=== PATIENT | female | born 1945 | race Caucasian/White ===

== ENCOUNTER 2016-10-31 05:43 | Outpatient (CLI) | payer MEDICARE ==
[~2016-10-31] VITALS: Ht 155.6 cm; Wt 54.9 kg
[2016-11-03] MEDS ORDERED: PANT40TA3 PO ×2 (08:50)
[2016-11-03] MEDS ORDERED: LEVO50TA6 PO ×2 (08:50)
[2016-11-03] MEDS ORDERED: AMLO5TAB2 PO ×2 (08:51)
[2016-11-03] MEDS ORDERED: VALS160T28 PO ×2 (08:51)
[2016-11-03] MEDS ORDERED: LORA-714 PO ×2 (09:02)
[2016-11-03] MEDS ORDERED: CLOR7.5T3 PO ×2 (09:02)
[2016-11-03] MEDS ORDERED: CA C1TAB79 PO ×2 (09:02)
[2016-11-03] MEDS ORDERED: ATEN50TA PO ×2 (09:02)
[2016-11-03] MEDS ORDERED: MULT1CAP27 PO ×2 (09:02)
[2016-11-03] MEDS ORDERED: ATOR20TA66 PO ×2 (09:02)
[2016-11-03] MEDS ORDERED: FISH1CAP15 PO ×2 (09:02)
[2016-11-03] MEDS ORDERED: GLUC-116 PO ×2 (09:02)
[2016-11-03] MEDS ORDERED: ASPI-586 PO ×2 (09:02)
[2016-11-03] MEDS ORDERED: ONDA4TAB11 PO ×2 (09:02)
[2016-11-03] MEDS ORDERED: CHOL10003 PO ×2 (09:02)
[2016-11-03] MEDS ORDERED: CLOP75TA28 PO ×2 (09:02)
== END 2016-11-01 10:32 ==
LOC: PREOP 05:43
PROVIDERS: ATTEND Surgery
DX: R19.5 Other fecal abnormalities; K21.9 Gastro-esophageal reflux disease without esophagitis; Z01.818 Encounter for other preprocedural examination

== ENCOUNTER 2016-11-03 08:08 | Day surgery (SDC) | payer MEDICARE, BC ==
[~2016-11-03] VITALS: Ht 155.6 cm; Wt 54.9 kg
--- OUTSIDE RECORDS SUMMARY | 2016-11-03 08:15 | XMS REPORT ---
Author Author Precious Carmona Organization [facility] Address [address] [place], [place] [id number] Care Team Providers Care Dock Hand Name Role Phone Precious Carmona PCP Allergies and Adverse Reactions Name Reaction Notes NO KNOWN DRUG ALLERGIES Plan of Treatment Planned Activity Comments Planned Date Planned Time Plan/Goal COMPLETE CBC W/AUTO DIFF WBC 10/21/2015 12:00 AM COMPREHEN METABOLIC PANEL 10/21/2015 12:00 AM VITAMIN D 25 HYDROXY 10/21/2015 12:00 AM COMPLETE CBC W/AUTO DIFF WBC 02/04/2016 12:00 AM COMPREHEN METABOLIC PANEL 02/04/2016 12:00 AM ASSAY THYROID STIM HORMONE 02/04/2016 12:00 AM LIPID PANEL 02/04/2016 12:00 AM LIPID PANEL 12/07/2011 12:00 AM COMPREHEN METABOLIC PANEL 10/01/2012 12:00 AM LIPID PANEL 10/01/2012 12:00 AM ASSAY THYROID STIM HORMONE 10/01/2012 12:00 AM COMPLETE CBC W/AUTO DIFF WBC 10/01/2012 12:00 AM COMPREHEN METABOLIC PANEL 04/17/2012 12:00 AM LIPID PANEL 04/17/2012 12:00 AM ASSAY THYROID STIM HORMONE 04/17/2012 12:00 AM COMPLETE CBC W/AUTO DIFF WBC 04/17/2012 12:00 AM MAMMOGRAM SCREENING 10/15/2014 12:00 AM Medications Active Name Start Date Estimated Completion Date SIG Comments aspirin 81 mg oral tablet,delayed release (DR/EC) take 1 tablet (81 mg) by oral route once daily Vitamin D3 1,000 unit oral capsule take 1 capsule by oral route daily famotidine 20 mg oral tablet 12/18/2014 TAKE ONE TABLET BY MOUTH TWICE DAILY valsartan 160 mg oral tablet 06/04/2015 TAKE ONE TABLET BY MOUTH ONCE DAILY amlodipine 5 mg oral tablet 06/04/2015 TAKE ONE TABLET BY MOUTH ONCE DAILY Allergy Relief (loratadine) 10 mg oral tablet 06/18/2015 TAKE ONE TABLET BY MOUTH ONCE DAILY triamcinolone acetonide 0.1 % topical cream 07/06/2015 APPLY A THIN LAYER OF CREAM EXTERNALLY TO AFFECTED AREA TWICE DAILY FOR 14 DAYS amlodipine 5 mg oral tablet 09/04/2015 TAKE ONE TABLET BY MOUTH ONCE DAILY Allergy Relief (loratadine) 10 mg oral tablet 09/04/2015 TAKE ONE TABLET BY MOUTH ONCE DAILY valsartan 160 mg oral tablet 09/04/2015 TAKE ONE TABLET BY MOUTH ONCE DAILY pantoprazole 40 mg oral tablet,delayed release (DR/EC) 02/04/2016 01/29/2017 take 1 tablet (40 mg) by oral route once daily for 90 days amlodipine 5 mg oral tablet 02/04/2016 01/29/2017 TAKE ONE TABLET BY MOUTH ONCE DAILY for 90 days atenolol 50 mg oral tablet 02/04/2016 01/29/2017 take 1 tablet (50 mg) by oral route once daily clorazepate dipotassium 7.5 mg oral tablet 02/04/2016 04/04/2016 take 1/2 to1 tablet PO up to three times per day for situational anxiety levothyroxine 50 mcg oral tablet 02/04/2016 01/29/2017 TAKE ONE TABLET BY MOUTH ONCE DAILY for 90 days Lipitor 20 mg oral tablet 02/04/2016 07/28/2017 take 1 tablet (20 mg) by oral route once daily loratadine 10 mg oral tablet 02/04/2016 01/29/2017 TAKE 1 TABLET BY MOUTH EVERY DAY IN THE EVENING Plavix 75 mg oral tablet 02/04/2016 07/28/2017 take 1 tablet (75 mg) by oral route once daily valsartan 160 mg oral tablet 02/04/2016 01/29/2017 TAKE ONE TABLET BY MOUTH ONCE DAILY for 90 days Zofran (as hydrochloride) 4 mg oral tablet 02/04/2016 02/18/2016 take 1 tablet by oral route daily as needed for 14 days Name Start Date Expiration Date SIG Comments prednisone 20 mg oral tablet 07/29/2010 08/03/2010 take 2 tablets by oral route daily for 5 days calcium carbonate-vitamin D2 600-125 mg-unit oral tablet 12/07/2011 01/06/2012 take 2 tablets by oral route daily Byron 3 Fish Oil 900-1,400 mg oral capsule,delayed release(DR/EC) 12/07/2011 take 1 capsule by oral route daily multivitamin Oral tablet 12/07/2011 01/06/2012 take 1 tablet by oral route daily triamcinolone acetonide 0.1 % topical cream 01/18/2013 01/28/2013 APPLY A THIN LAYER TO THE AFFECTED AREA(S) BY TOPICAL ROUTE TWICE A DAY famotidine 20 mg oral tablet 05/20/2013 11/16/2013 take 1 tablet (20 mg) by oral route 2 times per day amoxicillin 500 mg oral capsule 10/04/2013 10/14/2013 take 1 capsule (500 mg) by oral route 3 times per day for 10 days Zithromax Z-Robert 250 mg oral tablet 01/23/2014 01/28/2014 take 2 tablets (500 mg) by oral route once daily for 1 day then 1 tablet (250 mg) by oral route once daily for 4 days acyclovir 800 mg oral tablet 01/26/2014 02/02/2014 take 1 tablet (800 mg) by oral route 5 times per day for 7 days gabapentin 300 mg oral capsule 01/30/2014 02/27/2014 take 1 capsule (300 mg) by oral route 3 times per day for 14 days Carafate 100 mg/mL oral suspension 04/12/2014 05/10/2014 take 10 milliliters (1 gram) by oral route 4 times per day on an empty stomach 1 hour before meals and at bedtime for 4 weeks amlodipine 5 mg oral tablet 04/30/2014 04/25/2015 TAKE ONE TABLET BY MOUTH EVERY DAY levothyroxine 50 mcg oral tablet 04/30/2014 04/25/2015 TAKE ONE TABLET BY MOUTH EVERY DAY Diovan 160 mg oral tablet 06/13/2014 06/08/2015 TAKE ONE TABLET BY MOUTH EVERY DAY for 90 days triamcinolone acetonide 0.1 % topical cream 10/15/2014 10/29/2014 apply a thin layer to the affected area(s) by topical route 2 times per day for 14 days fluconazole 150 mg oral tablet 10/15/2014 10/16/2014 take 1 tablet (150 mg) by oral route once for 1 day Discontinued Name Start Date Discontinued Date SIG Comments Lipitor 40 mg oral tablet 04/06/2009 1/2 TAB DAILY ramipril 5 mg oral capsule 04/06/2009 take 1 capsule (5 mg) by oral route once daily lovastatin 20 mg oral tablet 04/06/2009 04/05/2011 take 1 tablet (20 mg) by oral route once daily with evening meal propranolol 20 mg oral tablet 08/26/2009 08/17/2010 take 1 tablet by oral route 2 times a day Fosamax 70 mg oral tablet 09/17/2009 09/06/2010 take 1 tablet (70 mg) by oral route once weekly in the morning, at least 30 minutes before the first food, beverage, or medication of the day lisinopril 40 mg oral tablet 03/15/2010 08/01/2010 take 2 tablets by oral route daily Zoloft 50 mg oral tablet 08/09/2010 09/06/2010 take 1 tablet (50 mg) by oral route once daily promethazine 25 mg oral tablet 08/17/2010 09/06/2010 take 1 tablet by oral route every 6 hours as needed Diovan HCT 160-12.5 mg oral tablet 09/06/2010 09/29/2010 take 1 tablet by oral route once daily for 30 days Diflucan 150 mg oral tablet 10/03/2011 take 1 tablet (150 mg) by oral route once for 1 day Diflucan 150 mg oral tablet 11/18/2011 12/07/2011 take 1 tablet (150 mg) by oral route once Vitamin B-12 1,000 mcg oral tablet 12/07/2011 04/12/2014 take 1 tablet by oral route daily Premarin 0.625 mg/gram vaginal cream 02/20/2012 10/01/2012 use 1 gram daily for a week then 1 gram twice a week Medrol (Robert) 4 mg oral tablets,dose pack 06/12/2012 10/01/2012 take as directed aspirin 325 mg oral tablet 05/20/2013 04/12/2014 take 1 tablet (325 mg) by oral route once daily Medrol (Robert) 4 mg oral tablets,dose pack 10/04/2013 01/23/2014 take as directed Tetracaine Lollipops Lollipop 04/27/2014 10/15/2014 Use as directed Zoloft 50 mg oral tablet 10/28/2015 10/30/2015 take 1 tablet (50 mg) by oral route once daily for 90 days Zoloft 50 mg oral tablet 10/28/2015 10/30/2015 take 1 tablet (50 mg) by oral route once daily for 90 days Pt refuses to take... Problem List Description Status Onset Hyperlipidemia Active acid reflux Active Hypertension Active hypothyroid Active Vital Signs Date Time BP-Sys(mm[Hg] BP-Rhianna(mm[Hg]) HR(bpm) RR(rpm) Temp WT HT HC BMI BSA BMI Percentile O2 Sat(%) 02/04/2016 2:26:00 PM 128 mmHg 78 mmHg 77 bpm 16 rpm 98.4 F 139.25 lbs 61 in 26.31 kg/m2 1.65 m2 100 % 10/21/2015 8:29:00 AM 122 mmHg 70 mmHg 72 bpm 16 rpm 97.8 F 137.125 lbs 61 in 25.9093 kg/m 1.6361 m 100 % 10/15/2014 9:33:00 AM 120 mmHg 68 mmHg 73 bpm 98.7 F 144.375 lbs 61 in 27.28 kg/m2 1.68 m2 99 % 04/30/2014 9:05:00 AM 110 mmHg 75 mmHg 85 bpm 16 rpm 96.7 F 144.375 lbs 61 in 27.2791 kg/m 1.6788 m 99 % 04/27/2014 1:05:00 PM 108 mmHg 62 mmHg 78 bpm 18 rpm 96.9 F 142.375 lbs 61 in 26.90 kg/m2 1.67 m2 100 % 04/12/2014 9:31:00 AM 126 mmHg 66 mmHg 79 bpm 18 rpm 98.7 F 149 lbs 61 in 28.153 kg/m 1.7055 m 98 % 01/27/2014 9:02:00 AM 110 mmHg 74 mmHg 94 bpm 18 rpm 98.1 F 145.4 lbs 61 in 27.47 kg/m2 1.68 m2 97 % 01/23/2014 9:14:00 AM 124 mmHg 74 mmHg 79 bpm 18 rpm 98 F 147.25 lbs 61 in 27.8224 kg/m 1.6955 m 98 % 10/04/2013 9:22:00 AM 124 mmHg 76 mmHg 89 bpm 18 rpm 98.1 F 148 lbs 61 in 27.96 kg/m2 1.70 m2 100 % 09/30/2013 8:27:00 AM 118 mmHg 65 mmHg 74 bpm 16 rpm 97.7 F 148 lbs 61 in 27.9641 kg/m 1.6998 m 99 % 05/20/2013 9:48:00 AM 125 mmHg 70 mmHg 93 bpm 18 rpm 96.7 F 156 lbs 61 in 29.48 kg/m2 1.75 m2 100 % 04/01/2013 8:35:00 AM 122 mmHg 74 mmHg 84 bpm 16 rpm 97.9 F 155.375 lbs 99 % 10/01/2012 8:30:00 AM 130 mmHg 82 mmHg 79 bpm 16 rpm 97.9 F 161 lbs 98 % 06/12/2012 8:50:00 AM 124 mmHg 68 mmHg 66 bpm 18 rpm 97.6 F 157.5 lbs 61 in 29.7591 kg/m 1.7535 m 04/12/2012 1:46:00 PM 120 mmHg 72 mmHg 75 bpm 16 rpm 97.6 F 156.125 lbs 98 % 04/02/2012 8:32:00 AM 122 mmHg 82 mmHg 70 bpm 16 rpm 97.3 F 157 lbs 99 % 12/07/2011 9:00:00 AM 130 mmHg 76 mmHg 86 bpm 16 rpm 97.4 F 159 lbs 100 % 11/18/2011 11:02:00 AM 128 mmHg 64 mmHg 66 bpm 18 rpm 97.4 F 162.125 lbs 61 in 30.6329 kg/m 1.7791 m 10/03/2011 8:45:00 AM 130 mmHg 70 mmHg 82 bpm 16 rpm 98.2 F 160.125 lbs 100 % 06/08/2011 9:29:00 AM 122 mmHg 80 mmHg 86 bpm 16 rpm 97.4 F 159.375 lbs 61 in 30.1133 kg/m 1.7639 m 99 % 05/16/2011 9:41:00 AM 132 mmHg 74 mmHg 66 bpm 18 rpm 98.4 F 160.375 lbs 61 in 30.30 kg/m2 1.77 m2 04/05/2011 10:08:00 AM 134 mmHg 82 mmHg 80 bpm 16 rpm 98 F 160 lbs 61 in 30.2314 kg/m 1.7674 m 99 % 01/20/2011 3:56:00 PM 130 mmHg 80 mmHg 01/03/2011 8:55:00 AM 130 mmHg 74 mmHg 88 bpm 16 rpm 98.2 F 158.25 lbs 98 % 09/27/2010 8:54:00 AM 136 mmHg 82 mmHg 102 bpm 16 rpm 98.1 F 153.5 lbs 99 % 09/06/2010 8:49:00 AM 122 mmHg 88 mmHg 88 bpm 16 rpm 98.6 F 152.25 lbs 99 % 08/17/2010 10:02:00 AM 140 mmHg 82 mmHg 96 bpm 20 rpm 98.8 F 100 % 08/12/2010 9:14:00 AM 156 mmHg 98 mmHg 110 bpm 24 rpm 98.5 F 153 lbs 100 % 08/09/2010 8:50:00 AM 160 mmHg 84 mmHg 100 bpm 16 rpm 98.7 F 155 lbs 100 % 07/29/2010 1:25:00 PM 152 mmHg 100 mmHg 82 bpm 16 rpm 97.2 F 156.375 lbs 100 % 07/29/2010 9:55:00 AM 144 mmHg 90 mmHg 03/17/2010 9:24:00 AM 138 mmHg 84 mmHg 03/15/2010 8:58:00 AM 160 mmHg 94 mmHg 03/15/2010 8:33:00 AM 142 mmHg 90 mmHg 100 bpm 16 rpm 98.1 F 158.375 lbs 08/26/2009 9:24:00 AM 160 mmHg 102 mmHg 88 bpm 18 rpm 99 F 157.125 lbs 62 in 28.74 kg/m2 1.7657 m 07/10/2009 11:01:00 AM 140 mmHg 90 mmHg 04/06/2009 10:08:00 AM 142 mmHg 86 mmHg 72 bpm 16 rpm 98.1 F 154.125 lbs 61 in 29.12 kg/m2 1.73 m2 Social History Name Description Comments Children lives alone [employer] Tobacco Never smoker History of Procedures Date Ordered Description Order Status 12/20/2010 12:00 AM COMPREHEN METABOLIC PANEL Reviewed 12/20/2010 12:00 AM ASSAY THYROID STIM HORMONE Reviewed 01/03/2011 12:00 AM COMPREHEN METABOLIC PANEL Reviewed 01/03/2011 12:00 AM LIPID PANEL Reviewed 01/03/2011 12:00 AM ASSAY THYROID STIM HORMONE Reviewed 01/03/2011 12:00 AM COMPLETE CBC W/AUTO DIFF WBC Reviewed 03/05/2015 12:00 AM COMPLETE CBC W/AUTO DIFF WBC Returned 03/05/2015 12:00 AM COMPREHEN METABOLIC PANEL Returned 03/05/2015 12:00 AM LIPID PANEL Returned 03/05/2015 12:00 AM ASSAY THYROID STIM HORMONE Returned 01/20/2011 12:00 AM COMPREHEN METABOLIC PANEL Reviewed 03/31/2011 12:00 AM COMPREHEN METABOLIC PANEL Reviewed 03/31/2011 12:00 AM LIPID PANEL Reviewed 03/31/2011 12:00 AM ASSAY THYROID STIM HORMONE Reviewed 02/18/2011 12:00 AM Immunization administration, Medicare flu Reviewed 02/18/2011 12:00 AM Fluzone MEDICARE Only Reviewed 06/11/2009 11:24 AM NO CHARGE OV Reviewed 06/11/2009 11:26 AM NO CHARGE OV Reviewed 04/05/2011 12:00 AM COMPREHEN METABOLIC PANEL Reviewed 04/05/2011 12:00 AM LIPID PANEL Reviewed 04/05/2011 12:00 AM ASSAY THYROID STIM HORMONE Reviewed 04/05/2011 12:00 AM COMPLETE CBC W/AUTO DIFF WBC Reviewed 04/05/2011 12:00 AM Wrist Support Reviewed 10/21/2015 12:00 AM Screening mammography, bilateral Returned 10/21/2015 12:00 AM DXA BONE DENSITY AXIAL Returned 10/21/2015 12:00 AM TETANUS VACCINE IM Reviewed 10/21/2015 12:00 AM HEP B VACC ADULT 3 DOSE IM Reviewed 05/16/2011 12:00 AM TISSUE EXAM FOR FUNGI Returned 05/16/2011 12:00 AM SMEAR WET [place]OUNT SALINE/INK Returned 11/20/2015 12:00 AM TETANUS VACCINE IM Reviewed 11/20/2015 12:00 AM HEP B VACC ADULT 3 DOSE IM Reviewed 06/08/2011 12:00 AM THER/PROPH/DIAG INJ SC/IM Reviewed 06/08/2011 12:00 AM Bicillin CR [facility]#[id number][facility] [facility] Reviewed 06/08/2011 12:00 AM Depo-Medrol 40 mg [facility]#[id number] Reviewed 12/07/2011 12:00 AM COMPREHEN METABOLIC PANEL Reviewed 12/07/2011 12:00 AM ASSAY THYROID STIM HORMONE Reviewed 12/07/2011 12:00 AM COMPLETE CBC W/AUTO DIFF WBC Returned 12/07/2011 12:00 AM Wrist Support Reviewed 02/20/2012 12:00 AM Flu Injection 3 Years And Above [facility]# [address]-86 [facility] Reviewed 04/02/2012 12:00 AM IMMUNIZATION ADMIN Reviewed 04/02/2012 12:00 AM Pneumovax Injection - [facility] Reviewed 04/12/2012 12:00 AM TRICHOMONAS ASSAY W/OPTIC Returned 06/12/2012 12:00 AM THER/PROPH/DIAG INJ SC/IM Reviewed 06/12/2012 12:00 AM Bicillin CR, 1.2 million units [facility]# 09684-239-53 Reviewed 09/27/2012 12:00 AM COMPREHEN METABOLIC PANEL Returned 09/27/2012 12:00 AM LIPID PANEL Returned 09/27/2012 12:00 AM COMPLETE CBC W/AUTO DIFF WBC Returned 09/27/2012 12:00 AM ASSAY THYROID STIM HORMONE Returned 10/01/2012 12:00 AM MAMMOGRAM SCREENING Returned 10/01/2012 12:00 AM CYTOPATH C/V MANUAL Returned 04/02/2013 12:00 AM LIPID PANEL Returned 04/02/2013 12:00 AM ASSAY THYROID STIM HORMONE Returned 04/02/2013 12:00 AM COMPLETE CBC W/AUTO DIFF WBC Returned 04/02/2013 12:00 AM COMPREHEN METABOLIC PANEL Returned 08/26/2009 12:00 AM CYTOPATH C/V MANUAL Reviewed 08/26/2009 12:00 AM SMEAR WET MOUNT SALINE/INK Reviewed 08/26/2009 12:00 AM LIPID PANEL Reviewed 08/26/2009 12:00 AM ASSAY THYROID STIM HORMONE Reviewed 08/26/2009 12:00 AM COMPLETE CBC W/AUTO DIFF WBC Reviewed 08/26/2009 12:00 AM COMPREHEN METABOLIC PANEL Reviewed 02/18/2013 12:00 AM Flu Injection 3 Years And Above [facility]# [address]-47 [facility] Reviewed 09/09/2009 8:48 AM Blood Pressure Check-no charge Reviewed 09/15/2009 12:00 AM Blood Pressure Check-no charge Reviewed 05/20/2013 12:00 AM METABOLIC PANEL TOTAL CA Reviewed 05/20/2013 12:00 AM ASSAY THYROID STIM HORMONE Reviewed 05/20/2013 12:00 AM ASSAY OF FREE THYROXINE Reviewed 09/30/2013 12:00 AM MAMMOGRAM SCREENING Returned 09/30/2013 12:[address] BONE DENSITY AXIAL Returned 09/30/2013 12:00 AM COMPLETE CBC W/AUTO DIFF WBC Returned 09/30/2013 12:00 AM COMPREHEN METABOLIC PANEL Returned 09/30/2013 12:00 AM LIPID PANEL Returned 09/30/2013 12:00 AM ASSAY THYROID STIM HORMONE Returned 02/10/2010 12:00 AM IMMUNIZATION ADMIN Reviewed 02/10/2010 12:00 AM FLU VACCINE 3 YRS & > IM Reviewed 03/15/2010 12:00 AM COMPREHEN METABOLIC PANEL Reviewed 03/15/2010 12:00 AM LIPID PANEL Reviewed 03/15/2010 12:00 AM ASSAY THYROID STIM HORMONE Reviewed 03/15/2010 12:00 AM COMPLETE CBC W/AUTO DIFF WBC Reviewed 03/17/2010 12:00 AM Blood Pressure Check-no charge Reviewed 01/23/2014 12:00 AM THER/PROPH/DIAG INJ SC/IM Reviewed 01/23/2014 12:00 AM Kenalog, Per 10 Mg [facility]#[id number] Reviewed 03/19/2014 12:00 AM COMPLETE CBC W/AUTO DIFF WBC Returned 03/19/2014 12:00 AM COMPREHEN METABOLIC PANEL Returned 03/19/2014 12:00 AM LIPID PANEL Returned 03/19/2014 12:00 AM ASSAY THYROID STIM HORMONE Returned 04/27/2014 12:00 AM Rocephin 1 gram [facility]#[id number] Reviewed 04/27/2014 12:00 AM THER/PROPH/DIAG INJ SC/IM Reviewed 07/29/2010 12:00 AM COMPREHEN METABOLIC PANEL Reviewed 07/29/2010 12:00 AM LIPID PANEL Reviewed 07/29/2010 12:00 AM ASSAY THYROID STIM HORMONE Reviewed 07/29/2010 12:00 AM COMPLETE CBC W/AUTO DIFF WBC Reviewed 08/09/2010 12:00 AM METABOLIC PANEL TOTAL CA Reviewed 08/12/2010 12:00 AM COMPREHEN METABOLIC PANEL Reviewed 08/12/2010 12:00 AM ASSAY THYROID STIM HORMONE Reviewed 08/12/2010 12:00 AM COMPLETE CBC W/AUTO DIFF WBC Reviewed 08/12/2010 12:00 AM ASSAY OF LIPASE Reviewed 08/12/2010 12:00 AM THER/PROPH/DIAG INJ SC/IM Reviewed 08/12/2010 12:00 AM Phenergan 50 Mg Im [place] Reviewed 08/13/2010 12:00 AM METABOLIC PANEL TOTAL CA Reviewed 08/12/2010 12:00 AM THER/PROPH/DIAG INJ SC/IM Reviewed 08/12/2010 12:00 AM Phenergan 25 Mg Im [place] Reviewed 08/13/2010 12:00 AM METABOLIC PANEL TOTAL CA Reviewed 08/13/2010 12:00 AM ASSAY THYROID STIM HORMONE Reviewed 08/17/2010 12:00 AM THER/PROPH/DIAG INJ SC/IM Reviewed 08/17/2010 12:00 AM Phenergan 50 Mg Im [place] Reviewed 08/27/2010 12:00 AM ASSAY OF SERUM SODIUM Reviewed 09/06/2010 12:00 AM ASSAY OF SERUM SODIUM Reviewed 09/27/2010 12:00 AM CYTOPATH C/V MANUAL Reviewed 09/27/2010 12:00 AM ASSAY THYROID STIM HORMONE Reviewed 09/25/2014 12:00 AM COMPLETE CBC W/AUTO DIFF WBC Returned 09/25/2014 12:00 AM COMPREHEN METABOLIC PANEL Returned 09/25/2014 12:00 AM LIPID PANEL Returned 09/25/2014 12:00 AM ASSAY THYROID STIM HORMONE Returned 10/17/2014 12:00 AM MAMMOGRAM SCREENING Returned 10/15/2014 12:00 AM CYTOPATH TBS C/V MANUAL Returned Results Summary Data and Description Results 08/26/2009 9:25 AM Colonoscopy-Women and Men over 50 Abnormal Mammogram -Women over 40 Declined Pap Smear Declined 08/26/2009 10:41 AM WET PREP NO TRICHOMONADS SEEN 08/27/2009 8:15 AM TRIGLYCERIDES 174.0 mg/dLCHOLESTEROL 175.0 mg/dLHDL 58.0 mg/ dLLDL (CALC) 82.0 mg/dLTSH 0.790 uIU/mLGLUCOSE 95.0 mg/dLSODIUM 136.0 mmol/ LPOTASSIUM 4.50 mmol/LCHLORIDE 99.0 mmol/LCO2 26.0 mmol/LBUN 12.0 mg/ dLCREATININE 0.80 mg/dLSGOT/AST 32.0 IU/LSGPT/ALT 33.0 IU/LALK PHOS 103.0 IU/ LTOTAL PROTEIN 7.60 g/dLALBUMIN 4.60 g/dLTOTAL BILI 0.60 mg/dLCALCIUM 9.80 mg/ dLeGFR >60 mL/min/1.73 m2WBC 5.3 RBC 4.13 HGB 13.10 g/dLHCT 39.20 %MCV 95.0 fLMCH 31.70 pgMCHC 33.40 g/dLRDW CV 12.70 %MPV 9.80 fLPLT 257 %NEUT 57.90 %% LYMP 26.50 %%MONO 11.60 %%EOS 3.20 %%BASO 0.80 %#NEUT 3.04 #LYMP 1.39 #MONO 0.61 #EOS 0.17 #BASO 0.04 04/07/2010 8:30 AM TRIGLYCERIDES 157.0 mg/dLCHOLESTEROL 163.0 mg/dLHDL 56.0 mg /dLLDL (CALC) 76.0 mg/dLTSH 0.650 uIU/mLWBC 6.5 RBC 4.25 HGB 13.60 g/dLHCT 40.70 %MCV 96.0 fLMCH 32.0 pgMCHC 33.40 g/dLRDW CV 12.60 %MPV 9.90 fLPLT 313 % NEUT 61.80 %%LYMP 26.20 %%MONO 8.30 %%EOS 3.10 %%BASO 0.60 %#NEUT 4.00 #LYMP 1.70 #MONO 0.54 #EOS 0.20 #BASO 0.04 GLUCOSE 97.0 mg/dLSODIUM 136.0 mmol/ LPOTASSIUM 4.40 mmol/LCHLORIDE 101.0 mmol/LCO2 26.0 mmol/LBUN 10.0 mg/ dLCREATININE 0.80 mg/dLSGOT/AST 31.0 IU/LSGPT/ALT 34.0 IU/LALK PHOS 92.0 IU/ LTOTAL PROTEIN 8.10 g/dLALBUMIN 4.60 g/dLTOTAL BILI 0.40 mg/dLCALCIUM 10.0 mg/ dLeGFR >60 mL/min/1.73 m2 08/09/2010 9:45 AM GLUCOSE 91.0 mg/dLSODIUM 133.0 mmol/LPOTASSIUM 4.40 mmol/ LCHLORIDE 97.0 mmol/LCO2 24.0 mmol/LBUN 9.0 mg/dLCREATININE 0.70 mg/dLCALCIUM 10.0 mg/dLeGFR >60 mL/min/1.73 m2 08/12/2010 10:25 AM LIPASE 29.0 U/LTSH 0.10 uIU/mLGLUCOSE 115.0 mg/dLSODIUM 127.0 mmol/LPOTASSIUM 5.30 mmol/LCHLORIDE 93.0 mmol/LCO2 18.0 mmol/LBUN 9.0 mg/ dLCREATININE 0.70 mg/dLSGOT/AST 62.0 IU/LSGPT/ALT 46.0 IU/LALK PHOS 100.0 IU/ LTOTAL PROTEIN 8.60 g/dLALBUMIN 4.90 g/dLTOTAL BILI 0.60 mg/dLCALCIUM 9.90 mg/ dLeGFR >60 mL/min/1.73 m2WBC 6.9 RBC 4.48 HGB 14.40 g/dLHCT 40.90 %MCV 91.0 fLMCH 32.10 pgMCHC 35.20 g/dLRDW CV 12.50 %MPV 9.30 fLPLT 260 %NEUT 74.90 %% LYMP 15.10 %%MONO 9.40 %%EOS 0.30 %%BASO 0.30 %#NEUT 5.15 #LYMP 1.04 #MONO 0.65 #EOS 0.02 #BASO 0.02 08/13/2010 9:07 AM GLUCOSE 92.0 mg/dLSODIUM 131.0 mmol/LPOTASSIUM 4.20 mmol/ LCHLORIDE 99.0 mmol/LCO2 22.0 mmol/LBUN 9.0 mg/dLCREATININE 0.70 mg/dLCALCIUM 9.20 mg/dLeGFR >60 mL/min/1.73 m2 08/17/2010 11:06 AM TSH 0.510 uIU/mLGLUCOSE 99.0 mg/dLSODIUM 132.0 mmol/ LPOTASSIUM 3.50 mmol/LCHLORIDE 95.0 mmol/LCO2 23.0 mmol/LBUN 9.0 mg/ dLCREATININE 0.80 mg/dLCALCIUM 10.40 mg/dLeGFR >60 mL/min/1.73 m2 09/02/2010 9:45 AM SODIUM 132.0 mmol/L 09/06/2010 9:27 AM SODIUM 137.0 mmol/L 09/23/2010 8:35 AM TRIGLYCERIDES 114.0 mg/dLCHOLESTEROL 145.0 mg/dLHDL 56.0 mg/ dLLDL (CALC) 66.0 mg/dLGLUCOSE 105.0 mg/dLSODIUM 138.0 mmol/LPOTASSIUM 4.40 mmol /LCHLORIDE 103.0 mmol/LCO2 25.0 mmol/LBUN 8.0 mg/dLCREATININE 0.70 mg/dLSGOT/ AST 36.0 IU/LSGPT/ALT 38.0 IU/LALK PHOS 103.0 IU/LTOTAL PROTEIN 7.40 g/ dLALBUMIN 4.30 g/dLTOTAL BILI 0.30 mg/dLCALCIUM 9.20 mg/dLeGFR >60 mL/min/1.73 m2WBC 5.1 RBC 3.76 HGB 12.0 g/dLHCT 36.10 %MCV 96.0 fLMCH 31.90 pgMCHC 33.20 g/ dLRDW CV 13.10 %MPV 9.40 fLPLT 249 %NEUT 60.40 %%LYMP 25.90 %%MONO 8.90 %%EOS 4.0 %%BASO 0.80 %#NEUT 3.06 #LYMP 1.31 #MONO 0.45 #EOS 0.20 #BASO 0.04 09/27/2010 9:55 AM TSH 1.070 uIU/mL 12/30/2010 8:55 AM GLUCOSE 102.0 mg/dLSODIUM 135.0 mmol/LPOTASSIUM 4.20 mmol/ LCHLORIDE 102.0 mmol/LCO2 24.0 mmol/LBUN 15.0 mg/dLCREATININE 0.80 mg/dLSGOT/ AST 30.0 IU/LSGPT/ALT 35.0 IU/LALK PHOS 119.0 IU/LTOTAL PROTEIN 7.50 g/ dLALBUMIN 4.30 g/dLTOTAL BILI 0.30 mg/dLCALCIUM 9.20 mg/dLeGFR >60 mL/min/1.73 m2TSH 1.130 uIU/mL 01/20/2011 9:50 AM GLUCOSE 85.0 mg/dLSODIUM 133.0 mmol/LPOTASSIUM 4.20 mmol/ LCHLORIDE 101.0 mmol/LCO2 21.0 mmol/LBUN 13.0 mg/dLCREATININE 0.80 mg/dLSGOT/ AST 36.0 IU/LSGPT/ALT 36.0 IU/LALK PHOS 109.0 IU/LTOTAL PROTEIN 7.40 g/ dLALBUMIN 4.20 g/dLTOTAL BILI 0.50 mg/dLCALCIUM 9.40 mg/dLeGFR >60 mL/min/1.73 m2 03/31/2011 8:55 AM GLUCOSE 98.0 mg/dLSODIUM 137.0 mmol/LPOTASSIUM 3.90 mmol/ LCHLORIDE 103.0 mmol/LCO2 25.0 mmol/LBUN 14.0 mg/dLCREATININE 0.70 mg/dLSGOT/ AST 33.0 IU/LSGPT/ALT 36.0 IU/LALK PHOS 111.0 IU/LTOTAL PROTEIN 8.30 g/ dLALBUMIN 4.40 g/dLTOTAL BILI 0.50 mg/dLCALCIUM 9.40 mg/dLeGFR >60 mL/min/1.73 [id number] 109.0 mg/dLCHOLESTEROL 153.0 mg/dLHDL 54.0 mg/dLLDL (CALC) 77.0 mg/dLTSH 1.330 uIU/mL 04/05/2011 10:17 AM Colonoscopy-Women and Men over 50 Declined Mammogram - Women over 40 Normal Pap Smear Negative 05/16/2011 10:33 AM WET PREP NO TRICH SEEN CLUE CELLS NONE SEEN 09/26/2011 8:45 AM WBC 5.2 RBC 3.96 HGB 12.70 g/dLHCT 37.80 %MCV 96.0 fLMCH 32.10 pgMCHC 33.60 g/dLRDW CV 13.30 %MPV 9.70 fLPLT 297 %NEUT 57.70 %%LYMP 28.50 %%MONO 10.30 %%EOS 2.50 %%BASO 1.0 %#NEUT 3.02 #LYMP 1.49 #MONO 0.54 #EOS 0.13 #BASO 0.05 GLUCOSE 97.0 mg/dLSODIUM 137.0 mmol/LPOTASSIUM 4.40 mmol/ LCHLORIDE 101.0 mmol/LCO2 23.0 mmol/LBUN 17.0 mg/dLCREATININE 0.80 mg/dLSGOT/ AST 30.0 IU/LSGPT/ALT 33.0 IU/LALK PHOS 95.0 IU/LTOTAL PROTEIN 7.40 g/dLALBUMIN 4.40 g/dLTOTAL BILI 0.60 mg/dLCALCIUM 9.70 mg/dLeGFR 60 TRIGLYCERIDES 130.0 mg/ dLCHOLESTEROL 157.0 mg/dLHDL 56.0 mg/dLLDL (CALC) 75.0 mg/dLTSH 0.940 uIU/mL 12/07/2011 4:02 PM WET PREP NO TRICH SEEN CLUE CELLS NONE SEEN 03/29/2012 8:45 AM WBC 5.1 RBC 3.91 HGB 12.50 g/dLHCT 36.30 %MCV 93.0 fLMCH 32.0 pgMCHC 34.40 g/dLRDW CV 12.60 %MPV 9.30 fLPLT 244 %NEUT 57.60 %%LYMP 27.50 %%MONO 9.10 %%EOS 5.0 %%BASO 0.80 %#NEUT 2.91 #LYMP 1.39 #MONO 0.46 #EOS 0.25 # BASO 0.04 TSH 1.390 uIU/mLTRIGLYCERIDES 154.0 mg/dLCHOLESTEROL 147.0 mg/dLHDL 45.0 mg/dLLDL (CALC) 71.0 mg/dLGLUCOSE 101.0 mg/dLSODIUM 134.0 mmol/LPOTASSIUM 4.30 mmol/LCHLORIDE 102.0 mmol/LCO2 23.0 mmol/LBUN 11.0 mg/dLCREATININE 0.80 mg/ dLSGOT/AST 34.0 IU/LSGPT/ALT 38.0 IU/LALK PHOS 104.0 IU/LTOTAL PROTEIN 7.60 g/ dLALBUMIN 4.40 g/dLTOTAL BILI 0.50 mg/dLCALCIUM 9.40 mg/dLeGFR 60 04/02/2012 8:34 AM Colonoscopy-Women and Men over 50 Declined Mammogram - Women over 40 Declined Pap Smear Declined 04/12/2012 5:02 PM WET PREP NO TRICH SEEN CLUE CELLS NONE SEEN 09/27/2012 8:25 AM WBC 4.2 RBC 3.96 HGB 12.90 g/dLHCT 37.0 %MCV 93.0 fLMCH 32.60 pgMCHC 34.90 g/dLRDW CV 12.60 %MPV 9.70 fLPLT 254 %NEUT 54.40 %%LYMP 30.40 %%MONO 10.80 %%EOS 3.40 %%BASO 1.0 %#NEUT 2.26 #LYMP 1.26 #MONO 0.45 #EOS 0.14 #BASO 0.04 TSH 1.230 uIU/mLGLUCOSE 94.0 mg/dLSODIUM 136.0 mmol/LPOTASSIUM 4.30 mmol/LCHLORIDE 99.0 mmol/LCO2 25.0 mmol/LBUN 10.0 mg/dLCREATININE 0.80 mg/ dLSGOT/AST 36.0 IU/LSGPT/ALT 36.0 IU/LALK PHOS 84.0 IU/LTOTAL PROTEIN 7.90 g/ dLALBUMIN 4.40 g/dLTOTAL BILI 0.70 mg/dLCALCIUM 9.80 mg/dLeGFR 60 TRIGLYCERIDES 122.0 mg/dLCHOLESTEROL 141.0 mg/dLHDL 47.0 mg/dLLDL (CALC) 70.0 mg/dL 10/01/2012 3:52 PM WET PREP NO TRICH SEEN CLUE CELLS NONE SEEN 03/28/2013 8:45 AM WBC 5.3 RBC 4.01 HGB 13.0 g/dLHCT 37.60 %MCV 94.0 fLMCH 32.40 pgMCHC 34.60 g/dLRDW CV 12.50 %MPV 9.40 fLPLT 248 %NEUT 58.70 %%LYMP 27.80 %%MONO 9.80 %%EOS 2.80 %%BASO 0.90 %#NEUT 3.12 #LYMP 1.48 #MONO 0.52 #EOS 0.15 #BASO 0.05 TSH 1.570 uIU/mLGLUCOSE 94.0 mg/dLSODIUM 134.0 mmol/LPOTASSIUM 4.10 mmol/LCHLORIDE 101.0 mmol/LCO2 23.0 mmol/LBUN 11.0 mg/dLCREATININE 0.80 mg/ dLSGOT/AST 41.0 IU/LSGPT/ALT 44.0 IU/LALK PHOS 109.0 IU/LTOTAL PROTEIN 7.90 g/ dLALBUMIN 4.70 g/dLTOTAL BILI 0.80 mg/dLCALCIUM 10.40 mg/dLeGFR >60 mL/min/1.73 [id number] 163.0 mg/dLCHOLESTEROL 138.0 mg/dLHDL 49.0 mg/dLLDL (CALC) 56.0 mg/dL 06/21/2013 8:58 AM GLUCOSE 86.0 mg/dLSODIUM 134.0 mmol/LPOTASSIUM 4.20 mmol/ LCHLORIDE 99.0 mmol/LCO2 25.0 mmol/LBUN 14.0 mg/dLCREATININE 0.80 mg/dLCALCIUM 10.10 mg/dLeGFR >60 mL/min/1.73 m2TSH 1.20 uIU/mL 09/30/2013 9:50 AM WBC 5.7 RBC 4.03 HGB 12.90 g/dLHCT 37.90 %MCV 94.0 fLMCH 32.0 pgMCHC 34.0 g/dLRDW CV 12.70 %MPV 9.70 fLPLT 292 %NEUT 62.70 %%LYMP 21.80 % %MONO 11.0 %%EOS 3.40 %%BASO 1.10 %#NEUT 3.55 #LYMP 1.23 #MONO 0.62 #EOS 0.19 # BASO 0.06 GLUCOSE 98.0 mg/dLSODIUM 135.0 mmol/LPOTASSIUM 4.30 mmol/LCHLORIDE 102.0 mmol/LCO2 22.0 mmol/LBUN 10.0 mg/dLCREATININE 0.80 mg/dLSGOT/AST 34.0 IU/ LSGPT/ALT 32.0 IU/LALK PHOS 95.0 IU/LTOTAL PROTEIN 7.70 g/dLALBUMIN 4.30 g/ dLTOTAL BILI 0.80 mg/dLCALCIUM 9.10 mg/dLeGFR 60 TRIGLYCERIDES 108.0 mg/ dLCHOLESTEROL 146.0 mg/dLHDL 56.0 mg/dLLDL (CALC) 68.0 mg/dLTSH 0.90 uIU/mL 03/19/2014 8:40 AM WBC 4.4 RBC 4.13 HGB 13.20 g/dLHCT 38.90 %MCV 94.0 fLMCH 32.0 pgMCHC 33.90 g/dLRDW CV 13.50 %MPV 9.80 fLPLT 279 %NEUT 63.80 %%LYMP 24.60 %%MONO 9.30 %%EOS 1.60 %%BASO 0.70 %#NEUT 2.80 #LYMP 1.08 #MONO 0.41 #EOS 0.07 # BASO 0.03 GLUCOSE 96.0 mg/dLSODIUM 136.0 mmol/LPOTASSIUM 4.10 mmol/LCHLORIDE 99.0 mmol/LCO2 23.0 mmol/LBUN 8.0 mg/dLCREATININE 0.80 mg/dLSGOT/AST 31.0 IU/ LSGPT/ALT 27.0 IU/LALK PHOS 85.0 IU/LTOTAL PROTEIN 7.60 g/dLALBUMIN 4.40 g/ dLTOTAL BILI 0.80 mg/dLCALCIUM 10.20 mg/dLeGFR 60 TRIGLYCERIDES 61.0 mg/ dLCHOLESTEROL 148.0 mg/dLHDL 71.0 mg/dLLDL (CALC) 65.0 mg/dLTSH 0.990 uIU/mL 09/25/2014 8:32 AM WBC 4.8 RBC 3.98 HGB 12.70 g/dLHCT 37.30 %MCV 94.0 fLMCH 31.90 pgMCHC 34.0 g/dLRDW CV 12.70 %MPV 9.50 fLPLT 270 %NEUT 57.30 %%LYMP 25.0 % %MONO 13.0 %%EOS 3.60 %%BASO 1.10 %#NEUT 2.73 #LYMP 1.19 #MONO 0.62 #EOS 0.17 # BASO 0.05 TSH 0.640 uIU/mLGLUCOSE 90.0 mg/dLSODIUM 136.0 mmol/LPOTASSIUM 4.0 mmol/LCHLORIDE 101.0 mmol/LCO2 24.0 mmol/LBUN 10.0 mg/dLCREATININE 0.80 mg/ dLSGOT/AST 34.0 IU/LSGPT/ALT 32.0 IU/LALK PHOS 92.0 IU/LTOTAL PROTEIN 7.50 g/ dLALBUMIN 4.40 g/dLTOTAL BILI 0.70 mg/dLCALCIUM 9.50 mg/dLeGFR >60 mL/min/1.73 [id number] 107.0 mg/dLCHOLESTEROL 138.0 mg/dLHDL 58.0 mg/dLLDL (CALC) 59.0 mg/dL 03/12/2015 8:31 AM WBC 4.6 RBC 3.97 HGB 12.90 g/dLHCT 38.0 %MCV 96.0 fLMCH 32.50 pgMCHC 33.90 g/dLRDW CV 12.60 %MPV 9.0 fLPLT 248 %NEUT 61.0 %%LYMP 24.70 % %MONO 10.20 %%EOS 3.0 %%BASO 1.10 %#NEUT 2.82 #LYMP 1.14 #MONO 0.47 #EOS 0.14 # BASO 0.05 TRIGLYCERIDES 105.0 mg/dLCHOLESTEROL 141.0 mg/dLHDL 58.0 mg/dLLDL ( CALC) 62.0 mg/dLGLUCOSE 93.0 mg/dLSODIUM 136.0 mmol/LPOTASSIUM 4.10 mmol/ LCHLORIDE 101.0 mmol/LCO2 25.0 mmol/LBUN 9.0 mg/dLCREATININE 0.80 mg/dLSGOT/AST 32.0 IU/LSGPT/ALT 28.0 IU/LALK PHOS 95.0 IU/LTOTAL PROTEIN 7.30 g/dLALBUMIN 4.50 g/dLTOTAL BILI 0.80 mg/dLCALCIUM 9.70 mg/dLeGFR >60 mL/min/1.73mTSH 1.10 uIU/mL History Of Immunizations Name Date Admin Mfg Name Mfg Code Trade Name Lot# Route Inj Vis Given Vis Pub CVX Influenza 02/10/2010 sanofi pasteur PMC Fluzone [id number] Intramuscular Left Arm 02/10/2010 11/29/2009 999 Influenza 02/18/2011 sanofi pasteur PMC Fluzone [id number] Intramuscular Left Arm 02/18/2011 11/17/2010 141 Influenza 02/20/2012 sanofi pasteur PMC Fluzone [id number] Intramuscular Left Deltoid 02/20/2012 10/24/2011 141 X 04/02/2012 [employer] MSD Pneumovax 23 [id number] Intramuscular Left Gluteous Medius 04/02/2012 08/07/2009 33 Influenza 02/18/2013 sanofi pasteur PMC Fluzone > 3 Years [id number] Intramuscular Right Deltoid 02/18/2013 11/16/2012 141 X 12/24/2014 Not Entered NE Prevnar 13 Not Entered Not Entered 201404/24/2017 109 Influenza 12/24/2014 Not Entered NE Not Entered Not Entered Not Entered 12/24/2014 04/24/2017 141 HepB Adult 10/21/2015 [employer] MSD Recombivax Adult [id number] Not Entered Left Deltoid 10/21/2015 11/11/2015 43 HepB Adult 11/20/2015 [employer] MSD Recombivax Adult [id number] Intramuscular Right Deltoid 11/20/2015 11/11/2015 43 Zostavax 04/06/2012 Not Entered NE Not Entered Not Entered Not Entered 04/24/2017 04/24/2017 121 Tdap 04/06/2012 Not Entered NE Not Entered Not Entered Not Entered 04/24/201704/24/2017 115 History of Past Illness Name Date of Onset Comments Benign Essential Hypertension Apr 06 2009 10:10AM Hyperlipidemia Apr 06 2009 10:10AM Hypothyroidism, Acquired Apr 06 2009 10:10AM hypothyroid Hypertension Hyperlipidemia acid reflux Hypertension, Benign Essential May 11 2009 9:41AM Hypertension, Benign Essential May 15 2009 12:53PM Routine gynecological examination Aug 26 2009 9:28AM Hypertension Aug 26 2009 9:28AM Hyperlipidemia, unspecified Aug 26 2009 9:28AM Hypothyroidism, Acquired Aug 26 2009 9:28AM Vulvovaginitis Aug 26 2009 9:28AM Rhinitis, Allergic Aug 26 2009 9:28AM Hypertension, Benign Essential Sep 09 2009 8:48AM Hypertension, Benign Essential Sep 15 2009 9:39AM Flu Feb 10 2010 12:01PM Essential Hypertension Mar 15 2010 8:34AM Hyperlipidemia Mar 15 2010 8:34AM Gastroesophageal Reflux Mar 15 2010 8:34AM Hypothyroidism, Acquired Mar 15 2010 8:34AM Hypertension, Benign Essential Mar 17 2010 9:22AM Hypertension, Benign Essential Apr 07 2010 9:07AM Essential Hypertension Jul 29 2010 1:31PM Hyperlipidemia Jul 29 2010 1:31PM Gastroesophageal Reflux Jul 29 2010 1:31PM Hypothyroidism, Acquired Jul 29 2010 1:31PM Essential Hypertension Aug 09 2010 8:51AM Hyperlipidemia Aug 09 2010 8:51AM Gastroesophageal Reflux Aug 09 2010 8:51AM Hypothyroidism, Acquired Aug 09 2010 8:51AM Essential Hypertension Aug 12 2010 9:13AM Hyperlipidemia Aug 12 2010 9:13AM Gastroesophageal Reflux Aug 12 2010 9:13AM Hypothyroidism, Acquired Aug 12 2010 9:13AM Nausea With Vomiting Aug 12 2010 1:18PM Hyponatremia Aug 13 2010 8:46AM Nausea Aug 12 2010 9:13AM Hypothyroidism Aug 13 2010 11:10AM Hyponatremia Aug 13 2010 11:10AM Essential Hypertension Aug 17 2010 10:05AM Hyperlipidemia Aug 17 2010 10:05AM Gastroesophageal Reflux Aug 17 2010 10:05AM Nausea Aug 17 2010 10:05AM Hypothyroidism, Acquired Aug 17 2010 10:05AM Hyponatremia Aug 27 2010 11:34AM Essential Hypertension Sep 06 2010 8:50AM Hyperlipidemia Sep 06 2010 8:50AM Gastroesophageal Reflux Sep 06 2010 8:50AM Nausea Sep 06 2010 8:50AM Hypothyroidism, Acquired Sep 06 2010 8:50AM Hyponatremia Sep 06 2010 8:50AM Routine gynecological examination Sep 27 2010 8:54AM Hypertension Sep 27 2010 8:54AM Hyperlipidemia, unspecified Sep 27 2010 8:54AM Hypothyroidism, Acquired Sep 27 2010 8:54AM Rhinitis, Allergic Sep 27 2010 8:54AM Hypothyroidism Dec 20 2010 12:37PM Hyponatremia Dec 20 2010 12:37PM Essential Hypertension Jan 03 2011 8:53AM Hyperlipidemia Jan 03 2011 8:53AM Gastroesophageal Reflux Jan 03 2011 8:53AM Hypothyroidism, Acquired Jan 03 2011 8:53AM Hyponatremia Jan 03 2011 8:53AM Hypertension Jan 20 2011 9:41AM Hyperlipidemia Mar 31 2011 8:31AM Hypothyroidism Mar 31 2011 8:31AM Hypertension Mar 31 2011 8:31AM Flu Apr 01 2011 10:02AM Essential Hypertension Apr 05 2011 10:13AM Hyperlipidemia Apr 05 2011 10:13AM Gastroesophageal Reflux Apr 05 2011 10:13AM Hypothyroidism, Acquired Apr 05 2011 10:13AM Hyponatremia Apr 05 2011 10:13AM Vaginal Discharge May 16 2011 9:43AM Rhinitis, Allergic Jun 08 2011 9:31AM Eustachian Tube Dysfunction Jun 08 2011 9:31AM Pharyngitis, Acute Jun 08 2011 9:31AM Routine gynecological examination Oct 03 2011 8:48AM Hypertension Oct 03 2011 8:48AM Hyperlipidemia, unspecified Oct 03 2011 8:48AM Hypothyroidism, Acquired Oct 03 2011 8:48AM Rhinitis, Allergic Oct 03 2011 8:48AM Candidiasis, Vulvovaginal Nov 18 2011 11:04AM Essential Hypertension Dec 07 2011 9:02AM Hyperlipidemia Dec 07 2011 9:02AM Gastroesophageal Reflux Dec 07 2011 9:02AM Hypothyroidism, Acquired Dec 07 2011 9:02AM Hyponatremia Dec 07 2011 9:02AM Atrophic Vaginitis, Postmenopausal Dec 07 2011 9:02AM Flu Feb 20 2012 9:24AM Essential Hypertension Apr 02 2012 8:35AM Hyperlipidemia Apr 02 2012 8:35AM Gastroesophageal Reflux Apr 02 2012 8:35AM Hypothyroidism, Acquired Apr 02 2012 8:35AM Hyponatremia Apr 02 2012 8:35AM Atrophic Vaginitis, Postmenopausal Apr 02 2012 8:35AM Pneumococcus Apr 02 2012 2:07PM Vaginal Discharge Apr 12 2012 1:50PM Essential Hypertension Apr 12 2012 1:50PM Hyperlipidemia Apr 12 2012 1:50PM Gastroesophageal Reflux Apr 12 2012 1:50PM Hypothyroidism, Acquired Apr 12 2012 1:50PM Atrophic Vaginitis, Postmenopausal Apr 12 2012 1:50PM Upper Respiratory Infections Jun 12 2012 8:52AM Hyperlipidemia Sep 27 2012 8:21AM Hypertension Sep 27 2012 8:21AM Hypothyroidism Sep 27 2012 8:21AM Screening Mammogram Oct 01 2012 8:45AM Routine gynecological examination Oct 01 2012 8:34AM Hypertension Oct 01 2012 8:34AM Hyperlipidemia, unspecified Oct 01 2012 8:34AM Hypothyroidism, Acquired Oct 01 2012 8:34AM Rhinitis, Allergic Oct 01 2012 8:34AM Flu Feb 18 2013 8:52AM Essential Hypertension Apr 01 2013 8:37AM Hyperlipidemia Apr 01 2013 8:37AM Gastroesophageal Reflux Apr 01 2013 8:37AM Hypothyroidism, Acquired Apr 01 2013 8:37AM Atrophic Vaginitis, Postmenopausal Apr 01 2013 8:37AM Hypertension May 20 2013 9:56AM Hyperlipidemia May 20 2013 9:56AM Hypothyroidism May 20 2013 9:56AM Screening Mammogram Sep 30 2013 8:32AM Osteopenia Sep 30 2013 8:32AM Hypertension Sep 30 2013 8:35AM Hypothyroidism, Acquired Sep 30 2013 8:35AM Hyperlipidemia Sep 30 2013 8:35AM Upper Respiratory Infections Oct 04 2013 9:28AM Sinusitis, Acute Jan 23 2014 9:17AM Herpes Zoster Jan 26 2014 1:44PM Vesicular Eruption Jan 26 2014 1:44PM Hypertension Mar 19 2014 8:18AM Hyperlipidemia Mar 19 2014 8:18AM hypothyroid Mar 19 2014 8:18AM Situational anxiety Apr 12 2014 9:33AM GERD (gastroesophageal reflux disease) Apr 12 2014 9:33AM Nausea Apr 12 2014 9:33AM Abdominal Pain, Epigastric Apr 12 2014 9:33AM Hyperlipidemia Jan 27 2014 9:03AM acid reflux Jan 27 2014 9:03AM hypothyroid Jan 27 2014 9:03AM Shingles Jan 27 2014 9:03AM Pharyngitis Apr 27 2014 1:09PM Bronchitis Apr 30 2014 9:10AM Hyperlipidemia Apr 30 2014 9:10AM acid reflux Apr 30 2014 9:10AM hypothyroid Apr 30 2014 9:10AM Hyperlipidemia Sep 25 2014 8:18AM Hypertension Sep 25 2014 8:18AM hypothyroid Sep 25 2014 8:18AM Screening Mammogram Oct 17 2014 11:43AM Medicare Annual Pap Q 2 years Oct 15 2014 9:36AM Screening Mammogram Oct 15 2014 9:36AM Candidiasis of female genitalia Oct 15 2014 9:36AM Hypertension Mar 05 2015 11:34AM Hyperlipidemia, unspecified Mar 05 2015 11:34AM Hypothyroidism, Acquired Mar 05 2015 11:34AM Osteopenia Oct 21 2015 8:41AM Encounter for screening mammogram for breast cancer Oct 21 2015 8:41AM Hypertension Oct 21 2015 8:34AM Lymphedema Oct 21 2015 8:34AM Hyperlipidemia Oct 21 2015 8:34AM hypothyroid Oct 21 2015 8:34AM HEP B Oct 21 2015 9:13AM HEP B Nov 20 2015 8:52AM Acid Reflux Oct 21 2015 8:34AM History of acute gastritis Feb 04 2016 2:30PM Anxiety as acute reaction to exceptional stress Feb 04 2016 2:30PM Payers Insurance Name Company Name Plan Name Plan Number Policy Number Policy Group Number Start Date Medicare Part A Medicare RHC [id number] N/A BCBS [facility] [id number] Tuesday, 2009 Medicare Part B Medicare Of [place] [id number] N/A Medicare Part A Medicare Part A [id number] N/A Medicare Part A [id number] P A - Preventive [id number] N/A Medicare Part A Medicare - Lab/Xray [id number] N/A History of Encounters Visit Date Visit Type Provider 02/04/2016 Office visit Precious Carmona MD 11/20/2015 Nurse visit Precious Carmona MD 10/21/2015 Office visit Precious Carmona MD 10/15/2014 Office visit Precious Carmona MD 04/30/2014 Office visit Precious Carmona MD 04/27/2014 Office visit Pj Guajardo FINANCIAL REPORTING ANALYST 04/12/2014 Office visit Gaby Randolph FINANCIAL REPORTING ANALYST 02/17/2014 Voided Precious Carmona MD 01/27/2014 Office visit Precious Carmona MD 01/26/2014 Office visit Gaby Randolph FINANCIAL REPORTING ANALYST 01/23/2014 Office visit 01/23/2014 Office visit Abbie Pedraza FINANCIAL REPORTING ANALYST 10/04/2013 Office visit Coco Sofia FINANCIAL REPORTING ANALYST 09/30/2013 Office visit Precious Carmona MD 05/20/2013 Office visit Precious Carmona MD 04/01/2013 Office visit Natty Webber MD 02/18/2013 Nurse visit Natty Webber MD 10/01/2012 Office visit Natty Webber MD 06/12/2012 Office visit Abbie Pedraza FINANCIAL REPORTING ANALYST 04/12/2012 Office visit Natty Webber MD 04/02/2012 Office visit Natty Webber MD 02/20/2012 Nurse visit Natty Webber MD 12/07/2011 Office visit Natty Webber MD 11/18/2011 Office visit Abbie Pedraza FINANCIAL REPORTING ANALYST 10/03/2011 Office visit Natty Webber MD 06/08/2011 Office visit Natty Webber MD 05/16/2011 Office visit Abbie Pedraza FINANCIAL REPORTING ANALYST 04/05/2011 Office visit Ntaty Webber MD 02/18/2011 Nurse visit Tyrell Nettles MD 01/03/2011 Office visit Natty Webber MD 09/27/2010 Office visit Natty Webber MD 09/06/2010 Office visit Natty Webber MD 08/17/2010 Office visit Natty Webber MD 08/12/2010 Office visit Natty Webber MD 08/09/2010 Office visit Natty Webber MD 08/01/2010 [facility] JORGE Zhang MD 08/01/2010 [facility] Christine Inman MD 07/31/2010 Office visit Christine Inman MD 07/31/2010 [facility] Jaye Polanco MD 07/31/2010 Voided Jaye Polanco MD 07/29/2010 Office visit Natty Webber MD 04/07/2010 Nurse visit Natty Webber MD 03/15/2010 Office visit Natty Webber MD 02/10/2010 Nurse visit Clarita STOUT 09/15/2009 Nurse visit Natty Webber MD 09/09/2009 Nurse visit Natty Webber MD 08/26/2009 Office visit Natty Webber MD 07/10/2009 Voided Clarita Cummings PA 06/11/2009 Nurse visit Clarita STOUT 05/15/2009 Nurse visit Clarita STOUT 05/11/2009 Nurse visit Clarita STOUT 04/06/2009 Office visit Clarita STOUT 02/10/2009 Nurse visit Clarita Cummings PA
--- OUTSIDE RECORDS SUMMARY | 2016-11-03 08:17 | XMS REPORT ---
Author Author Precious Carmona Organization [facility] Address [address] [place], [place] [id number] Care Team Providers Care Manager Building Name Role Phone Precious Carmona PCP Precious Carmona PreferredProvider Allergies and Adverse Reactions Name Reaction Notes NO KNOWN DRUG ALLERGIES Plan of Treatment Planned Activity Comments Planned Date Planned Time Plan/Goal Complete blood count (CBC) with differential count 10/21/2015 12:00 AM Comprehensive metabolic panel 10/21/2015 12:00 AM VITAMIN D (25 HYDROXY) 10/21/2015 12:00 AM Lipid panel (total cholesterol, lipoproteins, HDL, triglycerides) 2011 12:00 AM Comprehensive Metabolic Panel 10/01/2012 12:00 AM Lipid panel (total cholesterol, lipoproteins, HDL, triglycerides) 2012 12:00 AM Thyroid stimulating hormone (TSH) 10/01/2012 12:00 AM CBC (automated H&H, platelets, WBC and automated differential) 10/01/2012 12:00 AM Comprehensive Metabolic Panel 04/17/2012 12:00 AM Lipid panel (total cholesterol, lipoproteins, HDL, triglycerides) 2011 12:00 AM Thyroid stimulating hormone (TSH) 04/17/2012 12:00 AM CBC (automated H&H, platelets, WBC and automated differential) 04/17/2012 12:00 AM Screening mammography, bilateral 10/15/2014 12:00 AM Medications Active Name Start [...] ONCE DAILY amlodipine 5 mg oral tablet 09/04/2015 TAKE [...] (50 mg) by oral route once daily levothyroxine 50 mcg oral tablet 02/04/2016 01/29/2017 TAKE ONE TABLET BY MOUTH ONCE DAILY for 90 days Lipitor 20 mg oral tablet 02/04/2016 07/28/2017 take 1 tablet (20 mg) by oral route once daily Plavix 75 mg oral tablet 02/04/2016 07/28/2017 take 1 tablet (75 mg) by oral route once daily valsartan 160 mg oral tablet 02/04/2016 01/29/2017 TAKE ONE TABLET BY MOUTH ONCE DAILY for 90 days Zofran (as hydrochloride) 4 mg oral tablet 03/24/2016 take 1 tablet by oral route daily as needed for 14 days Zofran (as hydrochloride) 4 mg oral tablet 05/02/2016 take 1 tablet by oral route daily as needed for 14 days Zofran (as hydrochloride) 4 mg oral tablet 05/26/2016 take 1 tablet by oral route daily as needed for 14 days Zofran (as hydrochloride) 4 mg oral tablet 06/13/2016 take 1 tablet by oral route daily as needed for 14 days Zofran (as hydrochloride) 4 mg oral tablet 08/10/2016 take 1 tablet by oral route daily as needed for 14 days Lexapro 10 mg oral tablet 09/07/2016 09/02/2017 take 1 tablet (10 mg) by oral route once daily for 90 days triamcinolone acetonide 0.1 % topical cream 09/21/2016 APPLY A THIN LAYER OF CREAM EXTERNALLY TO AFFECTED AREA TWICE DAILY FOR 14 DAYS ondansetron 4 mg oral tablet,disintegrating 09/21/2016 dissolve 1 tablet by oral route every 8 hours as needed loratadine 10 mg oral tablet 09/22/2016 09/17/2017 TAKE 1 TABLET BY MOUTH EVERY DAY IN THE EVENING triamcinolone acetonide 0.1 % topical cream 09/22/2016 APPLY CREAM EXTERNALLY TO AFFECTED AREA TWICE DAILY FOR 14 DAYS EQ LORATADINE 10MG TABS 09/22/2016 TAKE ONE TABLET BY MOUTH ONCE DAILY clorazepate dipotassium 7.5 mg oral tablet 10/06/2016 11/05/2016 take 1/2 to1 tablet PO up to three times per day for situational anxiety Name Start Date Expiration Date SIG Comments prednisone 20 mg oral tablet 07/29/2010 08/03/2010 take 2 tablets by oral route daily for 5 days calcium carbonate-vitamin D2 600-125 mg-unit oral tablet 12/07/2011 01/06/2012 take 2 tablets by oral route daily [place] 3 Fish Oil 900-1,400 mg oral capsule,delayed [...] by oral route once for 1 day Zofran (as hydrochloride) 4 mg oral tablet 02/04/2016 02/18/2016 take 1 tablet by oral route daily as needed for 14 days Zofran (as hydrochloride) 4 mg oral tablet 09/07/2016 take 1 tablet by oral route daily as needed for 14 days Discontinued Name Start Date Discontinued Date SIG Comments Lipitor 40 mg oral tablet 04/06/200904/25 TAB DAILY ramipril 5 mg oral capsule [...] HC BMI BSA BMI Percentile O2 Sat(%) 09/30/2016 11:30:00 AM 128 mmHg 78 mmHg 69 bpm 16 rpm 98.8 F 129.375 lbs 61 in 24.44 kg/m2 1.59 m2 98 % 09/16/2016 8:22:00 AM 118 mmHg 78 mmHg 62 bpm 18 rpm 97.5 F 129.125 lbs 61 in 24.3977 kg/m 1.5877 m 100 % 02/04/2016 2:26:00 PM 128 mmHg 78 mmHg [...] rpm 97.6 F 157.5 lbs 61 in 29.76 kg/m2 1.7535 m 04/12/2012 1:46:00 PM 120 mmHg [...] rpm 97.4 F 162.125 lbs 61 in 30.63 kg/m2 1.7791 m 10/03/2011 8:45:00 AM 130 mmHg 70 mmHg 82 bpm 16 rpm 98.2 F 160.125 lbs 100 % 06/08/2011 9:29:00 AM 122 mmHg 80 mmHg 86 bpm 16 rpm 97.4 F 159.375 lbs 61 in 30.11 kg/m2 1.7639 m 99 % 05/16/2011 9:41:00 AM 132 mmHg 74 mmHg 66 bpm 18 rpm 98.4 F 160.375 lbs 61 in 30.3023 kg/m 1.77 m2 04/05/2011 10:08:00 AM 134 mmHg 82 mmHg 80 bpm 16 rpm 98 F 160 lbs 61 in 30.23 kg/m2 1.7674 m 99 % 01/20/2011 3:56:00 PM [...] rpm 99 F 157.125 lbs 62 in 28.7382 kg/m 1.7657 m 07/10/2009 11:01:00 AM 140 mmHg 90 mmHg 04/06/2009 10:08:00 AM 142 mmHg 86 mmHg 72 bpm 16 rpm 98.1 F 154.125 lbs 61 in 29.1214 kg/m 1.73 m2 Social History Name Description Comments Children 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 Tobacco Never smoker History of Procedures Date [...] W/AUTO DIFF WBC Reviewed 03/05/2015 12:00 AM COMPREHEN METABOLIC PANEL Reviewed 03/05/2015 12:00 AM LIPID PANEL Reviewed 03/05/2015 12:00 AM ASSAY THYROID STIM HORMONE Reviewed 01/20/2011 12:00 AM COMPREHEN METABOLIC PANEL Reviewed [...] Reviewed 10/21/2015 12:00 AM Screening mammography, bilateral Reviewed 10/21/2015 12:00 AM DXA BONE DENSITY AXIAL Returned 10/21/2015 12:00 AM TETANUS VACCINE IM Reviewed 10/21/2015 12:00 AM HEP B VACC ADULT 3 DOSE IM Reviewed 05/16/2011 12:00 AM TISSUE EXAM FOR FUNGI Reviewed 05/16/2011 12:00 AM SMEAR WET [place]OUNT SALINE/INK Reviewed 11/20/2015 12:00 AM TETANUS VACCINE IM Reviewed 11/20/2015 12:00 AM HEP B VACC ADULT 3 DOSE IM Reviewed 06/08/2011 12:00 AM THER/PROPH/DIAG INJ SC/IM Reviewed 06/08/2011 12:00 AM Bicillin CR [facility]#[id number] Reviewed 06/08/2011 12:00 AM Depo-Medrol 40 mg [facility]#[id number] Reviewed 02/04/2016 12:00 AM COMPLETE CBC W/AUTO DIFF WBC Returned 02/04/2016 12:00 AM COMPREHEN METABOLIC PANEL Returned 02/04/2016 12:00 AM ASSAY THYROID STIM HORMONE Returned 02/04/2016 12:00 AM LIPID PANEL Returned 04/21/2016 12:00 AM TETANUS VACCINE IM Reviewed 04/21/2016 12:00 AM HEP B VACC ADULT 3 DOSE IM Reviewed 09/26/2016 12:00 AM ASSAY OF IRON Returned 09/26/2016 12:00 AM IRON BINDING TEST Returned 09/26/2016 12:00 AM ASSAY OF TRANSFERRIN Returned 09/26/2016 12:00 AM OCCULT BLD FECES 1-3 TESTS Returned 09/26/2016 12:00 AM COMPLETE CBC AUTOMATED Returned 12/07/2011 12:00 AM COMPREHEN METABOLIC PANEL Reviewed 12/07/2011 12:00 AM ASSAY THYROID STIM HORMONE Reviewed 12/07/2011 12:00 AM COMPLETE CBC W/AUTO DIFF WBC Reviewed 12/07/2011 12:00 AM Wrist Support Reviewed 02/20/2012 12:00 AM Flu Injection 3 Years And Above [facility]# [address]-37 [facility] Reviewed 04/02/2012 12:00 AM IMMUNIZATION ADMIN Reviewed 04/02/2012 12:00 AM Pneumovax Injection - R[facility] Reviewed 04/12/2012 12:00 AM TRICHOMONAS ASSAY W/OPTIC Reviewed 06/12/2012 12:00 AM THER/PROPH/DIAG INJ SC/IM Reviewed 06/12/2012 12:00 AM Bicillin CR, 1.2 million units [facility]# 32599-132-25 Reviewed 09/27/2012 12:00 AM COMPREHEN METABOLIC PANEL Reviewed 09/27/2012 12:00 AM LIPID PANEL Reviewed 09/27/2012 12:00 AM COMPLETE CBC W/AUTO DIFF WBC Reviewed 09/27/2012 12:00 AM ASSAY THYROID STIM HORMONE Reviewed 10/01/2012 12:00 AM MAMMOGRAM SCREENING Reviewed 10/01/2012 12:00 AM CYTOPATH C/V MANUAL Reviewed 04/02/2013 12:00 AM LIPID PANEL Reviewed 04/02/2013 12:00 AM ASSAY THYROID STIM HORMONE Reviewed 04/02/2013 12:00 AM COMPLETE CBC W/AUTO DIFF WBC Reviewed 04/02/2013 12:00 AM COMPREHEN METABOLIC PANEL Reviewed 08/26/2009 12:00 AM CYTOPATH C/V MANUAL Reviewed 08/26/2009 12:00 AM SMEAR WET MOUNT SALINE/INK Reviewed 08/26/2009 12:00 AM LIPID PANEL Reviewed 08/26/2009 12:00 AM ASSAY THYROID STIM HORMONE Reviewed 08/26/2009 12:00 AM COMPLETE CBC W/AUTO DIFF WBC Reviewed 08/26/2009 12:00 AM COMPREHEN METABOLIC PANEL Reviewed 02/18/2013 12:00 AM Flu Injection 3 Years And Above [facility]# [id number] [facility] Reviewed 09/09/2009 8:48 AM Blood Pressure Check-no charge Reviewed 09/15/2009 12:00 AM Blood Pressure Check-no charge Reviewed 05/20/2013 12:00 AM METABOLIC PANEL TOTAL CA Reviewed 05/20/2013 12:00 AM ASSAY THYROID STIM HORMONE Reviewed 05/20/2013 12:00 AM ASSAY OF FREE THYROXINE Reviewed 09/30/2013 12:00 AM MAMMOGRAM SCREENING Reviewed 09/30/2013 12:[address] BONE DENSITY AXIAL Reviewed 09/30/2013 12:00 AM COMPLETE CBC W/AUTO DIFF WBC Reviewed 09/30/2013 12:00 AM COMPREHEN METABOLIC PANEL Reviewed 09/30/2013 12:00 AM LIPID PANEL Reviewed 09/30/2013 12:00 AM ASSAY THYROID STIM HORMONE Reviewed 02/10/2010 12:00 AM IMMUNIZATION ADMIN Reviewed 02/10/2010 [...] 01/23/2014 12:00 AM Kenalog, Per 10 Mg [facility]#1677-3474-82 Reviewed 03/19/2014 12:00 AM COMPLETE CBC W/AUTO DIFF WBC Reviewed 03/19/2014 12:00 AM COMPREHEN METABOLIC PANEL Reviewed 03/19/2014 12:00 AM LIPID PANEL Reviewed 03/19/2014 12:00 AM ASSAY THYROID STIM HORMONE Reviewed 04/27/2014 12:00 AM Rocephin 1 gram [facility]#8981-3882-00 Reviewed 04/27/2014 12:00 AM THER/PROPH/DIAG INJ SC/IM [...] AM COMPLETE CBC W/AUTO DIFF WBC Reviewed 09/25/2014 12:00 AM COMPREHEN METABOLIC PANEL Reviewed 09/25/2014 12:00 AM LIPID PANEL Reviewed 09/25/2014 12:00 AM ASSAY THYROID STIM HORMONE Reviewed 10/17/2014 12:00 AM MAMMOGRAM SCREENING Reviewed 10/15/2014 12:00 AM CYTOPATH TBS C/V MANUAL Reviewed Results Summary Date and Description Results 08/26/2009 9:25 AM Colonoscopy-Women and Men over 50 Abnormal Mammogram -Women over 40 Declined Pap Smear Declined 08/26/2009 10:41 AM WET PREP NO TRICHOMONADS SEEN No Few 08/27/2009 8:15 AM TRIGLYCERIDES 174.0 mg/dLCHOLESTEROL 175.0 mg/dLHDL 58.0 mg/ dLTOT CHOL/HDL 3.0 LDL (CALC) 82.0 mg/dLTSH 0.790 uIU/mLGLUCOSE 95.0 mg/ dLSODIUM 136.0 mmol/LPOTASSIUM 4.50 mmol/LCHLORIDE 99.0 mmol/LCO2 26.0 mmol/ LBUN 12.0 mg/dLCREATININE 0.80 mg/dLSGOT/AST 32.0 IU/LSGPT/ALT 33.0 IU/LALK PHOS 103.0 IU/LTOTAL PROTEIN 7.60 g/dLALBUMIN 4.60 g/dLTOTAL BILI 0.60 mg/ dLCALCIUM 9.80 mg/dLAGE 64 GFR NonAA 72 GFR AA 87 eGFR >60 mL/min/1.73 m2eGFR AA * >60 WBC 5.3 RBC 4.13 HGB 13.10 g/dLHCT 39.20 %MCV 95.0 fLMCH 31.70 pgMCHC 33.40 g/dLRDW SD 44 RDW CV 12.70 %MPV 9.80 fLPLT 257 NRBC# 0.00 NRBC% 0.0 %NEUT 57.90 %%LYMP 26.50 %%MONO 11.60 %%EOS 3.20 %%BASO 0.80 %#NEUT 3.04 #LYMP 1.39 # MONO 0.61 #EOS 0.17 #BASO 0.04 MANUAL DIFF NOT IND 04/07/2010 8:30 AM TRIGLYCERIDES 157.0 mg/dLCHOLESTEROL 163.0 mg/dLHDL 56.0 mg /dLTOT CHOL/HDL 2.9 LDL (CALC) 76.0 mg/dLTSH 0.650 uIU/mLWBC 6.5 RBC 4.25 HGB 13.60 g/dLHCT 40.70 %MCV 96.0 fLMCH 32.0 pgMCHC 33.40 g/dLRDW SD 44 RDW CV 12.60 %MPV 9.90 fLPLT 313 NRBC# 0.00 NRBC% 0.0 %NEUT 61.80 %%LYMP 26.20 %%MONO 8.30 %%EOS 3.10 %%BASO 0.60 %#NEUT 4.00 #LYMP 1.70 #MONO 0.54 #EOS 0.20 #BASO 0.04 MANUAL DIFF NOT IND GLUCOSE 97.0 mg/dLSODIUM 136.0 mmol/LPOTASSIUM 4.40 mmol/LCHLORIDE 101.0 mmol/LCO2 26.0 mmol/LBUN 10.0 mg/dLCREATININE 0.80 mg/ dLSGOT/AST 31.0 IU/LSGPT/ALT 34.0 IU/LALK PHOS 92.0 IU/LTOTAL PROTEIN 8.10 g/ dLALBUMIN 4.60 g/dLTOTAL BILI 0.40 mg/dLCALCIUM 10.0 mg/dLAGE 65 GFR NonAA 72 GFR AA 87 eGFR >60 mL/min/1.73 m2eGFR AA* >60 08/09/2010 9:45 AM GLUCOSE 91.0 mg/dLSODIUM 133.0 mmol/LPOTASSIUM 4.40 mmol/ LCHLORIDE 97.0 mmol/LCO2 24.0 mmol/LBUN 9.0 mg/dLCREATININE 0.70 mg/dLCALCIUM 10.0 mg/dLAGE 65 GFR NonAA 84 GFR AA 102 eGFR >60 mL/min/1.73 m2eGFR AA* >60 08/12/2010 10:25 AM LIPASE 29.0 U/LTSH 0.10 uIU/mLGLUCOSE 115.0 mg/dLSODIUM 127.0 mmol/LPOTASSIUM 5.30 mmol/LCHLORIDE 93.0 mmol/LCO2 18.0 mmol/LBUN 9.0 mg/ dLCREATININE 0.70 mg/dLSGOT/AST 62.0 IU/LSGPT/ALT 46.0 IU/LALK PHOS 100.0 IU/ LTOTAL PROTEIN 8.60 g/dLALBUMIN 4.90 g/dLTOTAL BILI 0.60 mg/dLCALCIUM 9.90 mg/ dLAGE 65 GFR NonAA 84 GFR AA 102 eGFR >60 mL/min/1.73 m2eGFR AA* >60 WBC 6.9 RBC 4.48 HGB 14.40 g/dLHCT 40.90 %MCV 91.0 fLMCH 32.10 pgMCHC 35.20 g/dLRDW SD 41 RDW CV 12.50 %MPV 9.30 fLPLT 260 NRBC# 0.00 NRBC% 0.0 %NEUT 74.90 %%LYMP 15.10 %%MONO 9.40 %%EOS 0.30 %%BASO 0.30 %#NEUT 5.15 #LYMP 1.04 #MONO 0.65 #EOS 0.02 #BASO 0.02 MANUAL DIFF NOT IND 08/13/2010 9:07 AM GLUCOSE 92.0 mg/dLSODIUM 131.0 mmol/LPOTASSIUM 4.20 mmol/ LCHLORIDE 99.0 mmol/LCO2 22.0 mmol/LBUN 9.0 mg/dLCREATININE 0.70 mg/dLCALCIUM 9.20 mg/dLAGE 65 GFR NonAA 84 GFR AA 102 eGFR >60 mL/min/1.73 m2eGFR AA* >60 08/17/2010 11:06 AM TSH 0.510 uIU/mLGLUCOSE 99.0 mg/dLSODIUM 132.0 mmol/ LPOTASSIUM 3.50 mmol/LCHLORIDE 95.0 mmol/LCO2 23.0 mmol/LBUN 9.0 mg/ dLCREATININE 0.80 mg/dLCALCIUM 10.40 mg/dLAGE 65 GFR NonAA 72 GFR AA 87 eGFR > 60 mL/min/1.73 m2eGFR AA* >60 09/02/2010 9:45 AM SODIUM 132.0 mmol/L 09/06/2010 9:27 AM SODIUM 137.0 mmol/L 09/23/2010 8:35 AM TRIGLYCERIDES 114.0 mg/dLCHOLESTEROL 145.0 mg/dLHDL 56.0 mg/ dLTOT CHOL/HDL 2.6 LDL (CALC) 66.0 mg/dLGLUCOSE 105.0 mg/dLSODIUM 138.0 mmol/ LPOTASSIUM 4.40 mmol/LCHLORIDE 103.0 mmol/LCO2 25.0 mmol/LBUN 8.0 mg/ dLCREATININE 0.70 mg/dLSGOT/AST 36.0 IU/LSGPT/ALT 38.0 IU/LALK PHOS 103.0 IU/ LTOTAL PROTEIN 7.40 g/dLALBUMIN 4.30 g/dLTOTAL BILI 0.30 mg/dLCALCIUM 9.20 mg/ dLAGE 65 GFR NonAA 84 GFR AA 102 eGFR >60 mL/min/1.73 m2eGFR AA* >60 WBC 5.1 RBC 3.76 HGB 12.0 g/dLHCT 36.10 %MCV 96.0 fLMCH 31.90 pgMCHC 33.20 g/dLRDW SD 46 RDW CV 13.10 %MPV 9.40 fLPLT 249 NRBC# 0.00 NRBC% 0.0 %NEUT 60.40 %%LYMP 25.90 %%MONO 8.90 %%EOS 4.0 %%BASO 0.80 %#NEUT 3.06 #LYMP 1.31 #MONO 0.45 #EOS 0.20 #BASO 0.04 MANUAL DIFF NOT IND 09/27/2010 9:55 AM TSH 1.070 uIU/mL 12/30/2010 8:55 AM GLUCOSE 102.0 mg/dLSODIUM 135.0 mmol/LPOTASSIUM 4.20 mmol/ LCHLORIDE 102.0 mmol/LCO2 24.0 mmol/LBUN 15.0 mg/dLCREATININE 0.80 mg/dLSGOT/ AST 30.0 IU/LSGPT/ALT 35.0 IU/LALK PHOS 119.0 IU/LTOTAL PROTEIN 7.50 g/ dLALBUMIN 4.30 g/dLTOTAL BILI 0.30 mg/dLCALCIUM 9.20 mg/dLAGE 65 GFR NonAA 72 GFR AA 87 eGFR >60 mL/min/1.73 m2eGFR AA* >60 TSH 1.130 uIU/mL 01/20/2011 9:50 AM GLUCOSE 85.0 mg/dLSODIUM 133.0 mmol/LPOTASSIUM 4.20 mmol/ LCHLORIDE 101.0 mmol/LCO2 21.0 mmol/LBUN 13.0 mg/dLCREATININE 0.80 mg/dLSGOT/ AST 36.0 IU/LSGPT/ALT 36.0 IU/LALK PHOS 109.0 IU/LTOTAL PROTEIN 7.40 g/ dLALBUMIN 4.20 g/dLTOTAL BILI 0.50 mg/dLCALCIUM 9.40 mg/dLAGE 65 GFR NonAA 72 GFR AA 87 eGFR >60 mL/min/1.73 m2eGFR AA* >60 03/31/2011 8:55 AM GLUCOSE 98.0 mg/dLSODIUM 137.0 mmol/LPOTASSIUM 3.90 mmol/ LCHLORIDE 103.0 mmol/LCO2 25.0 mmol/LBUN 14.0 mg/dLCREATININE 0.70 mg/dLSGOT/ AST 33.0 IU/LSGPT/ALT 36.0 IU/LALK PHOS 111.0 IU/LTOTAL PROTEIN 8.30 g/ dLALBUMIN 4.40 g/dLTOTAL BILI 0.50 mg/dLCALCIUM 9.40 mg/dLAGE 66 GFR NonAA 84 GFR AA 102 eGFR >60 mL/min/1.73 m2eGFR AA* >60 TRIGLYCERIDES 109.0 mg/ dLCHOLESTEROL 153.0 mg/dLHDL 54.0 mg/dLTOT CHOL/HDL 2.8 LDL (CALC) 77.0 mg/ dLTSH 1.330 uIU/mL 04/05/2011 10:17 AM Colonoscopy-Women and Men over 50 Declined Mammogram - Women over 40 Normal Pap Smear Negative 05/16/2011 10:33 AM WET PREP NO TRICH SEEN CLUE CELLS NONE SEEN 09/26/2011 8:45 AM WBC 5.2 RBC 3.96 HGB 12.70 g/dLHCT 37.80 %MCV 96.0 fLMCH 32.10 pgMCHC 33.60 g/dLRDW SD 46 RDW CV 13.30 %MPV 9.70 fLPLT 297 NRBC# 0.00 NRBC% 0.0 %NEUT 57.70 %%LYMP 28.50 %%MONO 10.30 %%EOS 2.50 %%BASO 1.0 %#NEUT 3.02 #LYMP 1.49 #MONO 0.54 #EOS 0.13 #BASO 0.05 MANUAL DIFF NOT IND GLUCOSE 97.0 mg/dLSODIUM 137.0 mmol/LPOTASSIUM 4.40 mmol/LCHLORIDE 101.0 mmol/LCO2 23.0 mmol/LBUN 17.0 mg/dLCREATININE 0.80 mg/dLSGOT/AST 30.0 IU/LSGPT/ALT 33.0 IU/ LALK PHOS 95.0 IU/LTOTAL PROTEIN 7.40 g/dLALBUMIN 4.40 g/dLTOTAL BILI 0.60 mg/ dLCALCIUM 9.70 mg/dLAGE 66 GFR NonAA 72 GFR AA 87 eGFR 60 eGFR AA* 60 TRIGLYCERIDES 130.0 mg/dLCHOLESTEROL 157.0 mg/dLHDL 56.0 mg/dLTOT CHOL/HDL 2.8 LDL (CALC) 75.0 mg/dLTSH 0.940 uIU/mL 12/07/2011 4:02 PM WET PREP NO TRICH SEEN CLUE CELLS NONE SEEN 03/29/2012 8:45 AM WBC 5.1 RBC 3.91 HGB 12.50 g/dLHCT 36.30 %MCV 93.0 fLMCH 32.0 pgMCHC 34.40 g/dLRDW SD 43 RDW CV 12.60 %MPV 9.30 fLPLT 244 NRBC# 0.00 NRBC % 0.0 %NEUT 57.60 %%LYMP 27.50 %%MONO 9.10 %%EOS 5.0 %%BASO 0.80 %#NEUT 2.91 # LYMP 1.39 #MONO 0.46 #EOS 0.25 #BASO 0.04 MANUAL DIFF NOT IND TSH 1.390 uIU/ mLTRIGLYCERIDES 154.0 mg/dLCHOLESTEROL 147.0 mg/dLHDL 45.0 mg/dLTOT CHOL/HDL 3.3 LDL (CALC) 71.0 mg/dLGLUCOSE 101.0 mg/dLSODIUM 134.0 mmol/LPOTASSIUM 4.30 mmol/LCHLORIDE 102.0 mmol/LCO2 23.0 mmol/LBUN 11.0 mg/dLCREATININE 0.80 mg/ dLSGOT/AST 34.0 IU/LSGPT/ALT 38.0 IU/LALK PHOS 104.0 IU/LTOTAL PROTEIN 7.60 g/ dLALBUMIN 4.40 g/dLTOTAL BILI 0.50 mg/dLCALCIUM 9.40 mg/dLAGE 67 GFR NonAA 72 GFR AA 87 eGFR 60 eGFR AA* 60 04/02/2012 8:34 AM Colonoscopy-Women and Men over 50 Declined Mammogram - Women over 40 Declined Pap Smear Declined 04/12/2012 5:02 PM WET PREP NO TRICH SEEN CLUE CELLS NONE SEEN 09/27/2012 8:25 AM WBC 4.2 RBC 3.96 HGB 12.90 g/dLHCT 37.0 %MCV 93.0 fLMCH 32.60 pgMCHC 34.90 g/dLRDW SD 43 RDW CV 12.60 %MPV 9.70 fLPLT 254 NRBC# 0.00 NRBC% 0.0 %NEUT 54.40 %%LYMP 30.40 %%MONO 10.80 %%EOS 3.40 %%BASO 1.0 %#NEUT 2.26 #LYMP 1.26 #MONO 0.45 #EOS 0.14 #BASO 0.04 MANUAL DIFF NOT IND TSH 1.230 uIU/mLGLUCOSE 94.0 mg/dLSODIUM 136.0 mmol/LPOTASSIUM 4.30 mmol/LCHLORIDE 99.0 mmol/LCO2 25.0 mmol/LBUN 10.0 mg/dLCREATININE 0.80 mg/dLSGOT/AST 36.0 IU/LSGPT/ ALT 36.0 IU/LALK PHOS 84.0 IU/LTOTAL PROTEIN 7.90 g/dLALBUMIN 4.40 g/dLTOTAL BILI 0.70 mg/dLCALCIUM 9.80 mg/dLAGE 67 GFR NonAA 72 GFR AA 87 eGFR 60 eGFR AA* 60 TRIGLYCERIDES 122.0 mg/dLCHOLESTEROL 141.0 mg/dLHDL 47.0 mg/dLTOT CHOL/HDL 3.0 LDL (CALC) 70.0 mg/dL 10/01/2012 3:52 PM WET PREP NO TRICH SEEN CLUE CELLS NONE SEEN 03/28/2013 8:45 AM WBC 5.3 RBC 4.01 HGB 13.0 g/dLHCT 37.60 %MCV 94.0 fLMCH 32.40 pgMCHC 34.60 g/dLRDW SD 43 RDW CV 12.50 %MPV 9.40 fLPLT 248 NRBC# 0.00 NRBC% 0.0 %NEUT 58.70 %%LYMP 27.80 %%MONO 9.80 %%EOS 2.80 %%BASO 0.90 %#NEUT 3.12 #LYMP 1.48 #MONO 0.52 #EOS 0.15 #BASO 0.05 MANUAL DIFF NOT IND TSH 1.570 uIU/mLGLUCOSE 94.0 mg/dLSODIUM 134.0 mmol/LPOTASSIUM 4.10 mmol/LCHLORIDE 101.0 mmol/LCO2 23.0 mmol/LBUN 11.0 mg/dLCREATININE 0.80 mg/dLSGOT/AST 41.0 IU/LSGPT/ ALT 44.0 IU/LALK PHOS 109.0 IU/LTOTAL PROTEIN 7.90 g/dLALBUMIN 4.70 g/dLTOTAL BILI 0.80 mg/dLCALCIUM 10.40 mg/dLAGE 68 GFR NonAA 72 GFR AA 87 eGFR >60 mL/min/ 1.73 m2eGFR AA* >60 TRIGLYCERIDES 163.0 mg/dLCHOLESTEROL 138.0 mg/dLHDL 49.0 mg/ dLTOT CHOL/HDL 2.8 LDL (CALC) 56.0 mg/dL 06/21/2013 8:58 AM GLUCOSE 86.0 mg/dLSODIUM 134.0 mmol/LPOTASSIUM 4.20 mmol/ LCHLORIDE 99.0 mmol/LCO2 25.0 mmol/LBUN 14.0 mg/dLCREATININE 0.80 mg/dLCALCIUM 10.10 mg/dLAGE 68 GFR NonAA 72 GFR AA 87 eGFR >60 mL/min/1.73 m2eGFR AA* >60 FREE T4 1.18 TSH 1.20 uIU/mL 09/30/2013 9:50 AM WBC 5.7 RBC 4.03 HGB 12.90 g/dLHCT 37.90 %MCV 94.0 fLMCH 32.0 pgMCHC 34.0 g/dLRDW SD 44 RDW CV 12.70 %MPV 9.70 fLPLT 292 NRBC# 0.00 NRBC % 0.0 %NEUT 62.70 %%LYMP 21.80 %%MONO 11.0 %%EOS 3.40 %%BASO 1.10 %#NEUT 3.55 # LYMP 1.23 #MONO 0.62 #EOS 0.19 #BASO 0.06 MANUAL DIFF NOT IND GLUCOSE 98.0 mg/ dLSODIUM 135.0 mmol/LPOTASSIUM 4.30 mmol/LCHLORIDE 102.0 mmol/LCO2 22.0 mmol/ LBUN 10.0 mg/dLCREATININE 0.80 mg/dLSGOT/AST 34.0 IU/LSGPT/ALT 32.0 IU/LALK PHOS 95.0 IU/LTOTAL PROTEIN 7.70 g/dLALBUMIN 4.30 g/dLTOTAL BILI 0.80 mg/ dLCALCIUM 9.10 mg/dLAGE 68 GFR NonAA 72 GFR AA 87 eGFR 60 eGFR AA* 60 TRIGLYCERIDES 108.0 mg/dLCHOLESTEROL 146.0 mg/dLHDL 56.0 mg/dLTOT CHOL/HDL 2.6 LDL (CALC) 68.0 mg/dLTSH 0.90 uIU/mL 03/19/2014 8:40 AM WBC 4.4 RBC 4.13 HGB 13.20 g/dLHCT 38.90 %MCV 94.0 fLMCH 32.0 pgMCHC 33.90 g/dLRDW SD 47 RDW CV 13.50 %MPV 9.80 fLPLT 279 NRBC# 0.00 NRBC % 0.0 %NEUT 63.80 %%LYMP 24.60 %%MONO 9.30 %%EOS 1.60 %%BASO 0.70 %#NEUT 2.80 # LYMP 1.08 #MONO 0.41 #EOS 0.07 #BASO 0.03 MANUAL DIFF NOT IND GLUCOSE 96.0 mg/ dLSODIUM 136.0 mmol/LPOTASSIUM 4.10 mmol/LCHLORIDE 99.0 mmol/LCO2 23.0 mmol/ LBUN 8.0 mg/dLCREATININE 0.80 mg/dLSGOT/AST 31.0 IU/LSGPT/ALT 27.0 IU/LALK PHOS 85.0 IU/LTOTAL PROTEIN 7.60 g/dLALBUMIN 4.40 g/dLTOTAL BILI 0.80 mg/dLCALCIUM 10.20 mg/dLAGE 69 GFR NonAA 71 GFR AA 86 eGFR 60 eGFR AA* 60 TRIGLYCERIDES 61.0 mg/dLCHOLESTEROL 148.0 mg/dLHDL 71.0 mg/dLTOT CHOL/HDL 2.1 LDL (CALC) 65.0 mg/ dLTSH 0.990 uIU/mL 09/25/2014 8:32 AM WBC 4.8 RBC 3.98 HGB 12.70 g/dLHCT 37.30 %MCV 94.0 fLMCH 31.90 pgMCHC 34.0 g/dLRDW SD 43 RDW CV 12.70 %MPV 9.50 fLPLT 270 NRBC# 0.00 NRBC % 0.0 %NEUT 57.30 %%LYMP 25.0 %%MONO 13.0 %%EOS 3.60 %%BASO 1.10 %#NEUT 2.73 # LYMP 1.19 #MONO 0.62 #EOS 0.17 #BASO 0.05 MANUAL DIFF NOT IND TSH 0.640 uIU/ mLGLUCOSE 90.0 mg/dLSODIUM 136.0 mmol/LPOTASSIUM 4.0 mmol/LCHLORIDE 101.0 mmol/ LCO2 24.0 mmol/LBUN 10.0 mg/dLCREATININE 0.80 mg/dLSGOT/AST 34.0 IU/LSGPT/ALT 32.0 IU/LALK PHOS 92.0 IU/LTOTAL PROTEIN 7.50 g/dLALBUMIN 4.40 g/dLTOTAL BILI 0.70 mg/dLCALCIUM 9.50 mg/dLAGE 69 GFR NonAA 71 GFR AA 86 eGFR >60 mL/min/1.73 m2eGFR AA* >60 TRIGLYCERIDES 107.0 mg/dLCHOLESTEROL 138.0 mg/dLHDL 58.0 mg/ dLTOT CHOL/HDL 2.4 LDL (CALC) 59.0 mg/dL 03/12/2015 8:31 AM WBC 4.6 RBC 3.97 HGB 12.90 g/dLHCT 38.0 %MCV 96.0 fLMCH 32.50 pgMCHC 33.90 g/dLRDW SD 44 RDW CV 12.60 %MPV 9.0 fLPLT 248 NRBC# 0.00 NRBC % 0.0 %NEUT 61.0 %%LYMP 24.70 %%MONO 10.20 %%EOS 3.0 %%BASO 1.10 %#NEUT 2.82 # LYMP 1.14 #MONO 0.47 #EOS 0.14 #BASO 0.05 MANUAL DIFF NOT IND TRIGLYCERIDES 105.0 mg/dLCHOLESTEROL 141.0 mg/dLHDL 58.0 mg/dLTOT CHOL/HDL 2.4 LDL (CALC) 62.0 mg/dLGLUCOSE 93.0 mg/dLSODIUM 136.0 mmol/LPOTASSIUM 4.10 mmol/LCHLORIDE 101.0 mmol/LCO2 25.0 mmol/LBUN 9.0 mg/dLCREATININE 0.80 mg/dLSGOT/AST 32.0 IU/ LSGPT/ALT 28.0 IU/LALK PHOS 95.0 IU/LTOTAL PROTEIN 7.30 g/dLALBUMIN 4.50 g/ dLTOTAL BILI 0.80 mg/dLCALCIUM 9.70 mg/dLAGE 70 GFR NonAA 71 GFR AA 86 eGFR >60 mL/min/1.73meGFR AA* >60 TSH 1.10 uIU/mL 04/11/2016 8:25 AM TSH 0.70 uIU/mLTRIGLYCERIDES 85.0 mg/dLCHOLESTEROL 166.0 mg /dLHDL 74.0 mg/dLTOT CHOL/HDL 2.2 LDL (CALC) 75.0 mg/dLGLUCOSE 96.0 mg/dLSODIUM 136.0 mmol/LPOTASSIUM 4.0 mmol/LCHLORIDE 100.0 mmol/LCO2 24.0 mmol/LBUN 11.0 mg/ dLCREATININE 0.80 mg/dLSGOT/AST 34.0 IU/LSGPT/ALT 24.0 IU/LALK PHOS 98.0 IU/ LTOTAL PROTEIN 7.60 g/dLALBUMIN 4.40 g/dLTOTAL BILI 0.80 mg/dLCALCIUM 9.70 mg/ dLAGE 71 GFR NonAA 71 GFR AA 86 eGFR >60 mL/min/1.73meGFR AA* >60 WBC 5.9 RBC 4.00 HGB 12.80 g/dLHCT 38.0 %MCV 95.0 fLMCH 32.0 pgMCHC 33.70 g/dLRDW SD 43 RDW CV 12.20 %MPV 9.30 fLPLT 272 NRBC# 0.00 NRBC% 0.0 %NEUT 73.90 %%LYMP 15.60 %% MONO 7.80 %%EOS 1.70 %%BASO 0.70 %#NEUT 4.35 #LYMP 0.92 #MONO 0.46 #EOS 0.10 # BASO 0.04 MANUAL DIFF NOT IND 09/26/2016 4:05 PM IRON TOTAL 31.0 ug/dLTransferrin 256.0 mg/dLTIBC Calculation 320 %Saturation Calc 10 WBC 6.2 RBC 3.56 HGB 11.60 g/dLHCT 33.40 %MCV 94.0 fLMCH 32.60 pgMCHC 34.70 g/dLRDW SD 42 RDW CV 12.10 %MPV 9.50 fLPLT 260 NRBC# 0.00 NRBC% 0.0 09/30/2016 8:49 AM OCC BLD STOOL POSITIVE History Of Immunizations Name Date Admin Mfg Name Mf Code Trade Name Lot# Route Inj Vis Given Vis Pub CVX Influenza 02/10/2010 [employer] pasteur PMC Fluzone [id number] Intramuscular Left Arm 02/10/2010 11/29/2009 999 Influenza 02/18/2011 [employer] pasteur PMC Fluzone [id number] Intramuscular Left Arm 02/18/2011 11/17/2010 141 Influenza 02/20/2012 [employer] pasteur PMC Fluzone [id number] Intramuscular Left Deltoid 02/20/2012 10/24/2011 141 X 04/02/2012 [employer] MSD Pneumovax 23 [id number] Intramuscular Left Gluteous Medius 04/02/2012 08/07/2009 33 Influenza 02/18/2013 [employer] pasteur PMC Fluzone > 3 Years [id number] Intramuscular Right Deltoid 02/18/2013 11/16/2012 141 X 12/24/2014 Not Entered NE Prevnar 13 Not Entered Not Entered 201404/24/2017 109 Influenza 12/24/2014 Not Entered NE Not Entered Not Entered Not Entered 12/24/2014 04/24/2017 141 HepB Adult 10/21/2015 [employer] MSD Recombivax Adult [id number] Not Entered Left Deltoid 10/21/2015 11/11/2015 43 HepB Adult 11/20/2015 [employer] MSD Recombivax Adult [id number] Intramuscular Right Deltoid 11/20/2015 11/11/2015 43 Zostavax 04/06/2012 Not Entered NE Not Entered Not Entered Not Entered 04/24/2017 04/24/2017 121 Tdap 04/06/2012 Not Entered NE Not Entered Not Entered Not Entered 04/24/201704/24/2017 115 Influenza 02/04/2016 Not Entered NE Fluzone High-Dose Intramuscular Left Arm 04/24/2017 04/24/2017 141 HepB Adult 04/21/2016 [employer] MSD Recombivax Adult [id number] Intramuscular Right Deltoid 04/21/2016 11/11/2015 43 History of Past Illness Name Date of [...] to exceptional stress Feb 04 2016 2:30PM HEP B Apr 21 2016 8:42AM Caregiver stress syndrome Sep 16 2016 8:28AM Anxiety Sep 16 2016 8:28AM Blood in stool Sep 26 2016 2:54PM Upper GI bleed Sep 30 2016 11:34AM Payers Insurance Name Company Name Plan Name Plan Number Policy Number Policy Group Number Start Date Medicare [facility] Medicare [facility] [id number] N/[id number] Tuesday, 2009 Medicare Part B Medicare Of [place] [id number] N/A Medicare Part A Medicare Part A [id number] N/A Medicare Part A [id number] P A - Preventive [id number] N/A Medicare Part A Medicare - Lab/Xray [id number] N/A History of Encounters Visit Date Visit Type Provider 09/30/2016 Office visit Precoius Carmona MD 09/16/2016 Office visit Pj Guajardo APRN 04/21/2016 Nurse visit Precious Carmona MD 02/04/2016 Office visit Precious Carmona MD 11/20/2015 Nurse visit Precious Carmona MD 10/21/2015 Office visit Precious Carmona MD 10/15/2014 Office visit Precious Carmona MD 04/30/2014 Office visit Precious Carmona MD 04/27/2014 Office visit Pj Guajardo STILL OPERATOR WHISKEY 04/12/2014 Office visit Gaby Randolph STILL OPERATOR WHISKEY 02/17/2014 Voided Precious Carmona MD 01/27/2014 Office visit Precious Carmona MD 01/26/2014 Office visit Gaby Randolph STILL OPERATOR WHISKEY 01/23/2014 Office visit 01/23/2014 Office visit Abbie Pedraza STILL OPERATOR WHISKEY 10/04/2013 Office visit Coco Sofia STILL OPERATOR WHISKEY 09/30/2013 Office visit Precious Carmona MD 05/20/2013 Office visit Precious Carmona MD 04/01/2013 Office visit Natty Webber MD 02/18/2013 Nurse visit Natty Webber MD 10/01/2012 Office visit Natty Webber MD 06/12/2012 Office visit Abbie Pedraza STILL OPERATOR WHISKEY 04/12/2012 Office visit Natty Webber MD 04/02/2012 Office visit Natty Webber MD 02/20/2012 Nurse visit Natty Webber MD 12/07/2011 Office visit Natty Webber MD 11/18/2011 Office visit Abbie Pedraza STILL OPERATOR WHISKEY 10/03/2011 Office visit Natty Webber MD 06/08/2011 Office visit Natty Webber MD 05/16/2011 Office visit Abbie Pedraza STILL OPERATOR WHISKEY 04/05/2011 Office visit Natty Webber MD 02/18/2011 Nurse visit Tyrell Nettles MD 01/03/2011 Office visit Natty Webber MD 09/27/2010 Office visit Natty Webber MD 09/06/2010 Office visit Natty Webber MD 08/17/2010 Office visit Natty Webber MD 08/12/2010 Office visit Natty Webber MD 08/09/2010 Office visit Natty Webber MD 08/01/2010 Hospital JORGE Zhang MD 08/01/2010 Hospital Christine Inman MD 07/31/2010 Office visit Christine Inman MD 07/31/2010 [facility] Jaye Polanco MD 07/31/2010 Voided Jaye [...]
--- OUTSIDE RECORDS SUMMARY | 2016-11-03 08:19 | XMS REPORT ---
Author Author Precious Carmona Organization [facility] Address [address] [place], [place] [id number] Care Team Providers Care Hand Striper Name Role Phone Precious Carmona PCP Allergies and Adverse Reactions Name Reaction Notes NO KNOWN DRUG ALLERGIES Plan of Treatment Planned Activity Comments Planned Date Planned Time Plan/Goal LIPID PANEL 12/07/2011 12:00 AM COMPREHEN METABOLIC [...] Start Date Estimated Completion Date SIG Comments amlodipine oral tablet 5 mg 04/30/2014 04/25/2015 TAKE ONE TABLET BY MOUTH EVERY DAY atenolol oral tablet 50 mg 04/30/2014 04/25/2015 take 1 tablet (50 mg) by oral route once daily levothyroxine oral tablet 50 mcg 04/30/2014 04/25/2015 TAKE ONE TABLET BY MOUTH EVERY DAY Diovan Oral tablet 160 mg 06/13/2014 06/08/2015 TAKE ONE TABLET BY MOUTH EVERY DAY for 90 days loratadine oral tablet 10 mg 10/15/2014 04/07/2016 TAKE 1/2 TABLET BY MOUTH EVERY DAY IN THE EVENING aspirin oral tablet,delayed release (DR/EC) 81 mg take 1 tablet (81 mg) by oral route once daily Vitamin D3 oral capsule 1,000 unit take 1 capsule by oral route daily clorazepate dipotassium oral tablet 7.5 mg 10/15/2014 12/14/2014 take 1/2 to1 tablet PO up to three times per day for situational anxiety Name Start Date Expiration Date SIG Comments Prednisone Oral Tablet 20 mg 07/29/2010 08/03/2010 take 2 tablets by oral route daily for 5 days calcium carbonate-vitamin D2 Oral tablet 600-125 mg-unit 12/07/2011 01/06/2012 take 2 tablets by oral route daily Wickes 3 Fish Oil Oral capsule,delayed release(DR/EC) 900-1,400 mg 12/07/2011 take 1 capsule by oral route daily multivitamin Oral tablet 12/07/2011 01/06/2012 take 1 tablet by oral route daily triamcinolone acetonide topical cream 0.1 % 01/18/2013 01/28/2013 APPLY A THIN LAYER TO THE AFFECTED AREA(S) BY TOPICAL ROUTE TWICE A DAY famotidine Oral tablet 20 mg 05/20/2013 11/16/2013 take 1 tablet (20 mg) by oral route 2 times per day Plavix Oral tablet 75 mg 05/20/2013 11/16/2013 take 1 tablet (75 mg) by oral route once daily amoxicillin oral capsule 500 mg 10/04/2013 10/14/2013 take 1 capsule (500 mg) by oral route 3 times per day for 10 days Lipitor Oral Tablet 20 mg 11/22/2013 05/21/2014 take 1 tablet (20 mg) by oral route once daily Zithromax Z-Robert oral tablet 250 mg 01/23/2014 01/28/2014 take 2 tablets (500 mg) by oral route once daily for 1 day then 1 tablet (250 mg) by oral route once daily for 4 days acyclovir oral tablet 800 mg 01/26/2014 02/02/2014 take 1 tablet (800 mg) by oral route 5 times per day for 7 days gabapentin oral capsule 300 mg 01/30/2014 02/27/2014 take 1 capsule (300 mg) by oral route 3 times per day for 14 days Carafate oral suspension 100 mg/mL 04/12/2014 05/10/2014 take 10 milliliters (1 gram) by oral route 4 times per day on an empty stomach 1 hour before meals and at bedtime for 4 weeks triamcinolone acetonide topical cream 0.1 % 10/15/2014 10/29/2014 apply a thin layer to the affected area(s) by topical route 2 times per day for 14 days fluconazole oral tablet 150 mg 10/15/2014 10/16/2014 take 1 tablet (150 mg) by oral route once for 1 day Discontinued Name Start Date Discontinued Date SIG Comments Lipitor Oral Tablet 40 mg 04/06/2009 12 TAB DAILY Ramipril Oral Capsule 5 mg 04/06/2009 take 1 capsule (5 mg) by oral route once daily Lovastatin Oral Tablet 20 mg 04/06/2009 04/05/2011 take 1 tablet (20 mg) by oral route once daily with evening meal Propranolol Oral Tablet 20 mg 08/26/2009 08/17/2010 take 1 tablet by oral route 2 times a day Fosamax Oral Tablet 70 mg 09/17/2009 09/06/2010 take 1 tablet (70 mg) by oral route once weekly in the morning, at least 30 minutes before the first food, beverage, or medication of the day Lisinopril Oral Tablet 40 mg 03/15/2010 08/01/2010 take 2 tablets by oral route daily Zoloft Oral Tablet 50 mg 08/09/2010 09/06/2010 take 1 tablet (50 mg) by oral route once daily Promethazine Oral Tablet 25 mg 08/17/2010 09/06/2010 take 1 tablet by oral route every 6 hours as needed Diovan HCT Oral Tablet 160-12.5 mg 09/06/2010 09/29/2010 take 1 tablet by oral route once daily for 30 days Diflucan Oral Tablet 150 mg 10/03/2011 take 1 tablet (150 mg) by oral route once for 1 day Diflucan Oral Tablet 150 mg 11/18/2011 12/07/2011 take 1 tablet (150 mg) by oral route once Vitamin B-12 Oral tablet 1,000 mcg 12/07/2011 04/12/2014 take 1 tablet by oral route daily Premarin Vaginal Cream 0.625 mg/gram 02/20/2012 10/01/2012 use 1 gram daily for a week then 1 gram twice a week Medrol (Robert) Oral tablets,dose pack 4 mg 06/12/2012 10/01/2012 take as directed aspirin Oral tablet 325 mg 05/20/2013 04/12/2014 take 1 tablet (325 mg) by oral route once daily Medrol (Robert) oral tablets,dose pack 4 mg 10/04/2013 01/23/2014 take as directed Tetracaine Lollipops Lollipop 04/27/2014 10/15/2014 Use as directed Problem List Description Status Onset Hyperlipidemia Active acid reflux Active Hypertension Active hypothyroid Active Vital Signs Date Time BP-Sys(mm[Hg] BP-Rhianna(mm[Hg]) HR(bpm) RR(rpm) Temp WT HT HC BMI BSA BMI Percentile O2 Sat(%) 10/15/2014 9:33:00 AM 120 mmHg 68 mmHg [...] F 157.125 lbs 62 in 28.74 kg/m2 1.77 m2 07/10/2009 11:01:00 AM 140 mmHg 90 mmHg 04/06/2009 10:08:00 AM 142 mmHg 86 mmHg 72 bpm 16 rpm 98.1 F 154.125 lbs 61 in 29.12 kg/m2 1.73 m2 Social History Name Description Comments 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 History of Procedures Date Ordered Description Order Status 12/20/2010 12:00 AM COMPREHEN METABOLIC PANEL Reviewed 12/20/2010 12:00 AM ASSAY THYROID STIM HORMONE Reviewed 01/03/2011 12:00 AM COMPREHEN METABOLIC PANEL Reviewed 01/03/2011 12:00 AM LIPID PANEL Reviewed 01/03/2011 12:00 AM ASSAY THYROID STIM HORMONE Reviewed 01/03/2011 12:00 AM COMPLETE CBC W/AUTO DIFF WBC Reviewed 01/20/2011 12:00 AM COMPREHEN METABOLIC PANEL [...] Reviewed 04/05/2011 12:00 AM Wrist Support Reviewed 05/16/2011 12:00 AM TISSUE EXAM FOR FUNGI Returned 05/16/2011 12:00 AM SMEAR WET MOUNT SALINE/INK Returned 06/08/2011 12:00 AM THER/PROPH/DIAG INJ SC/IM Reviewed 06/08/2011 12:00 AM Bicillin CR [facility]#[id number] Reviewed 06/08/2011 12:00 AM Depo-Medrol 40 mg [facility]#[id number] Reviewed 12/07/2011 12:00 AM COMPREHEN METABOLIC PANEL Reviewed 12/07/2011 12:00 AM ASSAY THYROID STIM HORMONE Reviewed 12/07/2011 12:00 AM COMPLETE CBC W/AUTO DIFF WBC Returned 12/07/2011 12:00 AM Wrist Support Reviewed 02/20/2012 12:00 AM Flu Injection 3 Years And Above [facility]# [id number] [facility] Reviewed 10/01/2012 12:00 AM COMPREHEN METABOLIC PANEL Ordered 10/01/2012 12:00 AM LIPID PANEL Ordered 10/01/2012 12:00 AM ASSAY THYROID STIM HORMONE Ordered 10/01/2012 12:00 AM COMPLETE CBC W/AUTO DIFF WBC Ordered 04/02/2012 12:00 AM IMMUNIZATION ADMIN Reviewed 04/02/2012 12:00 AM Pneumovax Injection - [facility] Reviewed 04/12/2012 12:00 AM TRICHOMONAS ASSAY W/OPTIC Returned 04/17/2012 12:00 AM COMPREHEN METABOLIC PANEL Ordered 04/17/2012 12:00 AM LIPID PANEL Ordered 04/17/2012 12:00 AM ASSAY THYROID STIM HORMONE Ordered 04/17/2012 12:00 AM COMPLETE CBC W/AUTO DIFF WBC Ordered 06/12/2012 12:00 AM THER/PROPH/DIAG INJ SC/IM Reviewed 06/12/2012 12:00 AM Bicillin CR, 1.2 million units [facility]# [id number] Reviewed 09/27/2012 12:00 AM COMPREHEN METABOLIC PANEL [...] 04/02/2013 12:00 AM COMPREHEN METABOLIC PANEL Returned 10/01/2012 12:00 AM Cancer Screen/Pelvic & Breast Exam Ordered 10/01/2012 12:00 AM Pap Specimen Handling - Medicare Ordered 08/26/2009 12:00 AM CYTOPATH C/V MANUAL Reviewed 08/26/2009 12:00 AM SMEAR WET MOUNT SALINE/INK Reviewed 08/26/2009 12:00 AM LIPID PANEL Reviewed 08/26/2009 12:00 AM ASSAY THYROID STIM HORMONE Reviewed 08/26/2009 12:00 AM COMPLETE CBC W/AUTO DIFF WBC Reviewed 08/26/2009 12:00 AM COMPREHEN METABOLIC PANEL Reviewed 02/18/2013 12:00 AM Flu Injection 3 Years And Above [facility]# [id number] [facility] Reviewed 09/09/2009 8:48 AM Blood Pressure [...] 01/23/2014 12:00 AM Kenalog, Per 10 Mg [facility]#[id number] Reviewed 03/19/2014 12:00 AM COMPLETE CBC W/AUTO DIFF WBC Returned 03/19/2014 12:00 AM COMPREHEN METABOLIC PANEL Returned 03/19/2014 12:00 AM LIPID PANEL Returned 03/19/2014 12:00 AM ASSAY THYROID STIM HORMONE Returned 04/27/2014 12:00 AM Dyana larsen [facility]#[id number] Reviewed 04/27/2014 12:00 AM THER/PROPH/DIAG INJ SC/IM [...] AM MAMMOGRAM SCREENING Returned 10/15/2014 12:00 AM MAMMOGRAM SCREENING Ordered 10/15/2014 12:00 AM CYTOPATH TBS C/V MANUAL Returned 10/15/2014 12:00 AM Pap Specimen Handling - Medicare Ordered Results Summary Data and Description Results 08/26/2009 [...] BILI 0.50 mg/dLCALCIUM 9.40 mg/dLeGFR >60 mL/min/1.73 [id number] 109.0 mg/dLCHOLESTEROL 153.0 mg/dLHDL 54.0 mg/dLLDL (CALC) [...] BILI 0.80 mg/dLCALCIUM 10.40 mg/dLeGFR >60 mL/min/1.73 [id number] 163.0 mg/dLCHOLESTEROL 138.0 mg/dLHDL 49.0 mg/dLLDL (CALC) [...] BILI 0.70 mg/dLCALCIUM 9.50 mg/dLeGFR >60 mL/min/1.73 [id number] 107.0 mg/dLCHOLESTEROL 138.0 mg/dLHDL 58.0 mg/dLLDL (CALC) 59.0 mg/dL History Of Immunizations Name Date Admin Mfg Name Mfg Code Trade Name Lot# Route Inj Vis Given Vis Pub CVX Influenza 02/10/2010 sanofi pasteur PMC Fluzone [id number] Intramuscular Left Arm 02/10/2010 11/29/2009 999 Influenza 02/18/2011 sanofi pasteur PMC Fluzone [id number] Intramuscular Left Arm 02/18/2011 11/17/2010 141 Influenza 02/20/2012 sanofi pasteur PMC Fluzone [id number] Intramuscular Left Deltoid 02/20/2012 10/24/2011 141 Pneumococcal 04/02/2012 [employer] MSD Pneumovax 23 [id number] Intramuscular Left Gluteous Medius 04/02/2012 08/07/2009 33 Influenza 02/18/2013 sanofi pasteur PMC Fluzone > 3 Years [id number] Intramuscular Right Deltoid 02/18/2013 11/16/2012 141 History of Past Illness Name Date of [...] of female genitalia Oct 15 2014 9:36AM Payers Insurance Name Company Name Plan Name Plan Number Policy Number Policy Group Number Start Date Medicare Part A Medicare Part A [id number] N/A [facility] [id number] Tuesday, 2009 Medicare Part B Medicare Of [place] [id number] N/A Medicare Part A Medicare P A - Preventive [id number] N/A History of Encounters Visit Date Visit Type Provider 10/15/2014 Office visit Precious Carmona MD 04/30/2014 Office visit Precious Carmona MD 04/27/2014 Office visit Pj Guajardo ANTISQUEAK APPLIER 04/12/2014 Office visit Gaby Randolph ANTISQUEAK APPLIER 02/17/2014 Voided Precious Carmona MD 01/27/2014 Office visit Precious Carmona MD 01/26/2014 Office visit Gaby Randolph ANTISQUEAK APPLIER 01/23/2014 Office visit Abbie Pedraza ANTISQUEAK APPLIER 10/04/2013 Office visit Coco NMckayla Sofia ANTISQUEAK APPLIER 09/30/2013 Office visit Precious Carmona MD 05/20/2013 Office visit Precious Carmona MD 04/01/2013 Office visit Natty Webber MD 02/18/2013 Nurse visit Natty Webber MD 10/01/2012 Office visit Natty Webber MD 06/12/2012 Office visit Abbie Pedraza ANTISQUEAK APPLIER 04/12/2012 Office visit Natty Webber MD 04/02/2012 Office visit Natty Webber MD 02/20/2012 Nurse visit Natty Webber MD 12/07/2011 Office visit Natty Webber MD 11/18/2011 Office visit Abbie Pedraza ANTISQUEAK APPLIER 10/03/2011 Office visit Natty Webber MD 06/08/2011 Office visit Natty Webber MD 05/16/2011 Office visit Abbie Pedraza ANTISQUEAK APPLIER 04/05/2011 Office visit Natty Webber MD 02/18/2011 Nurse visit Tyrell Nettles MD 01/03/2011 Office visit Natty Webber MD 09/27/2010 Office visit Natty Webber MD 09/06/2010 Office visit Natty Webber MD 08/17/2010 Office visit Natty Webber MD 08/12/2010 Office visit Natty Webber MD 08/09/2010 Office visit Natty Webber MD 08/01/2010 Hospital Christine Inman MD 08/01/2010 [facility] JORGE Zhagn MD 07/31/2010 Office visit Christine Inman MD 07/31/2010 Voided Jaye Polanco MD 07/31/2010 Hospital Jaye Polanco MD 07/29/2010 Office visit Natty [...]
[2016-11-03] MEDS ORDERED: NS IV 500 ML 500 ML IV PRN (08:20)
--- OUTSIDE RECORDS SUMMARY | 2016-11-03 08:21 | XMS REPORT ---
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 Name Role Phone Precious Carmona PCP Allergies and Adverse Reactions Name Reaction Notes NO KNOWN DRUG ALLERGIES Plan of Treatment Planned Activity Comments Planned Date Planned Time Plan/Goal COMPLETE CBC W/AUTO DIFF WBC 10/21/2015 12:00 AM COMPREHEN METABOLIC PANEL 10/21/2015 12:00 AM VITAMIN D 25 HYDROXY 10/21/2015 12:00 AM LIPID PANEL 12/07/2011 12:00 AM [...] Start Date Estimated Completion Date SIG Comments loratadine 10 mg oral tablet 10/15/2014 04/07/2016 TAKE 1/2 TABLET BY MOUTH EVERY DAY IN THE EVENING aspirin 81 mg oral tablet,delayed release (DR/EC) [...] AFFECTED AREA TWICE DAILY FOR 14 DAYS atenolol 50 mg oral tablet 07/27/2015 07/21/2016 take 1 tablet (50 mg) by oral route once daily amlodipine 5 mg oral tablet 09/04/2015 TAKE ONE TABLET BY MOUTH ONCE DAILY Allergy Relief (loratadine) 10 mg oral tablet 09/04/2015 TAKE ONE TABLET BY MOUTH ONCE DAILY valsartan 160 mg oral tablet 09/04/2015 TAKE ONE TABLET BY MOUTH ONCE DAILY clorazepate dipotassium 7.5 mg oral tablet 10/30/2015 12/29/2015 take 1/2 to1 tablet PO up to three times per day for situational anxiety levothyroxine 50 mcg oral tablet 11/12/2015 TAKE ONE TABLET BY MOUTH ONCE DAILY Name Start Date Expiration Date SIG Comments prednisone 20 mg oral tablet 07/29/2010 08/03/2010 take 2 tablets by oral route daily for 5 days calcium carbonate-vitamin D2 600-125 mg-unit oral tablet 12/07/2011 01/06/2012 take 2 tablets by oral route daily [place] 3 Fish Oil 900-1,400 mg oral capsule,delayed [...] oral route 2 times per day Plavix 75 mg oral tablet 05/20/2013 11/16/2013 take 1 tablet (75 mg) by oral route once daily amoxicillin 500 mg oral capsule 10/04/2013 10/14/2013 take 1 capsule (500 mg) by oral route 3 times per day for 10 days Lipitor 20 mg oral tablet 11/22/2013 05/21/2014 take 1 tablet (20 mg) by oral route once daily Zithromax Z-Robert 250 mg oral tablet 01/23/2014 [...] Comments Lipitor 40 mg oral tablet 04/06/2009 1 TAB DAILY ramipril 5 mg oral capsule [...] HC BMI BSA BMI Percentile O2 Sat(%) 10/21/2015 8:29:00 AM 122 mmHg 70 mmHg 72 bpm 16 rpm 97.8 F 137.125 lbs 61 in 25.91 kg/m2 1.64 m2 100 % 10/15/2014 9:33:00 AM 120 mmHg 68 mmHg 73 bpm 98.7 F 144.375 lbs 61 in 27.2791 kg/m 1.6788 m 99 % 04/30/2014 9:05:00 AM 110 mmHg 75 mmHg 85 bpm 16 rpm 96.7 F 144.375 lbs 61 in 27.28 kg/m2 1.68 m2 99 % 04/27/2014 1:05:00 PM 108 mmHg 62 mmHg 78 bpm 18 rpm 96.9 F 142.375 lbs 61 in 26.9012 kg/m 1.6672 m 100 % 04/12/2014 9:31:00 AM 126 mmHg 66 mmHg 79 bpm 18 rpm 98.7 F 149 lbs 61 in 28.15 kg/m2 1.71 m2 98 % 01/27/2014 9:02:00 AM 110 mmHg 74 mmHg 94 bpm 18 rpm 98.1 F 145.4 lbs 61 in 27.4728 kg/m 1.6848 m 97 % 01/23/2014 9:14:00 AM 124 mmHg 74 mmHg 79 bpm 18 rpm 98 F 147.25 lbs 61 in 27.82 kg/m2 1.70 m2 98 % 10/04/2013 9:22:00 AM 124 mmHg 76 mmHg 89 bpm 18 rpm 98.1 F 148 lbs 61 in 27.9641 kg/m 1.6998 m 100 % 09/30/2013 8:27:00 AM 118 mmHg 65 mmHg 74 bpm 16 rpm 97.7 F 148 lbs 61 in 27.96 kg/m2 1.70 m2 99 % 05/20/2013 9:48:00 AM 125 mmHg 70 mmHg 93 bpm 18 rpm 96.7 F 156 lbs 61 in 29.4756 kg/m 1.7451 m 100 % 04/01/2013 8:35:00 AM 122 mmHg 74 mmHg 84 bpm 16 rpm 97.9 F 155.375 lbs 99 % 10/01/2012 8:30:00 AM 130 mmHg 82 mmHg 79 bpm 16 rpm 97.9 F 161 lbs 98 % 06/12/2012 8:50:00 AM 124 mmHg 68 mmHg 66 bpm 18 rpm 97.6 F 157.5 lbs 61 in 29.76 kg/m2 1.75 m2 04/12/2012 1:46:00 PM 120 mmHg 72 mmHg [...] F 162.125 lbs 61 in 30.63 kg/m2 1.78 m2 10/03/2011 8:45:00 AM 130 mmHg 70 mmHg 82 bpm 16 rpm 98.2 F 160.125 lbs 100 % 06/08/2011 9:29:00 AM 122 mmHg 80 mmHg 86 bpm 16 rpm 97.4 F 159.375 lbs 61 in 30.11 kg/m2 1.76 m2 99 % 05/16/2011 9:41:00 AM 132 mmHg 74 mmHg 66 bpm 18 rpm 98.4 F 160.375 lbs 61 in 30.3023 kg/m 1.7694 m 04/05/2011 10:08:00 AM 134 mmHg 82 mmHg 80 bpm 16 rpm 98 F 160 lbs 61 in 30.23 kg/m2 1.77 m2 99 % 01/20/2011 3:56:00 PM 130 mmHg [...] F 154.125 lbs 61 in 29.1214 kg/m 1.7346 m Social History Name Description Comments 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 History of Procedures [...] SC/IM Reviewed 06/08/2011 12:00 AM Bicillin CR [facility]#[id number] Clinic Reviewed 06/08/2011 12:00 AM Depo-Medrol 40 mg [facility]#[id number] Reviewed 12/07/2011 12:00 AM COMPREHEN METABOLIC PANEL Reviewed 12/07/2011 12:00 AM ASSAY THYROID STIM HORMONE Reviewed 12/07/2011 12:00 AM COMPLETE CBC W/AUTO DIFF WBC Returned 12/07/2011 12:00 AM Wrist Support Reviewed 02/20/2012 12:00 AM Flu Injection 3 Years And Above [facility]# [id number] RHC Reviewed 04/02/2012 12:00 AM IMMUNIZATION ADMIN Reviewed 04/02/2012 12:00 AM Pneumovax Injection - [facility] Reviewed 04/12/2012 12:00 AM TRICHOMONAS ASSAY W/OPTIC Returned 06/12/2012 12:00 AM THER/PROPH/DIAG INJ SC/IM Reviewed 06/12/2012 12:00 AM Bicillin CR, 1.2 million units [facility]# 77854-082-83 Reviewed 09/27/2012 12:00 AM COMPREHEN METABOLIC PANEL [...] AM Flu Injection 3 Years And Above [facility]# [id number] RHC Reviewed 09/09/2009 8:48 AM Blood Pressure [...] 01/23/2014 12:00 AM Kenalog, Per 10 Mg [facility]#[id number] Reviewed 03/19/2014 12:00 AM COMPLETE CBC W/AUTO DIFF WBC Returned 03/19/2014 12:00 AM COMPREHEN METABOLIC PANEL Returned 03/19/2014 12:00 AM LIPID PANEL Returned 03/19/2014 12:00 AM ASSAY THYROID STIM HORMONE Returned 04/27/2014 12:00 AM Rocephin 1 gram [facility]#[id number] Reviewed 04/27/2014 12:00 AM THER/PROPH/DIAG INJ SC/IM [...] BILI 0.50 mg/dLCALCIUM 9.40 mg/dLeGFR >60 mL/min/1.73 [id number] 109.0 mg/dLCHOLESTEROL 153.0 mg/dLHDL 54.0 mg/dLLDL (CALC) [...] BILI 0.80 mg/dLCALCIUM 10.40 mg/dLeGFR >60 mL/min/1.73 [id number] 163.0 mg/dLCHOLESTEROL 138.0 mg/dLHDL 49.0 mg/dLLDL (CALC) [...] BILI 0.70 mg/dLCALCIUM 9.50 mg/dLeGFR >60 mL/min/1.73 [id number] 107.0 mg/dLCHOLESTEROL 138.0 mg/dLHDL 58.0 mg/dLLDL (CALC) [...] CVX Influenza 02/10/2010 sanofi pasteur PMC Fluzone [id number] Intramuscular Left Arm 02/10/2010 11/29/2009 999 Influenza 02/18/2011 sanofi pasteur PMC Fluzone [id number] Intramuscular Left Arm 02/18/2011 11/17/2010 141 Influenza 02/20/2012 sanofi pasteur PMC Fluzone [id number] Intramuscular Left Deltoid 02/20/2012 10/24/2011 141 X 04/02/2012 [employer] MSD Pneumovax 23 [id number] Intramuscular Left Gluteous Medius 04/02/2012 08/07/2009 33 Influenza 02/18/2013 sanofi pasteur PMC Fluzone > 3 Years [id number] Intramuscular Right Deltoid 02/18/2013 11/16/2012 141 X 12/24/2014 Not Entered NE Prevnar 13 Not Entered Not Entered 201404/24/2016 109 Influenza 12/24/2014 Not Entered NE Not Entered Not Entered Not Entered 12/24/2014 04/24/2016 141 Zostavax 04/06/2012 Not Entered NE Not Entered Not Entered Not Entered 04/24/2016 04/24/2016 121 Tdap 04/06/2012 Not Entered NE Not Entered Not Entered Not Entered 04/24/201604/24/2016 115 HepB Adult 10/21/2015 [employer] MSD Recombivax Adult [id number] Intramuscular Left Deltoid 10/21/2015 05/26/2011 43 History of Past Illness Name Date [...] 9:13AM HEP B Nov 20 2015 8:52AM Payers Insurance Name Company Name Plan Name Plan Number Policy Number Policy Group Number Start Date Medicare Part A Medicare [facility] [id number] N/A [id number] Tuesday, 2009 Medicare Part B Medicare Of [place] [id number] N/A Medicare Part A Medicare Part A [id number] N/A Medicare Part A Medicare P A - Preventive [id number] N/A Medicare Part A Medicare - Lab/Xray [id number] N/A History of Encounters Visit Date Visit Type Provider 11/20/2015 Nurse visit Precious Carmona MD 10/21/2015 Office visit Precious Carmona MD 10/15/2014 Office visit Precious Carmona MD 04/30/2014 Office visit Precious Carmona MD 04/27/2014 Office visit Pj Guajardo STOREKEEPER ENGINEERING 04/12/2014 Office visit Gaby Randolph STOREKEEPER ENGINEERING 02/17/2014 Voided Precious Carmona MD 01/27/2014 Office visit Precious Carmona MD 01/26/2014 Office visit Gaby Randolph STOREKEEPER ENGINEERING 01/23/2014 Office visit 01/23/2014 Office visit Abbie Milo STOREKEEPER ENGINEERING 10/04/2013 Office visit Coco WhittMckayla Sofia STOREKEEPER ENGINEERING 09/30/2013 Office visit Precious Carmona MD 05/20/2013 Office visit Precious Carmona MD 04/01/2013 Office visit Ntaty Webber MD 02/18/2013 Nurse visit Natty Webber MD 10/01/2012 Office visit Natty Webber MD 06/12/2012 Office visit Abbie Pedraza STOREKEEPER ENGINEERING 04/12/2012 Office visit Natty Webber MD 04/02/2012 Office visit Natty Webber MD 02/20/2012 Nurse visit Natty Webber MD 12/07/2011 Office visit Natty Webber MD 11/18/2011 Office visit Abbie Pedraza STOREKEEPER ENGINEERING 10/03/2011 Office visit Natty Webber MD 06/08/2011 Office visit Natty Webber MD 05/16/2011 Office visit Abbie Pedraza STOREKEEPER ENGINEERING 04/05/2011 Office visit Natty Webber MD 02/18/2011 Nurse visit Tyrell Nettles MD 01/03/2011 Office visit Natty Webber MD 09/27/2010 Office visit Natty Webber MD 09/06/2010 Office visit Natty Webber MD 08/17/2010 Office visit Natty Webber MD 08/12/2010 Office visit Natty Webber MD 08/09/2010 Office visit Natty Webber MD 08/01/2010 [facility] JORGE Zhang MD 08/01/2010 [facility] Christine Inman MD 07/31/2010 Office visit Christine Inman MD 07/31/2010 [facility] Jaye Polanco MD 07/31/2010 Voided Jaye Polanco MD 07/29/2010 Office visit Natty Webber MD 04/07/2010 Nurse visit Natty Webber MD 03/15/2010 Office visit Natty Webber MD 02/10/2010 Nurse visit Clarita STOUT 09/15/2009 Nurse visit Natty Webber MD 09/09/2009 Nurse visit Natty Webber MD 08/26/2009 Office visit Natty Webber MD 07/10/2009 Voided Clarita STOUT 06/11/2009 Nurse visit Clarita STOUT 05/15/2009 Nurse visit Clarita STOUT 05/11/2009 Nurse visit Clarita STOUT 04/06/2009 Office visit Clarita STOUT 02/10/2009 Nurse visit Clarita STOUT
--- OUTSIDE RECORDS SUMMARY | 2016-11-03 08:23 | XMS REPORT ---
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 Name Role Phone Precious Carmona PCP Precious Cramona PreferredProvider Allergies and Adverse Reactions Name Reaction [...] route daily as needed for 14 days clorazepate dipotassium 7.5 mg oral tablet 07/11/2016 08/10/2016 take 1/2 to1 tablet PO up to three times per day for situational anxiety Name Start Date Expiration Date SIG Comments prednisone 20 mg oral tablet 07/29/2010 08/03/2010 take 2 tablets by oral route daily for 5 days calcium carbonate-vitamin D2 600-125 mg-unit oral tablet 12/07/2011 01/06/2012 take 2 tablets by oral route daily [place] 3 Fish Oil 900-1,400 mg oral capsule,delayed [...] Comments Lipitor 40 mg oral tablet 04/06/2009 12 TAB DAILY ramipril 5 mg oral capsule [...] History Name Description Comments 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#[id number] Clinic Reviewed 06/08/2011 12:00 AM Depo-Medrol [address] [facility]#[id number] Reviewed 02/04/2016 12:00 AM COMPLETE CBC W/AUTO DIFF WBC Returned 02/04/2016 12:00 AM COMPREHEN METABOLIC PANEL Returned 02/04/2016 12:00 AM ASSAY THYROID STIM HORMONE Returned 02/04/2016 12:00 AM LIPID PANEL Returned 04/21/2016 12:00 AM TETANUS VACCINE IM Reviewed 04/21/2016 12:00 AM HEP B VACC ADULT 3 DOSE IM Reviewed 12/07/2011 12:00 AM COMPREHEN METABOLIC PANEL Reviewed 12/07/2011 12:00 AM ASSAY THYROID STIM HORMONE Reviewed 12/07/2011 12:00 AM COMPLETE CBC W/AUTO DIFF WBC Reviewed 12/07/2011 12:00 AM Wrist Support Reviewed 02/20/2012 12:00 AM Flu Injection [address] [facility]# [id number] [facility] Reviewed 04/02/2012 12:00 AM IMMUNIZATION ADMIN Reviewed 04/02/2012 12:00 AM Pneumovax Injection - [facility] Reviewed 04/12/2012 12:00 AM TRICHOMONAS ASSAY W/OPTIC Reviewed 06/12/2012 12:00 AM THER/PROPH/DIAG INJ SC/IM Reviewed 06/12/2012 12:00 AM Bicillin CR, 1.[address] [facility]# 17432-626-73 Reviewed 09/27/2012 12:00 AM COMPREHEN METABOLIC PANEL [...] Flu Injection [address] Years [address] [facility]# [id number] [facility] Reviewed 09/09/2009 8:48 AM Blood Pressure Check-no [...] 12:00 AM Kenalog, Per [address] [facility]#9847-6445-81 Reviewed 03/19/2014 12:00 AM COMPLETE CBC W/AUTO DIFF WBC Reviewed 03/19/2014 12:00 AM COMPREHEN METABOLIC PANEL Reviewed 03/19/2014 12:00 AM LIPID PANEL Reviewed 03/19/2014 12:00 AM ASSAY THYROID STIM HORMONE Reviewed 04/27/2014 12:00 AM Rocephin [address] [facility]#[id number] Reviewed 04/27/2014 12:00 AM THER/PROPH/DIAG INJ SC/IM [...] CYTOPATH TBS C/V MANUAL Reviewed Results Summary Data and Description Results 08/26/2009 [...] # BASO 0.04 MANUAL DIFF NOT IND History Of Immunizations Name Date Admin Mfg Name Mfg Code Trade Name Lot# Route Inj Vis Given Vis Pub CVX Influenza 02/10/2010 sanofi pasteur PMC Fluzone [id number] Intramuscular Left Arm 02/10/2010 11/29/2009 999 Influenza 02/18/2011 sanofi pasteur PMC Fluzone [id number] Intramuscular Left Arm 02/18/2011 11/17/2010 141 Influenza 02/20/2012 sanofi pasteur PMC Fluzone [id number] Intramuscular Left Deltoid 02/20/2012 10/24/2011 141 X 04/02/2012 [employer] MSD Pneumovax 23 [id number] Intramuscular Left Gluteous Medius 04/02/2012 08/07/2009 33 Influenza 02/18/2013 sanofi pasteur PMC Fluzone > 3 Years [id number] Intramuscular Right Deltoid 02/18/2013 11/16/2012 141 X 12/24/2014 Not Entered NE Prevnar 13 Not Entered Not Entered 201404/24/2017 109 Influenza 12/24/2014 Not Entered NE Not Entered Not Entered Not Entered 12/24/2014 04/24/2017 141 HepB Adult 10/21/2015 [employer] MSD Recombivax Adult [id number] Not Entered Left Deltoid 10/21/2015 11/11/2015 43 HepB Adult 11/20/2015 [employer] MSD Recombivax Adult [id number] Intramuscular Right Deltoid 11/20/2015 11/11/2015 43 Zostavax 04/06/2012 Not Entered NE Not Entered Not Entered Not Entered 04/24/2017 04/24/2017 121 Tdap 04/06/2012 Not Entered NE Not Entered Not Entered Not Entered 04/24/201704/24/2017 115 Influenza 02/04/2016 Not Entered NE Fluzone High-Dose Intramuscular Left Arm 04/24/2017 04/24/2017 141 HepB Adult 04/21/2016 [employer] MSD Recombivax Adult [id number] Intramuscular Right Deltoid 04/21/2016 11/11/2015 43 History [...] 2:30PM HEP B Apr 21 2016 8:42AM Payers Insurance Name Company Name Plan Name Plan Number Policy Number Policy Group Number Start Date Medicare RHC Medicare RHC [id number] N/[id number] Tuesday, 2009 Medicare Part B Medicare Of [place] [id number] N/A Medicare Part A Medicare Part A [id number] N/A Medicare Part A ZZZMedicare P A - Preventive [id number] N/A Medicare Part A Medicare - Lab/Xray [id number] N/A History of Encounters Visit Date Visit Type Provider 04/21/2016 Nurse visit Precious Carmona MD 02/04/2016 Office visit Precious Carmona MD 11/20/2015 Nurse visit Precious Carmona MD 10/21/2015 Office visit Precious Carmona MD 10/15/2014 Office visit Precious Carmona MD 04/30/2014 Office visit Precious Carmona MD 04/27/2014 Office visit Pj Guajardo BIODIESEL PLANT SUPERINTENDENT 04/12/2014 Office visit Gaby Randolph BIODIESEL PLANT SUPERINTENDENT 02/17/2014 Voided Precious Carmona MD 01/27/2014 Office visit Precious Carmona MD 01/26/2014 Office visit Gaby Randolph BIODIESEL PLANT SUPERINTENDENT 01/23/2014 Office visit 01/23/2014 Office visit Abbie Pedraza BIODIESEL PLANT SUPERINTENDENT 10/04/2013 Office visit Coco Sofia BIODIESEL PLANT SUPERINTENDENT 09/30/2013 Office visit Precious Carmona MD 05/20/2013 Office visit Precious Carmona MD 04/01/2013 Office visit Natty Webber MD 02/18/2013 Nurse visit Natty Webber MD 10/01/2012 Office visit Natty Webber MD 06/12/2012 Office visit Abbie Pedraza BIODIESEL PLANT SUPERINTENDENT 04/12/2012 Office visit Natty Webber MD 04/02/2012 Office visit Natty Webber MD 02/20/2012 Nurse visit Natty Webber MD 12/07/2011 Office visit Natty Webber MD 11/18/2011 Office visit Abbie Pedraza BIODIESEL PLANT SUPERINTENDENT 10/03/2011 Office visit Natty Webber MD 06/08/2011 Office visit Natty Webber MD 05/16/2011 Office visit Abbie Pedraza BIODIESEL PLANT SUPERINTENDENT 04/05/2011 Office visit Natty Webber MD 02/18/2011 [...] 07/31/2010 Office visit Christine Inman MD 07/31/2010 [facility] Jaye Polanco MD 07/31/2010 Voided Jaye Polanco [...]
--- OUTSIDE RECORDS SUMMARY | 2016-11-03 08:25 | XMS REPORT ---
Author Pj Carroll [facility] Address [address] [place], [place] [address] Care Team Providers Care Lean Six Sigma Black Belt Name Role Phone Pj Guajardo PCP ValerianosylviePrecious PreferredProvider Allergies and Adverse Reactions Name Reaction [...] oral route once daily for 90 days clorazepate dipotassium 7.5 mg oral tablet 09/12/2016 10/12/2016 take 1/2 to1 tablet PO up to three times per day for situational anxiety triamcinolone acetonide 0.1 % topical cream 09/21/2016 [...] take 2 tablets by oral route daily [place] 3 Fish Oil 900-1,400 mg oral capsule,delayed [...] HC BMI BSA BMI Percentile O2 Sat(%) 09/16/2016 8:22:00 AM 118 mmHg 78 mmHg 62 bpm 18 rpm 97.5 F 129.125 lbs 61 in 24.40 kg/m2 1.59 m2 100 % 02/04/2016 2:26:00 PM 128 mmHg 78 mmHg 77 bpm 16 rpm 98.4 F 139.25 lbs 61 in 26.3108 kg/m 1.6488 m 100 % 10/21/2015 8:29:00 AM 122 mmHg [...] History Name Description Comments 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 History of Procedures Date [...] SC/IM Reviewed 06/08/2011 12:00 AM Bicillin CR [facility]#[id number] Clinic Reviewed 06/08/2011 12:00 AM Depo-Medrol 40 mg [facility]#[id number] Reviewed 02/04/2016 12:00 AM COMPLETE CBC W/AUTO [...] AM Flu Injection 3 Years And Above [facility]# [id number] RHC Reviewed 04/02/2012 12:00 AM IMMUNIZATION ADMIN Reviewed 04/02/2012 12:00 AM Pneumovax Injection - [facility] Reviewed 04/12/2012 12:00 AM TRICHOMONAS ASSAY W/OPTIC Reviewed 06/12/2012 12:00 AM THER/PROPH/DIAG INJ SC/IM Reviewed 06/12/2012 12:00 AM Bicillin CR, 1.2 million units [facility]# 21197-936-24 Reviewed 09/27/2012 12:00 AM COMPREHEN METABOLIC PANEL [...] AM Flu Injection 3 Years And Above [facility]# [address]-93 RHC Reviewed 09/09/2009 8:48 AM Blood Pressure [...] 01/23/2014 12:00 AM Kenalog, Per 10 Mg [facility]#[id number] Reviewed 03/19/2014 12:00 AM COMPLETE CBC W/AUTO DIFF WBC Reviewed 03/19/2014 12:00 AM COMPREHEN METABOLIC PANEL Reviewed 03/19/2014 12:00 AM LIPID PANEL Reviewed 03/19/2014 12:00 AM ASSAY THYROID STIM HORMONE Reviewed 04/27/2014 12:00 AM Dyana larsen [facility]#[id number] Reviewed 04/27/2014 12:00 AM THER/PROPH/DIAG INJ SC/IM [...] 3.97 HGB 12.90 g/dLHCT 38.0 %MCV 96.0 [facility] 32.50 pgHC 33.90 g/dLRDW SD 44 RDW CV 12.60 [...] CVX Influenza 02/10/2010 sanofi pasteur PMC Fluzone [id number] Intramuscular Left Arm 02/10/2010 11/29/2009 999 Influenza 02/18/2011 sanofi pasteur PMC Fluzone [id number] Intramuscular Left Arm 02/18/2011 11/17/2010 141 Influenza 02/20/2012 sanofi pasteur PMC Fluzone [id number] Intramuscular Left Deltoid 02/20/2012 10/24/2011 141 X 04/02/2012 [employer] MSD Pneumovax 23 [id number] Intramuscular Left Gluteous Medius 04/02/2012 08/07/2009 33 Influenza 02/18/2013 sanofi pasteur PMC Fluzone > 3 Years [id number] Intramuscular Right Deltoid 02/18/2013 11/16/2012 141 X 12/24/2014 Not Entered NE Prevnar 13 Not Entered Not Entered 201404/24/2017 109 Influenza 12/24/2014 Not Entered NE Not Entered Not Entered Not Entered 12/24/2014 04/24/2017 141 HepB Adult 10/21/2015 [employer] MSD Recombivax Adult [id number] Not Entered Left Deltoid 10/21/2015 11/11/2015 43 HepB Adult 11/20/2015 [employer] MSD Recombivax Adult [id number] Intramuscular Right Deltoid 11/20/2015 11/11/2015 43 Zostavax 04/06/2012 Not Entered NE Not Entered Not Entered Not Entered 04/24/2017 04/24/2017 121 Tdap 04/06/2012 Not Entered NE Not Entered Not Entered Not Entered 04/24/201704/24/2017 115 Influenza 02/04/2016 Not Entered NE Fluzone High-Dose Intramuscular Left Arm 04/24/2017 04/24/2017 141 HepB Adult 04/21/2016 [employer] MSD Recombivax Adult [id number] Intramuscular Right Deltoid 04/21/2016 11/11/2015 43 History [...] 2016 8:28AM Anxiety Sep 16 2016 8:28AM Payers Insurance Name Company Name Plan Name Plan Number Policy Number Policy Group Number Start Date Medicare RHC Medicare RHC [id number] N/A BCBS [facility] [id number] Tuesday, 2009 Medicare Part B Medicare Of [place] [id number] N/A Medicare Part A Medicare Part A [id number] N/A Medicare Part A ZZZMedicare P A - Preventive [id number] N/A Medicare Part A Medicare - Lab/Xray [id number] N/A History of Encounters Visit Date Visit Type Provider 09/16/2016 Office visit Pj Guajardo RIP/MOULD OPERATOR 04/21/2016 Nurse visit Precious Carmona MD 02/04/2016 Office visit Precious Carmona MD 11/20/2015 Nurse visit Precious Carmona MD 10/21/2015 Office visit Precious Carmona MD 10/15/2014 Office visit Precious Carmona MD 04/30/2014 Office visit Precious Carmona MD 04/27/2014 Office visit Pj Guajardo RIP/MOULD OPERATOR 04/12/2014 Office visit Gaby Randolph RIP/MOULD OPERATOR 02/17/2014 Voided Precious Carmona MD 01/27/2014 Office visit Precious Carmona MD 01/26/2014 Office visit Gaby Randolph RIP/MOULD OPERATOR 01/23/2014 Office visit 01/23/2014 Office visit Abbie Pedraza RIP/MOULD OPERATOR 10/04/2013 Office visit Coco Sofia RIP/MOULD OPERATOR 09/30/2013 Office visit Precious Carmona MD 05/20/2013 Office visit Precious Carmona MD 04/01/2013 Office visit Natty Webber MD 02/18/2013 Nurse visit Natty Webber MD 10/01/2012 Office visit Natty Webber MD 06/12/2012 Office visit Abbie Pedraza RIP/MOULD OPERATOR 04/12/2012 Office visit Natty Webber MD 04/02/2012 Office visit Natty Webber MD 02/20/2012 Nurse visit Natty Webber MD 12/07/2011 Office visit Natty Webber MD 11/18/2011 Office visit Abbie Pedraza RIP/MOULD OPERATOR 10/03/2011 Office visit Natty Webber MD 06/08/2011 Office visit Natty Webber MD 05/16/2011 Office visit Abbie Pedraza RIP/MOULD OPERATOR 04/05/2011 Office visit Natty Webber MD 02/18/2011 Nurse visit Tyrell Nettles MD 01/03/2011 Office visit Natty Webber MD 09/27/2010 Office visit Natty Webber MD 09/06/2010 Office visit Natty Webber MD 08/17/2010 Office visit Natty Webber MD 08/12/2010 Office visit Natty Webber MD 08/09/2010 Office visit Natty Webber MD 08/01/2010 [facility] JORGE Zhang MD 08/01/2010 [facility] Christine Inman MD 07/31/2010 Office visit Christine Inman MD 07/31/2010 [facility] Jaye Polanco MD 07/31/2010 Voided Jaye Polanco [...]
--- OUTSIDE RECORDS SUMMARY | 2016-11-03 08:26 | XMS REPORT ---
Author Author Precious Carmona Organization [facility] Address [address] [place], [place] [id number] Care Team Providers Care Rn Endocrinology Name Role Phone Precious Carmona PCP Allergies [...] CBC W/AUTO DIFF WBC 04/17/2012 12:00 AM CYTOPATH TBS C/V MANUAL 10/15/2014 12:00 AM MAMMOGRAM SCREENING 10/17/2014 12:00 AM Medications Active Name Start Date [...] take 1 capsule by oral route daily triamcinolone acetonide topical cream 0.1 % 10/15/2014 10/29/2014 apply a thin layer to the affected area(s) by topical route 2 times per day for 14 days clorazepate dipotassium oral tablet 7.5 mg 10/15/2014 12/14/2014 take 1/2 to1 tablet PO up to three times per day for situational anxiety Name Start Date Expiration Date SIG Comments Prednisone Oral Tablet 20 mg 07/29/2010 08/03/2010 take 2 tablets by oral route daily for 5 days calcium carbonate-vitamin D2 Oral tablet 600-125 mg-unit 12/07/2011 01/06/2012 take 2 tablets by oral route daily [place] 3 Fish Oil Oral capsule,delayed release(DR/EC) 900-1,400 [...] meals and at bedtime for 4 weeks fluconazole oral tablet 150 mg 10/15/2014 10/16/2014 take 1 tablet (150 mg) by oral route once for 1 day Discontinued Name Start Date Discontinued Date SIG Comments Lipitor Oral Tablet 40 mg 04/06/2009 1/2 TAB DAILY Ramipril Oral Capsule 5 mg [...] History Name Description Comments 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 History of Procedures Date [...] 12:00 AM ASSAY THYROID STIM HORMONE Reviewed 06/11/2009 11:24 AM NO CHARGE OV Reviewed 06/11/2009 11:26 AM NO CHARGE OV Reviewed 04/05/2011 12:00 AM COMPREHEN METABOLIC PANEL Reviewed 04/05/2011 12:00 AM LIPID PANEL Reviewed 04/05/2011 12:00 AM ASSAY THYROID STIM HORMONE Reviewed 04/05/2011 12:00 AM COMPLETE CBC W/AUTO DIFF WBC Reviewed 05/16/2011 12:00 AM TISSUE EXAM FOR FUNGI Returned 05/16/2011 12:00 AM SMEAR WET MOUNT SALINE/INK Returned 06/08/2011 12:00 AM THER/PROPH/DIAG INJ SC/IM Reviewed 12/07/2011 12:00 AM COMPREHEN METABOLIC PANEL Reviewed 12/07/2011 12:00 AM ASSAY THYROID STIM HORMONE Reviewed 12/07/2011 12:00 AM COMPLETE CBC W/AUTO DIFF WBC Returned 04/02/2012 12:00 AM IMMUNIZATION ADMIN Reviewed 04/12/2012 12:00 AM TRICHOMONAS ASSAY W/OPTIC Returned 06/12/2012 12:00 AM THER/PROPH/DIAG INJ SC/IM Reviewed 09/27/2012 12:00 AM COMPREHEN METABOLIC PANEL [...] 08/26/2009 12:00 AM COMPREHEN METABOLIC PANEL Reviewed 09/09/2009 8:48 AM Blood Pressure Check-no [...] 01/23/2014 12:00 AM THER/PROPH/DIAG INJ SC/IM Reviewed 03/19/2014 12:00 AM COMPLETE CBC W/AUTO DIFF WBC Returned 03/19/2014 12:00 AM COMPREHEN METABOLIC PANEL Returned 03/19/2014 12:00 AM LIPID PANEL Returned 03/19/2014 12:00 AM ASSAY THYROID STIM HORMONE Returned 04/27/2014 12:00 AM THER/PROPH/DIAG INJ SC/IM Reviewed [...] 08/12/2010 12:00 AM THER/PROPH/DIAG INJ SC/IM Reviewed 08/13/2010 12:00 AM METABOLIC PANEL TOTAL CA Reviewed 08/12/2010 12:00 AM THER/PROPH/DIAG INJ SC/IM Reviewed 08/13/2010 12:00 AM METABOLIC PANEL TOTAL CA Reviewed 08/13/2010 12:00 AM ASSAY THYROID STIM HORMONE Reviewed 08/17/2010 12:00 AM THER/PROPH/DIAG INJ SC/IM Reviewed 08/27/2010 12:00 AM ASSAY OF SERUM SODIUM Reviewed 09/06/2010 12:00 AM ASSAY OF SERUM SODIUM Reviewed 09/27/2010 12:00 AM CYTOPATH C/V MANUAL Reviewed 09/27/2010 12:00 AM ASSAY THYROID STIM HORMONE Reviewed 09/25/2014 12:00 AM COMPLETE CBC W/AUTO DIFF WBC Returned 09/25/2014 12:00 AM COMPREHEN METABOLIC PANEL Returned 09/25/2014 12:00 AM LIPID PANEL Returned 09/25/2014 12:00 AM ASSAY THYROID STIM HORMONE Returned Results Summary Data and Description Results [...] BILI 0.50 mg/dLCALCIUM 9.40 mg/dLeGFR >60 mL/min/1.73 [id number] 109.0 mg/dLCHOLESTEROL 153.0 mg/dLHDL 54.0 mg/dLLDL (CALC) [...] BILI 0.80 mg/dLCALCIUM 10.40 mg/dLeGFR >60 mL/min/1.73 [id number] 163.0 mg/dLCHOLESTEROL 138.0 mg/dLHDL 49.0 mg/dLLDL (CALC) [...] BILI 0.70 mg/dLCALCIUM 9.50 mg/dLeGFR >60 mL/min/1.73 [id number] 107.0 mg/dLCHOLESTEROL 138.0 mg/dLHDL 58.0 mg/dLLDL (CALC) 59.0 mg/dL History Of Immunizations Name Date Admin Mfg Name Mfg Code Trade Name Lot# Route Inj Vis Given Vis Pub CVX Influenza 02/10/2010 sanofi pasteur PMC Fluzone [id number] Intramuscular Left Arm 02/10/2010 11/29/2009 999 Influenza 02/18/2011 sanofi pasteur PMC Fluzone [id number] Intramuscular Left Arm 02/18/2011 11/17/2010 141 Influenza 02/20/2012 sanofi pasteur PMC Fluzone [id number] Intramuscular Left Deltoid 02/20/2012 10/24/2011 141 Pneumococcal 04/02/2012 [employer]ck [employer]. MSD Pneumovax 23 [id number] Intramuscular Left Gluteous Medius 04/02/2012 08/07/2009 33 Influenza 02/18/2013 sanofi pasteur PMC Fluzone > 3 Years [id number] Intramuscular Right Deltoid 02/18/2013 11/16/2012 141 History [...] 8:18AM Screening Mammogram Oct 17 2014 11:43AM Payers Insurance Name Company Name Plan Name Plan Number Policy Number Policy Group Number Start Date Medicare Part A Medicare Part A [id number] N/A [facility] [id number] Tuesday, 2009 Medicare Part B Medicare Of [place] [id number] N/A History of Encounters Visit Date Visit Type Provider 10/15/2014 Office visit Precious Carmona MD 04/30/2014 Office visit Precious Carmona MD 04/27/2014 Office visit Pj Guajardo AUTO INSPECTION SPECIALIST 04/12/2014 Office visit Gaby Randolph AUTO INSPECTION SPECIALIST 02/17/2014 Voided Precious Carmona MD 01/27/2014 Office visit Precious Carmona MD 01/26/2014 Office visit Gaby Randolph AUTO INSPECTION SPECIALIST 01/23/2014 Office visit Abbie Pedraza AUTO INSPECTION SPECIALIST 10/04/2013 Office visit Coco Sofia AUTO INSPECTION SPECIALIST 09/30/2013 Office visit Precious Carmona MD 05/20/2013 Office visit Precious Carmona MD 04/01/2013 Office visit Natty Webber MD 02/18/2013 Nurse visit Natty Webber MD 10/01/2012 Office visit Natty Webber MD 06/12/2012 Office visit Abbie Pedraza AUTO INSPECTION SPECIALIST 04/12/2012 Office visit Natty Webber MD 04/02/2012 Office visit Natty Webber MD 02/20/2012 Nurse visit Natty Webber MD 12/07/2011 Office visit Natty Webber MD 11/18/2011 Office visit Abbie Pedraza AUTO INSPECTION SPECIALIST 10/03/2011 Office visit Natty Webber MD 06/08/2011 Office visit Natty Webber MD 05/16/2011 Office visit Abbie Pedraza AUTO INSPECTION SPECIALIST 04/05/2011 Office visit Natty Webber MD 02/18/2011 Nurse visit Tyrell Nettles MD 01/03/2011 Office visit Natty Webber MD 09/27/2010 Office visit Natty Webber MD 09/06/2010 Office visit Natty Webber MD 08/17/2010 Office visit Natty Webber MD 08/12/2010 Office visit Natty Webber MD 08/09/2010 Office visit Natty Webber MD 08/01/2010 [facility] Christine Inman MD 08/01/2010 [facility] JORGE Zhang MD 07/31/2010 Office visit Christine Inman MD 07/31/2010 Voided Jaye Polanco MD 07/31/2010 [facility] Jaye Polanco MD 07/29/2010 Office visit [...] visit Clarita STOUT 05/11/2009 Nurse visit Clarita STUOT 04/06/2009 Office visit Clarita STOUT 02/10/2009 Nurse visit Clarita Cummings PA
--- OUTSIDE RECORDS SUMMARY | 2016-11-03 08:28 | XMS REPORT ---
Author Author Precious Carmona Organization [facility] Address [address] [place], [place] [phone] Care Team Providers Care Fire Controlman Name Role Phone Precious Carmona PCP Allergies and Adverse Reactions Name Reaction Notes NO KNOWN DRUG ALLERGIES Plan of Treatment Planned Activity Comments Planned Date Planned Time Plan/Goal DXA BONE DENSITY AXIAL 10/21/2015 12:00 AM COMPLETE CBC W/AUTO DIFF WBC 10/21/2015 12:00 [...] once daily levothyroxine 50 mcg oral tablet 08/14/2015 TAKE ONE TABLET BY MOUTH ONCE DAILY [...] take 2 tablets by oral route daily [place] 3 Fish Oil 900-1,400 mg oral capsule,delayed [...] by oral route once for 1 day clorazepate dipotassium 7.5 mg oral tablet 07/06/2015 09/04/2015 take 1/2 to1 tablet PO up to three times per day for situational anxiety Discontinued Name Start Date Discontinued Date SIG [...] History Name Description Comments Children 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 alone 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 Never 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 History of Procedures Date [...] AM Wrist Support Reviewed 10/21/2015 12:00 AM TETANUS VACCINE IM Reviewed 10/21/2015 12:00 AM IM ADMIN 1ST/ONLY COMPONENT Reviewed 10/21/2015 12:00 AM HEPB VACC ILL PAT 3 DOSE IM Reviewed 10/21/2015 12:00 AM HEPB VACC ILL PAT 4 DOSE IM Reviewed 10/21/2015 12:00 AM HEPB VACC PED/ADOL 3 DOSE IM Reviewed 05/16/2011 12:00 AM TISSUE EXAM FOR FUNGI Returned 05/16/2011 12:00 AM SMEAR WET [place]OUNT SALINE/INK Returned 06/08/2011 12:00 AM THER/PROPH/DIAG INJ SC/IM Reviewed 06/08/2011 12:00 AM Bicillin CR [facility]#[id number] Clinic Reviewed 06/08/2011 12:00 AM Depo-Medrol 40 mg [facility]#[id number] Reviewed 12/07/2011 12:00 AM COMPREHEN METABOLIC PANEL Reviewed 12/07/2011 12:00 AM ASSAY THYROID STIM HORMONE Reviewed 12/07/2011 12:00 AM COMPLETE CBC W/AUTO DIFF WBC Returned 12/07/2011 12:00 AM Wrist Support Reviewed 02/20/2012 12:00 AM Flu Injection 3 Years And Above [facility]# [address]-30 [facility] Reviewed 04/02/2012 12:00 AM IMMUNIZATION ADMIN Reviewed 04/02/2012 12:00 AM Pneumovax Injection - [facility] Reviewed 04/12/2012 12:00 AM TRICHOMONAS ASSAY W/OPTIC Returned 06/12/2012 12:00 AM THER/PROPH/DIAG INJ SC/IM Reviewed 06/12/2012 12:00 AM Bicillin CR, 1.2 million units [facility]# 98430-053-29 Reviewed 09/27/2012 12:00 AM COMPREHEN METABOLIC PANEL [...] AM Flu Injection 3 Years And Above [facility]# [address]-59 [facility] Reviewed 09/09/2009 8:48 AM Blood Pressure Check-no [...] 01/23/2014 12:00 AM Kenalog, Per 10 Mg [facility]#3675-7051-54 Reviewed 03/19/2014 12:00 AM COMPLETE CBC W/AUTO DIFF WBC Returned 03/19/2014 12:00 AM COMPREHEN METABOLIC PANEL Returned 03/19/2014 12:00 AM LIPID PANEL Returned 03/19/2014 12:00 AM ASSAY THYROID STIM HORMONE Returned 04/27/2014 12:00 AM Rocephin 1 gram [facility]#5111-9799-98 Reviewed 04/27/2014 12:00 AM THER/PROPH/DIAG INJ SC/IM [...] BILI 0.50 mg/dLCALCIUM 9.40 mg/dLeGFR >60 mL/min/1.73 [id number] 109.0 mg/dLCHOLESTEROL 153.0 mg/dLHDL 54.0 mg/dLLDL (CALC) [...] BILI 0.80 mg/dLCALCIUM 10.40 mg/dLeGFR >60 mL/min/1.73 [id number] 163.0 mg/dLCHOLESTEROL 138.0 mg/dLHDL 49.0 mg/dLLDL (CALC) [...] 3.98 HGB 12.70 g/dLHCT 37.30 %MCV 94.0 [facility] 31.90 pgHC 34.0 g/dLRDW CV 12.70 %MPV 9.50 fLPLT [...] BILI 0.70 mg/dLCALCIUM 9.50 mg/dLeGFR >60 mL/min/1.73 [id number] 107.0 mg/dLCHOLESTEROL 138.0 mg/dLHDL 58.0 mg/dLLDL (CALC) [...] CVX Influenza 02/10/2010 sanofi pasteur PMC Fluzone [id number] Intramuscular Left Arm 02/10/2010 11/29/2009 999 Influenza 02/18/2011 sanofi pasteur PMC Fluzone [id number] Intramuscular Left Arm 02/18/2011 11/17/2010 141 Influenza 02/20/2012 sanofi pasteur PMC Fluzone [id number] Intramuscular Left Deltoid 02/20/2012 10/24/2011 141 X 04/02/2012 [employer]ck [employer]. MSD Pneumovax 23 [id number] Intramuscular Left Gluteous Medius 04/02/2012 08/07/2009 33 Influenza 02/18/2013 [facility] PMC Fluzone > 3 Years [id number] Intramuscular Right Deltoid 02/18/2013 11/16/2012 141 X 12/24/2014 Not Entered NE Prevnar 13 Not Entered Not Entered 201404/24/2016 109 Influenza 12/24/2014 Not Entered NE Not Entered Not Entered Not Entered 12/24/2014 04/24/2016 141 History of Past Illness Name Date [...] 8:34AM HEP B Oct 21 2015 9:13AM Payers Insurance Name Company Name Plan Name Plan Number Policy Number Policy Group Number Start Date Medicare Part A Medicare RHC [id number] N/A BCBS [facility] [id number] Tuesday, 2009 Medicare Part B Medicare Of [place] [id number] N/A Medicare Part A Medicare Part A [id number] N/A Medicare Part A Medicare P A - Preventive [id number] N/A Medicare Part A Medicare - Lab/Xray [id number] N/A History of Encounters Visit Date Visit Type Provider 10/21/2015 Office visit 10/21/2015 Office visit 10/21/2015 Office visit 10/21/2015 Office visit Precious Carmona MD 10/15/2014 Office visit Precious Carmona MD 04/30/2014 Office visit Precious Carmona MD 04/27/2014 Office visit Pj Guajardo CIVIL CAD DESIGNER 04/12/2014 Office visit Gaby Randolph CIVIL CAD DESIGNER 02/17/2014 Voided Precious Carmona MD 01/27/2014 Office visit Precious Carmona MD 01/26/2014 Office visit Gaby Randolph CIVIL CAD DESIGNER 01/23/2014 Office visit 01/23/2014 Office visit Abbie Pedraza CIVIL CAD DESIGNER 10/04/2013 Office visit Coco Sofia CIVIL CAD DESIGNER 09/30/2013 Office visit Precious Carmona MD 05/20/2013 Office visit Precious Carmona MD 04/01/2013 Office visit Natty Webber MD 02/18/2013 Nurse visit Natty Webber MD 10/01/2012 Office visit Natty Webber MD 06/12/2012 Office visit Abbie Pedraza CIVIL CAD DESIGNER 04/12/2012 Office visit Natty Webber MD 04/02/2012 Office visit Natty Webber MD 02/20/2012 Nurse visit Natty Webber MD 12/07/2011 Office visit Natty Webber MD 11/18/2011 Office visit Abbie Pedraza CIVIL CAD DESIGNER 10/03/2011 Office visit Natty Webber MD 06/08/2011 Office visit Natty Webber MD 05/16/2011 Office visit Abbie Pedraza CIVIL CAD DESIGNER 04/05/2011 Office visit Natty Webber MD 02/18/2011 Nurse visit Tyrell Nettles MD 01/03/2011 Office visit Natty Webber MD 09/27/2010 Office visit Natty Webber MD 09/06/2010 Office visit Natty Webber MD 08/17/2010 Office visit Natty Webber MD 08/12/2010 Office visit Natty Webber MD 08/09/2010 Office visit Natty Webber MD 08/01/2010 [facility] JORGE Zhang MD 08/01/2010 [facility] Christine Inman MD 07/31/2010 Office visit Christine Inman MD 07/31/2010 [facility] Jaye Polanco MD 07/31/2010 Voided Jaye Polanco [...] Nurse visit Clarita STOUT 04/06/2009 Office visit [place] STOUT 02/10/2009 Nurse visit Clarita Cummings PA
[2016-11-03] MEDS ORDERED: HURRICAINE EXT TUBE (BENZOCAINE) XX PRN (08:30)
--- OUTSIDE RECORDS SUMMARY | 2016-11-03 08:31 | XMS REPORT ---
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 History of Procedures Date [...] SC/IM Reviewed 06/08/2011 12:00 AM Bicillin CR [facility]#[id number] Clinic Reviewed 06/08/2011 12:00 AM Depo-Medrol 40 mg [facility]#[id number] Reviewed 12/07/2011 12:00 AM COMPREHEN METABOLIC PANEL Reviewed 12/07/2011 12:00 AM ASSAY THYROID STIM HORMONE Reviewed 12/07/2011 12:00 AM COMPLETE CBC W/AUTO DIFF WBC Returned 12/07/2011 12:00 AM Wrist Support Reviewed 02/20/2012 12:00 AM Flu Injection 3 Years And Above [facility]# [address]-01 [facility] Reviewed 04/02/2012 12:00 AM IMMUNIZATION ADMIN Reviewed 04/02/2012 12:00 AM Pneumovax Injection - [facility] Reviewed 04/12/2012 12:00 AM TRICHOMONAS ASSAY W/OPTIC Returned 06/12/2012 12:00 AM THER/PROPH/DIAG INJ SC/IM Reviewed 06/12/2012 12:00 AM Bicillin CR, 1.2 million units [facility]# 83882-109-42 Reviewed 09/27/2012 12:00 AM COMPREHEN METABOLIC PANEL [...] AM Flu Injection 3 Years And Above [facility]# [address]-65 [facility] Reviewed 09/09/2009 8:48 AM Blood Pressure [...] 01/23/2014 12:00 AM Kenalog, Per 10 Mg [facility]#8579-3121-07 Reviewed 03/19/2014 12:00 AM COMPLETE CBC W/AUTO DIFF WBC Returned 03/19/2014 12:00 AM COMPREHEN METABOLIC PANEL Returned 03/19/2014 12:00 AM LIPID PANEL Returned 03/19/2014 12:00 AM ASSAY THYROID STIM HORMONE Returned 04/27/2014 12:00 AM Rocephin 1 gram [facility]#1272-4743-58 Reviewed 04/27/2014 12:00 AM THER/PROPH/DIAG INJ SC/IM [...] BILI 0.50 mg/dLCALCIUM 9.40 mg/dLeGFR >60 mL/min/1.73 [id number] 109.0 mg/dLCHOLESTEROL 153.0 mg/dLHDL 54.0 mg/dLLDL (CALC) [...] BILI 0.80 mg/dLCALCIUM 10.40 mg/dLeGFR >60 mL/min/1.73 [id number] 163.0 mg/dLCHOLESTEROL 138.0 mg/dLHDL 49.0 mg/dLLDL (CALC) [...] BILI 0.70 mg/dLCALCIUM 9.50 mg/dLeGFR >60 mL/min/1.73 [id number] 107.0 mg/dLCHOLESTEROL 138.0 mg/dLHDL 58.0 mg/dLLDL (CALC) [...] CVX Influenza 02/10/2010 sanofi pasteur PMC Fluzone [id number] Intramuscular Left Arm 02/10/2010 11/29/2009 999 Influenza 02/18/2011 sanofi pasteur PMC Fluzone [id number] Intramuscular Left Arm 02/18/2011 11/17/2010 141 Influenza 02/20/2012 sanofi pasteur PMC Fluzone [id number] Intramuscular Left Deltoid 02/20/2012 10/24/2011 141 X 04/02/2012 [employer] MSD Pneumovax 23 [id number] Intramuscular Left Gluteous Medius 04/02/2012 08/07/2009 33 Influenza 02/18/2013 sanofi pasteur PMC Fluzone > 3 Years [id number] Intramuscular Right Deltoid 02/18/2013 11/16/2012 141 X [...] [employer]ck [employer] MSD Recombivax Adult [id number] Intramuscular Left Deltoid 10/21/2015 05/26/2011 43 History [...] 8:52AM Acid Reflux Oct 21 2015 8:34AM Payers Insurance Name Company Name Plan Name Plan Number Policy Number Policy Group Number Start Date Medicare Part A Medicare [facility] [id number] N/A [facility] [id number] Tuesday, 2009 Medicare Part B Medicare Of [place] [id number] N/A Medicare Part A Medicare Part A [id number] N/A Medicare Part A Medicare P A - Preventive [id number] N/A Medicare Part A Medicare - Lab/Xray [id number] N/A History of Encounters Visit Date Visit Type Provider 11/20/2015 Nurse visit Precious Carmona MD 10/21/2015 Office visit Precious Carmona MD 10/15/2014 Office visit Precious Carmona MD 04/30/2014 Office visit Precious Carmona MD 04/27/2014 Office visit Pj Guajardo SHOTBLASTER 04/12/2014 Office visit Gaby Randolph SHOTBLASTER 02/17/2014 Voided Precious Carmona MD 01/27/2014 Office visit Precious Carmona MD 01/26/2014 Office visit Gaby Randolph SHOTBLASTER 01/23/2014 Office visit 01/23/2014 Office visit Abbie Pedraza SHOTBLASTER 10/04/2013 Office visit Coco Sofia SHOTBLASTER 09/30/2013 Office visit Precious Carmona MD 05/20/2013 Office visit Precious Carmona MD 04/01/2013 Office visit Natty Webber MD 02/18/2013 Nurse visit Natty Webber MD 10/01/2012 Office visit Natty Webber MD 06/12/2012 Office visit Abbie Pedraza SHOTBLASTER 04/12/2012 Office visit Natty Webber MD 04/02/2012 Office visit Natty Webber MD 02/20/2012 Nurse visit Natty Webber MD 12/07/2011 Office visit Natty Webber MD 11/18/2011 Office visit Abbie Pedraza SHOTBLASTER 10/03/2011 Office visit Natty Webber MD 06/08/2011 Office visit Natty Webber MD 05/16/2011 Office visit Abbie Pedraza SHOTBLASTER 04/05/2011 Office visit Natty Webber MD 02/18/2011 Nurse visit Tyrell Nettles MD 01/03/2011 Office visit Natty Webber MD 09/27/2010 Office visit Natty Webber MD 09/06/2010 Office visit Natty Webber MD 08/17/2010 Office visit Natty Webber MD 08/12/2010 Office visit Natty Webber MD 08/09/2010 Office visit Natty Webber MD 08/01/2010 [facility] JORGE Zhang MD 08/01/2010 [facility] Christine Inman MD 07/31/2010 Office visit Christine Inman MD 07/31/2010 Hospital Jaye Polanco MD 07/31/2010 Voided Jaye [...]
--- OUTSIDE RECORDS SUMMARY | 2016-11-03 08:33 | XMS REPORT ---
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 History of Procedures Date [...] Reviewed 06/08/2011 12:00 AM Bicillin CR [facility]#[id number] Clinic Reviewed 06/08/2011 12:00 AM Depo-Medrol 40 mg [facility]#[id number] Reviewed 12/07/2011 12:00 AM COMPREHEN METABOLIC PANEL Reviewed 12/07/2011 12:00 AM ASSAY THYROID STIM HORMONE Reviewed 12/07/2011 12:00 AM COMPLETE CBC W/AUTO DIFF WBC Returned 12/07/2011 12:00 AM Wrist Support Reviewed 02/20/2012 12:00 AM Flu Injection 3 Years And Above [facility]# [address]-78 [facility] Reviewed 04/02/2012 12:00 AM IMMUNIZATION ADMIN Reviewed 04/02/2012 12:00 AM Pneumovax Injection - [facility] Reviewed 04/12/2012 12:00 AM TRICHOMONAS ASSAY W/OPTIC Returned 06/12/2012 12:00 AM THER/PROPH/DIAG INJ SC/IM Reviewed 06/12/2012 12:00 AM Bicillin CR, 1.2 million units [facility]# 08970-610-53 Reviewed 09/27/2012 12:00 AM COMPREHEN METABOLIC PANEL [...] Flu Injection 3 Years And Above [facility]# [address]-51 [facility] Reviewed 09/09/2009 8:48 AM Blood Pressure [...] 12:00 AM Kenalog, Per 10 Mg [facility]#3810-1804-03 Reviewed 03/19/2014 12:00 AM COMPLETE CBC W/AUTO DIFF WBC Returned 03/19/2014 12:00 AM COMPREHEN METABOLIC PANEL Returned 03/19/2014 12:00 AM LIPID PANEL Returned 03/19/2014 12:00 AM ASSAY THYROID STIM HORMONE Returned 04/27/2014 12:00 AM Rocephin 1 gram [facility]#4925-0975-37 Reviewed 04/27/2014 12:00 AM THER/PROPH/DIAG INJ SC/IM [...] BILI 0.50 mg/dLCALCIUM 9.40 mg/dLeGFR >60 mL/min/1.73 [id number] 109.0 mg/dLCHOLESTEROL 153.0 mg/dLHDL 54.0 mg/dLLDL (CALC) [...] BILI 0.80 mg/dLCALCIUM 10.40 mg/dLeGFR >60 mL/min/1.73 [id number] 163.0 mg/dLCHOLESTEROL 138.0 mg/dLHDL 49.0 mg/dLLDL (CALC) [...] BILI 0.70 mg/dLCALCIUM 9.50 mg/dLeGFR >60 mL/min/1.73 [id number] 107.0 mg/dLCHOLESTEROL 138.0 mg/dLHDL 58.0 mg/dLLDL (CALC) [...] CVX Influenza 02/10/2010 sanofi pasteur PMC Fluzone [id number] Intramuscular Left Arm 02/10/2010 11/29/2009 999 Influenza 02/18/2011 sanofi pasteur PMC Fluzone [id number] Intramuscular Left Arm 02/18/2011 11/17/2010 141 Influenza 02/20/2012 sanofi pasteur PMC Fluzone [id number] Intramuscular Left Deltoid 02/20/2012 10/24/2011 141 X 04/02/2012 [employer] MSD Pneumovax 23 [id number] Intramuscular Left Gluteous Medius 04/02/2012 08/07/2009 33 Influenza 02/18/2013 sanofi pasteur PMC Fluzone > 3 Years [id number] Intramuscular Right Deltoid 02/18/2013 11/16/2012 141 X 12/24/2014 Not Entered NE Prevnar 13 Not Entered Not Entered 201404/24/2016 109 Influenza 12/24/2014 Not Entered NE Not Entered Not Entered Not Entered 12/24/2014 04/24/2016 141 Zostavax 04/06/2012 Not Entered NE Not Entered Not Entered Not Entered 04/24/2016 04/24/2016 121 Tdap 04/06/2012 Not Entered NE Not Entered Not Entered Not Entered 04/24/201604/24/2016 115 History of Past Illness Name Date [...] Start Date Medicare Part A Medicare RHC [id number] N/A BCBS Bcbs [facility] [id number] Tuesday, 2009 Medicare Part B Medicare Of [place] [id number] N/A Medicare Part A Medicare Part A [id number] N/A Medicare Part A Medicare P A - Preventive [id number] N/A Medicare Part A Medicare - Lab/Xray [id number] N/A History of Encounters Visit Date Visit Type Provider 10/21/2015 Office visit Precious Carmona MD 10/15/2014 Office visit Precious Carmona MD 04/30/2014 Office visit Precious Carmona MD 04/27/2014 Office visit Pj Guajardo TILE GRINDER 04/12/2014 Office visit Gaby Randolph TILE GRINDER 02/17/2014 Voided Precious Carmona MD 01/27/2014 Office visit Precious Carmona MD 01/26/2014 Office visit Gaby Randolph TILE GRINDER 01/23/2014 Office visit 01/23/2014 Office visit Abbie Pedraza TILE GRINDER 10/04/2013 Office visit Coco Sofia TILE GRINDER 09/30/2013 Office visit Precious Carmona MD 05/20/2013 Office visit Precious Carmona MD 04/01/2013 Office visit Natty Webber MD 02/18/2013 Nurse visit Natty Webber MD 10/01/2012 Office visit Natty Webber MD 06/12/2012 Office visit Abbie Pedraza TILE GRINDER 04/12/2012 Office visit Natty Webber MD 04/02/2012 Office visit Natty Webber MD 02/20/2012 Nurse visit Natty Webber MD 12/07/2011 Office visit Natty Webber MD 11/18/2011 Office visit Abbie Pedraza TILE GRINDER 10/03/2011 Office visit Natty Webber MD 06/08/2011 Office visit Natty Webber MD 05/16/2011 Office visit Abbie Pedraza TILE GRINDER 04/05/2011 Office visit Natty Webber MD 02/18/2011 Nurse visit Tyrell Nettles MD 01/03/2011 Office visit Natty eWbber MD 09/27/2010 Office visit Natty Webber MD 09/06/2010 Office visit Natty Webber MD 08/17/2010 Office visit Natty Webber MD 08/12/2010 Office visit Natty Webber MD 08/09/2010 Office visit Natty Webber MD 08/01/2010 [facility] JORGE Zhang MD 08/01/2010 [facility] Christine Inman MD 07/31/2010 Office visit Christine Inman MD 07/31/2010 [facility] Jaye Polanco MD 07/31/2010 Voided [...]
--- OUTSIDE RECORDS SUMMARY | 2016-11-03 08:36 | XMS REPORT ---
Author Pj Carroll [facility] Address [address] [place], [place] [address] Care Team Providers Care Gas Line Installer Supervisor Name Role Phone Pj Guajardo PCP Precious Carmona PreferredProvider Allergies and Adverse Reactions Name Reaction Notes NO KNOWN DRUG ALLERGIES Plan of Treatment Planned Activity Comments Planned Date Planned Time Plan/Goal Complete blood count (CBC) with differential count 10/21/2015 12:00 AM Comprehensive metabolic panel 10/21/2015 12:00 AM VITAMIN D (25 HYDROXY) 10/21/2015 12:00 AM IRON PANEL 09/26/2016 12:00 AM IRON PANEL 09/26/2016 12:00 AM IRON PANEL 09/26/2016 12:00 AM Fecal occult blood test 09/26/2016 12:00 AM HEMOGRAM . 09/26/2016 12:00 AM Lipid panel (total cholesterol, lipoproteins, [...] take 2 tablets by oral route daily [place] 3 Fish Oil 900-1,400 mg oral capsule,delayed [...] History Name Description Comments Children lives alone Skein Winder Tobacco Never smoker History of Procedures Date [...] SC/IM Reviewed 06/08/2011 12:00 AM Bicillin CR [facility]#[id number] Clinic Reviewed 06/08/2011 12:00 AM Depo-Medrol 40 mg [facility]#[id number] Reviewed 02/04/2016 12:00 AM COMPLETE CBC W/AUTO [...] AM Flu Injection 3 Years And Above [facility]# [address]-92 [facility] Reviewed 04/02/2012 12:00 AM IMMUNIZATION ADMIN Reviewed 04/02/2012 12:00 AM Pneumovax Injection - [facility] Reviewed 04/12/2012 12:00 AM TRICHOMONAS ASSAY W/OPTIC Reviewed 06/12/2012 12:00 AM THER/PROPH/DIAG INJ SC/IM Reviewed 06/12/2012 12:00 AM Bicillin CR, 1.2 million units [facility]# 49451-733-98 Reviewed 09/27/2012 12:00 AM COMPREHEN METABOLIC PANEL [...] AM Flu Injection 3 Years And Above [facility]# [address]-51 C Reviewed 09/09/2009 8:48 AM Blood Pressure Check-no [...] 01/23/2014 12:00 AM Kenalog, Per 10 Mg [facility]#6627-9652-87 Reviewed 03/19/2014 12:00 AM COMPLETE CBC W/AUTO DIFF WBC Reviewed 03/19/2014 12:00 AM COMPREHEN METABOLIC PANEL Reviewed 03/19/2014 12:00 AM LIPID PANEL Reviewed 03/19/2014 12:00 AM ASSAY THYROID STIM HORMONE Reviewed 04/27/2014 12:00 AM Rocephin 1 gram [facility]#2761-8032-90 Reviewed 04/27/2014 12:00 AM THER/PROPH/DIAG INJ SC/IM [...] CVX Influenza 02/10/2010 sanofi pasteur PMC Fluzone [id number] Intramuscular Left Arm 02/10/2010 11/29/2009 999 Influenza 02/18/2011 sanofi pasteur PMC Fluzone [id number] Intramuscular Left Arm 02/18/2011 11/17/2010 141 Influenza 02/20/2012 sanofi pasteur PMC Fluzone [id number] Intramuscular Left Deltoid 02/20/2012 10/24/2011 141 X 04/02/2012 [employer]ck [employer] MSD Pneumovax 23 [id number] Intramuscular Left Gluteous Medius 04/02/2012 08/07/2009 33 Influenza 02/18/2013 sanofi pasteur PMC Fluzone > 3 Years [id number] Intramuscular Right Deltoid 02/18/2013 11/16/2012 141 X 12/24/2014 Not Entered NE Prevnar 13 Not Entered Not Entered 201404/24/2017 109 Influenza 12/24/2014 Not Entered NE Not Entered Not Entered Not Entered 12/24/2014 04/24/2017 141 HepB Adult 10/21/2015 [employer] MSD Recombivax Adult [id number] Not Entered Left Deltoid 10/21/2015 11/11/2015 43 HepB Adult 11/20/2015 [employer] MSD Recombivax Adult [id number] Intramuscular Right Deltoid 11/20/2015 11/11/2015 43 Zostavax 04/06/2012 Not Entered NE Not Entered Not Entered Not Entered 04/24/2017 04/24/2017 121 Tdap 04/06/2012 Not Entered NE Not Entered Not Entered Not Entered 04/24/201704/24/2017 115 Influenza 02/04/2016 Not Entered NE Fluzone High-Dose Intramuscular Left Arm 04/24/2017 04/24/2017 141 HepB Adult 04/21/2016 [employer] MSD Recombivax Adult [id number] Intramuscular Right Deltoid 04/21/2016 11/11/2015 43 History [...] Blood in stool Sep 26 2016 2:54PM Payers Insurance Name Company Name Plan Name Plan Number Policy Number Policy Group Number Start Date Medicare RHC Medicare RHC [id number] N/A BCBS Bcbs [facility] [id number] Tuesday, 2009 Medicare Part B Medicare Of [place] [id number] N/A Medicare Part A Medicare Part A [id number] N/A Medicare Part A ZZZMedicare P A - Preventive [id number] N/A Medicare Part A Medicare - Lab/Xray [id number] N/A History of Encounters Visit Date Visit Type Provider 09/16/2016 Office visit Pj Guajardo CARE PARTNER 04/21/2016 Nurse visit Precious Carmona MD 02/04/2016 Office visit Precious Carmona MD 11/20/2015 Nurse visit Precious Carmona MD 10/21/2015 Office visit Precious Carmona MD 10/15/2014 Office visit Precious Carmona MD 04/30/2014 Office visit Precious Carmona MD 04/27/2014 Office visit Pj Guajarod CARE PARTNER 04/12/2014 Office visit Gaby Randolph CARE PARTNER 02/17/2014 Voided Precious Carmona MD 01/27/2014 Office visit Precious Carmona MD 01/26/2014 Office visit Gaby Randolph CARE PARTNER 01/23/2014 Office visit 01/23/2014 Office visit Abbie Pedraza CARE PARTNER 10/04/2013 Office visit Coco Sofia CARE PARTNER 09/30/2013 Office visit Precious Carmona MD 05/20/2013 Office visit Precious Carmona MD 04/01/2013 Office visit Natty Webber MD 02/18/2013 Nurse visit Natty Webber MD 10/01/2012 Office visit Natty Webber MD 06/12/2012 Office visit Abbie Pedraza CARE PARTNER 04/12/2012 Office visit Natty Webber MD 04/02/2012 Office visit Natty Webber MD 02/20/2012 Nurse visit Natty Webber MD 12/07/2011 Office visit Natty Webber MD 11/18/2011 Office visit Abbie Pedraza CARE PARTNER 10/03/2011 Office visit Natty Webber MD 06/08/2011 Office visit Natty Webber MD 05/16/2011 Office visit Abbie Pedraza CARE PARTNER 04/05/2011 Office visit Natty Webber MD 02/18/2011 Nurse visit Tyrell Nettles MD 01/03/2011 Office visit Natty Webber MD 09/27/2010 Office visit Natty Webber MD 09/06/2010 Office visit Natty Webber MD 08/17/2010 Office visit Natty Webber MD 08/12/2010 Office visit Natty Webber MD 08/09/2010 Office visit Natty Webber MD 08/01/2010 [facility] JORGE Zhang MD 08/01/2010 [facility] Christine Inman MD 07/31/2010 Office visit Christine Inman MD 07/31/2010 [facility] Jaye Polanco MD 07/31/2010 Voided Jaye [...]
--- OUTSIDE RECORDS SUMMARY | 2016-11-03 08:38 | XMS REPORT ---
Author Author Precious Carmona Organization [facility] Address [address] [place], [place] [address] Care Team Providers Care Back Order Clerk Name Role Phone Precious Carmona PCP Allergies [...] CBC W/AUTO DIFF WBC 04/17/2012 12:00 AM COMPLETE CBC W/AUTO DIFF WBC 09/25/2014 12:00 AM COMPREHEN METABOLIC PANEL 09/25/2014 12:00 AM LIPID PANEL 09/25/2014 12:00 AM ASSAY THYROID STIM HORMONE 09/25/2014 12:00 AM Medications Active Name Start Date Estimated Completion Date SIG Comments Tetracaine Lollipops Lollipop 04/27/2014 Use as directed amlodipine oral tablet 5 mg 04/30/2014 04/25/2015 TAKE ONE TABLET BY MOUTH EVERY DAY atenolol oral tablet 50 mg 04/30/2014 04/25/2015 take 1 tablet (50 mg) by oral route once daily levothyroxine oral tablet 50 mcg 04/30/2014 04/25/2015 TAKE ONE TABLET BY MOUTH EVERY DAY loratadine oral tablet 10 mg 04/30/2014 10/22/2015 TAKE ONE TABLET BY MOUTH EVERY DAY Diovan Oral tablet 160 mg 06/13/2014 06/08/2015 TAKE ONE TABLET BY MOUTH EVERY DAY for 90 days clorazepate dipotassium oral tablet 7.5 mg 08/26/2014 10/25/2014 take 1/2 to1 tablet PO up to three times per day for situational anxiety Name Start Date Expiration Date SIG Comments Prednisone Oral Tablet 20 mg 07/29/2010 08/03/2010 take 2 tablets by oral route daily for 5 days calcium carbonate-vitamin D2 Oral tablet 600-125 mg-unit 12/07/2011 01/06/2012 take 2 tablets by oral route daily [place] 3 Fish Oil Oral capsule,delayed release(DR/EC) 900-1,400 [...] meals and at bedtime for 4 weeks Discontinued Name Start Date Discontinued Date SIG Comments Lipitor Oral Tablet 40 mg 04/06/200904/25 TAB DAILY Ramipril Oral Capsule 5 mg [...] 4 mg 10/04/2013 01/23/2014 take as directed Problem List Description Status Onset Hyperlipidemia Active acid reflux Active Hypertension Active hypothyroid Active Vital Signs Date Time BP-Sys(mm[Hg] BP-Rhianna(mm[Hg]) HR(bpm) RR(rpm) Temp WT HT HC BMI BSA BMI Percentile O2 Sat(%) 04/30/2014 9:05:00 AM 110 mmHg 75 mmHg [...] History Name Description Comments 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 History of Procedures Date [...] 12:00 AM ASSAY THYROID STIM HORMONE Reviewed Results Summary Data and Description Results [...] BILI 0.50 mg/dLCALCIUM 9.40 mg/dLeGFR >60 mL/min/1.73 [id number] 109.0 mg/dLCHOLESTEROL 153.0 mg/dLHDL 54.0 mg/dLLDL (CALC) [...] BILI 0.80 mg/dLCALCIUM 10.40 mg/dLeGFR >60 mL/min/1.73 [id number] 163.0 mg/dLCHOLESTEROL 138.0 mg/dLHDL 49.0 mg/dLLDL (CALC) [...] 71.0 mg/dLLDL (CALC) 65.0 mg/dLTSH 0.990 uIU/mL History Of Immunizations Name Date Admin Mfg Name Mfg Code Trade Name Lot# Route Inj Vis Given Vis Pub CVX Influenza 02/10/2010 sanofi pasteur PMC Fluzone [id number] Intramuscular Left Arm 02/10/2010 11/29/2009 999 Influenza 02/18/2011 sanofi pasteur PMC Fluzone [id number] Intramuscular Left Arm 02/18/2011 11/17/2010 141 Influenza 02/20/2012 sanofi pasteur PMC Fluzone [id number] Intramuscular Left Deltoid 02/20/2012 10/24/2011 141 Pneumococcal 04/02/2012 [employer] MSD Pneumovax 23 [id number] Intramuscular Left Gluteous Medius 04/02/2012 08/07/2009 33 Influenza 02/18/2013 sanofi pasteur PMC Fluzone > 3 Years [id number] Intramuscular Right Deltoid 02/18/2013 11/16/2012 141 History [...] 2014 8:18AM hypothyroid Sep 25 2014 8:18AM Payers Insurance Name Company Name Plan Name Plan Number Policy Number Policy Group Number Start Date Medicare Part B Medicare Of [place] [id number] N/A [facility] [id number] Tuesday, 2009 Medicare Part A Medicare Part A [id number] N/A History of Encounters Visit Date Visit Type Provider 04/30/2014 Office visit Precious Carmona MD 04/27/2014 Office visit Pj Guajardo PICKER TENDER HELPER 04/12/2014 Office visit Gaby Randolph PICKER TENDER HELPER 02/17/2014 Voided Precious Carmona MD 01/27/2014 Office visit Precious Carmona MD 01/26/2014 Office visit Gaby Randolph PICKER TENDER HELPER 01/23/2014 Office visit Abbie Pedraza PICKER TENDER HELPER 10/04/2013 Office visit Coco [place] PICKER TENDER HELPER 09/30/2013 Office visit Precious Carmona MD 05/20/2013 Office visit Precious Carmona MD 04/01/2013 Office visit Natty Webber MD 02/18/2013 Nurse visit Natty Webber MD 10/01/2012 Office visit Natty Webber MD 06/12/2012 Office visit Abbie Pedraza PICKER TENDER HELPER 04/12/2012 Office visit Natty Webber MD 04/02/2012 Office visit Natty Webber MD 02/20/2012 Nurse visit Natty Webber MD 12/07/2011 Office visit Natty Webber MD 11/18/2011 Office visit Abbie Pedraza PICKER TENDER HELPER 10/03/2011 Office visit Natty Webber MD 06/08/2011 Office visit Natty Webber MD 05/16/2011 Office visit Abbie Pedraza PICKER TENDER HELPER 04/05/2011 Office visit Natty Webber MD 02/18/2011 Nurse visit Tyrell Nettles MD 01/03/2011 Office visit Natty Webber MD 09/27/2010 Office visit Natty Webber MD 09/06/2010 Office visit Natty Webber MD 08/17/2010 Office visit Natty Webber MD 08/12/2010 Office visit Natyt Webber MD 08/09/2010 Office visit Natty Webber MD 08/01/2010 [facility] Christine Inman MD 08/01/2010 [facility] JORGE Zhang MD 07/31/2010 Office visit Christine Inman MD 07/31/2010 Voided Jaye Polanco MD 07/31/2010 [facility] Jaye Polanco MD 07/29/2010 Office visit Natty [...]
[2016-11-03 08:39] VITALS: BP 121/68
--- OUTSIDE RECORDS SUMMARY | 2016-11-03 08:40 | XMS REPORT ---
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 History of Procedures Date [...] BILI 0.50 mg/dLCALCIUM 9.40 mg/dLeGFR >60 mL/min/1.73 [id number] 109.0 mg/dLCHOLESTEROL 153.0 mg/dLHDL 54.0 mg/dLLDL (CALC) [...] BILI 0.80 mg/dLCALCIUM 10.40 mg/dLeGFR >60 mL/min/1.73 [id number] 163.0 mg/dLCHOLESTEROL 138.0 mg/dLHDL 49.0 mg/dLLDL (CALC) [...] BILI 0.70 mg/dLCALCIUM 9.50 mg/dLeGFR >60 mL/min/1.73 [id number] 107.0 mg/dLCHOLESTEROL 138.0 mg/dLHDL 58.0 mg/dLLDL (CALC) 59.0 mg/dL History Of Immunizations Name Date Admin Mfg Name Mfg Code Trade Name Lot# Route Inj Vis Given Vis Pub CVX Influenza 02/10/2010 sanofi pasteur PMC Fluzone [id number] Intramuscular Left Arm 02/10/2010 11/29/2009 999 Influenza 02/18/2011 sanofi pasteur PMC Fluzone [id number] Intramuscular Left Arm 02/18/2011 11/17/2010 141 Influenza 02/20/2012 sanofi pasteur PMC Fluzone [id number] Intramuscular Left Deltoid 02/20/2012 10/24/2011 141 Pneumococcal 04/02/2012 [employer] MSD Pneumovax 23 [id number] Intramuscular Left Gluteous Medius 04/02/2012 08/07/2009 33 Influenza 02/18/2013 sanofi pasteur PMC Fluzone > 3 Years [id number] Intramuscular Right Deltoid 02/18/2013 11/16/2012 141 History [...] Date Medicare Part A Medicare Part A [id number] N/A [facility] [id number] Tuesday, 2009 Medicare Part B Medicare Of [place] [id number] N/A History of Encounters Visit Date Visit Type Provider 10/15/2014 Office visit Precious Carmona MD 04/30/2014 Office visit Precious Carmona MD 04/27/2014 Office visit Pj Guajardo INTERLOCKING PAVEMENT INSTALLER 04/12/2014 Office visit Gaby Randolph INTERLOCKING PAVEMENT INSTALLER 02/17/2014 Voided Precious Carmona MD 01/27/2014 Office visit Precious Carmona MD 01/26/2014 Office visit Gaby Randolph INTERLOCKING PAVEMENT INSTALLER 01/23/2014 Office visit Abbie Pedraza INTERLOCKING PAVEMENT INSTALLER 10/04/2013 Office visit Coco Sofia INTERLOCKING PAVEMENT INSTALLER 09/30/2013 Office visit Precious Carmona MD 05/20/2013 Office visit Precious Carmona MD 04/01/2013 Office visit Natty Webber MD 02/18/2013 Nurse visit Natty Webber MD 10/01/2012 Office visit Natty Webber MD 06/12/2012 Office visit Abbie Pedraza INTERLOCKING PAVEMENT INSTALLER 04/12/2012 Office visit Natty Webber MD 04/02/2012 Office visit Natty Webber MD 02/20/2012 Nurse visit Natty Webber MD 12/07/2011 Office visit Natty Webber MD 11/18/2011 Office visit Abbie Pedraza INTERLOCKING PAVEMENT INSTALLER 10/03/2011 Office visit Natty Webber MD 06/08/2011 Office visit Natty Webber MD 05/16/2011 Office visit Abbie Pedraza INTERLOCKING PAVEMENT INSTALLER 04/05/2011 Office visit Natty Webber MD 02/18/2011 Nurse visit Tyrell Nettles MD 01/03/2011 Office visit Natty Webber MD 09/27/2010 Office visit Natty Webber MD 09/06/2010 Office visit Natty Webber MD 08/17/2010 Office visit Natty Webber MD 08/12/2010 Office visit Natty Webber MD 08/09/2010 Office visit Natty Webber MD 08/01/2010 [facility] Christine Inman MD 08/01/2010 [facility] JORGE Zhang MD 07/31/2010 Office visit Christine Inman MD 07/31/2010 Voided Jaye Polanco MD 07/31/2010 [facility] Jaye Polanco MD 07/29/2010 Office visit Natty [...]
--- OUTSIDE RECORDS SUMMARY | 2016-11-03 08:43 | XMS REPORT ---
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 History of Procedures Date [...] Reviewed 06/08/2011 12:00 AM Bicillin CR [facility]#[id number] Clinic Reviewed 06/08/2011 12:00 AM Depo-Medrol 40 mg [facility]#[id number] Reviewed 02/04/2016 12:00 AM COMPLETE CBC W/AUTO [...] Flu Injection 3 Years And Above [facility]# [address]-19 [facility] Reviewed 04/02/2012 12:00 AM IMMUNIZATION ADMIN Reviewed 04/02/2012 12:00 AM Pneumovax Injection - [facility] Reviewed 04/12/2012 12:00 AM TRICHOMONAS ASSAY W/OPTIC Reviewed 06/12/2012 12:00 AM THER/PROPH/DIAG INJ SC/IM Reviewed 06/12/2012 12:00 AM Bicillin CR, 1.2 million units [facility]# 01723-851-38 Reviewed 09/27/2012 12:00 AM COMPREHEN METABOLIC PANEL [...] Flu Injection 3 Years And Above [facility]# [address]-08 [facility] Reviewed 09/09/2009 8:48 AM Blood Pressure [...] 12:00 AM Kenalog, Per 10 Mg [facility]#4788-4301-42 Reviewed 03/19/2014 12:00 AM COMPLETE CBC W/AUTO DIFF WBC Reviewed 03/19/2014 12:00 AM COMPREHEN METABOLIC PANEL Reviewed 03/19/2014 12:00 AM LIPID PANEL Reviewed 03/19/2014 12:00 AM ASSAY THYROID STIM HORMONE Reviewed 04/27/2014 12:00 AM Rocephin 1 gram [facility]#5735-0761-29 Reviewed 04/27/2014 12:00 AM THER/PROPH/DIAG INJ SC/IM [...] CVX Influenza 02/10/2010 sanofi pasteur PMC Fluzone [id number] Intramuscular Left Arm 02/10/2010 11/29/2009 999 Influenza 02/18/2011 sanofi pasteur PMC Fluzone [id number] Intramuscular Left Arm 02/18/2011 11/17/2010 141 Influenza 02/20/2012 sanofi pasteur PMC Fluzone [id number] Intramuscular Left Deltoid 02/20/2012 10/24/2011 141 X 04/02/2012 [employer] MSD Pneumovax 23 [id number] Intramuscular Left Gluteous Medius 04/02/2012 08/07/2009 33 Influenza 02/18/2013 sanofi pasteur PMC Fluzone > 3 Years [id number] Intramuscular Right Deltoid 02/18/2013 11/16/2012 141 X 12/24/2014 Not Entered NE Prevnar 13 Not Entered Not Entered 201404/24/2017 109 Influenza 12/24/2014 Not Entered NE Not Entered Not Entered Not Entered 12/24/2014 04/24/2017 141 HepB Adult 10/21/2015 [employer] MSD Recombivax Adult [id number] Not Entered Left Deltoid 10/21/2015 11/11/2015 43 HepB Adult 11/20/2015 [employer] MSD Recombivax Adult [id number] Intramuscular Right Deltoid 11/20/2015 11/11/2015 43 Zostavax 04/06/2012 Not Entered NE Not Entered Not Entered Not Entered 04/24/2017 04/24/2017 121 Tdap 04/06/2012 Not Entered NE Not Entered Not Entered Not Entered 04/24/201704/24/2017 115 Influenza 02/04/2016 Not Entered NE Fluzone High-Dose Intramuscular Left Arm 04/24/2017 04/24/2017 141 HepB Adult 04/21/2016 [employer] MSD Recombivax Adult [id number] Intramuscular Right Deltoid 04/21/2016 11/11/2015 43 History [...] Start Date Medicare Part A Medicare RHC [id number] N/A [id number] Tuesday, 2009 Medicare Part B Medicare Of [place] [id number] N/A Medicare Part A Medicare Part A [id number] N/A Medicare Part A ZZZMedicare P A - Preventive [id number] N/A Medicare Part A Medicare - Lab/Xray [id number] N/A History of Encounters Visit Date Visit Type Provider 04/21/2016 Nurse visit Precious Carmona MD 02/04/2016 Office visit Precious Carmona MD 11/20/2015 Nurse visit Precious Carmona MD 10/21/2015 Office visit Precious Carmona MD 10/15/2014 Office visit Precious Carmona MD 04/30/2014 Office visit Precious Carmona MD 04/27/2014 Office visit Pj Guajardo FUEL STORAGE TECHNICIAN 04/12/2014 Office visit Gaby Randolph FUEL STORAGE TECHNICIAN 02/17/2014 Voided Precious Carmona MD 01/27/2014 Office visit Precious Carmona MD 01/26/2014 Office visit Gaby Randolph FUEL STORAGE TECHNICIAN 01/23/2014 Office visit 01/23/2014 Office visit Abbie Pedraza FUEL STORAGE TECHNICIAN 10/04/2013 Office visit Coco Sofia FUEL STORAGE TECHNICIAN 09/30/2013 Office visit Precious Carmona MD 05/20/2013 Office visit Precious Carmona MD 04/01/2013 Office visit Natty Webber MD 02/18/2013 Nurse visit Natty Webber MD 10/01/2012 Office visit Natty Webber MD 06/12/2012 Office visit Abbie Pedraza FUEL STORAGE TECHNICIAN 04/12/2012 Office visit Natty Webber MD 04/02/2012 Office visit Natty Webber MD 02/20/2012 Nurse visit Natty Webber MD 12/07/2011 Office visit Natty Webber MD 11/18/2011 Office visit Abbie Pedraza FUEL STORAGE TECHNICIAN 10/03/2011 Office visit Natty Webber MD 06/08/2011 Office visit Natty Webber MD 05/16/2011 Office visit Abbie Pedraza FUEL STORAGE TECHNICIAN 04/05/2011 Office visit Natty Webber MD 02/18/2011 Nurse visit Tyrell Nettles MD 01/03/2011 Office visit Natty Webber MD 09/27/2010 Office visit Natty Webber MD 09/06/2010 Office visit Natty Webber MD 08/17/2010 Office visit Natty Webber MD 08/12/2010 Office visit Natty Webber MD 08/09/2010 Office visit Natty Webber MD 08/01/2010 [facility] JORGE Zhang MD 08/01/2010 [facility] Christine Inman MD 07/31/2010 Office visit Christine Inman MD 07/31/2010 [facility] Jaye Polanco MD 07/31/2010 Voided [...]
--- OUTSIDE RECORDS SUMMARY | 2016-11-03 08:45 | XMS REPORT ---
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 History of Procedures Date [...] SC/IM Reviewed 06/08/2011 12:00 AM Bicillin CR [facility]#[id number] Clinic Reviewed 06/08/2011 12:00 AM Depo-Medrol 40 mg [facility]#[id number] Reviewed 02/04/2016 12:00 AM COMPLETE CBC W/AUTO [...] AM Flu Injection 3 Years And Above [facility]# [address]-96 [facility] Reviewed 04/02/2012 12:00 AM IMMUNIZATION ADMIN Reviewed 04/02/2012 12:00 AM Pneumovax Injection - [facility] Reviewed 04/12/2012 12:00 AM TRICHOMONAS ASSAY W/OPTIC Reviewed 06/12/2012 12:00 AM THER/PROPH/DIAG INJ SC/IM Reviewed 06/12/2012 12:00 AM Bicillin CR, 1.2 million units [facility]# 74883-772-70 Reviewed 09/27/2012 12:00 AM COMPREHEN METABOLIC PANEL [...] AM Flu Injection 3 Years And Above [facility]# [address]-83 [facility] Reviewed 09/09/2009 8:48 AM Blood Pressure [...] 01/23/2014 12:00 AM Kenalog, Per 10 Mg [facility]#4584-5717-25 Reviewed 03/19/2014 12:00 AM COMPLETE CBC W/AUTO DIFF WBC Reviewed 03/19/2014 12:00 AM COMPREHEN METABOLIC PANEL Reviewed 03/19/2014 12:00 AM LIPID PANEL Reviewed 03/19/2014 12:00 AM ASSAY THYROID STIM HORMONE Reviewed 04/27/2014 12:00 AM Rocephin 1 gram [facility]#9141-3073-99 Reviewed 04/27/2014 12:00 AM THER/PROPH/DIAG INJ SC/IM [...] CVX Influenza 02/10/2010 sanofi pasteur PMC Fluzone [id number] Intramuscular Left Arm 02/10/2010 11/29/2009 999 Influenza 02/18/2011 sanofi pasteur PMC Fluzone [id number] Intramuscular Left Arm 02/18/2011 11/17/2010 141 Influenza 02/20/2012 sanofi pasteur PMC Fluzone [id number] Intramuscular Left Deltoid 02/20/2012 10/24/2011 141 X 04/02/2012 [employer] MSD Pneumovax 23 [id number] Intramuscular Left Gluteous Medius 04/02/2012 08/07/2009 33 Influenza 02/18/2013 sanofi [facility] PMC Fluzone > 3 Years [id number] Intramuscular Right Deltoid 02/18/2013 11/16/2012 141 X 12/24/2014 Not Entered NE Prevnar 13 Not Entered Not Entered 201404/24/2017 109 Influenza 12/24/2014 Not Entered NE Not Entered Not Entered Not Entered 12/24/2014 04/24/2017 141 HepB Adult 10/21/2015 [employer] MSD Recombivax Adult [id number] Not Entered Left Deltoid 10/21/2015 11/11/2015 43 HepB Adult 11/20/2015 [employer] MSD Recombivax Adult [id number] Intramuscular Right Deltoid 11/20/2015 11/11/2015 43 Zostavax 04/06/2012 Not Entered NE Not Entered Not Entered Not Entered 04/24/2017 04/24/2017 121 Tdap 04/06/2012 Not Entered NE Not Entered Not Entered Not Entered 04/24/201704/24/2017 115 Influenza 02/04/2016 Not Entered NE Fluzone High-Dose Intramuscular Left Arm 04/24/2017 04/24/2017 141 HepB Adult 04/21/2016 [employer] MSD Recombivax Adult [id number] Intramuscular Right Deltoid 04/21/2016 11/11/2015 43 History [...] Number Start Date Medicare RHC Medicare RHC [id number] N/A [facility] [id number] Tuesday, 2009 Medicare Part B Medicare Of [place] [id number] N/A Medicare Part A Medicare Part A [id number] N/A Medicare Part A ZZZMedicare P A - Preventive [id number] N/A Medicare Part A Medicare - Lab/Xray [id number] N/A History of Encounters Visit Date Visit Type Provider 09/16/2016 Office visit Pj Guajardo ARCHIVAL RECORDS CLERK 04/21/2016 Nurse visit Precious Carmona MD 02/04/2016 Office visit Precious Carmona MD 11/20/2015 Nurse visit Precious Carmona MD 10/21/2015 Office visit Precious Carmona MD 10/15/2014 Office visit Precious Carmona MD 04/30/2014 Office visit Precious Carmona MD 04/27/2014 Office visit Pj Guajardo ARCHIVAL RECORDS CLERK 04/12/2014 Office visit Gaby Randolph ARCHIVAL RECORDS CLERK 02/17/2014 Voided Precious Carmona MD 01/27/2014 Office visit Precious Carmona MD 01/26/2014 Office visit Gaby Randolph ARCHIVAL RECORDS CLERK 01/23/2014 Office visit 01/23/2014 Office visit Abbie Pedraza ARCHIVAL RECORDS CLERK 10/04/2013 Office visit Coco Sofia ARCHIVAL RECORDS CLERK 09/30/2013 Office visit Precious Carmona MD 05/20/2013 Office visit Precious Carmona MD 04/01/2013 Office visit Natty Webber MD 02/18/2013 Nurse visit Natty Webber MD 10/01/2012 Office visit Natty Webber MD 06/12/2012 Office visit Abbie Pedraza ARCHIVAL RECORDS CLERK 04/12/2012 Office visit Natty Webber MD 04/02/2012 Office visit Natty Webber MD 02/20/2012 Nurse visit Natty Webber MD 12/07/2011 Office visit Natty Webber MD 11/18/2011 Office visit Abbie Pedraza ARCHIVAL RECORDS CLERK 10/03/2011 Office visit Natty Webber MD 06/08/2011 Office visit Natty Webber MD 05/16/2011 Office visit Abbie Pedraza ARCHIVAL RECORDS CLERK 04/05/2011 Office visit Natty Webber MD 02/18/2011 Nurse visit Tyrell Nettles MD 01/03/2011 Office visit Natty Webber MD 09/27/2010 Office visit Natty Webber MD 09/06/2010 Office visit Natty Webber MD 08/17/2010 Office visit Natty Webber MD 08/12/2010 Office visit Natty Webber MD 08/09/2010 Office visit Natty Webber MD 08/01/2010 [facility] JORGE Zhang MD 08/01/2010 [facility] Christine Inman MD 07/31/2010 Office visit Christine Inman MD 07/31/2010 [facility] Jaye Polanco MD 07/31/2010 Voided [...]
--- OUTSIDE RECORDS SUMMARY | 2016-11-03 08:47 | XMS REPORT ---
Author Author Precious Carmona Organization [facility] Address [address] [place], [place] [address] Care Team Providers Care Prehemmer Name Role Phone Precious Carmona PCP Allergies and Adverse Reactions Name Reaction Notes NO KNOWN DRUG ALLERGIES Plan of Treatment Planned Activity Comments Planned Date Planned Time Plan/Goal COMPLETE CBC W/AUTO DIFF WBC 03/05/2015 12:00 AM COMPREHEN METABOLIC PANEL 03/05/2015 12:00 AM LIPID PANEL 03/05/2015 12:00 AM ASSAY THYROID STIM HORMONE 03/05/2015 12:00 AM LIPID PANEL 12/07/2011 12:00 AM [...] Date Estimated Completion Date SIG Comments amlodipine 5 mg oral tablet 04/30/2014 04/25/2015 TAKE ONE TABLET BY MOUTH EVERY DAY atenolol 50 mg oral tablet 04/30/2014 04/25/2015 take 1 tablet (50 mg) by oral route once daily levothyroxine 50 mcg oral tablet 04/30/2014 04/25/2015 TAKE ONE TABLET BY MOUTH EVERY DAY Diovan 160 mg oral tablet 06/13/2014 06/08/2015 TAKE ONE TABLET BY MOUTH EVERY DAY for 90 days loratadine 10 mg oral tablet 10/15/2014 04/07/2016 TAKE 1/2 TABLET BY MOUTH EVERY DAY IN THE EVENING aspirin 81 mg oral tablet,delayed release (DR/EC) take 1 tablet (81 mg) by oral route once daily Vitamin D3 1,000 unit oral capsule take 1 capsule by oral route daily famotidine 20 mg oral tablet 12/18/2014 TAKE ONE TABLET BY MOUTH TWICE DAILY Name Start Date Expiration Date SIG Comments prednisone 20 mg oral tablet 07/29/2010 08/03/2010 take 2 tablets by oral route daily for 5 days calcium carbonate-vitamin D2 600-125 mg-unit oral tablet 12/07/2011 01/06/2012 take 2 tablets by oral route daily [place] 3 Fish Oil 900-1,400 mg oral capsule,delayed [...] at bedtime for 4 weeks triamcinolone acetonide 0.1 % topical cream 10/15/2014 10/29/2014 apply a thin layer to the affected area(s) by topical route 2 times per day for 14 days clorazepate dipotassium 7.5 mg oral tablet 10/15/2014 12/14/2014 take 1/2 to1 tablet PO up to three times per day for situational anxiety fluconazole 150 mg oral tablet 10/15/2014 10/16/2014 [...] History Name Description Comments 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 History of Procedures Date [...] SC/IM Reviewed 06/08/2011 12:00 AM Bicillin CR [facility]#[id number] Clinic Reviewed 06/08/2011 12:00 AM Depo-Medrol 40 mg [facility]#[id number] Reviewed 12/07/2011 12:00 AM COMPREHEN METABOLIC PANEL Reviewed 12/07/2011 12:00 AM ASSAY THYROID STIM HORMONE Reviewed 12/07/2011 12:00 AM COMPLETE CBC W/AUTO DIFF WBC Returned 12/07/2011 12:00 AM Wrist Support Reviewed 02/20/2012 12:00 AM Flu Injection 3 Years And Above [facility]# [address]-23 [facility] Reviewed 04/02/2012 12:00 AM IMMUNIZATION ADMIN Reviewed 04/02/2012 12:00 AM Pneumovax Injection - [facility] Reviewed 04/12/2012 12:00 AM TRICHOMONAS ASSAY W/OPTIC Returned 06/12/2012 12:00 AM THER/PROPH/DIAG INJ SC/IM Reviewed 06/12/2012 12:00 AM Bicillin CR, 1.2 million units [facility]# 30088-237-22 Reviewed 09/27/2012 12:00 AM COMPREHEN METABOLIC PANEL [...] AM Flu Injection 3 Years And Above [facility]# [address]-33 [facility] Reviewed 09/09/2009 8:48 AM Blood Pressure [...] 01/23/2014 12:00 AM Kenalog, Per 10 Mg [facility]#9509-3567-94 Reviewed 03/19/2014 12:00 AM COMPLETE CBC W/AUTO DIFF WBC Returned 03/19/2014 12:00 AM COMPREHEN METABOLIC PANEL Returned 03/19/2014 12:00 AM LIPID PANEL Returned 03/19/2014 12:00 AM ASSAY THYROID STIM HORMONE Returned 04/27/2014 12:00 AM Rocephin 1 gram [facility]#3752-4885-96 Reviewed 04/27/2014 12:00 AM THER/PROPH/DIAG INJ SC/IM [...] BILI 0.50 mg/dLCALCIUM 9.40 mg/dLeGFR >60 mL/min/1.73 [id number] 109.0 mg/dLCHOLESTEROL 153.0 mg/dLHDL 54.0 mg/dLLDL (CALC) [...] BILI 0.80 mg/dLCALCIUM 10.40 mg/dLeGFR >60 mL/min/1.73 [id number] 163.0 mg/dLCHOLESTEROL 138.0 mg/dLHDL 49.0 mg/dLLDL (CALC) [...] BILI 0.70 mg/dLCALCIUM 9.50 mg/dLeGFR >60 mL/min/1.73 [id number] 107.0 mg/dLCHOLESTEROL 138.0 mg/dLHDL 58.0 mg/dLLDL (CALC) 59.0 mg/dL History Of Immunizations Name Date Admin Mfg Name Mfg Code Trade Name Lot# Route Inj Vis Given Vis Pub CVX Influenza 02/10/2010 sanofi pasteur PMC Fluzone [id number] Intramuscular Left Arm 02/10/2010 11/29/2009 999 Influenza 02/18/2011 sanofi pasteur PMC Fluzone [id number] Intramuscular Left Arm 02/18/2011 11/17/2010 141 Influenza 02/20/2012 sanofi pasteur PMC Fluzone [id number] Intramuscular Left Deltoid 02/20/2012 10/24/2011 141 Pneumococcal 04/02/2012 [employer] MSD Pneumovax 23 [id number] Intramuscular Left Gluteous Medius 04/02/2012 08/07/2009 33 Influenza 02/18/2013 sanofi pasteur PMC Fluzone > 3 Years [id number] Intramuscular Right Deltoid 02/18/2013 11/16/2012 141 Pneumococcal 12/24/2014 Not Entered NE Not Entered Not Entered Not Entered 12/24/2014 04/24/2015 999 Influenza 12/24/2014 Not Entered NE Not Entered Not Entered Not Entered 12/24/2014 04/24/2015 141 History of Past Illness Name Date [...] 11:34AM Hypothyroidism, Acquired Mar 05 2015 11:34AM Payers Insurance Name Company Name Plan Name Plan Number Policy Number Policy Group Number Start Date Medicare Part A Medicare Part A [id number] N/A [facility] [id number] Tuesday, 2009 Medicare Part B Medicare Of [place] [id number] N/A Medicare Part A Medicare P A - Preventive [id number] N/A History of Encounters Visit Date Visit Type Provider 10/15/2014 Office visit Precious Carmona MD 04/30/2014 Office visit Precious Carmona MD 04/27/2014 Office visit Pj Guajardo COVER MAT MACHINE OPERATOR 04/12/2014 Office visit Gaby Randolph COVER MAT MACHINE OPERATOR 02/17/2014 Voided Precious Carmona MD 01/27/2014 Office visit Precious Carmona MD 01/26/2014 Office visit Gaby Randolph COVER MAT MACHINE OPERATOR 01/23/2014 Office visit Abbie Pedraza COVER MAT MACHINE OPERATOR 10/04/2013 Office visit Coco Sofia COVER MAT MACHINE OPERATOR 09/30/2013 Office visit Precious Carmona MD 05/20/2013 Office visit Precious Carmona MD 04/01/2013 Office visit Natty Webber MD 02/18/2013 Nurse visit Natty Webber MD 10/01/2012 Office visit Natty Webber MD 06/12/2012 Office visit Abbie Pedraza COVER MAT MACHINE OPERATOR 04/12/2012 Office visit Natty Webber MD 04/02/2012 Office visit Natty Webber MD 02/20/2012 Nurse visit Natty Webber MD 12/07/2011 Office visit Natty Webber MD 11/18/2011 Office visit Abbie Pedraza COVER MAT MACHINE OPERATOR 10/03/2011 Office visit Natty Webber MD 06/08/2011 Office visit Natty Webber MD 05/16/2011 Office visit Abbie Pedraza COVER MAT MACHINE OPERATOR 04/05/2011 Office visit Natty Webber MD [...] 07/31/2010 Office visit Christine Inman MD 07/31/2010 [facility] Jaye Polanco MD 07/31/2010 Voided Jaye Polanco [...]
[2016-11-03] MEDS ORDERED: LEVO50TA6 PO (08:50)
[2016-11-03] MEDS ORDERED: PANT40TA3 PO (08:50)
--- OUTSIDE RECORDS SUMMARY | 2016-11-03 08:50 | XMS REPORT | Continuity of Care Document ---
Author Author [facility] Organization [facility] Address Unknown Phone Unavailable Allergies Medications Problems Procedures Results Encounters ACCT No. Visit Date/Time Discharge Status Pt. Type Provider Facility Loc./Unit Complaint [id number] 12/01/2014 22:02:21 12/01/2014 23: 59:59 CLS Outpatient Precious Carmona [id number] 04/30/2014 10:01:13 04/30/2014 23: 59:59 CLS Outpatient Precious Carmona [id number] 04/27/2014 14:03:46 04/27/2014 23: 59:59 CLS Outpatient Pj Guajardo [id number] 04/12/2014 10:21:34 04/12/2014 23: 59:59 CLS Outpatient Gaby Randolph [id number] 02/17/2014 09:56:02 02/17/2014 23: 59:59 CLS Outpatient Precious Carmona [id number] 01/27/2014 09:50:16 01/27/2014 23: 59:59 CLS Outpatient Precious Carmona [id number] 01/26/2014 14:39:50 01/26/2014 23: 59:59 CLS Outpatient Gaby Randolph [id number] 01/23/2014 10:07:18 01/23/2014 23: 59:59 CLS Outpatient Abbie Pedraza [id number] 10/04/2013 10:13:17 10/04/2013 23: 59:59 CLS Outpatient Coco Sofia [id number] 09/30/2013 09:15:33 09/30/2013 23: 59:59 CLS Outpatient Precious Carmona [id number] 05/20/2013 10:42:42 05/20/2013 23: 59:59 CLS Outpatient Precious Carmona [id number] 09/30/2016 12:09:45 ACT Outpatient Precious Carmona [id number] 09/16/2016 09:14:55 ACT Outpatient Pj Guajardo [id number] 04/21/2016 09:25:05 ACT Outpatient Precious Cramona [id number] 02/04/2016 15:12:59 ACT Outpatient Precious Carmona [id number] 11/20/2015 09:14:04 ACT Outpatient Precious Carmona [id number] 10/21/2015 09:30:33 ACT Outpatient Precious Carmona
--- OUTSIDE RECORDS SUMMARY | 2016-11-03 08:50 | XMS REPORT ---
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 History of Procedures Date [...] SC/IM Reviewed 06/08/2011 12:00 AM Bicillin CR [facility]#[id number] Reviewed 06/08/2011 12:00 AM Depo-Medrol 40 mg ND#[id number] Reviewed 12/07/2011 12:00 AM COMPREHEN METABOLIC PANEL Reviewed 12/07/2011 12:00 AM ASSAY THYROID STIM HORMONE Reviewed 12/07/2011 12:00 AM COMPLETE CBC W/AUTO DIFF WBC Returned 12/07/2011 12:00 AM Wrist Support Reviewed 02/20/2012 12:00 AM Flu Injection 3 Years And Above [facility]# [address]-74 [facility] Reviewed 04/02/2012 12:00 AM IMMUNIZATION ADMIN Reviewed 04/02/2012 12:00 AM Pneumovax Injection - [facility] Reviewed 04/12/2012 12:00 AM TRICHOMONAS ASSAY W/OPTIC Returned 06/12/2012 12:00 AM THER/PROPH/DIAG INJ SC/IM Reviewed 06/12/2012 12:00 AM Bicillin CR, 1.2 million units [facility]# 59341-512-45 Reviewed 09/27/2012 12:00 AM COMPREHEN METABOLIC PANEL [...] AM Flu Injection 3 Years And Above [facility]# [id number] [facility] Reviewed 09/09/2009 8:48 AM Blood Pressure [...] 01/23/2014 12:00 AM Kenalog, Per 10 Mg [facility]#[id number] Reviewed 03/19/2014 12:00 AM COMPLETE CBC W/AUTO DIFF WBC Returned 03/19/2014 12:00 AM COMPREHEN METABOLIC PANEL Returned 03/19/2014 12:00 AM LIPID PANEL Returned 03/19/2014 12:00 AM ASSAY THYROID STIM HORMONE Returned 04/27/2014 12:00 AM Rocephin 1 gram [facility]#[id number] Reviewed 04/27/2014 12:00 AM THER/PROPH/DIAG INJ SC/IM [...] BILI 0.50 mg/dLCALCIUM 9.40 mg/dLeGFR >60 mL/min/1.73 [id number] 109.0 mg/dLCHOLESTEROL 153.0 mg/dLHDL 54.0 mg/dLLDL (CALC) [...] BILI 0.80 mg/dLCALCIUM 10.40 mg/dLeGFR >60 mL/min/1.73 [id number] 163.0 mg/dLCHOLESTEROL 138.0 mg/dLHDL 49.0 mg/dLLDL (CALC) [...] BILI 0.70 mg/dLCALCIUM 9.50 mg/dLeGFR >60 mL/min/1.73 [id number] 107.0 mg/dLCHOLESTEROL 138.0 mg/dLHDL 58.0 mg/dLLDL (CALC) [...] CVX Influenza 02/10/2010 sanofi pasteur PMC Fluzone [id number] Intramuscular Left Arm 02/10/2010 11/29/2009 999 Influenza 02/18/2011 sanofi pasteur PMC Fluzone [id number] Intramuscular Left Arm 02/18/2011 11/17/2010 141 Influenza 02/20/2012 sanofi pasteur PMC Fluzone [id number] Intramuscular Left Deltoid 02/20/2012 10/24/2011 141 X 04/02/2012 [employer] MSD Pneumovax 23 [id number] Intramuscular Left Gluteous Medius 04/02/2012 08/07/2009 33 Influenza 02/18/2013 sanofi pasteur PMC Fluzone > 3 Years [id number] Intramuscular Right Deltoid 02/18/2013 11/16/2012 141 X [...] for breast cancer Oct 21 2015 8:41AM Payers Insurance Name Company Name Plan Name Plan Number Policy Number Policy Group Number Start Date Medicare Part A Medicare RHC [id number] N/A BCBS [facility] [id number] Tuesday, 2009 Medicare Part B Medicare Of [place] [id number] N/A Medicare Part A Medicare Part A [id number] N/A Medicare Part A Medicare P A - Preventive [id number] N/A Medicare Part A Medicare - Lab/Xray [id number] N/A History of Encounters Visit Date Visit Type Provider 10/21/2015 Office visit Precious Carmona MD 10/15/2014 Office visit Precious Carmona MD 04/30/2014 Office visit Precious Carmona MD 04/27/2014 Office visit Pj Guajardo DJ INSTRUCTOR 04/12/2014 Office visit Gaby Randolph DJ INSTRUCTOR 02/17/2014 Voided Precious Carmona MD 01/27/2014 Office visit Precious Carmona MD 01/26/2014 Office visit Gaby Randolph DJ INSTRUCTOR 01/23/2014 Office visit 01/23/2014 Office visit Abbie Pedraza DJ INSTRUCTOR 10/04/2013 Office visit Coco Sofia DJ INSTRUCTOR 09/30/2013 Office visit Precious Carmona MD 05/20/2013 Office visit Precious Carmona MD 04/01/2013 Office visit Natty Webber MD 02/18/2013 Nurse visit Natty Webber MD 10/01/2012 Office visit Natty Webber MD 06/12/2012 Office visit Abbie Pedraza DJ INSTRUCTOR 04/12/2012 Office visit Natty Webber MD 04/02/2012 Office visit Natty Webber MD 02/20/2012 Nurse visit Natty Webber MD 12/07/2011 Office visit Natty Webber MD 11/18/2011 Office visit Abbie Pedraza DJ INSTRUCTOR 10/03/2011 Office visit Natty Webber MD 06/08/2011 Office visit Natty Webber MD 05/16/2011 Office visit Abbie Pedraza DJ INSTRUCTOR 04/05/2011 Office visit Natty Webber MD 02/18/2011 [...]
[2016-11-03] MEDS ORDERED: VALS160T28 PO (08:51)
[2016-11-03] MEDS ORDERED: AMLO5TAB2 PO (08:51)
--- NOTE | 2016-11-03 08:54 | Conscious Sedation/ASA ---
Conscious Sedation Pre-Proced Time Reviewed: 08:54 ASA Class: 2 Airway Mallampati Classification: ([place] appropriate class) I. II. III, IV Lungs Heart ASA score ASA 1: a normal healthy patient ASA 2: a patient with a mild systemic disease (mid diabetes, controlled hypertension, obesity ASA 3: a patient with a severe systemic disease that limits activity (angina , COPD, prior Myocardial infarction) ASA 4: a patient with an incapacitating disease that is a constant threat to life (CHF, renal failure) ASA 5: a moribund patient not expected to survive 24 hrs. (ruptured aneurysm) ASA 6: a declared brain patient whose organs are being harvested. For emergent operations, add the letter E after the classification Grade 1 Sedation Plan: Discussed options with patient/fam Note The patient is an appropriate candidate to undergo the planned procedure, sedation, and anesthesia. The patient immediately re-assessed prior to indication. JUSTA YOUSSEF MD Nov 03, 2016 8:54 am
--- NOTE | 2016-11-03 08:54 | History & Physicial ---
History of Present Illness History of Present Illness Reason for visit/HPI for upper endoscopy to evaluate symptoms of reflux and colonoscopy to investigate heme-positive stools. Family history of colon cancer. Date of Admission Date Seen by Provider: Nov 03, 2016 Time Seen by Provider: 08:52 I consulted on this patient on 11/03/16 08:52 Attending Physician Justa Youssef MD Admitting Physician Precious Carmona MD Consult Allergies and Home Medications Allergies Coded Allergies: No Known Drug Allergies (Unverified , 11/01/16) Home Medications Amlodipine Besylate 5 Mg Tablet, 5 MG PO DAILY, (Reported) Levothyroxine Sodium 50 Mcg Tablet, 50 MCG PO DAILY, (Reported) Pantoprazole Sodium 40 Mg Tablet.dr, 40 MG PO DAILY, (Reported) Valsartan 160 Mg Tablet, 160 MG PO DAILY, (Reported) Past Pazsysw-Zbiwgh-Sjqwle Hx Patient Social History Alcohol Use: Denies Use Recreational Drug Use: No Smoking Status: Never a Smoker Recent Foreign Travel: No Contact w/other who traveled: No Recent Hopitalizations: No Recent Infectious Disease Expo: No Immunizations Up To Date Tetanus Booster (TDap): Unknown Date of Pneumonia Vaccine: Feb 01, 2016 Date of Influenza Vaccine: Feb 01, 2016 Seasonal Allergies Seasonal Allergies: No Surgeries HX Surgeries: Yes Surgeries: Transurethral Resection, Tubal Ligation Respiratory Hx Respiratory Disorders: No Cardiovascular Hx Cardiovascular Disorders: Yes (STENT) Cardiac Disorders: High Cholesterol, Hypertension Neurological Hx Neurological Disorders: No Reproductive System Hx Reproductive Disorders: No Sexually Transmitted Disease: No HIV/AIDS: No Genitourinary Hx Genitourinary Disorders: No Gastrointestinal Hx Gastrointestinal Disorders: Yes (BLOOD IN STOOLS) Gastrointestinal Disorders: Gastroesophageal Reflux, Chronic Constipation Musculoskeletal Hx Musculoskeletal Disorders: Yes Musculoskeletal Disorders: Arthritis Endocrine Hx Endocrine Disorders: Yes HEENT HX ENT Disorders: Yes (GLASSES) Loss of Vision: Bilateral Hearing Impairment: Denies Cancer Hx Cancer: No Psychosocial Hx Psychiatric Problems: Yes Behavioral Health Disorders: Anxiety Integumentary HX Skin/Integumentary Disorder: No Blood Transfusions Hx Blood Disorders: No Adverse Reaction to a Blood Tr: No Constitutional: no symptoms reported EENTM: no symptoms reported Respiratory: no symptoms reported Cardiovascular: no symptoms reported Gastrointestinal: diarrhea, heartburn Genitourinary: no symptoms reported Musculoskeletal: no symptoms reported Skin: no symptoms reported Psychiatric/Neurological: Anxiety Physical Exam Vital Signs Vital Sign - Last 12Hours 7/13/17 08:39 Temp 98.4 Pulse 80 Resp 18 B/P (MAP) 121/68 Pulse Ox 98 O2 Delivery Room Air Capillary Refill : General Appearance: No Apparent Distress HEENT: Normal ENT Inspection Neck: Normal Inspection Respiratory: Lungs Clear Cardiovascular: Regular Rate, Rhythm Gastrointestinal: Non Tender, Soft Rectal: Deferred Neurologic/Psychiatric: Alert, Oriented x3 Skin: Warm/Dry Lymphatic: No Adenopathy Assessment/Plan Assessment and Plan lady with symptoms of gastroesophageal reflux requiring upper endoscopy. Heme- positive stools with a family history of colon cancer for colonoscopy. Details of the procedure including the differential diagnosis of polyps and diverticulosis and iatrogenic complications of post polypectomy bleeding, perforation etc. discussed in detail. Seems to understand and is willing to proceed with the scheduled procedures. Problems: JUSTA YOUSSEF MD Nov 03, 2016 8:54 am
[2016-11-03] MEDS ORDERED: ATEN50TA PO (09:02)
[2016-11-03] MEDS ORDERED: CHOL10003 PO (09:02)
[2016-11-03] MEDS ORDERED: GLUC-116 PO (09:02)
[2016-11-03] MEDS ORDERED: FISH1CAP15 PO (09:02)
[2016-11-03] MEDS ORDERED: CLOP75TA28 PO (09:02)
[2016-11-03] MEDS ORDERED: CA C1TAB79 PO (09:02)
[2016-11-03] MEDS ORDERED: LORA-714 PO (09:02)
[2016-11-03] MEDS ORDERED: MULT1CAP27 PO (09:02)
[2016-11-03] MEDS ORDERED: CLOR7.5T3 PO (09:02)
[2016-11-03] MEDS ORDERED: ASPI-586 PO (09:02)
[2016-11-03] MEDS ORDERED: ATOR20TA66 PO (09:02)
[2016-11-03] MEDS ORDERED: ONDA4TAB11 PO (09:02)
[2016-11-03] MEDS ORDERED: HURRICAINE EXT TUBE (BENZOCAINE) ONE (09:55)
[2016-11-03] MEDS ORDERED: fentaNYL INJECTION 100 MCG/2 ML AMP ONE ×2 (09:55)
[2016-11-03] MEDS ORDERED: MIDAZOLAM 2 MG/2 ML (VERSED) VIAL ONE ×5 (09:55)
[2016-11-03] MEDS: MIDAZOLAM 2 MG/2 ML (VERSED) VIAL IVP PRN ×5 (10:10→10:23)
[2016-11-03] MEDS: fentaNYL INJECTION 100 MCG/2 ML AMP IVP PRN ×4 (10:11→10:25)
--- NOTE | 2016-11-03 10:45 | Endo Procedure Record ---
Endo Procedure Report Date of Procedure Nov 03, 2016 Surgeon (s) JUSTA YOUSSEF MD Post Procedure/Op Diagnosis EGD: Grade 1 esophagitis with a short hiatal hernia. Petechia along the proximal stomach Colonoscopy: Internal hemorrhoids. Sigmoid diverticulae Procedure Performed EGD colonoscopy to cecum Description of Procedure Anesthesia Type: Conscious Sedation Specimen(s) collected/removed none Description of the Procedure Indication for the procedures: this lady came in for an upper endoscopy to evaluate symptoms of gastroesophageal reflux and colonoscopy on the basis of heme positive stools. No addition, she reported a family history of colon cancer and polyps Informed consent was obtained after reviewing the procedures in detail Description of procedures: EGD: She was placed in left lateral decubitus position and her vital signs were monitored. Conscious sedation was achieved using Versed and fentanyl. The flexible gastroscope was introduced down the esophagus, past the stomach, into the proximal duodenum Findings Esophagus; short hiatal hernia with grade 1 esophagitis. Stomach; petechia along the proximal stomach without any ulceration. There was no active bleeding or oozing. Duodenum; normal. She tolerated the procedure well and was turned around in preparation for colonoscopy Impression; symptoms of reflux disease. Grade 1 esophagitis. We'll continue proton pump inhibitor therapy. Colonoscopy; examination of the perianal area revealed external hemorrhoids. In addition, there was perianal excoriation of unknown etiology. There is no concern about any squamous cell carcinoma. Digital examination was otherwise unremarkable. The colonoscope was then introduced into the rectum and advanced all the way up to the cecum. It was then withdrawn slowly and the mucosa examined in a systematic fashion. Findings; 1. Internal Hemorrhoids 2. Sigmoid diverticulosis She tolerated the procedure well and was taken to the nursing area in a stable condition Impression; heme positive stools. Positive family history. No polyps. Recommend screening colonoscopy in 5 years. Copies To: Barbara Venegas XAVIER M MD Nov 03, 2016 10:45 am
--- NOTE | 2016-11-03 10:47 | Discharge Inst-Simple/Standard ---
Discharge Inst-Standard Discharge Medications New, Converted or Re-Newed RX: Other Patient Instructions/Follow Up Plan of Care/Instructions/FU: please schedule a gallbladder ultrasound as an outpatient Activity as Tolerated: Yes Discharge Diet: No Restrictions JUSTA YOUSSEF MD Nov 03, 2016 10:47 am
[2016-11-03 11:00] VITALS: BP 118/67
[2016-11-03 11:30] VITALS: BP 119/86
[2016-11-03 11:35] VITALS: BP 119/86
== END 2016-11-03 11:35 | disposition home or self-care (01) ==
LOC: ENDO 08:08
PROVIDERS: ATTEND Surgery
DX: R19.5 Other fecal abnormalities (principal); K57.30 Diverticulosis of large intestine without perforation or abscess without bleeding; K64.8 Other hemorrhoids; K21.9 Gastro-esophageal reflux disease without esophagitis; K20.9 Esophagitis, unspecified; K44.9 Diaphragmatic hernia without obstruction or gangrene; Z80.0 Family history of malignant neoplasm of digestive organs; I10 Essential (primary) hypertension; E78.00 Pure hypercholesterolemia, unspecified

== ENCOUNTER → 2016-11-08 | Outpatient (CLI) | payer MEDICARE, BC ==
[~2016-11-08] MED LIST: AMLO5TAB2 PO; ASPI-586 PO; ATEN50TA PO; ATOR20TA66 PO; CA C1TAB79 PO; CHOL10003 PO; CLOP75TA28 PO; CLOR7.5T3 PO; FISH1CAP15 PO; GLUC-116 PO; LEVO50TA6 PO; LORA-714 PO; MULT1CAP27 PO; ONDA4TAB11 PO; PANT40TA3 PO; VALS160T28 PO
--- NOTE | 2016-11-08 13:13 | Diagnostic Imaging Report ---
PROCEDURE: US Gallbladder. TECHNIQUE: Multiple real-time grayscale images were obtained over the right upper quadrant in various projections. INDICATION: Right upper quadrant pain. FINDINGS: The pancreas is obscured by bowel gas. The liver has slightly coarse echotexture with no focal lesion. Hepatopetal flow in the portal vein is seen. The CBD is not seen probably obscured by bowel gas. There is no fluid collection in the upper right abdomen. The right kidney is 9.6 cm in length with no hydronephrosis or focal lesion. The gallbladder demonstrates no stones or wall thickening. No pericholecystic fluid. Sonographic Napoles sign is negative. IMPRESSION: Coarse echotexture to the liver with no focal mass. Correlate for possibility of hepatitis. No gallstones. Dictated by: Dictated on workstation # [id number]
== END ==
LOC: RAD 09:12
PROVIDERS: ATTEND Surgery
DX: R93.2 Abnormal findings on diagnostic imaging of liver and biliary tract (principal); R10.11 Right upper quadrant pain
CPT/HCPCS: 76705

== ENCOUNTER 2018-02-08 13:31 | Outpatient (CLI) | payer MEDICARE, BC ==
[~2018-02-08] VITALS: Ht 155.6 cm; Wt 63.0 kg
[~2018-02-08 13:31] MED LIST changes: -AMLO5TAB2 PO; +AMLO5TAB7 PO; +DICY20TA10 PO; +ESCI10TA55 PO; +LOSA100T8 PO; +MIRT15TA6 PO; +PROC10TA10 PO; -VALS160T28 PO; +VALS160T29 PO
== END 2018-02-08 13:45 | disposition home or self-care (01) ==
LOC: PREOP 13:31
PROVIDERS: ATTEND Surgery
DX: Z01.818 Encounter for other preprocedural examination (principal)

== ENCOUNTER → 2018-02-12 | Day surgery (SDC) | payer MEDICARE, BC ==
[~2018-02-12] VITALS: Ht 155.6 cm; Wt 63.0 kg
[~2018-02-12] MED LIST changes: +HURRICAINE EXT TUBE (BENZOCAINE) ONE; +HURRICAINE EXT TUBE (BENZOCAINE) XX PRN; +MIDAZOLAM 2 MG/2 ML (VERSED) VIAL IVP ONE; +MIDAZOLAM 2 MG/2 ML (VERSED) VIAL ONE; +NS IV 500 ML 500 ML IV PRN; +NS IV 500 ML 500 ML ONE; +fentaNYL INJECTION 100 MCG/2 ML AMP IVP ONE; +fentaNYL INJECTION 100 MCG/2 ML AMP ONE
--- OUTSIDE RECORDS SUMMARY | 2018-02-12 08:21 | XMS REPORT ---
Author Author Bruno Carreon [facility] Address [address] [place], [place] [id number] Care Team Providers Care Creative Resource Manager Name Role Phone Bruno Carreon PCP Bruno Carreon PreferredProvider Allergies and Adverse Reactions Name Reaction Notes NO KNOWN DRUG ALLERGIES Plan of Treatment Planned Activity Comments Planned Date Planned Time Plan/Goal Complete blood count (CBC) with differential count 10/21/2015 12:00 AM Comprehensive metabolic panel 10/21/2015 12:00 AM VITAMIN D (25 HYDROXY) 10/21/2015 12:00 AM Lipid panel (total cholesterol, lipoproteins, HDL, triglycerides) 2011 12:00 AM Pap smear 11/11/2016 12:00 AM Comprehensive Metabolic Panel 10/01/2012 12:00 [...] take 1 capsule by oral route daily valsartan 160 mg oral tablet 06/04/2015 TAKE ONE TABLET BY MOUTH ONCE DAILY amlodipine 5 mg oral tablet 06/04/2015 TAKE ONE TABLET BY MOUTH ONCE DAILY amlodipine 5 mg oral tablet 09/04/2015 TAKE ONE TABLET BY MOUTH ONCE DAILY valsartan 160 mg oral tablet 09/04/2015 TAKE ONE TABLET BY MOUTH ONCE DAILY Zofran (as hydrochloride) 4 mg oral tablet [...] route daily as needed for 14 days EQ LORATADINE 10MG TABS 09/22/2016 TAKE ONE TABLET BY MOUTH ONCE DAILY amlodipine 5 mg oral tablet 09/12/2017 TAKE ONE TABLET BY MOUTH ONCE DAILY atenolol 50 mg oral tablet 09/12/2017 TAKE ONE TABLET BY MOUTH ONCE DAILY losartan 100 mg oral tablet 11/24/2017 05/23/2018 take 1 tablet (100 mg) by oral route once daily for 90 days Plavix 75 mg Oral tablet 12/18/2017 06/11/2019 take 1 tablet (75 mg) by oral route once daily Lexapro 10 mg oral tablet 01/08/2018 01/03/2019 take 1 tablet (10 mg) by oral route once daily for 90 days levothyroxine 50 mcg oral tablet 01/19/2018 TAKE ONE TABLET BY MOUTH ONCE DAILY Vitamins B Complex oral tablet take 1 tablet by oral route daily pantoprazole 40 mg oral tablet,delayed release (DR/EC) 01/24/2018 01/19/2019 take 1 tablet (40 mg) by oral route 2 times per day for 90 days dicyclomine 20 mg oral tablet 01/22/2018 03/23/2018 take 1 tablet (20 mg) by oral route 3 times per day for 30 days prochlorperazine maleate 10 mg oral tablet 01/25/2018 take 1 tablet by oral route every 8 hours as needed mirtazapine 15 mg oral tablet 01/29/2018 take 1 tablet by oral route once a day (at bedtime) Name Start Date Expiration Date SIG Comments prednisone 20 mg oral tablet 07/29/2010 08/03/2010 take 2 tablets by oral route daily for 5 days calcium carbonate-vitamin D2 600-125 mg-unit oral tablet 12/07/2011 01/06/2012 take 2 tablets by oral route daily [place] 3 Fish Oil 900-1,400 mg oral capsule,delayed [...] by oral route once for 1 day famotidine 20 mg oral tablet 12/18/2014 TAKE ONE TABLET BY MOUTH TWICE DAILY Lipitor 20 mg oral tablet 02/04/2016 07/28/2017 take 1 tablet (20 mg) by oral route once daily Zofran (as hydrochloride) 4 mg oral tablet 02/04/2016 02/18/2016 take 1 tablet by oral route daily as needed for 14 days Zofran (as hydrochloride) 4 mg oral tablet 09/07/2016 take 1 tablet by oral route daily as needed for 14 days ondansetron 4 mg oral tablet,disintegrating 01/31/2017 03/02/2017 dissolve 1 tablet by oral route every 8 hours as needed for 30 days EQ LORATADINE 10MG TABS 06/01/2017 06/01/2017 TAKE ONE TABLET BY MOUTH ONCE DAILY IN THE EVENING mirtazapine 15 mg oral tablet 06/01/2017 06/01/2017 TAKE ONE-HALF TABLET BY MOUTH ONCE DAILY AT BEDTIME Discontinued Name Start Date Discontinued Date SIG [...] Lollipops Lollipop 04/27/2014 10/15/2014 Use as directed Allergy Relief (loratadine) 10 mg oral tablet 06/18/2015 TAKE ONE TABLET BY MOUTH ONCE DAILY Allergy Relief (loratadine) 10 mg oral tablet 09/04/2015 04/11/2017 TAKE ONE TABLET BY MOUTH ONCE DAILY Zoloft 50 mg oral tablet 10/28/2015 10/30/2015 take 1 tablet (50 mg) by oral route once daily for 90 days Pt refuses to take... triamcinolone acetonide 0.1 % topical cream 09/21/2016 APPLY A THIN LAYER OF CREAM EXTERNALLY TO AFFECTED AREA TWICE DAILY FOR 14 DAYS loratadine 10 mg oral tablet 09/22/2016 04/11/2017 TAKE 1 TABLET BY MOUTH EVERY DAY IN THE EVENING triamcinolone acetonide 0.1 % topical cream 09/22/2016 04/11/2017 APPLY CREAM EXTERNALLY TO AFFECTED AREA TWICE DAILY FOR 14 DAYS Lexapro 10 mg oral tablet 01/02/2017 09/19/2017 take 1 tablet (10 mg) by oral route once daily for 90 days valsartan 160 mg oral tablet 03/01/2017 11/24/2017 TAKE ONE TABLET BY MOUTH ONCE DAILY Tip Stitcher recall Augmentin 875-125 mg oral tablet 05/05/2017 06/27/2017 take 1 tablet by oral route every 12 hours for 7 days benzonatate 100 mg oral capsule 05/05/2017 06/27/2017 take 1 capsule (100 mg) by oral route 3 times per day as needed for cough ondansetron 4 mg oral tablet,disintegrating 10/24/2017 01/25/2018 dissolve 1 tablet by oral route every 8 hours as needed clorazepate dipotassium 7.5 mg oral tablet 12/11/2017 01/08/2018 take 1 tablet PO three times per day for situational anxiety No longer taking metoclopramide HCl 10 mg oral tablet 12/22/2017 01/22/2018 take 1 tablet (10 mg) by oral route once daily with supper Problem List Description Status Onset Hyperlipidemia Active acid reflux Active Hypertension Active hypothyroid Active Vital Signs Date Time BP-Sys(mm[Hg] BP-Rhianna(mm[Hg]) HR(bpm) RR(rpm) Temp WT HT HC BMI BSA BMI Percentile O2 Sat(%) 01/22/2018 9:02:00 AM 132 mmHg 62 mmHg 66 bpm 20 rpm 98.6 F 139 lbs 61 in 26.2636 kg/m 1.6473 m 98 % 12/22/2017 8:49:00 AM 134 mmHg 70 mmHg 64 bpm 16 rpm 98.6 F 146 lbs 61 in 27.59 kg/m2 1.69 m2 98 % 10/20/2017 9:04:00 AM 138 mmHg 80 mmHg 64 bpm 18 rpm 96 F 140.125 lbs 61 in 26.4761 kg/m 1.654 m 99 % 09/19/2017 8:24:00 AM 142 mmHg 70 mmHg 69 bpm 18 rpm 98.2 F 139 lbs 61 in 26.26 kg/m2 1.65 m2 98 % 09/12/2017 8:39:00 AM 116 mmHg 68 mmHg 68 bpm 18 rpm 97.9 F 142 lbs 61 in 26.8304 kg/m 1.665 m 06/27/2017 8:26:00 AM 126 mmHg 76 mmHg 63 bpm 16 rpm 98 F 134.125 lbs 61 in 25.34 kg/m2 1.62 m2 100 % 05/05/2017 11:55:00 AM 126 mmHg 80 mmHg 80 bpm 18 rpm 98 F 132 lbs 61 in 24.9409 kg/m 1.6053 m 100 % 04/11/2017 8:26:00 AM 122 mmHg 76 mmHg 63 bpm 16 rpm 98.4 F 129.25 lbs 61 in 24.42 kg/m2 1.59 m2 99 % 02/08/2017 9:01:00 AM 126 mmHg 80 mmHg 73 bpm 16 rpm 97.9 F 122.375 lbs 61 in 23.12 kg/m2 1.55 m2 100 % 01/31/2017 1:52:00 PM 118 mmHg 72 mmHg 74 bpm 16 rpm 98.1 F 121 lbs 61 in 22.8625 kg/m 1.5369 m 99 % 11/11/2016 8:40:00 AM 118 mmHg 68 mmHg 63 bpm 16 rpm 98.1 F 123.125 lbs 61 in 23.26 kg/m2 1.55 m2 100 % 11/01/2016 8:57:00 AM 116 mmHg 62 mmHg 71 bpm 16 rpm 99.8 F 121.5 lbs 61 in 22.957 kg/m 1.5401 m 98 % 09/30/2016 11:30:00 AM 128 mmHg 78 mmHg [...] History Name Description Comments Children lives alone [place] Tobacco Never smoker History of Procedures Date [...] Reviewed 06/08/2011 12:00 AM Bicillin CR [facility]#[id number] Clinic Reviewed 06/08/2011 12:00 AM Depo-Medrol 40 mg [facility]#[id number] Reviewed 02/04/2016 12:00 AM COMPLETE CBC W/AUTO [...] Reviewed 12/07/2011 12:00 AM Wrist Support Reviewed 11/07/2016 12:00 AM METABOLIC PANEL TOTAL CA Returned 11/11/2016 12:00 AM METABOLIC PANEL TOTAL CA Returned 11/14/2016 12:00 AM Screening mammography, bilateral Returned 02/20/2012 12:00 AM Flu Injection 3 Years And Above [facility]# [address]-17 RHC Reviewed 04/02/2012 12:00 AM IMMUNIZATION ADMIN Reviewed 04/02/2012 12:00 AM Pneumovax Injection - RHC Reviewed 05/05/2017 12:00 AM THER/PROPH/DIAG INJ SC/IM Reviewed 05/05/2017 12:00 AM Decadron 4mg Injection Reviewed 05/05/2017 12:00 AM Depo-Medrol 40mg Injection Reviewed 04/12/2012 12:00 AM TRICHOMONAS ASSAY W/OPTIC Reviewed 06/20/2017 12:00 AM COMPLETE CBC W/AUTO DIFF WBC Returned 06/20/2017 12:00 AM COMPREHEN METABOLIC PANEL Returned 06/20/2017 12:00 AM LIPID PANEL Returned 06/20/2017 12:00 AM ASSAY THYROID STIM HORMONE Returned 06/12/2012 12:00 AM THER/PROPH/DIAG INJ SC/IM Reviewed 06/12/2012 12:00 AM Bicillin CR, 1.2 million units [place]# 45928-860-96 Reviewed 11/02/2017 12:00 AM Mammogram, screening, bilateral Reviewed 11/02/2017 12:00 AM DXA BONE DENSITY AXIAL Reviewed 12/11/2017 12:00 AM COMPLETE CBC W/AUTO DIFF WBC Reviewed 12/11/2017 12:00 AM COMPREHEN METABOLIC PANEL Reviewed 12/11/2017 12:00 AM LIPID PANEL Reviewed 12/11/2017 12:00 AM ASSAY THYROID STIM HORMONE Reviewed 09/27/2012 12:00 AM COMPREHEN METABOLIC PANEL [...] Flu Injection 3 Years And Above [facility]# [address]-34 C Reviewed 09/09/2009 8:48 AM Blood Pressure [...] 12:00 AM Kenalog, Per 10 Mg [facility]#7713-7958-46 Reviewed 03/19/2014 12:00 AM COMPLETE CBC W/AUTO DIFF WBC Reviewed 03/19/2014 12:00 AM COMPREHEN METABOLIC PANEL Reviewed 03/19/2014 12:00 AM LIPID PANEL Reviewed 03/19/2014 12:00 AM ASSAY THYROID STIM HORMONE Reviewed 04/27/2014 12:00 AM Rocephin 1 gram [facility]#2373-6948-99 Reviewed 04/27/2014 12:00 AM THER/PROPH/DIAG INJ SC/IM [...] 0.17 #BASO 0.04 MANUAL DIFF NOT IND 08/09/2010 9:45 AM GLUCOSE 91.0 mg/dLSODIUM 133.0 [...] mmol/L 09/06/2010 9:27 AM SODIUM 137.0 mmol/L 09/27/2010 9:55 AM TSH 1.070 uIU/mL 12/30/2010 8:55 AM GLUCOSE 102.0 mg/dLSODIUM 135.0 mmol/LPOTASSIUM 4.20 mmol/ LCHLORIDE 102.0 mmol/LCO2 24.0 mmol/LBUN 15.0 mg/dLCREATININE 0.80 mg/dLSGOT/ AST 30.0 IU/LSGPT/ALT 35.0 IU/LALK PHOS 119.0 IU/LTOTAL PROTEIN 7.50 g/ dLALBUMIN 4.30 g/dLTOTAL BILI 0.30 mg/dLCALCIUM 9.20 mg/dLAGE 65 GFR NonAA 72 GFR AA 87 eGFR >60 mL/min/1.73 m2eGFR AA* >60 TSH 1.130 uIU/mL 03/31/2011 8:55 AM GLUCOSE 98.0 mg/dLSODIUM 137.0 [...] 2.8 LDL (CALC) 75.0 mg/dLTSH 0.940 uIU/mL 03/29/2012 8:45 AM WBC 5.1 RBC 3.91 HGB 12.50 g/dLHCT 36.30 %MCV 93.0 fLMCH 32.0 pgMCHC 34.40 g/dLRDW SD 43 RDW CV 12.60 %MPV 9.30 fLPLT 244 NRBC# 0.00 NRBC % 0.0 %NEUT 57.60 %%LYMP 27.50 %%MONO 9.10 %%EOS 5.0 %%BASO 0.80 %#NEUT 2.91 # LYMP 1.39 #MONO 0.46 #EOS 0.25 #BASO 0.04 MANUAL DIFF NOT IND 04/02/2012 8:34 AM Colonoscopy-Women and Men over [...] mg/dLTOT CHOL/HDL 3.0 LDL (CALC) 70.0 mg/dL 03/28/2013 8:45 AM WBC 5.3 RBC 4.01 [...] >60 mL/min/1.73meGFR AA* >60 TSH 1.10 uIU/mL 12/11/2017 8:15 AM TSH 1.03 TRIGLYCERIDES 73 CHOLESTEROL 198 HDL 84 TOT CHOL/ HDL 2.4 LDL (CALC) 99 WBC 4.6 RBC 4.03 HGB 13.1 HCT 38.9 MCV 97 MCH 32.5 MCHC 33.7 RDW SD 45 RDW CV 12.5 MPV 9.8 PLT 230 NRBC# 0.00 NRBC% 0.0 %NEUT 60.3 % LYMP 25.5 %MONO 9.6 %EOS 3.1 %BASO 1.3 #NEUT 2.77 #LYMP 1.17 #MONO 0.44 #EOS 0.14 #BASO 0.06 MANUAL DIFF NOT IND GLUCOSE 108 SODIUM 136 POTASSIUM 3.8 CHLORIDE 100 CO2 28 BUN 19 CREATININE 0.8 SGOT/AST 32 SGPT/ALT 25 ALK PHOS 107 TOTAL PROTEIN 8.0 ALBUMIN 4.7 TOTAL BILI 0.4 CALCIUM 9.9 AGE 72 GFR NonAA 71 GFR AA 86 eGFR 71 eGFR AA* >60 History Of Immunizations Name Date Admin Mfg Name Mfg Code Trade Name Lot# Route Inj Vis Given Vis Pub CVX Influenza 02/10/2010 sanofi pasteur PMC FLUZONE [id number] Intramuscular Left Arm 02/10/2010 11/29/2009 999 Influenza 02/18/2011 sanofi pasteur PMC FLUZONE [id number] Intramuscular Left Arm 02/18/2011 11/17/2010 141 Influenza 02/20/2012 sanofi pasteur PMC FLUZONE [id number] Intramuscular Left Deltoid 02/20/2012 10/24/2011 141 X 04/02/2012 [employer] MSD PNEUMOVAX 23 [id number] Intramuscular Left Gluteous Medius 04/02/2012 08/07/2009 33 Influenza 02/18/2013 sanofi pasteur PMC Fluzone > 3 Years [id number] Intramuscular Right Deltoid 02/18/2013 11/16/2012 141 X 12/24/2014 Not Entered NE PREVNAR 13 Not Entered Not Entered 201404/24/2019 109 Influenza 12/24/2014 Not Entered NE Not Entered Not Entered Not Entered 12/24/2014 04/24/2019 141 HepB Adult 10/21/2015 [employer] MSD RECOMBIVAX-ADULT [id number] Not Entered Left Deltoid 10/21/2015 11/11/2015 43 HepB Adult 11/20/2015 [employer] MSD RECOMBIVAX-ADULT [id number] Intramuscular Right Deltoid 11/20/2015 11/11/2015 43 ZVL 04/06/2012 Not Entered NE Not Entered Not Entered Not Entered 04/2404/24/2019 121 Tdap 04/06/2012 Not Entered NE Not Entered Not Entered Not Entered 04/24/201904/24/2019 115 Influenza 02/04/2016 Not Entered NE FLUZONE-HIGH DOSE Intramuscular Left Arm 04/24/2019 04/24/2019 141 HepB Adult 04/21/2016 [employer] MSD RECOMBIVAX-ADULT [id number] Intramuscular Right Deltoid 04/21/2016 11/11/2015 43 Influenza 02/20/2017 Not Entered NE Fluarix, quadrivalent, preservative free Intramuscular Left Arm 02/22/2017 04/24/2019 150 RZV 12/19/2017 [place] SHINGRIX Intramuscular Left Arm 04/24/2019 187 History of Past Illness Name Date of [...] Upper GI bleed Sep 30 2016 11:34AM Hyponatremia Nov 01 2016 9:03AM Hyponatremia Nov 11 2016 8:43AM Medicare Annual Pap Q 2 years Nov 01 2016 9:03AM Nausea Nov 01 2016 9:03AM Uterine enlargement Nov 01 2016 9:03AM Encounter for screening mammogram for breast cancer Nov 14 2016 4:56PM Panic disorder [episodic paroxysmal anxiety] Jan 31 2017 2:02PM Acute stress reaction Jan 31 2017 2:02PM Caregiver stress syndrome Jan 31 2017 2:02PM Stress reaction causing mixed disturbance of emotion and conduct Feb 08 2017 9:05AM Ankle strain, left, initial encounter Apr 11 2017 8:29AM Excoriation of ear canal, left, initial encounter Apr 11 2017 8:29AM Generalized anxiety disorder Apr 11 2017 8:29AM Grief reaction Apr 11 2017 8:29AM Acute non-recurrent frontal sinusitis May 05 2017 11:58AM Cough May 05 2017 11:58AM Hypertension Jun 20 2017 8:10AM Hyperlipidemia, unspecified Jun 20 2017 8:10AM Hypothyroidism, Acquired Jun 20 2017 8:10AM Situational anxiety Jun 27 2017 8:30AM Nausea Jun 27 2017 8:30AM LINK (generalized anxiety disorder) Sep 12 2017 8:47AM Caregiver stress syndrome Sep 12 2017 8:47AM Situational anxiety Sep 19 2017 8:26AM Osteopenia Sep 19 2017 8:26AM Visit for screening mammogram Sep 19 2017 8:26AM Anxiety Disorder Oct 20 2017 9:09AM Hypertension Dec 11 2017 8:05AM Hyperlipidemia, unspecified Dec 11 2017 8:05AM Hypothyroidism, Acquired Dec 11 2017 8:05AM Irritable Bowel Syndrome Dec 22 2017 8:50AM Anxiety Disorder Dec 22 2017 8:50AM acid reflux Dec 22 2017 8:50AM Hypertension Dec 22 2017 8:50AM Nausea Jan 22 2018 9:04AM Hiatal hernia Jan 22 2018 9:04AM Payers Insurance Name Company Name Plan Name Plan Number Policy Number Policy Group Number Start Date Medicare RHC Medicare RHC [id number] N/A BCBS Bcbs [facility] [id number] Tuesday, 2009 Medicare Part B Medicare Of [place] [id number] N/A Medicare Part A Medicare Part A [id number] N/A Medicare Part A ZZZMedicare P A - Preventive [id number] N/A Medicare Part A Medicare - Lab/Xray [id number] N/A Medicare RHC Medicare RHC [id number] N/A History of Encounters Visit Date Visit Type Provider 01/22/2018 Office visit Bruno Carreon DO 12/22/2017 Office visit Bruno Carreon DO 10/20/2017 Office visit Bruno Carreon DO 09/19/2017 Office visit Bruno Carreon DO 09/12/2017 Office visit Precious Carmona MD 06/27/2017 Office visit Precious Carmona MD 05/05/2017 Office visit Yarelis Meza COAT OPERATOR 04/11/2017 Office visit Precious Carmona MD 02/08/2017 Office visit Precious Carmona MD 01/31/2017 Office visit Precious Carmona MD 11/11/2016 Office visit Precious Carmona MD 11/01/2016 Office visit Precious Carmona MD 09/30/2016 Office visit Precious Carmona MD 09/16/2016 Office visit Pj Guajardo COAT OPERATOR 04/21/2016 Nurse visit Precious Carmona MD 02/04/2016 Office visit Precious Carmona MD 11/20/2015 Nurse visit Precious Carmona MD 10/21/2015 Office visit Precious Carmona MD 10/15/2014 Office visit Precious Carmona MD 04/30/2014 Office visit Precious Carmona MD 04/27/2014 Office visit Pj Guajardo COAT OPERATOR 04/12/2014 Office visit Gaby Randolph COAT OPERATOR 02/17/2014 Voided Precious Carmona MD 01/27/2014 Office visit Precious Carmona MD 01/26/2014 Office visit Gaby Randolph COAT OPERATOR 01/23/2014 Office visit 01/23/2014 Office visit Abbie Pedraza COAT OPERATOR 10/04/2013 Office visit Coco Sofia COAT OPERATOR 09/30/2013 Office visit Precious Carmona MD 05/20/2013 Office visit Precious Carmona MD 04/01/2013 Office visit Natty Webber MD 02/18/2013 Nurse visit Natty Webber MD 10/01/2012 Office visit Natty Webber MD 06/12/2012 Office visit Abbie Pedraza COAT OPERATOR 04/12/2012 Office visit Natty Webber MD 04/02/2012 Office visit Natty Webber MD 02/20/2012 Nurse visit Natty Webber MD 12/07/2011 Office visit Natty Webber MD 11/18/2011 Office visit Abbie Pedraza COAT OPERATOR 10/03/2011 Office visit Natty Webber MD 06/08/2011 Office visit Natty Webber MD 05/16/2011 Office visit Abbie Pedraza COAT OPERATOR 04/05/2011 Office visit Natty Webber MD 02/18/2011 Nurse visit Tyrell Nettles MD 01/03/2011 Office visit Natty Webber MD 09/27/2010 Office visit Natty Webber MD 09/06/2010 Office visit Natty Webber MD 08/17/2010 Office visit Natty Webber MD 08/12/2010 Office visit Natty Webber MD 08/09/2010 Office visit Natty Webber MD 08/01/2010 [facility] JORGE Green MD 08/01/2010 [facility] Christine Inman MD 07/31/2010 Office visit Christine Inman MD 07/31/2010 [facility] Jaye Polanco MD 07/31/2010 [...] visit Clarita STOUT 05/11/2009 Nurse visit Clarita Cummings PA 04/06/2009 Office visit Clarita STOUT 02/10/2009 Nurse visit Clarita Cummings PA
--- OUTSIDE RECORDS SUMMARY | 2018-02-12 08:23 | XMS REPORT ---
Author Author Bruno Carreon [facility] Address [address] [place], [place] [id number] Care Team Providers Care Physics And Astronomy Professor Name Role Phone Bruno Carreon PCP Bruno [...] TAKE ONE TABLET BY MOUTH ONCE DAILY mirtazapine 15 mg oral tablet 10/10/2017 TAKE ONE-HALF TABLET BY MOUTH ONCE DAILY AT BEDTIME losartan 100 mg oral tablet 11/24/2017 05/23/2018 [...] oral route every 8 hours as needed Name Start Date Expiration Date SIG Comments prednisone 20 mg oral tablet 07/29/2010 08/03/2010 take 2 tablets by oral route daily for 5 days calcium carbonate-vitamin D2 600-125 mg-unit oral tablet 12/07/2011 01/06/2012 take 2 tablets by oral route daily [place] 3 Fish Oil 900-1,400 mg oral capsule,delayed [...] TAKE ONE TABLET BY MOUTH ONCE DAILY 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 Augmentin 875-125 mg oral tablet 05/05/2017 [...] History Name Description Comments 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 History of Procedures Date [...] INJ SC/IM Reviewed 06/08/2011 12:00 AM Bicillin VÍCTOR [facility]#[id number] Clinic Reviewed 06/08/2011 12:00 AM Depo-Medrol 40 mg [facility]#[id number] Reviewed 02/04/2016 12:00 AM COMPLETE CBC W/AUTO [...] AM Flu Injection 3 Years And Above [facility]# [address]-54 RHC Reviewed 04/02/2012 12:00 AM IMMUNIZATION ADMIN [...] 12:00 AM Bicillin CR, 1.2 million units [facility]# 25839-078-73 Reviewed 11/02/2017 12:00 AM Mammogram, screening, bilateral [...] AM Flu Injection 3 Years And Above [facility]# [address]-23 C Reviewed 09/09/2009 8:48 AM Blood Pressure [...] 01/23/2014 12:00 AM Kenalog, Per 10 Mg [facility]#3481-7110-04 Reviewed 03/19/2014 12:00 AM COMPLETE CBC W/AUTO DIFF WBC Reviewed 03/19/2014 12:00 AM COMPREHEN METABOLIC PANEL Reviewed 03/19/2014 12:00 AM LIPID PANEL Reviewed 03/19/2014 12:00 AM ASSAY THYROID STIM HORMONE Reviewed 04/27/2014 12:00 AM Rocephin 1 gram [facility]#6647-0682-05 Reviewed 04/27/2014 12:00 AM THER/PROPH/DIAG INJ SC/IM [...] CVX Influenza 02/10/2010 sanofi pasteur PMC FLUZONE [id number] Intramuscular Left Arm 02/10/2010 11/29/2009 999 Influenza 02/18/2011 sanofi pasteur PMC FLUZONE [id number] Intramuscular Left Arm 02/18/2011 11/17/2010 141 Influenza 02/20/2012 sanofi pasteur PMC FLUZONE [id number] Intramuscular Left Deltoid 02/20/2012 10/24/2011 141 X 04/02/2012 [employer] MSD PNEUMOVAX 23 [id number] Intramuscular Left Gluteous Medius 04/02/2012 08/07/2009 33 Influenza 02/18/2013 sanofi pasteur PMC Fluzone > 3 Years [id number] Intramuscular Right Deltoid 02/18/2013 11/16/2012 141 X 12/24/2014 Not Entered NE PREVNAR 13 Not Entered Not Entered 201404/24/2019 109 Influenza 12/24/2014 Not Entered NE Not Entered Not Entered Not Entered 12/24/2014 04/24/2019 141 HepB Adult 10/21/2015 [employer] MSD RECOMBIVAX-ADULT [id number] Not Entered Left Deltoid 10/21/2015 11/11/2015 43 HepB Adult 11/20/2015 [employer] MSD RECOMBIVAX-ADULT [id number] Intramuscular Right Deltoid 11/20/2015 11/11/2015 43 ZVL 04/06/2012 Not Entered NE Not Entered Not Entered Not Entered 04/2404/24/2019 121 Tdap 04/06/2012 Not Entered NE Not Entered Not Entered Not Entered 04/24/201904/24/2019 115 Influenza 02/04/2016 Not Entered NE FLUZONE-HIGH DOSE Intramuscular Left Arm 04/24/2019 04/24/2019 141 HepB Adult 04/21/2016 [employer] MSD RECOMBIVAX-ADULT [id number] Intramuscular Right Deltoid 04/21/2016 11/11/2015 43 Influenza 02/20/2017 Not Entered NE Fluarix, quadrivalent, preservative free Intramuscular Left Arm 02/22/2017 04/24/2019 150 RZV 12/19/2017 [employer] SKB SHINGRIX Intramuscular Left Arm 04/24/2019 187 [...] Number Start Date Medicare RHC Medicare RHC [id number] N/A BCBS Bcbs [facility] [id number] Tuesday, 2009 Medicare Part B Medicare Of [place] [id number] N/A Medicare Part A Medicare Part A [id number] N/A Medicare Part A ZZZMedicare P A - Preventive [id number] N/A Medicare Part A Medicare - Lab/Xray [id number] N/A Medicare RHC Medicare RHC [id number] N/A History of Encounters Visit Date Visit Type Provider 01/22/2018 Office visit Bruno Carreon DO 12/22/2017 Office visit Bruno Carreon DO 10/20/2017 Office visit Bruno Carreon DO 09/19/2017 Office visit Bruno Carreon DO 09/12/2017 Office visit Precious Carmona MD 06/27/2017 Office visit Precious Carmona MD 05/05/2017 Office visit Yarelis Meza TAILINGS WORKER 04/11/2017 Office visit Precious Carmona MD 02/08/2017 Office visit Precious Carmona MD 01/31/2017 Office visit Precious Carmona MD 11/11/2016 Office visit Precious Carmona MD 11/01/2016 Office visit Precious Carmona MD 09/30/2016 Office visit Precious Carmona MD 09/16/2016 Office visit Pj Guajardo TAILINGS WORKER 04/21/2016 Nurse visit Precious Carmona MD 02/04/2016 Office visit Precious Carmona MD 11/20/2015 Nurse visit Precious Carmona MD 10/21/2015 Office visit Precious Carmona MD 10/15/2014 Office visit Precious Carmona MD 04/30/2014 Office visit Precious Carmona MD 04/27/2014 Office visit Pj Guajardo TAILINGS WORKER 04/12/2014 Office visit Gaby Randolph TAILINGS WORKER 02/17/2014 Voided Precious Carmona MD 01/27/2014 Office visit Precious Carmona MD 01/26/2014 Office visit Gaby Randolph TAILINGS WORKER 01/23/2014 Office visit 01/23/2014 Office visit Abbie Pedraza TAILINGS WORKER 10/04/2013 Office visit Coco Sofia TAILINGS WORKER 09/30/2013 Office visit Precious Carmona MD 05/20/2013 Office visit Precious Carmona MD 04/01/2013 Office visit Natty Webber MD 02/18/2013 Nurse visit Natty Webber MD 10/01/2012 Office visit Natty Webber MD 06/12/2012 Office visit Abbie Pedraza TAILINGS WORKER 04/12/2012 Office visit Natty Webber MD 04/02/2012 Office visit Natty Webber MD 02/20/2012 Nurse visit Natty Webber MD 12/07/2011 Office visit Natty Webber MD 11/18/2011 Office visit Abbie Pedraza TAILINGS WORKER 10/03/2011 Office visit Natty Webber MD 06/08/2011 Office visit Natty Webber MD 05/16/2011 Office visit Abbie Pedraza TAILINGS WORKER 04/05/2011 Office visit Natty Webber MD 02/18/2011 Nurse visit Tyrell Nettles MD 01/03/2011 Office visit Natty Webber MD 09/27/2010 Office visit Natty Webber MD 09/06/2010 Office visit Natty Webber MD 08/17/2010 Office visit Natty Webber MD 08/12/2010 Office visit Natty Webber MD 08/09/2010 Office visit Natty Webber MD 08/01/2010 [facility] JORGE Green MD 08/01/2010 [facility] Christine Inman MD 07/31/2010 Office visit Christine Inman MD 07/31/2010 [facility] Jaye Polanco MD 07/31/2010 Voided Jaye [...]
[2018-02-12 08:25] VITALS: BP 143/90
--- OUTSIDE RECORDS SUMMARY | 2018-02-12 08:25 | XMS REPORT ---
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 History of Procedures [...] SC/IM Reviewed 06/08/2011 12:00 AM Bicillin [facility]#[id number] Clinic Reviewed 06/08/2011 12:00 AM Depo-Medrol 40 mg [facility]#[id number] Reviewed 02/04/2016 12:00 AM COMPLETE CBC W/AUTO [...] 3 Years And Above [facility]# [id number] RHC Reviewed 04/02/2012 12:00 AM IMMUNIZATION ADMIN [...] CR, 1.2 million units [facility]# 14334-472-49 Reviewed 11/02/2017 12:00 AM Mammogram, screening, bilateral [...] 3 Years And Above [facility]# [address]-59 C Reviewed 09/09/2009 8:48 AM Blood Pressure [...] AM Kenalog, Per 10 Mg [facility]#[id number] Reviewed 03/19/2014 12:00 AM COMPLETE CBC W/AUTO DIFF WBC Reviewed 03/19/2014 12:00 AM COMPREHEN METABOLIC PANEL Reviewed 03/19/2014 12:00 AM LIPID PANEL Reviewed 03/19/2014 12:00 AM ASSAY THYROID STIM HORMONE Reviewed 04/27/2014 12:00 AM Rocephin 1 gram [facility]#[id number] Reviewed 04/27/2014 12:00 AM THER/PROPH/DIAG INJ SC/IM [...] CVX Influenza 02/10/2010 sanofi pasteur PMC FLUZONE [id number] Intramuscular Left Arm 02/10/2010 11/29/2009 999 Influenza 02/18/2011 sanofi pasteur PMC FLUZONE [id number] Intramuscular Left Arm 02/18/2011 11/17/2010 141 Influenza 02/20/2012 sanofi pasteur PMC FLUZONE [id number] Intramuscular Left Deltoid 02/20/2012 10/24/2011 141 X 04/02/2012 [employer] MSD PNEUMOVAX 23 [id number] Intramuscular Left Gluteous Medius 04/02/2012 08/07/2009 33 Influenza 02/18/2013 sanofi pasteur PMC Fluzone > 3 Years [id number] Intramuscular Right Deltoid 02/18/2013 11/16/2012 141 X 12/24/2014 Not Entered NE PREVNAR 13 Not Entered Not Entered 201404/24/2019 109 Influenza 12/24/2014 Not Entered NE Not Entered Not Entered Not Entered 12/24/2014 04/24/2019 141 HepB Adult 10/21/2015 [employer] MSD RECOMBIVAX-ADULT [id number] Not Entered Left Deltoid 10/21/2015 11/11/2015 43 HepB Adult 11/20/2015 [employer] MSD RECOMBIVAX-ADULT [id number] Intramuscular Right Deltoid 11/20/2015 11/11/2015 43 ZVL 04/06/2012 Not Entered NE Not Entered Not Entered Not Entered 04/2404/24/2019 121 Tdap 04/06/2012 Not Entered NE Not Entered Not Entered Not Entered 04/24/201904/24/2019 115 Influenza 02/04/2016 Not Entered NE FLUZONE-HIGH DOSE Intramuscular Left Arm 04/24/2019 04/24/2019 141 HepB Adult 04/21/2016 [employer] MSD RECOMBIVAX-ADULT [id number] Intramuscular Right Deltoid 04/21/2016 11/11/2015 43 Influenza 02/20/2017 Not Entered NE Fluarix, quadrivalent, preservative free Intramuscular Left Arm 02/22/2017 04/24/2019 150 RZV 12/19/2017 RMI SKB SHINGRIX Intramuscular Left Arm 04/24/2019 187 [...] 2017 8:50AM Hypertension Dec 22 2017 8:50AM Payers Insurance Name Company Name Plan Name Plan Number Policy Number Policy Group Number Start Date Medicare RHC Medicare RHC [id number] N/A BCBS [facility] [id number] Tuesday, 2009 Medicare Part B Medicare Of [place] [id number] N/A Medicare Part A Medicare Part A [id number] N/A Medicare Part A ZZZMedicare P A - Preventive [id number] N/A Medicare Part A Medicare - Lab/Xray [id number] N/A Medicare RHC Medicare RHC [id number] N/A History of Encounters Visit Date Visit Type Provider 01/22/2018 Office visit Bruno Carreon DO 12/22/2017 Office visit Bruno Carreon DO 10/20/2017 Office visit Bruno Carreon DO 09/19/2017 Office visit Bruno Carreon DO 09/12/2017 Office visit Precious Carmona MD 06/27/2017 Office visit Precious Carmona MD 05/05/2017 Office visit Yarelis Meza REAL ESTATE SUBAGENT 04/11/2017 Office visit Precious Carmona MD 02/08/2017 Office visit Precious Carmona MD 01/31/2017 Office visit Precious Carmona MD 11/11/2016 Office visit Precious Carmona MD 11/01/2016 Office visit Precious Carmona MD 09/30/2016 Office visit Precious Carmona MD 09/16/2016 Office visit Pj Guajardo REAL ESTATE SUBAGENT 04/21/2016 Nurse visit Precious Carmona MD 02/04/2016 Office visit Precious Carmona MD 11/20/2015 Nurse visit Precious Carmona MD 10/21/2015 Office visit Precious Carmona MD 10/15/2014 Office visit Precious Carmona MD 04/30/2014 Office visit Precious Carmona MD 04/27/2014 Office visit Pj Guajardo REAL ESTATE SUBAGENT 04/12/2014 Office visit Gaby Randolph REAL ESTATE SUBAGENT 02/17/2014 Voided Precious Carmona MD 01/27/2014 Office visit Precious Carmona MD 01/26/2014 Office visit Gaby Randolph REAL ESTATE SUBAGENT 01/23/2014 Office visit 01/23/2014 Office visit Abbie Pedraza REAL ESTATE SUBAGENT 10/04/2013 Office visit Coco Sofia REAL ESTATE SUBAGENT 09/30/2013 Office visit Precious Carmona MD 05/20/2013 Office visit Precious Carmona MD 04/01/2013 Office visit Natty Webber MD 02/18/2013 Nurse visit Natty Webber MD 10/01/2012 Office visit Natty Webber MD 06/12/2012 Office visit Abbie Pedraza REAL ESTATE SUBAGENT 04/12/2012 Office visit Natty Webber MD 04/02/2012 Office visit Natty Webber MD 02/20/2012 Nurse visit Natty Webber MD 12/07/2011 Office visit Natty Webber MD 11/18/2011 Office visit Abbie Pedraza REAL ESTATE SUBAGENT 10/03/2011 Office visit Natty Webber MD 06/08/2011 Office visit Natty Webber MD 05/16/2011 Office visit Abbie Pedraza REAL ESTATE SUBAGENT 04/05/2011 Office visit Natty Webber MD 02/18/2011 Nurse visit Tyrell Nettles MD 01/03/2011 Office visit Natty Webber MD 09/27/2010 Office visit Natty Webber MD 09/06/2010 Office visit Natty Webber MD 08/17/2010 Office visit Natty Webber MD 08/12/2010 Office visit Natty Webber MD 08/09/2010 Office visit Natty Webber MD 08/01/2010 [facility] 08/01[facility]2010 [facility] Christine Inman MD 07/31/2010 Office visit Christine Inman MD 07/31/2010 [facility] Jaye Polanco MD 07/31/2010 Voided Jaye Polanco MD 07/29/2010 Office visit Natty Webebr MD 04/07/2010 Nurse visit Natty Webber MD 03/15/2010 Office visit Natty Webber MD 02/10/2010 Nurse visit Clarita Cummings PA 09/15/2009 Nurse visit Natty Webber MD 09/09/2009 Nurse visit Natty Webber MD 08/26/2009 Office visit Natty Webber MD 07/10/2009 Voided Clarita Cummings PA 06/11/2009 Nurse visit Clarita Cummings PA 05/15/2009 Nurse visit Clarita Cummings PA 05/11/2009 Nurse visit Clarita Cummings PA 04/06/2009 Office visit Clarita STOUT 02/10/2009 Nurse visit Clarita STOUT
--- OUTSIDE RECORDS SUMMARY | 2018-02-12 08:28 | XMS REPORT ---
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 Role Phone Bruno Carreon PCP ValerianosylvieRobertPrecious PreferredProvider Allergies and Adverse Reactions Name Reaction [...] pantoprazole 40 mg oral tablet,delayed release (DR/EC) 01/30/2017 take 1 tablet (40 mg) by oral route once daily for 90 days amlodipine 5 mg oral tablet 09/12/2017 TAKE ONE TABLET BY MOUTH ONCE DAILY atenolol 50 mg oral tablet 09/12/2017 TAKE ONE TABLET BY MOUTH ONCE DAILY mirtazapine 15 mg oral tablet 10/10/2017 TAKE ONE-HALF TABLET BY MOUTH ONCE DAILY AT BEDTIME ondansetron 4 mg oral tablet,disintegrating 10/24/2017 dissolve 1 tablet by oral route every 8 hours as needed losartan 100 mg oral tablet 11/24/2017 05/23/2018 take 1 tablet (100 mg) by oral route once daily for 90 days Plavix 75 mg Oral tablet 12/18/2017 06/11/2019 take 1 tablet (75 mg) by oral route once daily metoclopramide HCl 10 mg oral tablet 12/22/2017 take 1 tablet (10 mg) by oral route once daily with supper Lexapro 10 mg oral tablet 01/08/2018 01/03/2019 take 1 tablet (10 mg) by oral route once daily for 90 days Name Start Date Expiration Date SIG Comments prednisone 20 mg oral tablet 07/29/2010 08/03/2010 take 2 tablets by oral route daily for 5 days calcium carbonate-vitamin D2 600-125 mg-unit oral tablet 12/07/2011 01/06/2012 take 2 tablets by oral route daily [place] 3 Fish Oil 900-1,400 mg oral capsule,delayed [...] route daily as needed for 14 days levothyroxine 50 mcg oral tablet 01/30/2017 01/30/2017 TAKE ONE TABLET BY MOUTH ONCE DAILY ondansetron 4 mg oral tablet,disintegrating 01/31/2017 03/02/2017 [...] TAKE ONE TABLET BY MOUTH ONCE DAILY Sane Nurse recall Augmentin 875-125 mg oral tablet 05/05/2017 06/27/2017 take 1 tablet by oral route every 12 hours for 7 days benzonatate 100 mg oral capsule 05/05/2017 06/27/2017 take 1 capsule (100 mg) by oral route 3 times per day as needed for cough clorazepate dipotassium 7.5 mg oral tablet 12/11/2017 01/08/2018 take 1 tablet PO three times per day for situational anxiety No longer taking Problem List Description Status Onset Hyperlipidemia Active acid reflux Active Hypertension Active hypothyroid Active Vital Signs Date Time BP-Sys(mm[Hg] BP-Rhianna(mm[Hg]) HR(bpm) RR(rpm) Temp WT HT HC BMI BSA BMI Percentile O2 Sat(%) 12/22/2017 8:49:00 AM 134 mmHg 70 mmHg 64 bpm 16 rpm 98.6 F 146 lbs 61 in 27.5862 kg/m 1.6883 m 98 % 10/20/2017 9:04:00 AM 138 mmHg 80 mmHg 64 bpm 18 rpm 96 F 140.125 lbs 61 in 26.48 kg/m2 1.65 m2 99 % 09/19/2017 8:24:00 AM 142 mmHg 70 mmHg 69 bpm 18 rpm 98.2 F 139 lbs 61 in 26.2636 kg/m 1.6473 m 98 % 09/12/2017 8:39:00 AM 116 mmHg 68 mmHg 68 bpm 18 rpm 97.9 F 142 lbs 61 in 26.83 kg/m2 1.66 m2 06/27/2017 8:26:00 AM 126 mmHg 76 mmHg 63 bpm 16 rpm 98 F 134.125 lbs 61 in 25.3424 kg/m 1.6182 m 100 % 05/05/2017 11:55:00 AM 126 mmHg 80 mmHg 80 bpm 18 rpm 98 F 132 lbs 61 in 24.94 kg/m2 1.61 m2 100 % 04/11/2017 8:26:00 AM 122 mmHg 76 mmHg 63 bpm 16 rpm 98.4 F 129.25 lbs 61 in 24.4213 kg/m 1.5885 m 99 % 02/08/2017 9:01:00 AM 126 mmHg 80 mmHg 73 bpm 16 rpm 97.9 F 122.375 lbs 61 in 23.12 kg/m2 1.55 m2 100 % 01/31/2017 1:52:00 PM 118 mmHg 72 mmHg 74 bpm 16 rpm 98.1 F 121 lbs 61 in 22.86 kg/m2 1.54 m2 99 % 11/11/2016 8:40:00 AM 118 mmHg 68 mmHg 63 bpm 16 rpm 98.1 F 123.125 lbs 61 in 23.264 kg/m 1.5504 m 100 % 11/01/2016 8:57:00 AM 116 mmHg 62 mmHg 71 bpm 16 rpm 99.8 F 121.5 lbs 61 in 22.96 kg/m2 1.54 m2 98 % 09/30/2016 11:30:00 AM 128 mmHg 78 mmHg 69 bpm 16 rpm 98.8 F 129.375 lbs 61 in 24.4449 kg/m 1.5892 m 98 % 09/16/2016 8:22:00 AM 118 mmHg [...] History Name Description Comments 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 History of Procedures Date [...] SC/IM Reviewed 06/08/2011 12:00 AM Bicillin CR [facility]#[id number] Clinic Reviewed 06/08/2011 12:00 AM Depo-Medrol 40 mg [facility]#[id number] Reviewed 02/04/2016 12:00 AM COMPLETE CBC W/AUTO [...] AM Flu Injection 3 Years And Above [facility]# [address]-35 RHC Reviewed 04/02/2012 12:00 AM IMMUNIZATION ADMIN [...] 12:00 AM Bicillin CR, 1.2 million units [facility]# 10198-928-82 Reviewed 11/02/2017 12:00 AM Mammogram, screening, bilateral [...] AM Flu Injection 3 Years And Above [facility]# [address]-33 C Reviewed 09/09/2009 8:48 AM Blood Pressure [...] 01/23/2014 12:00 AM Kenalog, Per 10 Mg [facility]#0876-0957-97 Reviewed 03/19/2014 12:00 AM COMPLETE CBC W/AUTO DIFF WBC Reviewed 03/19/2014 12:00 AM COMPREHEN METABOLIC PANEL Reviewed 03/19/2014 12:00 AM LIPID PANEL Reviewed 03/19/2014 12:00 AM ASSAY THYROID STIM HORMONE Reviewed 04/27/2014 12:00 AM Rocephin 1 gram [facility]#8711-9625-19 Reviewed 04/27/2014 12:00 AM THER/PROPH/DIAG INJ SC/IM [...] CVX Influenza 02/10/2010 sanofi pasteur PMC FLUZONE [id number] Intramuscular Left Arm 02/10/2010 11/29/2009 999 Influenza 02/18/2011 sanofi pasteur PMC FLUZONE [id number] Intramuscular Left Arm 02/18/2011 11/17/2010 141 Influenza 02/20/2012 sanofi pasteur PMC FLUZONE [id number] Intramuscular Left Deltoid 02/20/2012 10/24/2011 141 X 04/02/2012 [employer] MSD PNEUMOVAX 23 [id number] Intramuscular Left Gluteous Medius 04/02/2012 08/07/2009 33 Influenza 02/18/2013 [facility] PMC Fluzone > 3 Years [id number] Intramuscular Right Deltoid 02/18/2013 11/16/2012 141 X 12/24/2014 Not Entered NE PREVNAR 13 Not Entered Not Entered 201404/24/2019 109 Influenza 12/24/2014 Not Entered NE Not Entered Not Entered Not Entered 12/24/2014 04/24/2019 141 HepB Adult 10/21/2015 [employer] MSD RECOMBIVAX-ADULT [id number] Not Entered Left Deltoid 10/21/2015 11/11/2015 43 HepB Adult 11/20/2015 [employer] MSD RECOMBIVAX-ADULT [id number] Intramuscular Right Deltoid 11/20/2015 11/11/2015 43 ZVL 04/06/2012 Not Entered NE Not Entered Not Entered Not Entered 04/2404/24/2019 121 Tdap 04/06/2012 Not Entered NE Not Entered Not Entered Not Entered 04/24/201904/24/2019 115 Influenza 02/04/2016 Not Entered NE FLUZONE-HIGH DOSE Intramuscular Left Arm 04/24/2019 04/24/2019 141 HepB Adult 04/21/2016 [employer] MSD RECOMBIVAX-ADULT [id number] Intramuscular Right Deltoid 04/21/2016 11/11/2015 43 Influenza 02/20/2017 Not Entered NE Fluarix, quadrivalent, preservative free Intramuscular Left Arm 02/22/2017 04/24/2019 150 RZV 12/19/2017 [employer] SKB SHINGRIX Intramuscular Left Arm 04/24/2019 187 [...] Number Policy Group Number Start Date Medicare [facility] Medicare [facility] [id number] N/A [id number] Tuesday, 2009 Medicare Part B Medicare Of [place] [id number] N/A Medicare Part A Medicare Part A [id number] N/A Medicare Part A ZZZMedicare P A - Preventive [id number] N/A Medicare Part A Medicare - Lab/Xray [id number] N/A Medicare RHC Medicare RHC [id number] N/A History of Encounters Visit Date Visit Type Provider 12/22/2017 Office visit Bruno Carreon DO 10/20/2017 Office visit Bruno Carreon DO 09/19/2017 Office visit Bruno Carreon DO 09/12/2017 Office visit Precious Carmona MD 06/27/2017 Office visit Precious Carmona MD 05/05/2017 Office visit Yarelis Meza WELFARE INVESTIGATOR 04/11/2017 Office visit Precious Carmona MD 02/08/2017 Office visit Precious Carmona MD 01/31/2017 Office visit Precious Carmona MD 11/11/2016 Office visit Precious Carmona MD 11/01/2016 Office visit Precious Carmona MD 09/30/2016 Office visit Precious Carmona MD 09/16/2016 Office visit Pj Guajardo WELFARE INVESTIGATOR 04/21/2016 Nurse visit Precious Carmona MD 02/04/2016 Office visit Precious Carmona MD 11/20/2015 Nurse visit Precious Carmona MD 10/21/2015 Office visit Precious Carmona MD 10/15/2014 Office visit Precious Carmona MD 04/30/2014 Office visit Precious Carmona MD 04/27/2014 Office visit Pj Guajardo WELFARE INVESTIGATOR 04/12/2014 Office visit Gaby Randolph WELFARE INVESTIGATOR 02/17/2014 Voided Precious Carmona MD 01/27/2014 Office visit Precious Carmona MD 01/26/2014 Office visit Gaby Randolph WELFARE INVESTIGATOR 01/23/2014 Office visit 01/23/2014 Office visit Abbie Pedraza WELFARE INVESTIGATOR 10/04/2013 Office visit Coco Sofia WELFARE INVESTIGATOR 09/30/2013 Office visit Precious Carmona MD 05/20/2013 Office visit Precious Carmona MD 04/01/2013 Office visit Natty Webber MD 02/18/2013 Nurse visit Natty Webbre MD 10/01/2012 Office visit Natty Webber MD 06/12/2012 Office visit Abbie Pedraza WELFARE INVESTIGATOR 04/12/2012 Office visit Natty Webber MD 04/02/2012 Office visit Natty Webber MD 02/20/2012 Nurse visit Natty Webber MD 12/07/2011 Office visit Natty Webber MD 11/18/2011 Office visit Abbie Pedraza WELFARE INVESTIGATOR 10/03/2011 Office visit Natty Webber MD 06/08/2011 Office visit Natty Webber MD 05/16/2011 Office visit Abbie Pedraza WELFARE INVESTIGATOR 04/05/2011 Office visit Natty Webber MD 02/18/2011 Nurse visit Tyrell Nettles MD 01/03/2011 Office visit Natty Webber MD 09/27/2010 Office visit Natty Webber MD 09/06/2010 Office visit Natty Webber MD 08/17/2010 Office visit Natty Webber MD 08/12/2010 Office visit Natty Webber MD 08/09/2010 Office visit Natty Webber MD 08/01/2010 Hospital JORGE Green MD 08/01/2010 [facility] Christine Inman MD 07/31/2010 Office visit Christine Inamn MD 07/31/2010 [facility] Jaye Polanco MD 07/31/2010 Voided Jaye Polanco [...]
--- OUTSIDE RECORDS SUMMARY | 2018-02-12 08:30 | XMS REPORT ---
Author Author Bruno Carreon [facility] Address [address] [place], [place] [address] Care Team Providers Care Professional Services Manager Name Role Phone Bruno Carreon PCP Robert Carmonaole PreferredProvider Allergies and Adverse Reactions Name Reaction [...] days clorazepate dipotassium 7.5 mg oral tablet 12/11/2017 01/10/2018 take 1 tablet PO three times per day for situational anxiety Plavix 75 mg Oral tablet 12/18/2017 06/11/2019 take 1 tablet (75 mg) by oral route once daily metoclopramide HCl 10 mg oral tablet 12/22/2017 take 1 tablet (10 mg) by oral route once daily with supper Name Start Date Expiration Date SIG Comments prednisone 20 mg oral tablet 07/29/2010 08/03/2010 take 2 tablets by oral route daily for 5 days calcium carbonate-vitamin D2 600-125 mg-unit oral tablet 12/07/2011 01/06/2012 take 2 tablets by oral route daily [place] 3 Fish Oil 900-1,400 mg oral capsule,delayed [...] TAKE ONE TABLET BY MOUTH ONCE DAILY Skilled Helper recall Augmentin 875-125 mg oral tablet 05/05/2017 06/27/2017 take 1 tablet by oral route every 12 hours for 7 days benzonatate 100 mg oral capsule 05/05/2017 06/27/2017 take 1 capsule (100 mg) by oral route 3 times per day as needed for cough Problem List Description Status Onset Hyperlipidemia Active [...] History Name Description Comments 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 History of Procedures Date [...] SC/IM Reviewed 06/08/2011 12:00 AM Bicillin CR [facility]#[id number] Clinic Reviewed 06/08/2011 12:00 AM Depo-Medrol 40 mg [facility]#[id number] Reviewed 02/04/2016 12:00 AM COMPLETE CBC W/AUTO [...] Flu Injection 3 Years And Above [facility]# [address]-06 RHC Reviewed 04/02/2012 12:00 AM IMMUNIZATION ADMIN Reviewed 04/02/2012 12:00 AM Pneumovax Injection - [facility] Reviewed 05/05/2017 12:00 AM THER/PROPH/DIAG INJ SC/IM [...] AM Bicillin CR, 1.2 million units [facility]# 47179-036-80 Reviewed 11/02/2017 12:00 AM Mammogram, screening, bilateral [...] Flu Injection 3 Years And Above [facility]# [address]-98 RHC Reviewed 09/09/2009 8:48 AM Blood Pressure [...] 12:00 AM Kenalog, Per 10 Mg [facility]#3781-9885-49 Reviewed 03/19/2014 12:00 AM COMPLETE CBC W/AUTO DIFF WBC Reviewed 03/19/2014 12:00 AM COMPREHEN METABOLIC PANEL Reviewed 03/19/2014 12:00 AM LIPID PANEL Reviewed 03/19/2014 12:00 AM ASSAY THYROID STIM HORMONE Reviewed 04/27/2014 12:00 AM Dyana larsen [facility]#2665-6491-22 Reviewed 04/27/2014 12:00 AM THER/PROPH/DIAG INJ SC/IM [...] CVX Influenza 02/10/2010 sanofi pasteur PMC FLUZONE [id number] Intramuscular Left Arm 02/10/2010 11/29/2009 999 Influenza 02/18/2011 sanofi pasteur PMC FLUZONE [id number] Intramuscular Left Arm 02/18/2011 11/17/2010 141 Influenza 02/20/2012 sanofi pasteur PMC FLUZONE [id number] Intramuscular Left Deltoid 02/20/2012 10/24/2011 141 X 04/02/2012 [employer] MSD PNEUMOVAX 23 [id number] Intramuscular Left Gluteous Medius 04/02/2012 08/07/2009 33 Influenza 02/18/2013 sanofi pasteur PMC Fluzone > 3 Years [id number] Intramuscular Right Deltoid 02/18/2013 11/16/2012 141 X 12/24/2014 Not Entered NE PREVNAR 13 Not Entered Not Entered 201404/24/2019 109 Influenza 12/24/2014 Not Entered NE Not Entered Not Entered Not Entered 12/24/2014 04/24/2019 141 HepB Adult 10/21/2015 [employer] MSD RECOMBIVAX-ADULT [id number] Not Entered Left Deltoid 10/21/2015 11/11/2015 43 HepB Adult 11/20/2015 [employer] MSD RECOMBIVAX-ADULT [id number] Intramuscular Right Deltoid 11/20/2015 11/11/2015 43 ZVL 04/06/2012 Not Entered NE Not Entered Not Entered Not Entered 04/2404/24/2019 121 Tdap 04/06/2012 Not Entered NE Not Entered Not Entered Not Entered 04/24/201904/24/2019 115 Influenza 02/04/2016 Not Entered NE FLUZONE-HIGH DOSE Intramuscular Left Arm 04/24/2019 04/24/2019 141 HepB Adult 04/21/2016 [employer] MSD RECOMBIVAX-ADULT [id number] Intramuscular Right Deltoid 04/21/2016 11/11/2015 43 Influenza 02/20/2017 Not Entered NE Fluarix, quadrivalent, preservative free Intramuscular Left Arm 02/22/2017 04/24/2019 150 RZV 12/19/2017 [employer] SKB SHINGRIX Intramuscular Left Arm 04/24/2019 187 [...] Number Start Date Medicare RHC Medicare RHC [id number] N/A [facility] [id number] Tuesday, 2009 Medicare Part B Medicare Of [place] [id number] N/A Medicare Part A Medicare Part A [id number] N/A Medicare Part A ZZZMedicare P A - Preventive [id number] N/A Medicare Part A Medicare - Lab/Xray [id number] N/A Medicare RHC Medicare RHC [id number] N/A History of Encounters Visit Date Visit Type Provider 12/22/2017 Office visit Bruno Carreon DO 10/20/2017 Office visit Bruno Carreon DO 09/19/2017 Office visit Bruno Carreon DO 09/12/2017 Office visit Precious Carmona MD 06/27/2017 Office visit Precious Carmona MD 05/05/2017 Office visit Yarelis Meza CABLE WAY OPERATOR 04/11/2017 Office visit Precious Carmona MD 02/08/2017 Office visit Precious Carmona MD 01/31/2017 Office visit Precious Carmona MD 11/11/2016 Office visit Precious Carmona MD 11/01/2016 Office visit Precious Carmona MD 09/30/2016 Office visit Precious Carmona MD 09/16/2016 Office visit Pj Guajardo CABLE WAY OPERATOR 04/21/2016 Nurse visit Precious Carmona MD 02/04/2016 Office visit Precious Carmona MD 11/20/2015 Nurse visit Precious Carmona MD 10/21/2015 Office visit Precious Carmona MD 10/15/2014 Office visit Precious Carmona MD 04/30/2014 Office visit Precious Carmona MD 04/27/2014 Office visit Pj Guajardo CABLE WAY OPERATOR 04/12/2014 Office visit Gaby Randolph CABLE WAY OPERATOR 02/17/2014 Voided rPecious Carmona MD 01/27/2014 Office visit Precious Carmona MD 01/26/2014 Office visit Gaby Randolph CABLE WAY OPERATOR 01/23/2014 Office visit 01/23/2014 Office visit Abbie Pedraza CABLE WAY OPERATOR 10/04/2013 Office visit Coco Sofia CABLE WAY OPERATOR 09/30/2013 Office visit Precious Carmona MD 05/20/2013 Office visit Precious Carmona MD 04/01/2013 Office visit Natty Webber MD 02/18/2013 Nurse visit Natty Webber MD 10/01/2012 Office visit Natty Webber MD 06/12/2012 Office visit Abbie Pedraza CABLE WAY OPERATOR 04/12/2012 Office visit Natty Webber MD 04/02/2012 Office visit Natty Webber MD 02/20/2012 Nurse visit Natty Webber MD 12/07/2011 Office visit Natty Webber MD 11/18/2011 Office visit Abbie Pedraza CABLE WAY OPERATOR 10/03/2011 Office visit Natty Webber MD 06/08/2011 Office visit Natty Webber MD 05/16/2011 Office visit Abbie Pedraza CABLE WAY OPERATOR 04/05/2011 Office visit Natty Webber MD 02/18/2011 Nurse visit Tyrell Nettles MD 01/03/2011 Office visit Natty Webber MD 09/27/2010 Office visit Natty Webber MD 09/06/2010 Office visit Natty Webber MD 08/17/2010 Office visit Natty Webber MD 08/12/2010 Office visit Natty Webber MD 08/09/2010 Office visit Natty Webber MD 08/01/2010 [facility] JORGE Green MD 08/01/2010 [facility] Christine Inman MD 07/31/2010 Office visit Christine Inman MD 07/31/2010 [facility] Jaye Polanco MD 07/31/2010 Voided Jaye Polanco MD 07/29/2010 Office visit Natty Webber MD 04/07/2010 Nurse visit Natty Webber MD 03/15/2010 Office visit Natty Webber MD 02/10/2010 Nurse visit Clarita STOUT 09/15/2009 Nurse visit Natty Webber MD 09/09/2009 Nurse visit Natty Webber MD 08/26/2009 Office visit Natty Webber MD 07/10/2009 Voided lCarita STOUT 06/11/2009 Nurse visit Clarita STOUT 05/15/2009 Nurse visit Clarita STOUT 05/11/2009 Nurse visit Clarita STOUT 04/06/2009 Office visit Clarita STOUT 02/10/2009 Nurse visit Clarita STOUT
--- OUTSIDE RECORDS SUMMARY | 2018-02-12 08:32 | XMS REPORT ---
Author Author Bruno Carreon [facility] Address [address] [place], [place] [address] Care Team Providers Care Shoe Salesman Name Role Phone Bruno Carreon PCP Robert [...] take 2 tablets by oral route daily [place] 3 Fish Oil 900-1,400 mg oral capsule,delayed [...] (75 mg) by oral route once daily Zofran [...] TAKE ONE TABLET BY MOUTH ONCE DAILY Director Of Engineering recall Augmentin 875-125 mg oral tablet 05/05/2017 [...] HC BMI BSA BMI Percentile O2 Sat(%) 10/20/2017 9:04:00 AM 138 mmHg 80 mmHg [...] rpm 97.9 F 122.375 lbs 61 in 23.1223 kg/m 1.5456 m 100 % 01/31/2017 1:52:00 PM 118 mmHg [...] History Name Description Comments 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 History of Procedures Date [...] SC/IM Reviewed 06/08/2011 12:00 AM Bicillin CR [facility]#[id number] Clinic Reviewed 06/08/2011 12:00 AM Depo-Medrol 40 mg [facility]#[id number] Reviewed 02/04/2016 12:00 AM COMPLETE CBC W/AUTO [...] AM Flu Injection 3 Years And Above [facility]# [address]-48 RHC Reviewed 04/02/2012 12:00 AM IMMUNIZATION ADMIN [...] 12:00 AM Bicillin CR, 1.2 million units [facility]# 05911-858-40 Reviewed 11/02/2017 12:00 AM Mammogram, screening, bilateral [...] AM Flu Injection 3 Years And Above [facility]# [address]-34 RHC Reviewed 09/09/2009 8:48 AM Blood Pressure [...] 01/23/2014 12:00 AM Kenalog, Per 10 Mg [facility]#5224-3706-92 Reviewed 03/19/2014 12:00 AM COMPLETE CBC W/AUTO DIFF WBC Reviewed 03/19/2014 12:00 AM COMPREHEN METABOLIC PANEL Reviewed 03/19/2014 12:00 AM LIPID PANEL Reviewed 03/19/2014 12:00 AM ASSAY THYROID STIM HORMONE Reviewed 04/27/2014 12:00 AM Rocephin 1 gram [facility]#8572-6851-52 Reviewed 04/27/2014 12:00 AM THER/PROPH/DIAG INJ SC/IM [...] CVX Influenza 02/10/2010 sanofi pasteur PMC FLUZONE [id number] Intramuscular Left Arm 02/10/2010 11/29/2009 999 Influenza 02/18/2011 sanofi pasteur PMC FLUZONE [id number] Intramuscular Left Arm 02/18/2011 11/17/2010 141 Influenza 02/20/2012 sanofi pasteur PMC FLUZONE [id number] Intramuscular Left Deltoid 02/20/2012 10/24/2011 141 X 04/02/2012 [employer] MSD PNEUMOVAX 23 [id number] Intramuscular Left Gluteous Medius 04/02/2012 08/07/2009 33 Influenza 02/18/2013 sanofi pasteur PMC Fluzone > 3 Years [id number] Intramuscular Right Deltoid 02/18/2013 11/16/2012 141 X 12/24/2014 Not Entered NE PREVNAR 13 Not Entered Not Entered 201404/24/2018 109 Influenza 12/24/2014 Not Entered NE Not Entered Not Entered Not Entered 12/24/2014 04/24/2018 141 HepB Adult 10/21/2015 [employer] MSD RECOMBIVAX-ADULT [id number] Not Entered Left Deltoid 10/21/2015 11/11/2015 43 HepB Adult 11/20/2015 [employer] MSD RECOMBIVAX-ADULT [id number] Intramuscular Right Deltoid 11/20/2015 11/11/2015 43 ZVL 04/06/2012 Not Entered NE Not Entered Not Entered Not Entered 04/2404/24/2018 121 Tdap 04/06/2012 Not Entered NE Not Entered Not Entered Not Entered 04/24/201804/24/2018 115 Influenza 02/04/2016 Not Entered NE FLUZONE-HIGH DOSE Intramuscular Left Arm 04/24/2018 04/24/2018 141 HepB Adult 04/21/2016 [employer] MSD RECOMBIVAX-ADULT [id number] Intramuscular Right Deltoid 04/21/2016 11/11/2015 43 Influenza 02/20/2017 Not Entered NE Fluarix, quadrivalent, preservative free Intramuscular Left Arm 02/22/2017 04/24/2018 150 History of Past Illness Name Date of [...] 8:05AM Hypothyroidism, Acquired Dec 11 2017 8:05AM Payers Insurance Name Company Name Plan Name Plan Number Policy Number Policy Group Number Start Date Medicare RHC Medicare RHC [id number] N/A [id number] Tuesday, 2009 Medicare Part B Medicare Of [place] [id number] N/A Medicare Part A Medicare Part A [id number] N/A Medicare Part A ZZZMedicare P A - Preventive [id number] N/A Medicare Part A Medicare - Lab/Xray [id number] N/A History of Encounters Visit Date Visit Type Provider 10/20/2017 Office visit Bruno Carreon DO 09/19/2017 Office visit Bruno Carreon DO 09/12/2017 Office visit Precious Carmona MD 06/27/2017 Office visit Precious Carmona MD 05/05/2017 Office visit Yarelis Meza COMPUTER GAME PROGRAMMER 04/11/2017 Office visit Precious Carmona MD 02/08/2017 Office visit Precious Carmona MD 01/31/2017 Office visit Precious Carmona MD 11/11/2016 Office visit Precious Carmona MD 11/01/2016 Office visit Precious Carmona MD 09/30/2016 Office visit Precious Carmona MD 09/16/2016 Office visit Pj Guajardo COMPUTER GAME PROGRAMMER 04/21/2016 Nurse visit Precious Carmona MD 02/04/2016 Office visit Precious Carmona MD 11/20/2015 Nurse visit Precious Carmona MD 10/21/2015 Office visit Precious Carmona MD 10/15/2014 Office visit Precious Carmona MD 04/30/2014 Office visit Precious Carmona MD 04/27/2014 Office visit Pj Guajardo COMPUTER GAME PROGRAMMER 04/12/2014 Office visit Gaby Randolph COMPUTER GAME PROGRAMMER 02/17/2014 Voided Precious Carmona MD 01/27/2014 Office visit Precious Carmona MD 01/26/2014 Office visit Gaby Randolph COMPUTER GAME PROGRAMMER 01/23/2014 Office visit 01/23/2014 Office visit Abbie Pedraza COMPUTER GAME PROGRAMMER 10/04/2013 Office visit Coco Carlota Sofia COMPUTER GAME PROGRAMMER 09/30/2013 Office visit Precious Carmona MD 05/20/2013 Office visit Precious Carmona MD 04/01/2013 Office visit Natty Webber MD 02/18/2013 Nurse visit Natty Webber MD 10/01/2012 Office visit Natty Webber MD 06/12/2012 Office visit Abbie Pedraza COMPUTER GAME PROGRAMMER 04/12/2012 Office visit Natty Webber MD 04/02/2012 Office visit Natty Webber MD 02/20/2012 Nurse visit Natty Webber MD 12/07/2011 Office visit Natty Webber MD 11/18/2011 Office visit Abbie Pedraza COMPUTER GAME PROGRAMMER 10/03/2011 Office visit Natty Webber MD 06/08/2011 Office visit Natty Webber MD 05/16/2011 Office visit Abbie Pedraza COMPUTER GAME PROGRAMMER 04/05/2011 Office visit Natty Webber MD 02/18/2011 Nurse visit Tyrell Nettles MD 01/03/2011 Office visit Natty Webber MD 09/27/2010 Office visit Natty Webber MD 09/06/2010 Office visit Natty Webber MD 08/17/2010 Office visit Natty Webber MD 08/12/2010 Office visit Natty Webber MD 08/09/2010 Office visit Natty Webber MD 08/01/2010 Hospital JORGE Green MD 08/01/2010 Hospital Christine Inman MD 07/31/2010 [...]
--- OUTSIDE RECORDS SUMMARY | 2018-02-12 08:34 | XMS REPORT ---
Author Author Bruno Carreon [facility] Address [address] [place], [place] [address] Care Team Providers Care Fiberline Supervisor Name Role Phone Bruno Carreon PCP ValerianoPrecious mercer PreferredProvider Allergies and Adverse Reactions Name Reaction [...] WBC and automated differential) 04/17/2012 12:00 AM CBC with Auto 12/11/2017 12:00 AM CMP (comprehensive metabolic panel) 12/11/2017 12:00 AM Lipid profile 12/11/2017 12:00 AM Thyroid stimulating hormone (TSH) 12/11/2017 12:00 AM Screening mammography, bilateral 10/15/2014 12:00 [...] take 2 tablets by oral route daily [place] 3 Fish Oil 900-1,400 mg oral capsule,delayed [...] TABLET BY MOUTH ONCE DAILY AT BEDTIME clorazepate dipotassium 7.5 mg oral tablet 11/07/2017 12/07/2017 take 1 tablet PO three times per [...] TAKE ONE TABLET BY MOUTH ONCE DAILY Stuffed Casing Tier recall Augmentin 875-125 mg oral tablet 05/05/2017 [...] History Name Description Comments 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 History of Procedures Date [...] SC/IM Reviewed 06/08/2011 12:00 AM Bicillin CR [facility]#[id number] Clinic Reviewed 06/08/2011 12:00 AM Depo-Medrol 40 mg [facility]#[id number] Reviewed 02/04/2016 12:00 AM COMPLETE CBC W/AUTO [...] AM Flu Injection 3 Years And Above [facility]# [address]-86 RHC Reviewed 04/02/2012 12:00 AM IMMUNIZATION ADMIN [...] 12:00 AM Bicillin CR, 1.2 million units [facility]# 32423-733-53 Reviewed 11/02/2017 12:00 AM Mammogram, screening, bilateral Reviewed 11/02/2017 12:00 AM DXA BONE DENSITY AXIAL Reviewed 09/27/2012 12:00 AM COMPREHEN METABOLIC PANEL [...] AM Flu Injection 3 Years And Above [facility]# [address]-16 RHC Reviewed 09/09/2009 8:48 AM Blood Pressure [...] 01/23/2014 12:00 AM Kenalog, Per 10 Mg [facility]#7467-8064-59 Reviewed 03/19/2014 12:00 AM COMPLETE CBC W/AUTO DIFF WBC Reviewed 03/19/2014 12:00 AM COMPREHEN METABOLIC PANEL Reviewed 03/19/2014 12:00 AM LIPID PANEL Reviewed 03/19/2014 12:00 AM ASSAY THYROID STIM HORMONE Reviewed 04/27/2014 12:00 AM Rocephin 1 gram [facility]#1409-1504-18 Reviewed 04/27/2014 12:00 AM THER/PROPH/DIAG INJ SC/IM [...] >60 mL/min/1.73meGFR AA* >60 TSH 1.10 uIU/mL History Of Immunizations Name Date Admin Mfg Name Mfg Code Trade Name Lot# Route Inj Vis Given Vis Pub CVX Influenza 02/10/2010 sanofi pasteur PMC FLUZONE [id number] Intramuscular Left Arm 02/10/2010 11/29/2009 999 Influenza 02/18/2011 sanofi pasteur PMC FLUZONE [id number] Intramuscular Left Arm 02/18/2011 11/17/2010 141 Influenza 02/20/2012 sanofi pasteur PMC FLUZONE [id number] Intramuscular Left Deltoid 02/20/2012 10/24/2011 141 X 04/02/2012 [employer] MSD PNEUMOVAX 23 [id number] Intramuscular Left Gluteous Medius 04/02/2012 08/07/2009 33 Influenza 02/18/2013 sanofi pasteur PMC Fluzone > 3 Years [id number] Intramuscular Right Deltoid 02/18/2013 11/16/2012 141 X 12/24/2014 Not Entered NE PREVNAR 13 Not Entered Not Entered 201404/24/2018 109 Influenza 12/24/2014 Not Entered NE Not Entered Not Entered Not Entered 12/24/2014 04/24/2018 141 HepB Adult 10/21/2015 [employer] MSD RECOMBIVAX-ADULT [id number] Not Entered Left Deltoid 10/21/2015 11/11/2015 43 HepB Adult 11/20/2015 [employer] MSD RECOMBIVAX-ADULT [id number] Intramuscular Right Deltoid 11/20/2015 11/11/2015 43 ZVL 04/06/2012 Not Entered NE Not Entered Not Entered Not Entered 04/2404/24/2018 121 Tdap 04/06/2012 Not Entered NE Not Entered Not Entered Not Entered 04/24/201804/24/2018 115 Influenza 02/04/2016 Not Entered NE FLUZONE-HIGH DOSE Intramuscular Left Arm 04/24/2018 04/24/2018 141 HepB Adult 04/21/2016 [employer] MSD RECOMBIVAX-ADULT [id number] Intramuscular Right Deltoid 04/21/2016 11/11/2015 43 Influenza [...] Number Start Date Medicare RHC Medicare RHC [id number] N/A BCBS Bcbs Josiane Keys [id number] Tuesday, 2009 Medicare Part B Medicare Josiane Keys [id number] N/A Medicare Part A Medicare Part A [id number] N/A Medicare Part A ZZZMedicare P A - Preventive [id number] N/A Medicare Part A Medicare - Lab/Xray [id number] N/A History of Encounters Visit Date Visit Type Provider 10/20/2017 Office visit Bruno Carreon DO 09/19/2017 Office visit Bruno Carreon DO 09/12/2017 Office visit Precious Carmona MD 06/27/2017 Office visit Precious Carmona MD 05/05/2017 Office visit Yarelis Meza COUNTY COMMISSIONER 04/11/2017 Office visit Precious Carmona MD 02/08/2017 Office visit Precious Carmona MD 01/31/2017 Office visit Precious Carmona MD 11/11/2016 Office visit Precious Carmona MD 11/01/2016 Office visit Precious Carmona MD 09/30/2016 Office visit Precious Carmona MD 09/16/2016 Office visit Pj Guajardo COUNTY COMMISSIONER 04/21/2016 Nurse visit Precious Carmona MD 02/04/2016 Office visit Precious Carmona MD 11/20/2015 Nurse visit Precious Carmona MD 10/21/2015 Office visit Precious Carmona MD 10/15/2014 Office visit Precious Carmona MD 04/30/2014 Office visit Precious Carmona MD 04/27/2014 Office visit Pj Guajardo COUNTY COMMISSIONER 04/12/2014 Office visit Gaby Randolph COUNTY COMMISSIONER 02/17/2014 Voided Precious Carmona MD 01/27/2014 Office visit Precious Carmona MD 01/26/2014 Office visit Gaby Randolph COUNTY COMMISSIONER 01/23/2014 Office visit 01/23/2014 Office visit Abbie Pedraza COUNTY COMMISSIONER 10/04/2013 Office visit Coco Sofia COUNTY COMMISSIONER 09/30/2013 Office visit Precious Carmona MD 05/20/2013 Office visit Precious Carmona MD 04/01/2013 Office visit Natty Webber MD 02/18/2013 Nurse visit Natty Webber MD 10/01/2012 Office visit Natty Webber MD 06/12/2012 Office visit Abbie Pedraza COUNTY COMMISSIONER 04/12/2012 Office visit Natty Webber MD 04/02/2012 Office visit Natty Webber MD 02/20/2012 Nurse visit Natty Webber MD 12/07/2011 Office visit Natty Webber MD 11/18/2011 Office visit Abbie Pedraza COUNTY COMMISSIONER 10/03/2011 Office visit Natty Webber MD 06/08/2011 Office visit Natty Webber MD 05/16/2011 Office visit Abbie Milo COUNTY COMMISSIONER 04/05/2011 Office visit Natty Webber MD 02/18/2011 Nurse visit Tyrell Nettles MD 01/03/2011 Office visit Natty Webber MD 09/27/2010 Office visit Natty Webber MD 09/06/2010 Office visit Natty Webber MD 08/17/2010 Office visit Natty Webber MD 08/12/2010 Office visit Natty Webber MD 08/09/2010 Office visit Natty Webber MD 08/01/2010 [facility] JORGE Green MD 08/01/2010 [facility] Christine Inman MD 07/31/2010 Office visit Christine [...]
--- OUTSIDE RECORDS SUMMARY | 2018-02-12 08:36 | XMS REPORT ---
Author Author Bruno Carreon [facility] Address [address] [place], [place] [address] Care Team Providers Care Mammography Technician Name Role Phone Bruno Carreon PCP Robert [...] needed clorazepate dipotassium 7.5 mg oral tablet 11/07/2017 12/07/2017 take 1 tablet PO three times per day for situational anxiety losartan 100 mg oral tablet 11/24/2017 05/23/2018 take 1 tablet (100 mg) by oral route once daily for 90 days Name Start Date Expiration Date SIG Comments prednisone 20 mg oral tablet 07/29/2010 08/03/2010 take 2 tablets by oral route daily for 5 days calcium carbonate-vitamin D2 600-125 mg-unit oral tablet 12/07/2011 01/06/2012 take 2 tablets by oral route daily [place] 3 Fish Oil 900-1,400 mg oral capsule,delayed [...] TAKE ONE TABLET BY MOUTH ONCE DAILY Meat [employer]er recall Augmentin 875-125 mg oral tablet 05/05/2017 [...] History Name Description Comments 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#[id number] Clinic Reviewed 06/08/2011 12:00 AM Depo-Medrol 40 mg [facility]#[id number] Reviewed 02/04/2016 12:00 AM COMPLETE CBC W/AUTO [...] AM Flu Injection 3 Years And Above [facility]# [address]-98 RHC Reviewed 04/02/2012 12:00 AM IMMUNIZATION ADMIN [...] 12:00 AM Bicillin CR, 1.2 million units [facility]# 38985-967-24 Reviewed 11/02/2017 12:00 AM Mammogram, screening, bilateral [...] AM Flu Injection 3 Years And Above [facility]# [address]-59 RHC Reviewed 09/09/2009 8:48 AM Blood Pressure [...] 01/23/2014 12:00 AM Kenalog, Per 10 Mg [facility]#0220-26[address]-70 Reviewed 03/19/2014 12:00 AM COMPLETE CBC W/AUTO DIFF WBC Reviewed 03/19/2014 12:00 AM COMPREHEN METABOLIC PANEL Reviewed 03/19/2014 12:00 AM LIPID PANEL Reviewed 03/19/2014 12:00 AM ASSAY THYROID STIM HORMONE Reviewed 04/27/2014 12:00 AM Rocephin 1 gram [facility]#7563-8534-97 Reviewed 04/27/2014 12:00 AM THER/PROPH/DIAG INJ SC/IM [...] CVX Influenza 02/10/2010 sanofi pasteur PMC FLUZONE [id number] Intramuscular Left Arm 02/10/2010 11/29/2009 999 Influenza 02/18/2011 sanofi pasteur PMC FLUZONE [id number] Intramuscular Left Arm 02/18/2011 11/17/2010 141 Influenza 02/20/2012 sanofi pasteur PMC FLUZONE [id number] Intramuscular Left Deltoid 02/20/2012 10/24/2011 141 X 04/02/2012 [employer] MSD PNEUMOVAX 23 [id number] Intramuscular Left Gluteous Medius 04/02/2012 08/07/2009 33 Influenza 02/18/2013 sanofi pasteur PMC Fluzone > 3 Years [id number] Intramuscular Right Deltoid 02/18/2013 11/16/2012 141 X 12/24/2014 Not Entered NE PREVNAR 13 Not Entered Not Entered 201404/24/2018 109 Influenza 12/24/2014 Not Entered NE Not Entered Not Entered Not Entered 12/24/2014 04/24/2018 141 HepB Adult 10/21/2015 [employer] MSD RECOMBIVAX-ADULT [id number] Not Entered Left Deltoid 10/21/2015 11/11/2015 43 HepB Adult 11/20/2015 [employer] MSD RECOMBIVAX-ADULT [id number] Intramuscular Right Deltoid 11/20/2015 11/11/2015 43 ZVL 04/06/2012 Not Entered NE Not Entered Not Entered Not Entered 04/2404/24/2018 121 Tdap 04/06/2012 Not Entered NE Not Entered Not Entered Not Entered 04/24/201804/24/2018 115 Influenza 02/04/2016 Not Entered NE FLUZONE-HIGH DOSE Intramuscular Left Arm 04/24/2018 04/24/2018 141 HepB Adult 04/21/2016 [employer] MSD RECOMBIVAX-ADULT [id number] Intramuscular Right Deltoid 04/21/2016 11/11/2015 43 Influenza [...] 8:26AM Anxiety Disorder Oct 20 2017 9:09AM Payers Insurance Name Company Name Plan Name Plan Number Policy Number Policy Group Number Start Date Medicare [facility] Medicare [facility] [id number] N/A [id number] Tuesday, 2009 Medicare Part B Medicare Of [place] [id number] N/A Medicare Part A Medicare Part A [id number] N/A Medicare Part A ZZZMedicare P A - Preventive [id number] N/A Medicare Part A Medicare - Lab/Xray [id number] N/A History of Encounters Visit Date Visit Type Provider 10/20/2017 Office visit Bruno Carreon DO 09/19/2017 Office visit Bruno Carreon DO 09/12/2017 Office visit Precious Carmona MD 06/27/2017 Office visit Precious Carmona MD 05/05/2017 Office visit Yarelis Meza COURSEWARE DEVELOPER 04/11/2017 Office visit Precious Carmona MD 02/08/2017 Office visit Precious Carmona MD 01/31/2017 Office visit Precious Carmona MD 11/11/2016 Office visit Precious Carmona MD 11/01/2016 Office visit Precious Carmona MD 09/30/2016 Office visit Precious Carmona MD 09/16/2016 Office visit Pj Guajardo COURSEWARE DEVELOPER 04/21/2016 Nurse visit Precious Carmona MD 02/04/2016 Office visit Precious Carmona MD 11/20/2015 Nurse visit Precious Carmona MD 10/21/2015 Office visit Precious Carmona MD 10/15/2014 Office visit Precious Carmona MD 04/30/2014 Office visit Precious Carmona MD 04/27/2014 Office visit Pj Guajardo COURSEWARE DEVELOPER 04/12/2014 Office visit Gaby Randolph COURSEWARE DEVELOPER 02/17/2014 Voided Precious Carmona MD 01/27/2014 Office visit Precious Carmona MD 01/26/2014 Office visit Gaby Randolph COURSEWARE DEVELOPER 01/23/2014 Office visit 01/23/2014 Office visit Abbie Pedraza COURSEWARE DEVELOPER 10/04/2013 Office visit Coco Sofia COURSEWARE DEVELOPER 09/30/2013 Office visit Precious Carmona MD 05/20/2013 Office visit Precious Carmona MD 04/01/2013 Office visit Natty Webber MD 02/18/2013 Nurse visit Natty Webber MD 10/01/2012 Office visit Natty Webber MD 06/12/2012 Office visit Abbie Pedraza COURSEWARE DEVELOPER 04/12/2012 Office visit Natty Webber MD 04/02/2012 Office visit Natty Webber MD 02/20/2012 Nurse visit Natty Webber MD 12/07/2011 Office visit Natty Webber MD 11/18/2011 Office visit Abbie Pedraza COURSEWARE DEVELOPER 10/03/2011 Office visit Natty Webber MD 06/08/2011 Office visit Natty Webber MD 05/16/2011 Office visit Abbie Pedraza COURSEWARE DEVELOPER 04/05/2011 Office visit Natty Webber MD 02/18/2011 [...] 07/31/2010 Office visit Christine Inman MD 07/31/2010 [facility] Jaye Polanco MD 07/31/2010 Voided Jaye [...]
--- OUTSIDE RECORDS SUMMARY | 2018-02-12 08:38 | XMS REPORT ---
Author Author Bruno Carreon [facility] Address [address] [place], [place] [id number] Care Team Providers Care Spark Plug Assembler Name Role Phone Bruno Carreon PCP ValerianosylvieRobertPrecious [...] WBC and automated differential) 04/17/2012 12:00 AM Mammogram, screening, bilateral 11/02/2017 12:00 AM Screening mammography, bilateral 10/15/2014 12:00 [...] take 2 tablets by oral route daily [place] 3 Fish Oil 900-1,400 mg oral capsule,delayed [...] 8 hours as needed for 30 days valsartan 160 mg oral tablet 03/01/2017 03/01/2017 TAKE ONE TABLET BY MOUTH ONCE DAILY EQ LORATADINE 10MG TABS 06/01/2017 06/01/2017 TAKE ONE TABLET BY MOUTH ONCE DAILY IN THE EVENING mirtazapine 15 mg oral tablet 06/01/2017 06/01/2017 TAKE ONE-HALF TABLET BY MOUTH ONCE DAILY AT BEDTIME clorazepate dipotassium 7.5 mg oral tablet 09/19/2017 10/19/2017 take 1 tablet PO three times per [...] oral route once daily for 90 days Augmentin 875-125 mg oral tablet 05/05/2017 06/27/2017 [...] History Name Description Comments 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 Never 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 History of Procedures Date [...] SC/IM Reviewed 06/08/2011 12:00 AM Bicillin CR [facility]#[id number] Clinic Reviewed 06/08/2011 12:00 AM Depo-Medrol 40 mg [facility]#[id number] Reviewed 02/04/2016 12:00 AM COMPLETE CBC W/AUTO [...] AM Flu Injection 3 Years And Above [facility]# [address]-45 C Reviewed 04/02/2012 12:00 AM IMMUNIZATION ADMIN Reviewed [...] 12:00 AM Bicillin CR, 1.2 million units [facility]# 81082-218-90 Reviewed 11/02/2017 12:00 AM DXA BONE DENSITY [...] AM Flu Injection 3 Years And Above [facility]# [address]-77 RHC Reviewed 09/09/2009 8:48 AM Blood Pressure [...] 01/23/2014 12:00 AM Kenalog, Per 10 Mg [facility]#7297-4935-44 Reviewed 03/19/2014 12:00 AM COMPLETE CBC W/AUTO DIFF WBC Reviewed 03/19/2014 12:00 AM COMPREHEN METABOLIC PANEL Reviewed 03/19/2014 12:00 AM LIPID PANEL Reviewed 03/19/2014 12:00 AM ASSAY THYROID STIM HORMONE Reviewed 04/27/2014 12:00 AM Rocephin 1 gram [facility]#7976-1813-34 Reviewed 04/27/2014 12:00 AM THER/PROPH/DIAG INJ SC/IM [...] CVX Influenza 02/10/2010 sanofi pasteur PMC FLUZONE [id number] Intramuscular Left Arm 02/10/2010 11/29/2009 999 Influenza 02/18/2011 sanofi pasteur PMC FLUZONE [id number] Intramuscular Left Arm 02/18/2011 11/17/2010 141 Influenza 02/20/2012 sanofi pasteur PMC FLUZONE [id number] Intramuscular Left Deltoid 02/20/2012 10/24/2011 141 X 04/02/2012 [employer] MSD PNEUMOVAX 23 [id number] Intramuscular Left Gluteous Medius 04/02/2012 08/07/2009 33 Influenza 02/18/2013 sanofi pasteur PMC Fluzone > 3 Years [id number] Intramuscular Right Deltoid 02/18/2013 11/16/2012 141 X 12/24/2014 Not Entered NE PREVNAR 13 Not Entered Not Entered 201404/24/2017 109 Influenza 12/24/2014 Not Entered NE Not Entered Not Entered Not Entered 12/24/2014 04/24/2017 141 HepB Adult 10/21/2015 [employer] MSD RECOMBIVAX-ADULT [id number] Not Entered Left Deltoid 10/21/2015 11/11/2015 43 HepB Adult 11/20/2015 [employer] MSD RECOMBIVAX-ADULT [id number] Intramuscular Right Deltoid 11/20/2015 11/11/2015 43 ZVL 04/06/2012 Not Entered NE Not Entered Not Entered Not Entered 04/2404/24/2017 121 Tdap 04/06/2012 Not Entered NE Not Entered Not Entered Not Entered 04/24/201704/24/2017 115 Influenza 02/04/2016 Not Entered NE FLUZONE-HIGH DOSE Intramuscular Left Arm 04/24/2017 04/24/2017 141 HepB Adult 04/21/2016 [employer] MSD RECOMBIVAX-ADULT [id number] Intramuscular Right Deltoid 04/21/2016 11/11/2015 43 Influenza 02/20/2017 Not Entered NE Fluarix, quadrivalent, preservative free Intramuscular Left Arm 02/22/2017 04/24/2017 150 History of Past Illness Name Date [...] Number Policy Group Number Start Date Medicare [facility] Medicare [facility] [id number] N/A [facility] [id number] Tuesday, 2009 Medicare Part B Medicare Of [place] [id number] N/A Medicare Part A Medicare Part A [id number] N/A Medicare Part A ZZZMedicare P A - Preventive [id number] N/A Medicare Part A Medicare - Lab/Xray [id number] N/A History of Encounters Visit Date Visit Type Provider 10/20/2017 Office visit Bruno Carreon DO 09/19/2017 Office visit Bruno Carreon DO 09/12/2017 Office visit Precious Carmona MD 06/27/2017 Office visit Precious Carmona MD 05/05/2017 Office visit Yarelis Meza OPERATOR [employer]APON LOCATING RADAR 04/11/2017 Office visit Precious Carmona MD 02/08/2017 Office visit Precious Carmona MD 01/31/2017 Office visit Precious Carmona MD 11/11/2016 Office visit Precious Carmona MD 11/01/2016 Office visit Precious Carmona MD 09/30/2016 Office visit Precious Carmona MD 09/16/2016 Office visit Pj Guajardo OPERATOR WEAP[employer] LOCATING RADAR 04/21/2016 Nurse visit Precious Carmona MD 02/04/2016 Office visit Precious Carmona MD 11/20/2015 Nurse visit Precious Carmona MD 10/21/2015 Office visit Precious Carmona MD 10/15/2014 Office visit Precious Carmona MD 04/30/2014 Office visit Precious Carmona MD 04/27/2014 Office visit Pj Guajardo OPERATOR [employer] LOCATING RADAR 04/12/2014 Office visit Gaby Randolph OPERATOR [employer] LOCATING RADAR 02/17/2014 Voided Precious Carmona MD 01/27/2014 Office visit Precious Carmona MD 01/26/2014 Office visit Gaby Randolph OPERATOR [employer] LOCATING RADAR 01/23/2014 Office visit 01/23/2014 Office visit Abbie Pedraza OPERATOR [employer] LOCATING RADAR 10/04/2013 Office visit Coco Sofia OPERATOR [employer] LOCATING RADAR 09/30/2013 Office visit Precious Carmona MD 05/20/2013 Office visit Precious Carmona MD 04/01/2013 Office visit Natty Webber MD 02/18/2013 Nurse visit Natty Webber MD 10/01/2012 Office visit Natty Webber MD 06/12/2012 Office visit Abbie Pedraza OPERATOR WEAP[employer] LOCATING RADAR 04/12/2012 Office visit Natty Webber MD 04/02/2012 Office visit Natty Webber MD 02/20/2012 Nurse visit Natty Webber MD 12/07/2011 Office visit Natty Webber MD 11/18/2011 Office visit Abbie Pedraza OPERATOR [employer] LOCATING RADAR 10/03/2011 Office visit Natty Webber MD 06/08/2011 Office visit Natty Webber MD 05/16/2011 Office visit Abbie Pedraza OPERATOR WE[employer] LOCATING RADAR 04/05/2011 Office visit Natty Webber MD 02/18/2011 Nurse visit Tyrell Nettles MD 01/03/2011 Office visit Natty Webber MD 09/27/2010 Office visit Natty Webber MD 09/06/2010 Office visit Natty Webber MD 08/17/2010 Office visit Natty Webber MD 08/12/2010 Office visit Natty Webber MD 08/09/2010 Office visit Natty Webber MD 08/01/2010 [facility] JORGE Green MD 08/01/2010 [facility] Christine Inman MD 07/31/2010 Office visit Christine Inman MD 07/31/2010 [facility] Jaye Polanco MD 07/31/2010 Voided Jaye Polanco [...]
--- OUTSIDE RECORDS SUMMARY | 2018-02-12 08:40 | XMS REPORT ---
Author Author Bruno Carreon [facility] Address [address] [place], [place] [id number] Care Team Providers Care Shot Hole Driller Name Role Phone Bruno Carreon PCP Robert [...] AM Mammogram, screening, bilateral 11/02/2017 12:00 AM DEXA 11/02/2017 12:00 AM Screening mammography, bilateral 10/15/2014 [...] DAILY clorazepate dipotassium 7.5 mg oral tablet 09/19/2017 10/19/2017 take 1 tablet PO three times per day for situational anxiety mirtazapine 15 mg oral tablet 10/10/2017 TAKE ONE-HALF TABLET BY MOUTH ONCE DAILY AT BEDTIME Name Start Date Expiration Date SIG Comments prednisone 20 mg oral tablet 07/29/2010 08/03/2010 take 2 tablets by oral route daily for 5 days calcium carbonate-vitamin D2 600-125 mg-unit oral tablet 12/07/2011 01/06/2012 take 2 tablets by oral route daily [place] 3 Fish Oil 900-1,400 mg oral capsule,delayed [...] HC BMI BSA BMI Percentile O2 Sat(%) 09/19/2017 8:24:00 AM 142 mmHg 70 mmHg [...] History Name Description Comments 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 Never smoker History of Procedures Date [...] Reviewed 06/08/2011 12:00 AM Bicillin CR [facility]#[id number] Clinic Reviewed 06/08/2011 12:00 AM Depo-Medrol 40 mg [facility]#[id number] Reviewed 02/04/2016 12:00 AM COMPLETE CBC W/AUTO [...] Flu Injection 3 Years And Above [facility]# [address]-26 RHC Reviewed 04/02/2012 12:00 AM IMMUNIZATION ADMIN [...] AM Bicillin CR, 1.2 million units [facility]# 17766-673-15 Reviewed 09/27/2012 12:00 AM COMPREHEN METABOLIC PANEL [...] Flu Injection 3 Years And Above [facility]# [address]-84 RHC Reviewed 09/09/2009 8:48 AM Blood Pressure [...] 12:00 AM Kenalog, Per 10 Mg [facility]#0290-8202-24 Reviewed 03/19/2014 12:00 AM COMPLETE CBC W/AUTO DIFF WBC Reviewed 03/19/2014 12:00 AM COMPREHEN METABOLIC PANEL Reviewed 03/19/2014 12:00 AM LIPID PANEL Reviewed 03/19/2014 12:00 AM ASSAY THYROID STIM HORMONE Reviewed 04/27/2014 12:00 AM Rocephin 1 gram [facility]#6017-1373-79 Reviewed 04/27/2014 12:00 AM THER/PROPH/DIAG INJ SC/IM [...] 08/12/2010 12:00 AM Phenergan 25 Mg Im Alwanda Reviewed 08/13/2010 12:00 AM METABOLIC PANEL TOTAL [...] CVX Influenza 02/10/2010 sanofi pasteur PMC FLUZONE [id number] Intramuscular Left Arm 02/10/2010 11/29/2009 999 Influenza 02/18/2011 sanofi pasteur PMC FLUZONE [id number] Intramuscular Left Arm 02/18/2011 11/17/2010 141 Influenza 02/20/2012 sanofi pasteur PMC FLUZONE [id number] Intramuscular Left Deltoid 02/20/2012 10/24/2011 141 X 04/02/2012 [employer] MSD PNEUMOVAX 23 [id number] Intramuscular Left Gluteous Medius 04/02/2012 08/07/2009 33 Influenza 02/18/2013 [facility] PMC Fluzone > 3 Years [id number] Intramuscular Right Deltoid 02/18/2013 11/16/2012 141 X 12/24/2014 Not Entered NE PREVNAR 13 Not Entered Not Entered 201404/24/2017 109 Influenza 12/24/2014 Not Entered NE Not Entered Not Entered Not Entered 12/24/2014 04/24/2017 141 HepB Adult 10/21/2015 [employer] MSD RECOMBIVAX-ADULT [id number] Not Entered Left Deltoid 10/21/2015 11/11/2015 43 HepB Adult 11/20/2015 [employer] MSD RECOMBIVAX-ADULT [id number] Intramuscular Right Deltoid 11/20/2015 11/11/2015 43 ZVL 04/06/2012 Not Entered NE Not Entered Not Entered Not Entered 04/2404/24/2017 121 Tdap 04/06/2012 Not Entered NE Not Entered Not Entered Not Entered 04/24/201704/24/2017 115 Influenza 02/04/2016 Not Entered NE FLUZONE-HIGH DOSE Intramuscular Left Arm 04/24/2017 04/24/2017 141 HepB Adult 04/21/2016 [employer] MSD RECOMBIVAX-ADULT [id number] Intramuscular Right Deltoid 04/21/2016 11/11/2015 43 Influenza [...] for screening mammogram Sep 19 2017 8:26AM Payers Insurance Name Company Name Plan Name Plan Number Policy Number Policy Group Number Start Date Medicare [facility] Medicare [facility] [id number] N/A BCBS Bcbs [facility] [id number] Tuesday, 2009 Medicare Part B Medicare Of [place] [id number] N/A Medicare Part A Medicare Part A [id number] N/A Medicare Part A ZZZMedicare P A - Preventive [id number] N/A Medicare Part A Medicare - Lab/Xray [id number] N/A History of Encounters Visit Date Visit Type Provider 09/19/2017 Office visit Bruno Carreon DO 09/12/2017 Office visit Precious Carmona MD 06/27/2017 Office visit Precious Carmona MD 05/05/2017 Office visit Yarelis Meza APRN 04/11/2017 Office visit Precious Carmona MD 02/08/2017 Office visit Precious Carmona MD 01/31/2017 Office visit Precious Carmona MD 11/11/2016 Office visit Precious Carmona MD 11/01/2016 Office visit Precious Carmona MD 09/30/2016 Office visit Precious Carmona MD 09/16/2016 Office visit Pj Guajardo WARPMAN 04/21/2016 Nurse visit Precious Carmona MD 02/04/2016 Office visit Precious Carmona MD 11/20/2015 Nurse visit Precious Carmoan MD 10/21/2015 Office visit Precious Carmona MD 10/15/2014 Office visit Precious Carmona MD 04/30/2014 Office visit Precious Carmona MD 04/27/2014 Office visit Pj Guajardo WARPMAN 04/12/2014 Office visit Gaby Randolph WARPMAN 02/17/2014 Voided Precious Carmona MD 01/27/2014 Office visit Precious Carmona MD 01/26/2014 Office visit Gaby Randolph WARPMAN 01/23/2014 Office visit 01/23/2014 Office visit Abbie Pedraza WARPMAN 10/04/2013 Office visit Coco Sofia WARPMAN 09/30/2013 Office visit Precious Carmona MD 05/20/2013 Office visit Precious Carmona MD 04/01/2013 Office visit Natty Webber MD 02/18/2013 Nurse visit Natty Webber MD 10/01/2012 Office visit Natty Webber MD 06/12/2012 Office visit Abbie Pedraza WARPMAN 04/12/2012 Office visit Natty Webber MD 04/02/2012 Office visit Natty Webber MD 02/20/2012 Nurse visit Natty Webber MD 12/07/2011 Office visit Natty Webber MD 11/18/2011 Office visit Abbie Pedraza WARPMAN 10/03/2011 Office visit Natty Webber MD 06/08/2011 Office visit Natty Webber MD 05/16/2011 Office visit Abbie Pedraza WARPMAN 04/05/2011 Office visit Natty Webber MD 02/18/2011 Nurse visit Tyrell Nettles MD 01/03/2011 Office visit Natty Webber MD 09/27/2010 Office visit Natty Webber MD 09/06/2010 Office visit Natty Webber MD 08/17/2010 Office visit Natty Webber MD 08/12/2010 Office visit Natty Webber MD 08/09/2010 Office visit Natty Webber MD 08/01/2010 [facility] JORGE Green MD 08/01/2010 [facility] [...]
--- OUTSIDE RECORDS SUMMARY | 2018-02-12 08:43 | XMS REPORT ---
Author Author Precious Carmona Organization [facility] Address [address] [place], [place] [id number] Care Team Providers Care Agency Sales Development Associate Name Role Phone Precious Carmona PCP Precious [...] TAKE ONE TABLET BY MOUTH ONCE DAILY Lipitor 20 mg oral tablet 02/04/2016 [...] route daily as needed for 14 days triamcinolone acetonide 0.1 % topical cream 09/21/2016 APPLY A THIN LAYER OF CREAM EXTERNALLY TO AFFECTED AREA TWICE DAILY FOR 14 DAYS loratadine 10 mg oral tablet 09/22/2016 09/17/2017 TAKE 1 TABLET BY MOUTH EVERY DAY IN THE EVENING triamcinolone acetonide 0.1 % topical cream 09/22/2016 APPLY CREAM EXTERNALLY TO AFFECTED AREA TWICE DAILY FOR 14 DAYS EQ LORATADINE 10MG TABS 09/22/2016 TAKE ONE TABLET BY MOUTH ONCE DAILY Lexapro 10 mg oral tablet 01/02/2017 take 1 tablet (10 mg) by oral route once daily for 90 days pantoprazole 40 mg oral tablet,delayed release (DR/EC) 01/30/2017 take 1 tablet (40 mg) by oral route once daily for 90 days mirtazapine 15 mg oral tablet 01/31/2017 04/01/2017 take 0.5 tablet by oral route once a day (at bedtime) for 30 days Name Start Date Expiration Date SIG Comments prednisone 20 mg oral tablet 07/29/2010 08/03/2010 take 2 tablets by oral route daily for 5 days calcium carbonate-vitamin D2 600-125 mg-unit oral tablet 12/07/2011 01/06/2012 take 2 tablets by oral route daily [place] 3 Fish Oil 900-1,400 mg oral capsule,delayed [...] by oral route once for 1 day atenolol 50 mg oral tablet 02/04/2016 01/29/2017 take 1 tablet (50 mg) by oral route once daily Zofran [...] DAILY clorazepate dipotassium 7.5 mg oral tablet 01/31/2017 03/02/2017 take 1/2 to1 tablet PO up to three times per day for situational anxiety ondansetron 4 mg oral tablet,disintegrating 01/31/2017 03/02/2017 dissolve 1 tablet by oral route every 8 hours as needed for 30 days valsartan 160 mg oral tablet 03/01/2017 03/01/2017 TAKE ONE TABLET BY MOUTH ONCE DAILY amlodipine 5 mg oral tablet 03/01/2017 03/01/2017 TAKE ONE TABLET BY MOUTH ONCE DAILY Discontinued Name Start Date Discontinued Date SIG Comments Lipitor 40 mg oral tablet 04/06/20092 TAB DAILY ramipril 5 mg oral capsule [...] HC BMI BSA BMI Percentile O2 Sat(%) 02/08/2017 9:01:00 AM 126 mmHg 80 mmHg [...] History Name Description Comments Children lives alone 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 Tobacco Never smoker History of Procedures Date [...] Reviewed 06/08/2011 12:00 AM Bicillin CR [facility]#[id number] Clinic Reviewed 06/08/2011 12:00 AM Depo-Medrol 40 mg [facility]#[id number] Reviewed 02/04/2016 12:00 AM COMPLETE CBC W/AUTO [...] Flu Injection 3 Years And Above [facility]# [address]-45 C Reviewed 04/02/2012 12:00 AM IMMUNIZATION ADMIN Reviewed 04/02/2012 12:00 AM Pneumovax Injection - [facility] Reviewed 04/12/2012 12:00 AM TRICHOMONAS ASSAY W/OPTIC Reviewed 06/12/2012 12:00 AM THER/PROPH/DIAG INJ SC/IM Reviewed 06/12/2012 12:00 AM Bicillin CR, 1.2 million units [facility]# 45761-694-53 Reviewed 09/27/2012 12:00 AM COMPREHEN METABOLIC PANEL [...] Flu Injection 3 Years And Above [facility]# [address]-11 RHC Reviewed 09/09/2009 8:48 AM Blood Pressure [...] 12:00 AM Kenalog, Per 10 Mg [facility]#2737-7903-28 Reviewed 03/19/2014 12:00 AM COMPLETE CBC W/AUTO DIFF WBC Reviewed 03/19/2014 12:00 AM COMPREHEN METABOLIC PANEL Reviewed 03/19/2014 12:00 AM LIPID PANEL Reviewed 03/19/2014 12:00 AM ASSAY THYROID STIM HORMONE Reviewed 04/27/2014 12:00 AM Rocephin 1 gram [facility]#4970-8307-15 Reviewed 04/27/2014 12:00 AM THER/PROPH/DIAG INJ SC/IM [...] Results Summary Date and Description Results 08/26/2009 10:41 AM WET PREP NO TRICHOMONADS [...] LDL (CALC) 77.0 mg/ dLTSH 1.330 uIU/mL 05/16/2011 10:33 AM WET PREP NO TRICH [...] 0.25 #BASO 0.04 MANUAL DIFF NOT IND 04/12/2012 5:02 PM WET PREP NO TRICH [...] CVX Influenza 02/10/2010 sanofi pasteur PMC Fluzone [id number] Intramuscular Left Arm 02/10/2010 11/29/2009 999 Influenza 02/18/2011 sanofi pasteur PMC Fluzone [id number] Intramuscular Left Arm 02/18/2011 11/17/2010 141 Influenza 02/20/2012 sanofi pasteur PMC Fluzone [id number] Intramuscular Left Deltoid 02/20/2012 10/24/2011 141 X 04/02/2012 [employer] MSD Pneumovax 23 [id number] Intramuscular Left Gluteous Medius 04/02/2012 08/07/2009 33 Influenza 02/18/2013 [facility] PMC Fluzone > 3 Years [id number] Intramuscular Right Deltoid 02/18/2013 11/16/2012 141 X 12/24/2014 Not Entered NE Prevnar 13 Not Entered Not Entered 201404/24/2017 109 Influenza 12/24/2014 Not Entered NE Not Entered Not Entered Not Entered 12/24/2014 04/24/2017 141 HepB Adult 10/21/2015 [employer] MSD Recombivax Adult [id number] Not Entered Left Deltoid 10/21/2015 11/11/2015 43 HepB Adult 11/20/2015 [employer] MSD Recombivax Adult [id number] Intramuscular Right Deltoid 11/20/2015 11/11/2015 43 Zostavax 04/06/2012 Not Entered NE Not Entered Not Entered Not Entered 04/24/2017 04/24/2017 121 Tdap 04/06/2012 Not Entered NE Not Entered Not Entered Not Entered 04/24/201704/24/2017 115 Influenza 02/04/2016 Not Entered NE Fluzone High-Dose Intramuscular Left Arm 04/24/2017 04/24/2017 141 HepB Adult 04/21/2016 [employer] MSD Recombivax Adult [id number] Intramuscular Right Deltoid 04/21/2016 11/11/2015 43 Influenza 02/20/2017 Not Entered NE Fluarix Quadrivalent Intramuscular Left Arm 02/22/2017 04/24/2017 150 History [...] emotion and conduct Feb 08 2017 9:05AM Payers Insurance Name Company Name Plan Name Plan Number Policy Number Policy Group Number Start Date Medicare RHC Medicare RHC [id number] N/A BCBS [employer] [place] [id number] Tuesday, 2009 Medicare Part B Medicare Of [place] [id number] N/A Medicare Part A Medicare Part A [id number] N/A Medicare Part A ZZZMedicare P A - Preventive [id number] N/A Medicare Part A Medicare - Lab/Xray [id number] N/A History of Encounters Visit Date Visit Type Provider 02/08/2017 Office visit Precious Carmona MD 01/31/2017 Office visit Precious Camrona MD 11/11/2016 Office visit Precious Carmona MD 11/01/2016 Office visit Precious Carmona MD 09/30/2016 Office visit Precious Carmona MD 09/16/2016 Office visit Pj Guajardo IRRIGATION PUMP INSTALLER 04/21/2016 Nurse visit Precious Carmona MD 02/04/2016 Office visit Precious Caromna MD 11/20/2015 Nurse visit Precious Carmona MD 10/21/2015 Office visit Precious Carmona MD 10/15/2014 Office visit Precious Carmona MD 04/30/2014 Office visit Precious Carmona MD 04/27/2014 Office visit Pj Guajardo IRRIGATION PUMP INSTALLER 04/12/2014 Office visit Gaby Randolph IRRIGATION PUMP INSTALLER 02/17/2014 Voided Precious Carmona MD 01/27/2014 Office visit Precious Carmona MD 01/26/2014 Office visit Gaby Randolph IRRIGATION PUMP INSTALLER 01/23/2014 Office visit 01/23/2014 Office visit Abbie Pedraza IRRIGATION PUMP INSTALLER 10/04/2013 Office visit Coco Sofia IRRIGATION PUMP INSTALLER 09/30/2013 Office visit Precious Carmona MD 05/20/2013 Office visit Precious Carmona MD 04/01/2013 Office visit Natty Webber MD 02/18/2013 Nurse visit Natty Webber MD 10/01/2012 Office visit Natty Webber MD 06/12/2012 Office visit Abbie Pedraza IRRIGATION PUMP INSTALLER 04/12/2012 Office visit Natty Webber MD 04/02/2012 Office visit Natty Webber MD 02/20/2012 Nurse visit Natty Webber MD 12/07/2011 Office visit Natty Webber MD 11/18/2011 Office visit Abbie Pedraza IRRIGATION PUMP INSTALLER 10/03/2011 Office visit Natty Webber MD 06/08/2011 Office visit Natty Webber MD 05/16/2011 Office visit Abbie Pedraza IRRIGATION PUMP INSTALLER 04/05/2011 Office visit Natty Webber MD 02/18/2011 Nurse visit Tyrell Nettles MD 01/03/2011 Office visit Natty Webber MD 09/27/2010 Office visit Natty Webber MD 09/06/2010 Office visit Natty Webber MD 08/17/2010 Office visit Natty Webber MD 08/12/2010 Office visit Natty Webber MD 08/09/2010 Office visit Natty Webber MD 08/01/2010 [facility] JORGE Green MD 08/01/2010 [facility] Crhistine Inman MD 07/31/2010 Office visit Christine Inman [...] Clarita Cummings PA 05/15/2009 Nurse visit Clarita STOUT 05/11/2009 Nurse visit Clarita Cummings PA 04/06/2009 Office visit Clarita Cummings PA 02/10/2009 Nurse visit Clarita Cummings PA
--- OUTSIDE RECORDS SUMMARY | 2018-02-12 08:45 | XMS REPORT ---
Author Author Precious Carmona Organization [facility] Address [address] [place], [place] [id number] Care Team Providers Care Disability Rater Name Role Phone Precious Carmona PCP Precious [...] 12:00 AM Pap smear 11/11/2016 12:00 AM Basic metabolic panel 11/11/2016 12:00 AM Comprehensive Metabolic Panel 10/01/2012 [...] a day (at bedtime) for 30 days clorazepate dipotassium 7.5 mg oral tablet 01/31/2017 03/02/2017 take 1/2 to1 tablet PO up to three times per day for situational anxiety ondansetron 4 mg oral tablet,disintegrating 01/31/2017 03/02/2017 dissolve 1 tablet by oral route every 8 hours as needed for 30 days Name Start Date Expiration Date SIG Comments prednisone 20 mg oral tablet 07/29/2010 08/03/2010 take 2 tablets by oral route daily for 5 days calcium carbonate-vitamin D2 600-125 mg-unit oral tablet 12/07/2011 01/06/2012 take 2 tablets by oral route daily [place] 3 Fish Oil 900-1,400 mg oral capsule,delayed [...] by oral route once for 1 day amlodipine 5 mg oral tablet 02/04/2016 01/29/2017 TAKE ONE TABLET BY MOUTH ONCE DAILY for 90 days atenolol 50 mg oral tablet 02/04/2016 01/29/2017 take 1 tablet (50 mg) by oral route once daily valsartan [...] HC BMI BSA BMI Percentile O2 Sat(%) 01/31/2017 1:52:00 PM 118 mmHg 72 mmHg [...] Name Description Comments 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 History of Procedures [...] SC/IM Reviewed 06/08/2011 12:00 AM Bicillin CR [facility]#[id number] Clinic Reviewed 06/08/2011 12:00 AM Depo-Medrol 40 mg [facility]#[id number] Reviewed 02/04/2016 12:00 AM COMPLETE CBC W/AUTO [...] AM Flu Injection 3 Years And Above [facility]# [address]-16 [facility] Reviewed 04/02/2012 12:00 AM IMMUNIZATION ADMIN Reviewed 04/02/2012 12:00 AM Pneumovax Injection - [facility] Reviewed 04/12/2012 12:00 AM TRICHOMONAS ASSAY W/OPTIC Reviewed 06/12/2012 12:00 AM THER/PROPH/DIAG INJ SC/IM Reviewed 06/12/2012 12:00 AM Bicillin CR, 1.2 million units [facility]# 58099-422-46 Reviewed 09/27/2012 12:00 AM COMPREHEN METABOLIC PANEL [...] AM Flu Injection 3 Years And Above [facility]# [address]-41 [facility] Reviewed 09/09/2009 8:48 AM Blood Pressure [...] 01/23/2014 12:00 AM Kenalog, Per 10 Mg [facility]#0091-9047-60 Reviewed 03/19/2014 12:00 AM COMPLETE CBC W/AUTO DIFF WBC Reviewed 03/19/2014 12:00 AM COMPREHEN METABOLIC PANEL Reviewed 03/19/2014 12:00 AM LIPID PANEL Reviewed 03/19/2014 12:00 AM ASSAY THYROID STIM HORMONE Reviewed 04/27/2014 12:00 AM Rocephin 1 gram [facility]#9202-4576-98 Reviewed 04/27/2014 12:00 AM THER/PROPH/DIAG INJ SC/IM [...] CVX Influenza 02/10/2010 sanofi pasteur PMC Fluzone [id number] Intramuscular Left Arm 02/10/2010 11/29/2009 999 Influenza 02/18/2011 sanofi pasteur PMC Fluzone [id number] Intramuscular Left Arm 02/18/2011 11/17/2010 141 Influenza 02/20/2012 sanofi pasteur PMC Fluzone [id number] Intramuscular Left Deltoid 02/20/2012 10/24/2011 141 X 04/02/2012 [employer] MSD Pneumovax 23 [id number] Intramuscular Left Gluteous Medius 04/02/2012 08/07/2009 33 Influenza 02/18/2013 sanofi pasteur PMC Fluzone > 3 Years [id number] Intramuscular Right Deltoid 02/18/2013 11/16/2012 141 X 12/24/2014 Not Entered NE Prevnar 13 Not Entered Not Entered 201404/24/2017 109 Influenza 12/24/2014 Not Entered NE Not Entered Not Entered Not Entered 12/24/2014 04/24/2017 141 HepB Adult 10/21/2015 [employer] MSD Recombivax Adult [id number] Not Entered Left Deltoid 10/21/2015 11/11/2015 43 HepB Adult 11/20/2015 [employer] MSD Recombivax Adult [id number] Intramuscular Right Deltoid 11/20/2015 11/11/2015 43 Zostavax 04/06/2012 Not Entered NE Not Entered Not Entered Not Entered 04/24/2017 04/24/2017 121 Tdap 04/06/2012 Not Entered NE Not Entered Not Entered Not Entered 04/24/201704/24/2017 115 Influenza 02/04/2016 Not Entered NE Fluzone High-Dose Intramuscular Left Arm 04/24/2017 04/24/2017 141 HepB Adult 04/21/2016 [employer] MSD Recombivax Adult [id number] Intramuscular Right Deltoid 04/21/2016 11/11/2015 43 History [...] for breast cancer Nov 14 2016 4:56PM Payers Insurance Name Company Name Plan Name Plan Number Policy Number Policy Group Number Start Date Medicare RHC Medicare RHC [id number] N/A BCBS Bcbs Josiane Ramansas [id number] Tuesday, 2009 Medicare Part B Medicare Josiane Keys [id number] N/A Medicare Part A Medicare Part A [id number] N/A Medicare Part A ZZZMedicare P A - Preventive [id number] N/A Medicare Part A Medicare - Lab/Xray [id number] N/A History of Encounters Visit Date Visit Type Provider 01/31/2017 Office visit Precious Carmona MD 11/11/2016 Office visit Precious Carmona MD 11/01/2016 Office visit Precious Carmona MD 09/30/2016 Office visit Precious Carmona MD 09/16/2016 Office visit Pj Guajardo PACKING LINE WORKER 04/21/2016 Nurse visit Precious Carmona MD 02/04/2016 Office visit Precious Carmona MD 11/20/2015 Nurse visit Precious Carmona MD 10/21/2015 Office visit Precious Carmona MD 10/15/2014 Office visit Precious Carmona MD 04/30/2014 Office visit Precious Carmona MD 04/27/2014 Office visit Pj Guajardo PACKING LINE WORKER 04/12/2014 Office visit Gaby Randolph PACKING LINE WORKER 02/17/2014 Voided Precious Carmona MD 01/27/2014 Office visit Precious Carmona MD 01/26/2014 Office visit Gaby Randolph PACKING LINE WORKER 01/23/2014 Office visit 01/23/2014 Office visit Abbie Pedraza PACKING LINE WORKER 10/04/2013 Office visit Coco Sofia PACKING LINE WORKER 09/30/2013 Office visit Precious Carmona MD 05/20/2013 Office visit Precious Carmona MD 04/01/2013 Office visit Natty Webber MD 02/18/2013 Nurse visit Natty Webber MD 10/01/2012 Office visit Natty Webber MD 06/12/2012 Office visit Abbie Pedraza PACKING LINE WORKER 04/12/2012 Office visit Natty Webber MD 04/02/2012 Office visit Natty Webber MD 02/20/2012 Nurse visit Natty Webber MD 12/07/2011 Office visit Natty Webber MD 11/18/2011 Office visit Abbie Pedraza PACKING LINE WORKER 10/03/2011 Office visit Natty Webber MD 06/08/2011 Office visit Natty Webber MD 05/16/2011 Office visit Abbie Pedraza PACKING LINE WORKER 04/05/2011 Office visit Natty Webber MD 02/18/2011 Nurse visit Tyrell Nettles MD 01/03/2011 Office visit Natty Webber MD 09/27/2010 Office visit Natty Webber MD 09/06/2010 Office visit Natty Webber MD 08/17/2010 Office visit Natty Webber MD 08/12/2010 Office visit Natty Webber MD 08/09/2010 Office visit Natty Webber MD 08/01/2010 [facility] JORGE Green MD 08/01/2010 [facility] Christine Inman MD 07/31/2010 Office visit Christine Inman MD 07/31/2010 [facility] [...]
--- OUTSIDE RECORDS SUMMARY | 2018-02-12 08:50 | XMS REPORT ---
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 Diamond Cutter Name Role Phone Precious Carmona PCP [...] days clorazepate dipotassium 7.5 mg oral tablet 04/11/2017 05/11/2017 take 1/2 to1 tablet PO up to three times per day for situational anxiety Name Start Date Expiration Date SIG Comments prednisone 20 mg oral tablet 07/29/2010 08/03/2010 take 2 tablets by oral route daily for 5 days calcium carbonate-vitamin D2 600-125 mg-unit oral tablet 12/07/2011 01/06/2012 take 2 tablets by oral route daily [place] 3 Fish Oil 900-1,400 mg oral capsule,delayed [...] ONCE DAILY mirtazapine 15 mg oral tablet 03/29/2017 03/29/2017 TAKE ONE-HALF TABLET BY MOUTH ONCE DAILY [...] AFFECTED AREA TWICE DAILY FOR 14 DAYS Problem List Description Status Onset Hyperlipidemia Active acid reflux Active Hypertension Active hypothyroid Active Vital Signs Date Time BP-Sys(mm[Hg] BP-Rhianna(mm[Hg]) HR(bpm) RR(rpm) Temp WT HT HC BMI BSA BMI Percentile O2 Sat(%) 04/11/2017 8:26:00 AM 122 mmHg 76 mmHg [...] History Name Description Comments Children lives alone [employer] Tobacco Never smoker History of Procedures Date [...] Reviewed 06/08/2011 12:00 AM Bicillin CR [facility]#[id number] Clinic Reviewed 06/08/2011 12:00 AM Depo-Medrol 40 mg [facility]#[id number] Reviewed 02/04/2016 12:00 AM COMPLETE CBC W/AUTO [...] 3 Years And Above [facility]# [address]-94 [facility] Reviewed 04/02/2012 12:00 AM IMMUNIZATION ADMIN Reviewed 04/02/2012 12:00 AM Pneumovax Injection - [facility] Reviewed 04/12/2012 12:00 AM TRICHOMONAS ASSAY W/OPTIC Reviewed 06/12/2012 12:00 AM THER/PROPH/DIAG INJ SC/IM Reviewed 06/12/2012 12:00 AM Bicillin CR, 1.2 million units [facility]# 85610-037-57 Reviewed 09/27/2012 12:00 AM COMPREHEN METABOLIC PANEL [...] 3 Years And Above [facility]# [address]-11 [facility] Reviewed 09/09/2009 8:48 AM Blood Pressure [...] AM Kenalog, Per 10 Mg [facility]#5809-2836-67 Reviewed 03/19/2014 12:00 AM COMPLETE CBC W/AUTO DIFF WBC Reviewed 03/19/2014 12:00 AM COMPREHEN METABOLIC PANEL Reviewed 03/19/2014 12:00 AM LIPID PANEL Reviewed 03/19/2014 12:00 AM ASSAY THYROID STIM HORMONE Reviewed 04/27/2014 12:00 AM Rocephin 1 gram [facility]#3389-2088-57 Reviewed 04/27/2014 12:00 AM THER/PROPH/DIAG INJ SC/IM [...] CVX Influenza 02/10/2010 sanofi pasteur PMC Fluzone [id number] Intramuscular Left Arm 02/10/2010 11/29/2009 999 Influenza 02/18/2011 sanofi pasteur PMC Fluzone [id number] Intramuscular Left Arm 02/18/2011 11/17/2010 141 Influenza 02/20/2012 [employer] PMC Fluzone [id number] Intramuscular Left Deltoid 02/20/2012 10/24/2011 141 X 04/02/2012 [employer] MSD Pneumovax 23 [id number] Intramuscular Left Gluteous Medius 04/02/2012 08/07/2009 33 Influenza 02/18/2013 [employer] PMC Fluzone > 3 Years [id number] Intramuscular Right Deltoid 02/18/2013 11/16/2012 141 X 12/24/2014 Not Entered NE Prevnar 13 Not Entered Not Entered 201404/24/2017 109 Influenza 12/24/2014 Not Entered NE Not Entered Not Entered Not Entered 12/24/2014 04/24/2017 141 HepB Adult 10/21/2015 [employer] MSD Recombivax Adult [id number] Not Entered Left Deltoid 10/21/2015 11/11/2015 43 HepB Adult 11/20/2015 [employer] MSD Recombivax Adult [id number] Intramuscular Right Deltoid 11/20/2015 11/11/2015 43 Zostavax 04/06/2012 Not Entered NE Not Entered Not Entered Not Entered 04/24/2017 04/24/2017 121 Tdap 04/06/2012 Not Entered NE Not Entered Not Entered Not Entered 04/24/201704/24/2017 115 Influenza 02/04/2016 Not Entered NE Fluzone High-Dose Intramuscular Left Arm 04/24/2017 04/24/2017 141 HepB Adult 04/21/2016 [employer] MSD Recombivax Adult [id number] Intramuscular Right Deltoid 04/21/2016 11/11/2015 43 Influenza [...] 8:29AM Grief reaction Apr 11 2017 8:29AM Payers Insurance Name Company Name Plan Name Plan Number Policy Number Policy Group Number Start Date Medicare RHC Medicare RHC [id number] N/A BCBS Bcbs [facility] [id number] Tuesday, 2009 Medicare Part B Medicare Of [place] [id number] N/A Medicare Part A Medicare Part A [id number] N/A Medicare Part A ZZZMedicare P A - Preventive [id number] N/A Medicare Part A Medicare - Lab/Xray [id number] N/A History of Encounters Visit Date Visit Type Provider 04/11/2017 Office visit Precious Carmona MD 02/08/2017 [...] Carmona MD 04/27/2014 Office visit Pj Guajardo APRN 04/12/2014 Office visit Gaby Randolph APRN 02/17/2014 Voided Precious Carmona MD 01/27/2014 Office visit Precious Carmona MD 01/26/2014 Office visit Gaby Randolph SHELLFISH PROCESSING MACHINE TENDER 01/23/2014 Office visit 01/23/2014 Office visit Abbie Pedraza SHELLFISH PROCESSING MACHINE TENDER 10/04/2013 Office visit Coco Sofia SHELLFISH PROCESSING MACHINE TENDER 09/30/2013 Office visit Precious Carmona MD 05/20/2013 Office visit Precious Carmona MD 04/01/2013 Office visit Natty Webber MD 02/18/2013 Nurse visit Natty Webber MD 10/01/2012 Office visit Natty Webber MD 06/12/2012 Office visit Abbie Pedraza SHELLFISH PROCESSING MACHINE TENDER 04/12/2012 Office visit Natty Webber MD 04/02/2012 Office visit Natty Webber MD 02/20/2012 Nurse visit Natty Webber MD 12/07/2011 Office visit Natty Webber MD 11/18/2011 Office visit Abbie Pedraza SHELLFISH PROCESSING MACHINE TENDER 10/03/2011 Office visit Natty Webber MD 06/08/2011 Office visit Natty Webber MD 05/16/2011 Office visit Abbie Pedraza SHELLFISH PROCESSING MACHINE TENDER 04/05/2011 Office visit Natty Webber MD 02/18/2011 Nurse visit Tyrell Nettles MD 01/03/2011 Office visit Natty Webber MD 09/27/2010 Office visit Natty Webber MD 09/06/2010 Office visit Natty Webber MD 08/17/2010 Office visit Natty Webber MD 08/12/2010 Office visit Natty Webber MD 08/09/2010 Office visit Natty Webber MD 08/01/2010 [facility] JORGE Green MD 08/01/2010 [facility] Christine Inman MD 07/31/2010 Office visit Christine [...]
--- OUTSIDE RECORDS SUMMARY | 2018-02-12 08:52 | XMS REPORT ---
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#[id number] Clinic Reviewed 06/08/2011 12:00 AM Depo-Medrol 40 mg [facility]#[id number] Reviewed 02/04/2016 12:00 AM COMPLETE CBC W/AUTO [...] And Above [facility]# [address]-16 [facility] Reviewed 04/02/2012 12:00 AM IMMUNIZATION ADMIN Reviewed 04/02/2012 12:00 AM Pneumovax Injection - C Reviewed 04/12/2012 12:00 AM TRICHOMONAS ASSAY W/OPTIC Reviewed 06/12/2012 12:00 AM THER/PROPH/DIAG INJ SC/IM Reviewed 06/12/2012 12:00 AM Bicillin CR, 1.2 million units [facility]# 97122-638-36 Reviewed 09/27/2012 12:00 AM COMPREHEN METABOLIC PANEL [...] And Above [facility]# [address]-53 [facility] Reviewed 09/09/2009 8:48 AM Blood Pressure [...] 10 Mg [facility]#8693-8675-38 Reviewed 03/19/2014 12:00 AM COMPLETE CBC W/AUTO DIFF WBC Reviewed 03/19/2014 12:00 AM COMPREHEN METABOLIC PANEL Reviewed 03/19/2014 12:00 AM LIPID PANEL Reviewed 03/19/2014 12:00 AM ASSAY THYROID STIM HORMONE Reviewed 04/27/2014 12:00 AM Rocephin 1 gram [facility]#3867-9740-84 Reviewed 04/27/2014 12:00 AM THER/PROPH/DIAG INJ SC/IM [...] CVX Influenza 02/10/2010 sanofi pasteur PMC Fluzone [id number] Intramuscular Left Arm 02/10/2010 11/29/2009 999 Influenza 02/18/2011 sanofi pasteur PMC Fluzone [id number] Intramuscular Left Arm 02/18/2011 11/17/2010 141 Influenza 02/20/2012 sanofi pasteur PMC Fluzone [id number] Intramuscular Left Deltoid 02/20/2012 10/24/2011 141 X 04/02/2012 [employer] MSD Pneumovax 23 [id number] Intramuscular Left Gluteous Medius 04/02/2012 08/07/2009 33 Influenza 02/18/2013 [facility] PMC Fluzone > 3 Years [id number] Intramuscular Right Deltoid 02/18/2013 11/16/2012 141 X 12/24/2014 Not Entered NE Prevnar 13 Not Entered Not Entered 201404/24/2017 109 Influenza 12/24/2014 Not Entered NE Not Entered Not Entered Not Entered 12/24/2014 04/24/2017 141 HepB Adult 10/21/2015 [employer] MSD Recombivax Adult [id number] Not Entered Left Deltoid 10/21/2015 11/11/2015 43 HepB Adult 11/20/2015 [employer] MSD Recombivax Adult [id number] Intramuscular Right Deltoid 11/20/2015 11/11/2015 43 Zostavax 04/06/2012 Not Entered NE Not Entered Not Entered Not Entered 04/24/2017 04/24/2017 121 Tdap 04/06/2012 Not Entered NE Not Entered Not Entered Not Entered 04/24/201704/24/2017 115 Influenza 02/04/2016 Not Entered NE Fluzone High-Dose Intramuscular Left Arm 04/24/2017 04/24/2017 141 HepB Adult 04/21/2016 [employer] MSD Recombivax Adult [id number] Intramuscular Right Deltoid 04/21/2016 11/11/2015 43 History [...] Number Start Date Medicare RHC Medicare RHC [id number] N/A BCBS Bcbs [facility] [id number] Tuesday, 2009 Medicare Part B Medicare Of [place] [id number] N/A Medicare Part A Medicare Part A [id number] N/A Medicare Part A ZZZMedicare P A - Preventive [id number] N/A Medicare Part A Medicare - Lab/Xray [id number] N/A History of Encounters Visit Date Visit Type Provider 02/08/2017 Office visit Precious Carmona MD 01/31/2017 Office visit Precious Carmona MD 11/11/2016 Office visit Precious Carmona MD 11/01/2016 Office visit Precious Carmona MD 09/30/2016 Office visit Precious Carmona MD 09/16/2016 Office visit Pj Guajardo SLEEVE SEPARATOR 04/21/2016 Nurse visit Precious Carmona MD 02/04/2016 Office visit Precious Carmona MD 11/20/2015 Nurse visit Precious Carmona MD 10/21/2015 Office visit Precious Carmona MD 10/15/2014 Office visit Precious Carmona MD 04/30/2014 Office visit Precious Carmona MD 04/27/2014 Office visit Pj Guajardo SLEEVE SEPARATOR 04/12/2014 Office visit Gaby Randolph SLEEVE SEPARATOR 02/17/2014 Voided Precious Carmona MD 01/27/2014 Office visit Precious Carmona MD 01/26/2014 Office visit Gaby Randolph SLEEVE SEPARATOR 01/23/2014 Office visit 01/23/2014 Office visit Abbie Pedraza SLEEVE SEPARATOR 10/04/2013 Office visit Coco Sofia SLEEVE SEPARATOR 09/30/2013 Office visit Precious Carmona MD 05/20/2013 Office visit Precious Carmona MD 04/01/2013 Office visit Natty Webber MD 02/18/2013 Nurse visit Natty Webber MD 10/01/2012 Office visit Natty Webber MD 06/12/2012 Office visit Abbie Pedraza SLEEVE SEPARATOR 04/12/2012 Office visit Natty Webber MD 04/02/2012 Office visit Natty Webber MD 02/20/2012 Nurse visit Natty Webber MD 12/07/2011 Office visit Natty Webber MD 11/18/2011 Office visit Abbie Pedraza SLEEVE SEPARATOR 10/03/2011 Office visit Natty Webber MD 06/08/2011 Office visit Natty Webber MD 05/16/2011 Office visit Abbie Pedraza SLEEVE SEPARATOR 04/05/2011 Office visit Natty Webber MD 02/18/2011 Nurse visit Tyrell Nettles MD 01/03/2011 Office visit Natty Webber MD 09/27/2010 Office visit Natty Webber MD 09/06/2010 Office visit Natty Webber MD 08/17/2010 Office visit Natty Webber MD 08/12/2010 Office visit Natty Webber MD 08/09/2010 Office visit Natty Webber MD 08/01/2010 [facility] JORGE Green MD 08/01/2010 [facility] Christine Inman MD 07/31/2010 Office visit Christine Inman MD 07/31/2010 [facility] Jaye Polanco MD 07/31/2010 Voided Jaye [...]
--- OUTSIDE RECORDS SUMMARY | 2018-02-12 08:54 | XMS REPORT ---
Author Author Precious Carmona Organization [facility] Address [address] [place], [place] [id number] Care Team Providers Care Picker Feeder Name Role Phone Precious Carmona PCP Precious [...] cholesterol, lipoproteins, HDL, triglycerides) 2011 12:00 AM Basic metabolic panel 11/11/2016 12:00 AM Pap smear 11/11/2016 12:00 AM [...] DAILY clorazepate dipotassium 7.5 mg oral tablet 11/07/2016 12/07/2016 take 1/2 to1 tablet PO up to three times per day for situational anxiety Name Start Date Expiration Date SIG Comments prednisone 20 mg oral tablet 07/29/2010 08/03/2010 take 2 tablets by oral route daily for 5 days calcium carbonate-vitamin D2 600-125 mg-unit oral tablet 12/07/2011 01/06/2012 take 2 tablets by oral route daily [place] 3 Fish Oil 900-1,400 mg oral capsule,delayed [...] HC BMI BSA BMI Percentile O2 Sat(%) 11/11/2016 8:40:00 AM 118 mmHg 68 mmHg [...] History Name Description Comments 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 History of Procedures Date [...] SC/IM Reviewed 06/08/2011 12:00 AM Bicillin CR [facility]#[id number] Clinic Reviewed 06/08/2011 12:00 AM Depo-Medrol 40 mg [facility]#[id number] Reviewed 02/04/2016 12:00 AM COMPLETE CBC W/AUTO [...] 12:00 AM METABOLIC PANEL TOTAL CA Returned 02/20/2012 12:00 AM Flu Injection 3 Years And Above [facility]# [id number] [facility] Reviewed 04/02/2012 12:00 AM IMMUNIZATION ADMIN Reviewed 04/02/2012 12:00 AM Pneumovax Injection - [facility] Reviewed 04/12/2012 12:00 AM TRICHOMONAS ASSAY W/OPTIC Reviewed 06/12/2012 12:00 AM THER/PROPH/DIAG INJ SC/IM Reviewed 06/12/2012 12:00 AM Bicillin CR, 1.2 million units [facility]# [id number] Reviewed 09/27/2012 12:00 AM COMPREHEN METABOLIC PANEL [...] AM Flu Injection 3 Years And Above [facility]# [id number] [facility] Reviewed 09/09/2009 8:48 AM Blood Pressure Check-no [...] 01/23/2014 12:00 AM Kenalog, Per 10 Mg [facility]#[id number] Reviewed 03/19/2014 12:00 AM COMPLETE CBC W/AUTO DIFF WBC Reviewed 03/19/2014 12:00 AM COMPREHEN METABOLIC PANEL Reviewed 03/19/2014 12:00 AM LIPID PANEL Reviewed 03/19/2014 12:00 AM ASSAY THYROID STIM HORMONE Reviewed 04/27/2014 12:00 AM Rocephin 1 gram [facility]#[id number] Reviewed 04/27/2014 12:00 AM THER/PROPH/DIAG INJ SC/IM [...] 09/30/2016 8:49 AM OCC BLD STOOL POSITIVE 10/24/2016 8:15 AM WBC 6.7 RBC 3.96 HGB 12.70 g/dLHCT 37.30 %MCV 94.0 fLMCH 32.10 pgMCHC 34.0 g/dLRDW SD 41 RDW CV 11.90 %MPV 9.80 fLPLT 275 NRBC# 0.00 NRBC % 0.0 %NEUT 76.20 %%LYMP 13.60 %%MONO 8.50 %%EOS 1.0 %%BASO 0.40 %#NEUT 5.07 # LYMP 0.91 #MONO 0.57 #EOS 0.07 #BASO 0.03 MANUAL DIFF NOT IND TRIGLYCERIDES 97.0 mg/dLCHOLESTEROL 144.0 mg/dLHDL 60.0 mg/dLTOT CHOL/HDL 2.4 LDL (CALC) 65.0 mg/dLGLUCOSE 91.0 mg/dLSODIUM 131.0 mmol/LPOTASSIUM 3.70 mmol/LCHLORIDE 96.0 mmol/LCO2 25.0 mmol/LBUN 10.0 mg/dLCREATININE 0.80 mg/dLSGOT/AST 29.0 IU/LSGPT/ ALT 21.0 IU/LALK PHOS 85.0 IU/LTOTAL PROTEIN 7.60 g/dLALBUMIN 4.40 g/dLTOTAL BILI 0.80 mg/dLCALCIUM 9.60 mg/dLAGE 71 GFR NonAA 71 GFR AA 86 eGFR >60 mL/min/ 1.73meGFR AA* >60 TSH 0.90 uIU/mL 11/11/2016 8:12 AM GLUCOSE 88.0 mg/dLSODIUM 135.0 mmol/LPOTASSIUM 3.80 mmol/ LCHLORIDE 100.0 mmol/LCO2 26.0 mmol/LBUN 9.0 mg/dLCREATININE 0.80 mg/dLCALCIUM 9.50 mg/dLAGE 71 GFR NonAA 71 GFR AA 86 eGFR >60 mL/min/1.73meGFR AA* >60 History Of Immunizations Name Date Admin Mfg Name Mfg Code Trade Name Lot# Route Inj Vis Given Vis Pub CVX Influenza 02/10/2010 sanofi pasteur PMC Fluzone [id number] Intramuscular Left Arm 02/10/2010 11/29/2009 999 Influenza 02/18/2011 sanofi pasteur PMC Fluzone [id number] Intramuscular Left Arm 02/18/2011 11/17/2010 141 Influenza 02/20/2012 sanofi pasteur PMC Fluzone [id number] Intramuscular Left Deltoid 02/20/2012 10/24/2011 141 X 04/02/2012 [employer] MSD Pneumovax 23 [id number] Intramuscular Left Gluteous Medius 04/02/2012 08/07/2009 33 Influenza 02/18/2013 sanofi pasteur PMC Fluzone > 3 Years [id number] Intramuscular Right Deltoid 02/18/2013 11/16/2012 141 X 12/24/2014 Not Entered NE Prevnar 13 Not Entered Not Entered 201404/24/2017 109 Influenza 12/24/2014 Not Entered NE Not Entered Not Entered Not Entered 12/24/2014 04/24/2017 141 HepB Adult 10/21/2015 [employer] MSD Recombivax Adult [id number] Not Entered Left Deltoid 10/21/2015 11/11/2015 43 HepB Adult 11/20/2015 [employer] MSD Recombivax Adult [id number] Intramuscular Right Deltoid 11/20/2015 11/11/2015 43 Zostavax 04/06/2012 Not Entered NE Not Entered Not Entered Not Entered 04/24/2017 04/24/2017 121 Tdap 04/06/2012 Not Entered NE Not Entered Not Entered Not Entered 04/24/201704/24/2017 115 Influenza 02/04/2016 Not Entered NE Fluzone High-Dose Intramuscular Left Arm 04/24/2017 04/24/2017 141 HepB Adult 04/21/2016 [employer] MSD Recombivax Adult [id number] Intramuscular Right Deltoid 04/21/2016 11/11/2015 43 History [...] 9:03AM Uterine enlargement Nov 01 2016 9:03AM Payers Insurance Name Company Name Plan Name Plan Number Policy Number Policy Group Number Start Date Medicare [facility] Medicare [facility] [id number] N/A [id number] Tuesday, 2009 Medicare Part B Medicare Of [place] [id number] N/A Medicare Part A Medicare Part A [id number] N/A Medicare Part A ZZZMedicare P A - Preventive [id number] N/A Medicare Part A Medicare - Lab/Xray [id number] N/A History of Encounters Visit Date Visit Type Provider 11/11/2016 Office visit Precious Carmona MD 11/01/2016 Office visit Precious Carmona MD 09/30/2016 Office visit Precious Carmona MD 09/16/2016 Office visit Pj Guajardo BELL VALET 04/21/2016 Nurse visit Precious Carmona MD 02/04/2016 Office visit Precious Carmona MD 11/20/2015 Nurse visit Precious Carmona MD 10/21/2015 Office visit Precious Carmona MD 10/15/2014 Office visit Precious Carmona MD 04/30/2014 Office visit Precious Carmona MD 04/27/2014 Office visit Pj Guajardo BELL VALET 04/12/2014 Office visit Gaby Randolph BELL VALET 02/17/2014 Voided Precious Carmona MD 01/27/2014 Office visit Precious Carmona MD 01/26/2014 Office visit Gaby Randolph BELL VALET 01/23/2014 Office visit 01/23/2014 Office visit Abbie Pedraza BELL VALET 10/04/2013 Office visit Coco Sofia BELL VALET 09/30/2013 Office visit Precious Carmona MD 05/20/2013 Office visit Precious Carmona MD 04/01/2013 Office visit Natty Webber MD 02/18/2013 Nurse visit Natty Webber MD 10/01/2012 Office visit Natty Webber MD 06/12/2012 Office visit Abbie Pedraza BELL VALET 04/12/2012 Office visit Natty Webber MD 04/02/2012 Office visit Natty Webber MD 02/20/2012 Nurse visit Natty Webber MD 12/07/2011 Office visit Natty Webber MD 11/18/2011 Office visit Abbie Pedraza BELL VALET 10/03/2011 Office visit Natty Webber MD 06/08/2011 Office visit Natty Webber MD 05/16/2011 Office visit Abbie Pedraza BELL VALET 04/05/2011 Office visit Natty Webber MD 02/18/2011 Nurse visit Tyrell Nettles MD 01/03/2011 Office visit Natty Webber MD 09/27/2010 Office visit Natty Webber MD 09/06/2010 Office visit Natty Webber MD 08/17/2010 Office visit Natty Webber MD 08/12/2010 Office visit Natty Webber MD 08/09/2010 Office visit Natty Webber MD 08/01/2010 [facility] JORGE Green MD 08/01/2010 [facility] Christine Inman MD 07/31/2010 Office visit Christine Inman MD 07/31/2010 [facility] Jaye Polanco MD 07/31/2010 Voided [...]
--- OUTSIDE RECORDS SUMMARY | 2018-02-12 08:56 | XMS REPORT ---
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 History of Procedures [...] SC/IM Reviewed 06/08/2011 12:00 AM Bicillin CR [facility]#[id number] Clinic Reviewed 06/08/2011 12:00 AM Depo-Medrol 40 mg [facility]#[id number] Reviewed 02/04/2016 12:00 AM COMPLETE CBC W/AUTO [...] AM Flu Injection 3 Years And Above [facility]# [address]-01 [facility] Reviewed 04/02/2012 12:00 AM IMMUNIZATION ADMIN Reviewed 04/02/2012 12:00 AM Pneumovax Injection - C Reviewed 04/12/2012 12:00 AM TRICHOMONAS ASSAY W/OPTIC Reviewed 06/12/2012 12:00 AM THER/PROPH/DIAG INJ SC/IM Reviewed 06/12/2012 12:00 AM Bicillin CR, 1.2 million units [facility]# [id number] Reviewed 09/27/2012 12:00 AM COMPREHEN METABOLIC PANEL [...] AM Flu Injection 3 Years And Above [facility]# [address]-37 [facility] Reviewed 09/09/2009 8:48 AM Blood Pressure [...] 01/23/2014 12:00 AM Kenalog, Per 10 Mg [facility]#8126-4821-85 Reviewed 03/19/2014 12:00 AM COMPLETE CBC W/AUTO DIFF WBC Reviewed 03/19/2014 12:00 AM COMPREHEN METABOLIC PANEL Reviewed 03/19/2014 12:00 AM LIPID PANEL Reviewed 03/19/2014 12:00 AM ASSAY THYROID STIM HORMONE Reviewed 04/27/2014 12:00 AM Rocephin 1 gram [facility]#[id number] Reviewed 04/27/2014 12:00 AM THER/PROPH/DIAG INJ SC/IM [...] CVX Influenza 02/10/2010 sanofi pasteur PMC Fluzone [id number] Intramuscular Left Arm 02/10/2010 11/29/2009 999 Influenza 02/18/2011 sanofi pasteur PMC Fluzone [id number] Intramuscular Left Arm 02/18/2011 11/17/2010 141 Influenza 02/20/2012 sanofi pasteur PMC Fluzone [id number] Intramuscular Left Deltoid 02/20/2012 10/24/2011 141 X 04/02/2012 [employer] MSD Pneumovax 23 [id number] Intramuscular Left Gluteous Medius 04/02/2012 08/07/2009 33 Influenza 02/18/2013 [facility] PMC Fluzone > 3 Years [id number] Intramuscular Right Deltoid 02/18/2013 11/16/2012 141 X 12/24/2014 Not Entered NE Prevnar 13 Not Entered Not Entered 201404/24/2017 109 Influenza 12/24/2014 Not Entered NE Not Entered Not Entered Not Entered 12/24/2014 04/24/2017 141 HepB Adult 10/21/2015 [employer] MSD Recombivax Adult [id number] Not Entered Left Deltoid 10/21/2015 11/11/2015 43 HepB Adult 11/20/2015 [employer] MSD Recombivax Adult [id number] Intramuscular Right Deltoid 11/20/2015 11/11/2015 43 Zostavax 04/06/2012 Not Entered NE Not Entered Not Entered Not Entered 04/24/2017 04/24/2017 121 Tdap 04/06/2012 Not Entered NE Not Entered Not Entered Not Entered 04/24/201704/24/2017 115 Influenza 02/04/2016 Not Entered NE Fluzone High-Dose Intramuscular Left Arm 04/24/2017 04/24/2017 141 HepB Adult 04/21/2016 [employer] MSD Recombivax Adult [id number] Intramuscular Right Deltoid 04/21/2016 11/11/2015 43 History [...] Number Start Date Medicare RHC Medicare RHC [id number] N/A BCBS Bcbs [facility] [id number] Tuesday, 2009 Medicare Part B Medicare Of [place] [id number] N/A Medicare Part A Medicare Part A [id number] N/A Medicare Part A ZZZMedicare P A - Preventive [id number] N/A Medicare Part A Medicare - Lab/Xray [id number] N/A History of Encounters Visit Date Visit Type Provider 02/08/2017 Office visit Precious Carmona MD 01/31/2017 Office visit Precious Carmona MD 11/11/2016 Office visit Precious Carmona MD 11/01/2016 Office visit Precious Carmona MD 09/30/2016 Office visit Precious Carmona MD 09/16/2016 Office visit Pj Guajardo GALLEY STRIPPER 04/21/2016 Nurse visit Precious Carmona MD 02/04/2016 Office visit Precious Carmona MD 11/20/2015 Nurse visit Precious Carmona MD 10/21/2015 Office visit Precious Carmona MD 10/15/2014 Office visit Precious Caromna MD 04/30/2014 Office visit Precious Carmona MD 04/27/2014 Office visit Pj Guajardo GALLEY STRIPPER 04/12/2014 Office visit Gaby Randolph GALLEY STRIPPER 02/17/2014 Voided Precious Carmona MD 01/27/2014 Office visit Precious Carmona MD 01/26/2014 Office visit Gaby Randolph GALLEY STRIPPER 01/23/2014 Office visit 01/23/2014 Office visit Abbie Pedraza GALLEY STRIPPER 10/04/2013 Office visit Coco Sofia GALLEY STRIPPER 09/30/2013 Office visit Precious Carmona MD 05/20/2013 Office visit Precious Carmona MD 04/01/2013 Office visit Natty Webber MD 02/18/2013 Nurse visit Natty Webber MD 10/01/2012 Office visit Natty Webber MD 06/12/2012 Office visit Abbie Pedraza GALLEY STRIPPER 04/12/2012 Office visit Natty Webber MD 04/02/2012 Office visit Natty Webber MD 02/20/2012 Nurse visit Natty Webber MD 12/07/2011 Office visit Natty Webber MD 11/18/2011 Office visit Abbie Pedraza GALLEY STRIPPER 10/03/2011 Office visit Natty Webber MD 06/08/2011 Office visit Natty Webber MD 05/16/2011 Office visit Abbie Pedraza GALLEY STRIPPER 04/05/2011 Office visit Natty Webber MD 02/18/2011 Nurse visit Tyrell Nettles MD 01/03/2011 Office visit Natty Webber MD 09/27/2010 Office visit Natty Webber MD 09/06/2010 Office visit Natty Webber MD 08/17/2010 Office visit Natty Webber MD 08/12/2010 Office visit Natty Webber MD 08/09/2010 Office visit Natty Webber MD 08/01/2010 [facility] JORGE Green MD 08/01/2010 [facility] Christine Inman MD 07/31/2010 Office visit Christine Inman MD 07/31/2010 [facility] Jaye Polanco MD 07/31/2010 Voided Jaye Polanco MD 07/29/2010 Office visit Natty Webber MD 04/07/2010 Nurse visit Natty Webber MD 03/15/2010 Office visit Natty Webber MD 02/10/2010 Nurse visit Calrita STOUT 09/15/2009 Nurse visit Natty Webber MD 09/09/2009 Nurse visit Natty Webber MD 08/26/2009 Office visit Natty Webber MD 07/10/2009 Voided Clarita Cummings PA 06/11/2009 Nurse visit Clarita STOUT 05/15/2009 Nurse visit Clarita STOUT 05/11/2009 Nurse visit Clarita STOUT 04/06/2009 Office visit Clarita STOUT 02/10/2009 Nurse visit Clarita Cummings PA
--- OUTSIDE RECORDS SUMMARY | 2018-02-12 09:03 | XMS REPORT ---
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 History of Procedures [...] SC/IM Reviewed 06/08/2011 12:00 AM Bicillin CR [facility]#[id number] Clinic Reviewed 06/08/2011 12:00 AM Depo-Medrol 40 mg [facility]#[id number] Reviewed 02/04/2016 12:00 AM COMPLETE CBC W/AUTO [...] AM Flu Injection 3 Years And Above [facility]# [address]-34 [facility] Reviewed 04/02/2012 12:00 AM IMMUNIZATION ADMIN Reviewed 04/02/2012 12:00 AM Pneumovax Injection - [facility] Reviewed 04/12/2012 12:00 AM TRICHOMONAS ASSAY W/OPTIC Reviewed 06/12/2012 12:00 AM THER/PROPH/DIAG INJ SC/IM Reviewed 06/12/2012 12:00 AM Bicillin CR, 1.2 million units [facility]# 98815-722-88 Reviewed 09/27/2012 12:00 AM COMPREHEN METABOLIC PANEL [...] AM Flu Injection 3 Years And Above [facility]# [address]-99 [facility] Reviewed 09/09/2009 8:48 AM Blood Pressure [...] 01/23/2014 12:00 AM Kenalog, Per 10 Mg [facility]#8521-5646-33 Reviewed 03/19/2014 12:00 AM COMPLETE CBC W/AUTO DIFF WBC Reviewed 03/19/2014 12:00 AM COMPREHEN METABOLIC PANEL Reviewed 03/19/2014 12:00 AM LIPID PANEL Reviewed 03/19/2014 12:00 AM ASSAY THYROID STIM HORMONE Reviewed 04/27/2014 12:00 AM Rocephin 1 gram [facility]#4836-5194-78 Reviewed 04/27/2014 12:00 AM THER/PROPH/DIAG INJ SC/IM [...] CVX Influenza 02/10/2010 sanofi pasteur PMC Fluzone [id number] Intramuscular Left Arm 02/10/2010 11/29/2009 999 Influenza 02/18/2011 sanofi pasteur PMC Fluzone [id number] Intramuscular Left Arm 02/18/2011 11/17/2010 141 Influenza 02/20/2012 sanofi pasteur PMC Fluzone [id number] Intramuscular Left Deltoid 02/20/2012 10/24/2011 141 X 04/02/2012 [employer] MSD Pneumovax 23 [id number] Intramuscular Left Gluteous Medius 04/02/2012 08/07/2009 33 Influenza 02/18/2013 sanofi pasteur PMC Fluzone > 3 Years [id number] Intramuscular Right Deltoid 02/18/2013 11/16/2012 141 X 12/24/2014 Not Entered NE Prevnar 13 Not Entered Not Entered 201404/24/2017 109 Influenza 12/24/2014 Not Entered NE Not Entered Not Entered Not Entered 12/24/2014 04/24/2017 141 HepB Adult 10/21/2015 [employer] MSD Recombivax Adult [id number] Not Entered Left Deltoid 10/21/2015 11/11/2015 43 HepB Adult 11/20/2015 [employer] MSD Recombivax Adult [id number] Intramuscular Right Deltoid 11/20/2015 11/11/2015 43 Zostavax 04/06/2012 Not Entered NE Not Entered Not Entered Not Entered 04/24/2017 04/24/2017 121 Tdap 04/06/2012 Not Entered NE Not Entered Not Entered Not Entered 04/24/201704/24/2017 115 Influenza 02/04/2016 Not Entered NE Fluzone High-Dose Intramuscular Left Arm 04/24/2017 04/24/2017 141 HepB Adult 04/21/2016 [employer] MSD Recombivax Adult [id number] Intramuscular Right Deltoid 04/21/2016 11/11/2015 43 History [...] [facility] Medicare [facility] [id number] N[id number] Tuesday, 2009 Medicare Part B Medicare Of [place] [id number] N/A Medicare Part A Medicare Part A [id number] N/A Medicare Part A ZZZMedicare P A - Preventive [id number] N/A Medicare Part A Medicare - Lab/Xray [id number] N/A History of Encounters Visit Date Visit Type Provider 11/11/2016 Office visit Precious Carmona MD 11/01/2016 Office visit Precious Carmona MD 09/30/2016 Office visit Precious Carmona MD 09/16/2016 Office visit Pj Guajardo STEAMING MACHINE OPERATOR 04/21/2016 Nurse visit Precious Carmona MD 02/04/2016 Office visit Precious Carmona MD 11/20/2015 Nurse visit Precious Carmona MD 10/21/2015 Office visit Precious Carmona MD 10/15/2014 Office visit Precious Carmona MD 04/30/2014 Office visit Precious Carmona MD 04/27/2014 Office visit Pj Guajardo STEAMING MACHINE OPERATOR 04/12/2014 Office visit Gaby Randolph STEAMING MACHINE OPERATOR 02/17/2014 Voided Precious Carmona MD 01/27/2014 Office visit Precious Carmona MD 01/26/2014 Office visit Gaby Randolph STEAMING MACHINE OPERATOR 01/23/2014 Office visit 01/23/2014 Office visit Abbie Pedarza STEAMING MACHINE OPERATOR 10/04/2013 Office visit Coco Sofia STEAMING MACHINE OPERATOR 09/30/2013 Office visit Precious Carmona MD 05/20/2013 Office visit Precious Carmona MD 04/01/2013 Office visit Natty Webber MD 02/18/2013 Nurse visit Natty Webber MD 10/01/2012 Office visit Natty Webber MD 06/12/2012 Office visit Abbie Pedraza STEAMING MACHINE OPERATOR 04/12/2012 Office visit Natty Wbeber MD 04/02/2012 Office visit Natty Webber MD 02/20/2012 Nurse visit Natty Webber MD 12/07/2011 Office visit Natty Webber MD 11/18/2011 Office visit Abbie Pedraza STEAMING MACHINE OPERATOR 10/03/2011 Office visit Natty Webber MD 06/08/2011 Office visit Natty Webber MD 05/16/2011 Office visit Abbie Pedraza STEAMING MACHINE OPERATOR 04/05/2011 Office visit Natty Webber MD 02/18/2011 Nurse visit Tyrell Nettles MD 01/03/2011 Office visit Natty Webber MD 09/27/2010 Office visit Natty Webber MD 09/06/2010 Office visit Natty Webber MD 08/17/2010 Office visit Natty Webber MD 08/12/2010 Office visit Natty Webber MD 08/09/2010 Office visit Natty Webber MD 08/01/2010 [facility] JORGE Green MD 08/01/2010 [facility] Christine Inman MD 07/31/2010 Office visit Christine Inman MD 07/31/2010 [facility] Jaye Polanco MD 07/31/2010 Voided Jaye Polanco MD 07/29/2010 Office visit Natty Webber MD 04/07/2010 Nurse visit Natty Webber MD 03/15/2010 Office visit Natyt Webber MD 02/10/2010 Nurse visit Clarita STOUT 09/15/2009 Nurse visit Natty Webber MD 09/09/2009 Nurse visit Natty Webber MD 08/26/2009 Office visit Natty Webber MD 07/10/2009 Voided Clarita Cummings PA 06/11/2009 Nurse visit Clarita STOUT 05/15/2009 Nurse visit Clarita STOUT 05/11/2009 Nurse visit Clarita STOUT 04/06/2009 Office visit Clarita STOUT 02/10/2009 Nurse visit Clarita Cummings PA
--- NOTE | 2018-02-12 09:04 | History & Physicial ---
History of Present Illness History of Present Illness Reason for visit/HPI to undergo an upper endoscopy to investigate epigastric discomfort and nausea. Date of Admission 02/12/18 Date Seen by a Provider: Feb 12, 2018 Time Seen by a Provider: 09:02 I consulted on this patient on 02/12/18 09:02 Attending Physician Justa Youssef MD Admitting Physician No,Local Physician Consult Allergies and Home Medications Allergies Coded Allergies: No Known Drug Allergies (Unverified , 02/08/18) Home Medications Amlodipine Besylate 5 Mg Tablet, 5 MG PO DAILY, (Reported) Atenolol 50 Mg Tablet, 50 MG PO DAILY, (Reported) Atorvastatin Calcium 20 Mg Tablet, 20 MG PO DAILY, (Reported) Ca Carbonate/Vitamin D3/Vit K 1 Each Tab.chew, 2 EACH PO DAILY, (Reported) Clopidogrel Bisulfate 75 Mg Tablet, 75 MG PO DAILY, (Reported) Dicyclomine HCl 20 Mg Tablet, 20 MG PO TID, (Reported) Escitalopram Oxalate 10 Mg Tablet, 10 MG PO DAILY, (Reported) Gluc/Terry-MSM#2/C/D3/James/Born 1 Each Tablet, 2 EACH PO DAILY, (Reported) Levothyroxine Sodium 50 Mcg Tablet, 50 MCG PO DAILY, (Reported) Losartan Potassium 100 Mg Tablet, 100 MG PO DAILY, (Reported) Mirtazapine 15 Mg Tablet, 15 MG PO HS, (Reported) Multivitamin 1 Each Capsule, 1 EACH PO DAILY, (Reported) Ondansetron 4 Mg Tab.rapdis, 4 MG PO DAILY, (Reported) Pantoprazole Sodium 40 Mg Tablet.dr, 40 MG PO BID, (Reported) Prochlorperazine Maleate 10 Mg Tablet, 10 MG PO Q8H PRN for NAUSEA/VOMITING-1ST LINE, (Reported) Patient Home Medication List Home Medication List Reviewed: Yes Past Rrzzkdh-Ltrhfr-Gkhlva Hx Patient Social History Marrital Status: Employed/Student: employed Alcohol Use: Denies Use Recreational Drug Use: No Smoking Status: Never a Smoker Recent Foreign Travel: No Contact w/other who traveled: No Recent Hopitalizations: No Immunizations Up To Date Tetanus Booster (TDap): Unknown Date of Pneumonia Vaccine: Feb 01, 2016 Date of Influenza Vaccine: Jan 31, 2017 Seasonal Allergies Seasonal Allergies: No Surgeries Yes Tubal Ligation Respiratory No Currently Using CPAP: No Cardiovascular Yes Coronary Artery Disease, High Cholesterol, Hypertension Neurological No Reproductive System Hx Reproductive Disorders: No Sexually Transmitted Disease: No HIV/AIDS: No 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 Gastrointestinal Yes Gastroesophageal Reflux, Diverticulosis, Hiatal Hernia Musculoskeletal Yes Arthritis HEENT Loss of Vision: Bilateral Hearing Impairment: Denies Psychosocial History of Psychiatric Problem: Yes Behavioral Health Disorders: Anxiety Blood Transfusions Adverse Reaction to a Blood Tr: No Review of Systems Constitutional: no symptoms reported Respiratory: no symptoms reported Cardiovascular: no symptoms reported Gastrointestinal: see HPI Genitourinary: no symptoms reported Musculoskeletal: no symptoms reported Skin: no symptoms reported Psychiatric/Neurological: No Symptoms Reported Physical Exam Vital Signs Vital Signs - First Documented 02/12/18 08:25 Temp 98.2 Pulse 72 Resp 20 B/P (MAP) 143/90 (107) Pulse Ox 98 O2 Delivery Room Air Capillary Refill : Height, Weight, BMI Height: 5'1.25" Weight: 139lbs. 0.0oz. 63.214213vs; 26.1 BMI Method: General Appearance: Anxious Neck: Normal Inspection Respiratory: Lungs Clear Cardiovascular: Regular Rate, Rhythm Gastrointestinal: Non Tender, Soft Neurologic/Psychiatric: Alert, Oriented x3 Skin: Warm/Dry Assessment/Plan Assessment and Plan lady with epigastric discomfort and nausea. For upper endoscopy Admission Diagnosis Admission Status: Other (Outpt Proc) JUSTA YOUSSEF MD Feb 12, 2018 09:04
--- NOTE | 2018-02-12 09:05 | Conscious Sedation/ASA ---
Conscious Sedation Pre-Proced Time 09:04 ASA Score 2 For ASA 3 and 4: Consider anesthesia and medical clearance. Also, for patients with a history of failed moderate sedation consider anesthesia. Airway Lungs Heart ASA score ASA 1: a normal healthy patient ASA 2: a patient with a mild systemic disease (mid diabetes, controlled hypertension, obesity ASA 3: a patient with a severe systemic disease that limits activity (angina , COPD, prior Myocardial infarction) ASA 4: a patient with an incapacitating disease that is a constant threat to life (CHF, renal failure) ASA 5: a moribund patient not expected to survive 24 hrs. (ruptured aneurysm) ASA 6: a declared brain patient whose organs are being harvested. For emergent operations, add the letter E after the classification Mallampati Classification Grade 1 Sedation Plan Discussed options with patient/fam The patient is an appropriate candidate to undergo the planned procedure, sedation, and anesthesia. The patient immediately re-assessed prior to indication. JUSTA YOUSSEF MD Feb 12, 2018 09:05
--- OUTSIDE RECORDS SUMMARY | 2018-02-12 09:05 | XMS REPORT ---
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 History of Procedures Date [...] 12:00 AM Bicillin CR [facility]#[id number] [facility] Reviewed 06/08/2011 12:00 AM Depo-Medrol 40 mg [facility]#[id number] Reviewed 02/04/2016 12:00 AM COMPLETE CBC W/AUTO [...] Years And Above [facility]# [id number] C Reviewed 04/02/2012 12:00 AM IMMUNIZATION ADMIN Reviewed 04/02/2012 12:00 AM Pneumovax Injection - [facility] Reviewed 04/12/2012 12:00 AM TRICHOMONAS ASSAY W/OPTIC Reviewed 06/12/2012 12:00 AM THER/PROPH/DIAG INJ SC/IM Reviewed 06/12/2012 12:00 AM Bicillin CR, 1.2 million units [facility]# [id number] Reviewed 09/27/2012 12:00 AM COMPREHEN METABOLIC PANEL [...] Years And Above [facility]# [id number] R[facility] Reviewed 09/09/2009 8:48 AM Blood Pressure [...] Kenalog, Per 10 Mg [facility]#[id number] Reviewed 03/19/2014 12:00 AM COMPLETE CBC W/AUTO DIFF WBC Reviewed 03/19/2014 12:00 AM COMPREHEN METABOLIC PANEL Reviewed 03/19/2014 12:00 AM LIPID PANEL Reviewed 03/19/2014 12:00 AM ASSAY THYROID STIM HORMONE Reviewed 04/27/2014 12:00 AM Rocephin 1 gram [facility]#[id number] Reviewed 04/27/2014 12:00 AM THER/PROPH/DIAG INJ SC/IM [...] CVX Influenza 02/10/2010 sanofi pasteur PMC Fluzone [id number] Intramuscular Left Arm 02/10/2010 11/29/2009 999 Influenza 02/18/2011 sanofi pasteur PMC Fluzone [id number] Intramuscular Left Arm 02/18/2011 11/17/2010 141 Influenza 02/20/2012 sanofi pasteur PMC Fluzone [id number] Intramuscular Left Deltoid 02/20/2012 10/24/2011 141 X 04/02/2012 [employer] MSD Pneumovax 23 [id number] Intramuscular Left Gluteous Medius 04/02/2012 08/07/2009 33 Influenza 02/18/2013 [facility] PMC Fluzone > 3 Years [id number] Intramuscular Right Deltoid 02/18/2013 11/16/2012 141 X 12/24/2014 Not Entered NE Prevnar 13 Not Entered Not Entered 201404/24/2017 109 Influenza 12/24/2014 Not Entered NE Not Entered Not Entered Not Entered 12/24/2014 04/24/2017 141 HepB Adult 10/21/2015 [employer] MSD Recombivax Adult [id number] Not Entered Left Deltoid 10/21/2015 11/11/2015 43 HepB Adult 11/20/2015 [employer] MSD Recombivax Adult [id number] Intramuscular Right Deltoid 11/20/2015 11/11/2015 43 Zostavax 04/06/2012 Not Entered NE Not Entered Not Entered Not Entered 04/24/2017 04/24/2017 121 Tdap 04/06/2012 Not Entered NE Not Entered Not Entered Not Entered 04/24/201704/24/2017 115 Influenza 02/04/2016 Not Entered NE Fluzone High-Dose Intramuscular Left Arm 04/24/2017 04/24/2017 141 HepB Adult 04/21/2016 [employer] MSD Recombivax Adult [id number] Intramuscular Right Deltoid 04/21/2016 11/11/2015 43 Influenza [...] Caregiver stress syndrome Jan 31 2017 2:02PM Payers Insurance Name Company Name Plan Name Plan Number Policy Number Policy Group Number Start Date Medicare RHC Medicare RH [id number] N/A BCBS [facility] [id number] Tuesday, 2009 Medicare Part B Medicare Of [place] [id number] N/A Medicare Part A Medicare Part A [id number] N/A Medicare Part A ZZZMedicare P A - Preventive [id number] N/A Medicare Part A Medicare - Lab/Xray [id number] N/A History of Encounters Visit Date Visit Type Provider 02/08/2017 Office visit Precious Carmona MD 01/31/2017 Office visit Precious Carmona MD 11/11/2016 Office visit Precious Carmona MD 11/01/2016 Office visit Precious Carmona MD 09/30/2016 Office visit Precious Carmona MD 09/16/2016 Office visit Pj Guajardo UNLEAVENED DOUGH MIXER 04/21/2016 Nurse visit Precious Carmona MD 02/04/2016 Office visit Precious Carmona MD 11/20/2015 Nurse visit Precious Carmona MD 10/21/2015 Office visit Precious Carmona MD 10/15/2014 Office visit Precious Carmona MD 04/30/2014 Office visit Precious Carmona MD 04/27/2014 Office visit Pj Guajardo UNLEAVENED DOUGH MIXER 04/12/2014 Office visit Gaby Randolph UNLEAVENED DOUGH MIXER 02/17/2014 Voided Precious Carmona MD 01/27/2014 Office visit Precious Carmona MD 01/26/2014 Office visit Gaby Randolph UNLEAVENED DOUGH MIXER 01/23/2014 Office visit 01/23/2014 Office visit Abbie Pedraza UNLEAVENED DOUGH MIXER 10/04/2013 Office visit Coco Sofia UNLEAVENED DOUGH MIXER 09/30/2013 Office visit Precious Carmona MD 05/20/2013 Office visit Precious Carmona MD 04/01/2013 Office visit Natty Webber MD 02/18/2013 Nurse visit Natty Webber MD 10/01/2012 Office visit Natty Webber MD 06/12/2012 Office visit Abbie Pedraza UNLEAVENED DOUGH MIXER 04/12/2012 Office visit Natty Webber MD 04/02/2012 Office visit Natty Webber MD 02/20/2012 Nurse visit Natty Webber MD 12/07/2011 Office visit Natty Webber MD 11/18/2011 Office visit Abbie Pedraza UNLEAVENED DOUGH MIXER 10/03/2011 Office visit Natty Webber MD 06/08/2011 Office visit Natty Webber MD 05/16/2011 Office visit Abbie Pedraza UNLEAVENED DOUGH MIXER 04/05/2011 Office visit Natty Webber MD 02/18/2011 Nurse visit Tyrell Nettles MD 01/03/2011 Office visit Natty Webber MD 09/27/2010 Office visit Natty Webber MD 09/06/2010 Office visit Natty Webber MD 08/17/2010 Office visit Natty Webber MD 08/12/2010 Office visit Natty Webber MD 08/09/2010 Office visit Natty Webber MD 08/01/2010 [facility] JORGE Green MD 08/01/2010 [facility] Christine Inman MD 07/31/2010 Office visit Christine Inman MD 07/31/2010 [facility] Jaye Polanco MD 07/31/2010 [...]
--- OUTSIDE RECORDS SUMMARY | 2018-02-12 09:11 | XMS REPORT ---
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 Tobacco Never smoker History of Procedures Date [...] Reviewed 06/08/2011 12:00 AM Bicillin CR [facility]#[id number] Clinic Reviewed 06/08/2011 12:00 AM Depo-Medrol 40 mg [facility]#[id number] Reviewed 02/04/2016 12:00 AM COMPLETE CBC W/AUTO [...] Flu Injection 3 Years And Above [facility]# [id number] [facility] Reviewed 04/02/2012 12:00 AM IMMUNIZATION ADMIN Reviewed 04/02/2012 12:00 AM Pneumovax Injection - [facility] Reviewed 05/05/2017 12:00 AM THER/PROPH/DIAG INJ SC/IM [...] AM Bicillin CR, 1.2 million units [facility]# 32255-530-53 Reviewed 09/27/2012 12:00 AM COMPREHEN METABOLIC PANEL [...] Flu Injection 3 Years And Above [facility]# [id number] [facility] Reviewed 09/09/2009 8:48 AM Blood Pressure Check-no [...] 12:00 AM Kenalog, Per 10 Mg [facility]#[id number] Reviewed 03/19/2014 12:00 AM COMPLETE CBC W/AUTO DIFF WBC Reviewed 03/19/2014 12:00 AM COMPREHEN METABOLIC PANEL Reviewed 03/19/2014 12:00 AM LIPID PANEL Reviewed 03/19/2014 12:00 AM ASSAY THYROID STIM HORMONE Reviewed 04/27/2014 12:00 AM Rocephin 1 gram [facility]#1612-2688-59 Reviewed 04/27/2014 12:00 AM THER/PROPH/DIAG INJ SC/IM [...] CVX Influenza 02/10/2010 sanofi pasteur PMC FLUZONE [id number] Intramuscular Left Arm 02/10/2010 11/29/2009 999 Influenza 02/18/2011 sanofi pasteur PMC FLUZONE [id number] Intramuscular Left Arm 02/18/2011 11/17/2010 141 Influenza 02/20/2012 [employer]ortica pasteur PMC FLUZONE [id number] Intramuscular Left Deltoid 02/20/2012 10/24/2011 141 X 04/02/2012 [employer] MSD PNEUMOVAX 23 [id number] Intramuscular Left Gluteous Medius 04/02/2012 08/07/2009 33 Influenza 02/18/2013 sanofi pasteur PMC Fluzone > 3 Years [id number] Intramuscular Right Deltoid 02/18/2013 11/16/2012 141 X 12/24/2014 Not Entered NE PREVNAR 13 Not Entered Not Entered 201404/24/2017 109 Influenza 12/24/2014 Not Entered NE Not Entered Not Entered Not Entered 12/24/2014 04/24/2017 141 HepB Adult 10/21/2015 [employer] MSD RECOMBIVAX-ADULT [id number] Not Entered Left Deltoid 10/21/2015 11/11/2015 43 HepB Adult 11/20/2015 [employer] MSD RECOMBIVAX-ADULT [id number] Intramuscular Right Deltoid 11/20/2015 11/11/2015 43 ZVL 04/06/2012 Not Entered NE Not Entered Not Entered Not Entered 04/2404/24/2017 121 Tdap 04/06/2012 Not Entered NE Not Entered Not Entered Not Entered 04/24/201704/24/2017 115 Influenza 02/04/2016 Not Entered NE FLUZONE-HIGH DOSE Intramuscular Left Arm 04/24/2017 04/24/2017 141 HepB Adult 04/21/2016 [employer] MSD RECOMBIVAX-ADULT [id number] Intramuscular Right Deltoid 04/21/2016 11/11/2015 43 Influenza [...] Number Start Date Medicare RHC Medicare RHC [id number] N/A [facility] [id number] Tuesday, 2009 Medicare Part B Medicare Of [place] [id number] N/A Medicare Part A Medicare Part A [id number] N/A Medicare Part A ZZZMedicare P A - Preventive [id number] N/A Medicare Part A Medicare - Lab/Xray [id number] N/A History of Encounters Visit Date Visit Type Provider 10/20/2017 Office visit Bruno Carreon DO 09/19/2017 Office visit Bruno Carreon DO 09/12/2017 Office visit Precious Carmona MD 06/27/2017 Office visit Precious Carmona MD 05/05/2017 Office visit Yarelis Meza HEAD GIRLS GOLF COACH 04/11/2017 Office visit Precious Carmona MD 02/08/2017 Office visit Precious Carmona MD 01/31/2017 Office visit Precious Carmona MD 11/11/2016 Office visit Precious Carmona MD 11/01/2016 Office visit Precious Carmona MD 09/30/2016 Office visit Precious Carmona MD 09/16/2016 Office visit Pj Guajardo HEAD GIRLS GOLF COACH 04/21/2016 Nurse visit Precious Carmona MD 02/04/2016 Office visit Precious Carmona MD 11/20/2015 Nurse visit Precious Carmona MD 10/21/2015 Office visit Precious Carmona MD 10/15/2014 Office visit Precious Carmona MD 04/30/2014 Office visit Precious Carmona MD 04/27/2014 Office visit Pj Guajardo HEAD GIRLS GOLF COACH 04/12/2014 Office visit Gaby Randolph HEAD GIRLS GOLF COACH 02/17/2014 Voided Precious Carmona MD 01/27/2014 Office visit Precious Carmona MD 01/26/2014 Office visit Gaby Randolph HEAD GIRLS GOLF COACH 01/23/2014 Office visit 01/23/2014 Office visit Abbie Pedraza HEAD GIRLS GOLF COACH 10/04/2013 Office visit Coco Sofia HEAD GIRLS GOLF COACH 09/30/2013 Office visit Precious Carmona MD 05/20/2013 Office visit Precious Carmona MD 04/01/2013 Office visit Natty Webber MD 02/18/2013 Nurse visit Natty Webber MD 10/01/2012 Office visit Natty Webber MD 06/12/2012 Office visit Abbie Pedraza HEAD GIRLS GOLF COACH 04/12/2012 Office visit Natty Webber MD 04/02/2012 Office visit Natty Webber MD 02/20/2012 Nurse visit Natty Webber MD 12/07/2011 Office visit Natty Webber MD 11/18/2011 Office visit Abbie Pedraza HEAD GIRLS GOLF COACH 10/03/2011 Office visit Natty Webber MD 06/08/2011 Office visit Natty Webber MD 05/16/2011 Office visit Abbie Pedraza HEAD GIRLS GOLF COACH 04/05/2011 Office visit Natty Webber MD 02/18/2011 Nurse visit Tyrell Nettles MD 01/03/2011 Office visit Natty Webber MD 09/27/2010 Office visit Natty Webber MD 09/06/2010 Office visit Natty Webber MD 08/17/2010 Office visit Natty Webber MD 08/12/2010 Office visit Natty Webber MD 08/09/2010 Office visit Natty Webber MD 08/01/2010 [facility] JORGE Green MD 08/01/2010 [facility] Christine Inman MD 07/31/2010 Office visit Christine Inman MD 07/31/2010 [facility] Jaye Polanco MD 07/31/2010 Voided Jaye [...]
--- OUTSIDE RECORDS SUMMARY | 2018-02-12 09:14 | XMS REPORT ---
Author Author Precious Carmona Organization [facility] Address [address] [place], [place] [address] Care Team Providers Care Barnworker Groom Name Role Phone Precious Carmona PCP Precious [...] 90 days mirtazapine 15 mg oral tablet 08/02/2017 TAKE ONE-HALF TABLET BY MOUTH ONCE DAILY AT BEDTIME clorazepate dipotassium 7.5 mg oral tablet 08/30/2017 09/29/2017 take 1/2 to1 tablet PO up to three times per day for situational anxiety Name Start Date Expiration Date SIG Comments prednisone 20 mg oral tablet 07/29/2010 08/03/2010 take 2 tablets by oral route daily for 5 days calcium carbonate-vitamin D2 600-125 mg-unit oral tablet 12/07/2011 01/06/2012 take 2 tablets by oral route daily [place] 3 Fish Oil 900-1,400 mg oral capsule,delayed [...] by oral route once for 1 day Lipitor 20 mg oral tablet 02/04/2016 07/28/2017 [...] ONCE DAILY atenolol 50 mg oral tablet 05/19/2017 05/19/2017 TAKE ONE TABLET BY MOUTH ONCE DAILY [...] AFFECTED AREA TWICE DAILY FOR 14 DAYS Augmentin 875-125 mg oral tablet 05/05/2017 06/27/2017 [...] HC BMI BSA BMI Percentile O2 Sat(%) 09/12/2017 8:39:00 AM 116 mmHg 68 mmHg [...] History Name Description Comments Children 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 alone 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 Tobacco Never smoker History of Procedures Date [...] Reviewed 06/08/2011 12:00 AM Bicillin CR [facility] [place] [place][id number] [facility] Reviewed 06/08/2011 12:00 AM Depo-Medrol 40 mg [facility] [place] [place]#[id number] Reviewed 02/04/2016 12:00 AM COMPLETE CBC W/AUTO [...] Flu Injection 3 Years And Above [facility] [place] [place]# [address]-77 [facility] Reviewed 04/02/2012 12:00 AM IMMUNIZATION ADMIN [...] AM Bicillin CR, 1.2 million units [facility] [place] [facility]# 73809-270-74 Reviewed 09/27/2012 12:00 AM COMPREHEN METABOLIC PANEL [...] Flu Injection 3 Years And Above [facility] [place]# [address]-50 [facility] Reviewed 09/09/2009 8:48 AM Blood Pressure [...] 12:00 AM Kenalog, Per 10 Mg [facility] [place]#0568-1067-75 Reviewed 03/19/2014 12:00 AM COMPLETE CBC W/AUTO DIFF WBC Reviewed 03/19/2014 12:00 AM COMPREHEN METABOLIC PANEL Reviewed 03/19/2014 12:00 AM LIPID PANEL Reviewed 03/19/2014 12:00 AM ASSAY THYROID STIM HORMONE Reviewed 04/27/2014 12:00 AM Rocephin 1 gram [facility] [place]#2509-4345-14 Reviewed 04/27/2014 12:00 AM THER/PROPH/DIAG INJ SC/IM [...] CVX Influenza 02/10/2010 sanofi pasteur PMC FLUZONE [id number] Intramuscular Left Arm 02/10/2010 11/29/2009 999 Influenza 02/18/2011 sanofi pasteur PMC FLUZONE [id number] Intramuscular Left Arm 02/18/2011 11/17/2010 141 Influenza 02/20/2012 sanofi pasteur PMC FLUZONE [id number] Intramuscular Left Deltoid 02/20/2012 10/24/2011 141 X 04/02/2012 [employer] MSD PNEUMOVAX 23 [id number] Intramuscular Left Gluteous Medius 04/02/2012 08/07/2009 33 Influenza 02/18/2013 sanofi pasteur PMC Fluzone > 3 Years [id number] Intramuscular Right Deltoid 02/18/2013 11/16/2012 141 X 12/24/2014 Not Entered NE PREVNAR 13 Not Entered Not Entered 201404/24/2017 109 Influenza 12/24/2014 Not Entered NE Not Entered Not Entered Not Entered 12/24/2014 04/24/2017 141 HepB Adult 10/21/2015 [employer] MSD RECOMBIVAX-ADULT [id number] Not Entered Left Deltoid 10/21/2015 11/11/2015 43 HepB Adult 11/20/2015 [employer] MSD RECOMBIVAX-ADULT [id number] Intramuscular Right Deltoid 11/20/2015 11/11/2015 43 Zostavax 04/06/2012 Not Entered NE Not Entered Not Entered Not Entered 04/24/2017 04/24/2017 121 Tdap 04/06/2012 Not Entered NE Not Entered Not Entered Not Entered 04/24/201704/24/2017 115 Influenza 02/04/2016 Not Entered NE FLUZONE-HIGH DOSE Intramuscular Left Arm 04/24/2017 04/24/2017 141 HepB Adult 04/21/2016 [employer] MSD RECOMBIVAX-ADULT [id number] Intramuscular Right Deltoid 04/21/2016 11/11/2015 43 Influenza [...] Caregiver stress syndrome Sep 12 2017 8:47AM Payers Insurance Name Company Name Plan Name Plan Number Policy Number Policy Group Number Start Date Medicare RH Medicare RHC [id number] N/A [id number] Tuesday, 2009 Medicare Part B Medicare Of [place] [id number] N/A Medicare Part A Medicare Part A [id number] N/A Medicare Part A ZZZMedicare P A - Preventive [id number] N/A Medicare Part A Medicare - Lab/Xray [id number] N/A History of Encounters Visit Date Visit Type Provider 09/12/2017 Office visit Precious Carmona MD 06/27/2017 Office visit Precious Carmona MD 05/05/2017 Office visit Yarelis Meza ARCHITECTURE DRAFTER 04/11/2017 Office visit Precious Carmona MD 02/08/2017 Office visit Precious Carmona MD 01/31/2017 Office visit Precious Carmona MD 11/11/2016 Office visit Precious Carmona MD 11/01/2016 Office visit Precious Carmona MD 09/30/2016 Office visit Precious Carmona MD 09/16/2016 Office visit Pj Guajardo ARCHITECTURE DRAFTER 04/21/2016 Nurse visit Precious Carmona MD 02/04/2016 Office visit Precious Carmona MD 11/20/2015 Nurse visit Precious Carmona MD 10/21/2015 Office visit Precious Carmona MD 10/15/2014 Office visit Precious Carmona MD 04/30/2014 Office visit Precious Carmona MD 04/27/2014 Office visit Pj Guajardo ARCHITECTURE DRAFTER 04/12/2014 Office visit Gaby Randolph ARCHITECTURE DRAFTER 02/17/2014 Voided Precious Carmona MD 01/27/2014 Office visit Precious Carmona MD 01/26/2014 Office visit Gaby Randolph ARCHITECTURE DRAFTER 01/23/2014 Office visit 01/23/2014 Office visit Abbie Pedraza ARCHITECTURE DRAFTER 10/04/2013 Office visit Coco Sofia ARCHITECTURE DRAFTER 09/30/2013 Office visit Precious Carmona MD 05/20/2013 Office visit Precious Carmona MD 04/01/2013 Office visit Natty Webber MD 02/18/2013 Nurse visit Natty Webber MD 10/01/2012 Office visit Natty Webber MD 06/12/2012 Office visit Abbie Pedraza ARCHITECTURE DRAFTER 04/12/2012 Office visit Natty Webber MD 04/02/2012 Office visit Natty Webber MD 02/20/2012 Nurse visit Natty Webber MD 12/07/2011 Office visit Natty Webber MD 11/18/2011 Office visit Abbie Pedraza ARCHITECTURE DRAFTER 10/03/2011 Office visit Natty Webber MD 06/08/2011 Office visit Natty Webber MD 05/16/2011 Office visit Abbie Pedraza ARCHITECTURE DRAFTER 04/05/2011 Office visit Natty Webber MD 02/18/2011 [...]
--- OUTSIDE RECORDS SUMMARY | 2018-02-12 09:16 | XMS REPORT ---
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 History of Procedures Date [...] 06/08/2011 12:00 AM Bicillin CR [facility]#[id number] Clinic Reviewed 06/08/2011 12:00 AM Depo-Medrol 40 mg [facility]#[id number] Reviewed 02/04/2016 12:00 AM COMPLETE CBC W/AUTO [...] Injection 3 Years And Above [facility]# [address]-35 [facility] Reviewed 04/02/2012 12:00 AM IMMUNIZATION ADMIN Reviewed 04/02/2012 12:00 AM Pneumovax Injection - [facility] Reviewed 04/12/2012 12:00 AM TRICHOMONAS ASSAY W/OPTIC Reviewed 06/12/2012 12:00 AM THER/PROPH/DIAG INJ SC/IM Reviewed 06/12/2012 12:00 AM Bicillin CR, 1.2 million units [facility]# 67149-709-40 Reviewed 09/27/2012 12:00 AM COMPREHEN METABOLIC PANEL [...] Injection 3 Years And Above [facility]# [address]-98 [facility] Reviewed 09/09/2009 8:48 AM Blood Pressure Check-no [...] AM Kenalog, Per 10 Mg [facility]#4611-7481-10 Reviewed 03/19/2014 12:00 AM COMPLETE CBC W/AUTO DIFF WBC Reviewed 03/19/2014 12:00 AM COMPREHEN METABOLIC PANEL Reviewed 03/19/2014 12:00 AM LIPID PANEL Reviewed 03/19/2014 12:00 AM ASSAY THYROID STIM HORMONE Reviewed 04/27/2014 12:00 AM Rocephin 1 gram [facility]#9116-7433-97 Reviewed 04/27/2014 12:00 AM THER/PROPH/DIAG INJ SC/IM [...] CVX Influenza 02/10/2010 sanofi pasteur PMC Fluzone [id number] Intramuscular Left Arm 02/10/2010 11/29/2009 999 Influenza 02/18/2011 sanofi pasteur PMC Fluzone [id number] Intramuscular Left Arm 02/18/2011 11/17/2010 141 Influenza 02/20/2012 sanofi pasteur PMC Fluzone [id number] Intramuscular Left Deltoid 02/20/2012 10/24/2011 141 X 04/02/2012 [employer] MSD Pneumovax 23 [id number] Intramuscular Left Gluteous Medius 04/02/2012 08/07/2009 33 Influenza 02/18/2013 sanofi pasteur PMC Fluzone > 3 Years [id number] Intramuscular Right Deltoid 02/18/2013 11/16/2012 141 X 12/24/2014 Not Entered NE Prevnar 13 Not Entered Not Entered 201404/24/2017 109 Influenza 12/24/2014 Not Entered NE Not Entered Not Entered Not Entered 12/24/2014 04/24/2017 141 HepB Adult 10/21/2015 [employer] MSD Recombivax Adult [id number] Not Entered Left Deltoid 10/21/2015 11/11/2015 43 HepB Adult 11/20/2015 [employer] MSD Recombivax Adult [id number] Intramuscular Right Deltoid 11/20/2015 11/11/2015 43 Zostavax 04/06/2012 Not Entered NE Not Entered Not Entered Not Entered 04/24/2017 04/24/2017 121 Tdap 04/06/2012 Not Entered NE Not Entered Not Entered Not Entered 04/24/201704/24/2017 115 Influenza 02/04/2016 Not Entered NE Fluzone High-Dose Intramuscular Left Arm 04/24/2017 04/24/2017 141 HepB Adult 04/21/2016 [employer] MSD Recombivax Adult [id number] Intramuscular Right Deltoid 04/21/2016 11/11/2015 43 History [...] Date Medicare [facility] Medicare [facility] [id number] N/[id number] Tuesday, 2009 Medicare Part B Medicare Of [place] [id number] N/A Medicare Part A Medicare Part A [id number] N/A Medicare Part A ZZZMedicare P A - Preventive [id number] N/A Medicare Part A Medicare - Lab/Xray [id number] N/A History of Encounters Visit Date Visit Type Provider 11/11/2016 Office visit Precious Carmona MD 11/01/2016 Office visit Precious Carmona MD 09/30/2016 Office visit Precious Carmona MD 09/16/2016 Office visit Pj Guajardo NURSE OFFICE 04/21/2016 Nurse visit Precious Carmona MD 02/04/2016 Office visit Precious Carmona MD 11/20/2015 Nurse visit Precious Carmona MD 10/21/2015 Office visit Precious Carmona MD 10/15/2014 Office visit Precious Carmona MD 04/30/2014 Office visit Precious Carmona MD 04/27/2014 Office visit Pj Guajardo NURSE OFFICE 04/12/2014 Office visit Gaby Randolph NURSE OFFICE 02/17/2014 Voided Precious Carmona MD 01/27/2014 Office visit Precious Carmona MD 01/26/2014 Office visit Gaby Randolph NURSE OFFICE 01/23/2014 Office visit 01/23/2014 Office visit Abbie Pedraza NURSE OFFICE 10/04/2013 Office visit Coco Sofia NURSE OFFICE 09/30/2013 Office visit Precious Carmona MD 05/20/2013 Office visit Precious Carmona MD 04/01/2013 Office visit Natty Webber MD 02/18/2013 Nurse visit Natty Webber MD 10/01/2012 Office visit Natty Webber MD 06/12/2012 Office visit Abbie Pedraza NURSE OFFICE 04/12/2012 Office visit Natty Webber MD 04/02/2012 Office visit Natty Webber MD 02/20/2012 Nurse visit Natty Webber MD 12/07/2011 Office visit Natty Webber MD 11/18/2011 Office visit Abbie Pedraza NURSE OFFICE 10/03/2011 Office visit Natty Webber MD 06/08/2011 Office visit Natty Webber MD 05/16/2011 Office visit Abbie Pedraza NURSE OFFICE 04/05/2011 Office visit Natty Webber MD 02/18/2011 Nurse visit Tyrell Nettles MD 01/03/2011 Office visit Natty Webber MD 09/27/2010 Office visit Natty Webber MD 09/06/2010 Office visit Natty Webber MD 08/17/2010 Office visit Natty Webber MD 08/12/2010 Office visit Natty Webber MD 08/09/2010 Office visit Natty Webber MD 08/01/2010 [facility] JORGE Green MD 08/01/2010 [facility] Christine Inman [...]
--- OUTSIDE RECORDS SUMMARY | 2018-02-12 09:18 | XMS REPORT ---
Author Author Precious Carmona Organization [facility] Address [address] [place], [place] [id number] Care Team Providers Care Credit Risk Manager Name Role Phone Precious Carmona PCP Precious [...] ONCE DAILY amlodipine 5 mg oral tablet 02/04/2016 01/29/2017 [...] days clorazepate dipotassium 7.5 mg oral tablet 01/02/2017 02/01/2017 take 1/2 to1 tablet PO up to three times per day for situational anxiety pantoprazole 40 mg oral tablet,delayed release (DR/EC) 01/27/2017 01/22/2018 take 1 tablet (40 mg) by oral route once daily for 90 days Name Start Date Expiration Date SIG Comments prednisone 20 mg oral tablet 07/29/2010 08/03/2010 take 2 tablets by oral route daily for 5 days calcium carbonate-vitamin D2 600-125 mg-unit oral tablet 12/07/2011 01/06/2012 take 2 tablets by oral route daily [place] 3 Fish Oil 900-1,400 mg oral capsule,delayed [...] History Name Description Comments Children lives alone 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 Tobacco Never smoker History of Procedures Date [...] 06/08/2011 12:00 AM Bicillin CR [facility]#[id number] Clinic Reviewed 06/08/2011 12:00 AM Depo-Medrol 40 mg [facility]#[id number] Reviewed 02/04/2016 12:00 AM COMPLETE CBC W/AUTO [...] Injection 3 Years And Above [facility]# [address]-42 [facility] Reviewed 04/02/2012 12:00 AM IMMUNIZATION ADMIN Reviewed 04/02/2012 12:00 AM Pneumovax Injection - [facility] Reviewed 04/12/2012 12:00 AM TRICHOMONAS ASSAY W/OPTIC Reviewed 06/12/2012 12:00 AM THER/PROPH/DIAG INJ SC/IM Reviewed 06/12/2012 12:00 AM Bicillin CR, 1.2 million units [facility]# 73600-906-96 Reviewed 09/27/2012 12:00 AM COMPREHEN METABOLIC PANEL [...] Injection 3 Years And Above [facility]# [address]-43 [facility] Reviewed 09/09/2009 8:48 AM Blood [...] AM Kenalog, Per 10 Mg [facility]#7321-7002-23 Reviewed 03/19/2014 12:00 AM COMPLETE CBC W/AUTO DIFF WBC Reviewed 03/19/2014 12:00 AM COMPREHEN METABOLIC PANEL Reviewed 03/19/2014 12:00 AM LIPID PANEL Reviewed 03/19/2014 12:00 AM ASSAY THYROID STIM HORMONE Reviewed 04/27/2014 12:00 AM Rocephin 1 gram [facility]#7604-6760-29 Reviewed 04/27/2014 12:00 AM THER/PROPH/DIAG INJ SC/IM [...] CVX Influenza 02/10/2010 sanofi pasteur PMC Fluzone [id number] Intramuscular Left Arm 02/10/2010 11/29/2009 999 Influenza 02/18/2011 sanofi pasteur PMC Fluzone [id number] Intramuscular Left Arm 02/18/2011 11/17/2010 141 Influenza 02/20/2012 sanofi pasteur PMC Fluzone [id number] Intramuscular Left Deltoid 02/20/2012 10/24/2011 141 X 04/02/2012 [employer] MSD Pneumovax 23 [id number] Intramuscular Left Gluteous Medius 04/02/2012 08/07/2009 33 Influenza 02/18/2013 sanofi pasteur PMC Fluzone > 3 Years [id number] Intramuscular Right Deltoid 02/18/2013 11/16/2012 141 X 12/24/2014 Not Entered NE Prevnar 13 Not Entered Not Entered 201404/24/2017 109 Influenza 12/24/2014 Not Entered NE Not Entered Not Entered Not Entered 12/24/2014 04/24/2017 141 HepB Adult 10/21/2015 [employer] MSD Recombivax Adult [id number] Not Entered Left Deltoid 10/21/2015 11/11/2015 43 HepB Adult 11/20/2015 [employer] MSD Recombivax Adult [id number] Intramuscular Right Deltoid 11/20/2015 11/11/2015 43 Zostavax 04/06/2012 Not Entered NE Not Entered Not Entered Not Entered 04/24/2017 04/24/2017 121 Tdap 04/06/2012 Not Entered NE Not Entered Not Entered Not Entered 04/24/201704/24/2017 115 Influenza 02/04/2016 Not Entered NE Fluzone High-Dose Intramuscular Left Arm 04/24/2017 04/24/2017 141 HepB Adult 04/21/2016 [employer] MSD Recombivax Adult [id number] Intramuscular Right Deltoid 04/21/2016 11/11/2015 43 History [...] Number Policy Group Number Start Date Medicare [facility] Medicare [facility] [id number] N/A [id number] Tuesday, 2009 Medicare Part B Medicare Of [place] [id number] N/A Medicare Part A Medicare Part A [id number] N/A Medicare Part A ZZZMedicare P A - Preventive [id number] N/A Medicare Part A Medicare - Lab/Xray [id number] N/A History of Encounters Visit Date Visit Type Provider 11/11/2016 Office visit Precious Carmona MD 11/01/2016 Office visit Precious Carmona MD 09/30/2016 Office visit Precious Carmona MD 09/16/2016 Office visit Pj Guajardo FORENSIC MATERIALS ENGINEER 04/21/2016 Nurse visit Precious Carmona MD 02/04/2016 Office visit Precious Carmona MD 11/20/2015 Nurse visit Precious Carmona MD 10/21/2015 Office visit Precious Carmona MD 10/15/2014 Office visit Precious Carmona MD 04/30/2014 Office visit Precious Carmona MD 04/27/2014 Office visit Pj Guajardo FORENSIC MATERIALS ENGINEER 04/12/2014 Office visit Gaby Randolph FORENSIC MATERIALS ENGINEER 02/17/2014 Voided Precious Carmona MD 01/27/2014 Office visit Precious Carmona MD 01/26/2014 Office visit Gaby Randolph FORENSIC MATERIALS ENGINEER 01/23/2014 Office visit 01/23/2014 Office visit Abbie Pedraza FORENSIC MATERIALS ENGINEER 10/04/2013 Office visit Coco Sofia FORENSIC MATERIALS ENGINEER 09/30/2013 Office visit Precious Carmona MD 05/20/2013 Office visit Precious Carmona MD 04/01/2013 Office visit Natty Webber MD 02/18/2013 Nurse visit Natty Webber MD 10/01/2012 Office visit aNtty Webber MD 06/12/2012 Office visit Abbie Pedraza FORENSIC MATERIALS ENGINEER 04/12/2012 Office visit Natty Webber MD 04/02/2012 Office visit Natty Webber MD 02/20/2012 Nurse visit Natty Webber MD 12/07/2011 Office visit Natty Webber MD 11/18/2011 Office visit Abbie Pedraza FORENSIC MATERIALS ENGINEER 10/03/2011 Office visit Natty Webber MD 06/08/2011 Office visit Natty Webber MD 05/16/2011 Office visit Abbie Pedraza FORENSIC MATERIALS ENGINEER 04/05/2011 Office visit Natty Webber MD 02/18/2011 Nurse visit Tyrell Nettles MD 01/03/2011 Office visit Natty Webber MD 09/27/2010 Office visit Natty Webber MD 09/06/2010 Office visit Natty Webber MD 08/17/2010 Office visit Natty Webber MD 08/12/2010 Office visit Natty Webber MD 08/09/2010 Office visit Natty Webber MD 08/01/2010 [facility] JORGE Green MD 08/01/2010 [facility] Christine Inman MD 07/31/2010 Office visit Christine Inman MD 07/31/2010 [facility] Jaye Polanco MD 07/31/2010 [...]
--- OUTSIDE RECORDS SUMMARY | 2018-02-12 09:22 | XMS REPORT ---
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 History of Procedures Date [...] AM Bicillin CR [facility]#[id number] Clinic Reviewed 06/08/2011 12:00 AM Depo-Medrol 40 mg [facility]#[id number] Reviewed 02/04/2016 12:00 AM COMPLETE CBC W/AUTO [...] And Above [facility]# [address]-43 [facility] Reviewed 04/02/2012 12:00 AM IMMUNIZATION ADMIN [...] million units [facility]# 81397-527-90 Reviewed 09/27/2012 12:00 AM COMPREHEN METABOLIC PANEL [...] And Above [facility]# [address]-49 [facility] Reviewed 09/09/2009 8:48 AM Blood Pressure [...] Per 10 Mg [facility]#0773-0969-65 Reviewed 03/19/2014 12:00 AM COMPLETE CBC W/AUTO DIFF WBC Reviewed 03/19/2014 12:00 AM COMPREHEN METABOLIC PANEL Reviewed 03/19/2014 12:00 AM LIPID PANEL Reviewed 03/19/2014 12:00 AM ASSAY THYROID STIM HORMONE Reviewed 04/27/2014 12:00 AM Rocephin 1 gram [facility]#8104-4020-90 Reviewed 04/27/2014 12:00 AM THER/PROPH/DIAG INJ SC/IM [...] CVX Influenza 02/10/2010 sanofi pasteur PMC Fluzone [id number] Intramuscular Left Arm 02/10/2010 11/29/2009 999 Influenza 02/18/2011 sanofi pasteur PMC Fluzone [id number] Intramuscular Left Arm 02/18/2011 11/17/2010 141 Influenza 02/20/2012 sanofi pasteur PMC Fluzone [id number] Intramuscular Left Deltoid 02/20/2012 10/24/2011 141 X 04/02/2012 [employer] MSD Pneumovax 23 [id number] Intramuscular Left Gluteous Medius 04/02/2012 08/07/2009 33 Influenza 02/18/2013 sanofi pasteur PMC Fluzone > 3 Years [id number] Intramuscular Right Deltoid 02/18/2013 11/16/2012 141 X 12/24/2014 Not Entered NE Prevnar 13 Not Entered Not Entered 201404/24/2017 109 Influenza 12/24/2014 Not Entered NE Not Entered Not Entered Not Entered 12/24/2014 04/24/2017 141 HepB Adult 10/21/2015 [employer] MSD Recombivax Adult [id number] Not Entered Left Deltoid 10/21/2015 11/11/2015 43 HepB Adult 11/20/2015 [employer] MSD Recombivax Adult [id number] Intramuscular Right Deltoid 11/20/2015 11/11/2015 43 Zostavax 04/06/2012 Not Entered NE Not Entered Not Entered Not Entered 04/24/2017 04/24/2017 121 Tdap 04/06/2012 Not Entered NE Not Entered Not Entered Not Entered 04/24/201704/24/2017 115 Influenza 02/04/2016 Not Entered NE Fluzone High-Dose Intramuscular Left Arm 04/24/2017 04/24/2017 141 HepB Adult 04/21/2016 [employer] MSD Recombivax Adult [id number] Intramuscular Right Deltoid 04/21/2016 11/11/2015 43 Influenza [...] 2017 8:30AM Nausea Jun 27 2017 8:30AM Payers Insurance Name Company Name Plan Name Plan Number Policy Number Policy Group Number Start Date Medicare RHC Medicare RHC [id number] N/A BCBS [facility] [id number] Tuesday, 2009 Medicare Part B Medicare Of [place] [id number] N/A Medicare Part A Medicare Part A [id number] N/A Medicare Part A ZZZMedicare P A - Preventive [id number] N/A Medicare Part A Medicare - Lab/Xray [id number] N/A History of Encounters Visit Date Visit Type Provider 06/27/2017 Office visit Precious Carmona MD 05/05/2017 Office visit Yarelis Meza SUPERVISOR FUR FLOOR WORKER 04/11/2017 Office visit Precious Carmona MD 02/08/2017 Office visit Precious Carmona MD 01/31/2017 Office visit Precious Carmona MD 11/11/2016 Office visit Precious Carmona MD 11/01/2016 Office visit Precious Carmona MD 09/30/2016 Office visit Precious Carmona MD 09/16/2016 Office visit Pj Guajardo SUPERVISOR FUR FLOOR WORKER 04/21/2016 Nurse visit Precious Carmona MD 02/04/2016 Office visit Precious Carmona MD 11/20/2015 Nurse visit Precious Carmona MD 10/21/2015 Office visit Precious Carmona MD 10/15/2014 Office visit Precious Carmona MD 04/30/2014 Office visit Precious Camrona MD 04/27/2014 Office visit Pj Guajardo SUPERVISOR FUR FLOOR WORKER 04/12/2014 Office visit Gaby Randolph SUPERVISOR FUR FLOOR WORKER 02/17/2014 Voided Precious Carmona MD 01/27/2014 Office visit Precious Carmona MD 01/26/2014 Office visit Gaby Randolph SUPERVISOR FUR FLOOR WORKER 01/23/2014 Office visit 01/23/2014 Office visit Abbie Pedraza SUPERVISOR FUR FLOOR WORKER 10/04/2013 Office visit Coco Sofia SUPERVISOR FUR FLOOR WORKER 09/30/2013 Office visit Precious Carmona MD 05/20/2013 Office visit Precious Carmona MD 04/01/2013 Office visit Natty Webber MD 02/18/2013 Nurse visit Natty Webber MD 10/01/2012 Office visit Natty Webbre MD 06/12/2012 Office visit Abbie Pedraza SUPERVISOR FUR FLOOR WORKER 04/12/2012 Office visit Natty Webber MD 04/02/2012 Office visit Natty Webber MD 02/20/2012 Nurse visit Natty Webber MD 12/07/2011 Office visit Natty Webber MD 11/18/2011 Office visit Abbie Pedraza SUPERVISOR FUR FLOOR WORKER 10/03/2011 Office visit Natty Webber MD 06/08/2011 Office visit Natty Webber MD 05/16/2011 Office visit Abbie Pedraza SUPERVISOR FUR FLOOR WORKER 04/05/2011 Office visit Natty Webber MD 02/18/2011 Nurse visit Tyrell Nettles MD 01/03/2011 Office visit Natty Webber MD 09/27/2010 Office visit Natty Webber MD 09/06/2010 Office visit Natty Webber MD 08/17/2010 Office visit Natty Webber MD 08/12/2010 Office visit Natty Webber MD 08/09/2010 Office visit Natty Webber MD 08/01/2010 [facility] JORGE Green MD 08/01/2010 [facility] Christine Inman MD 07/31/2010 Office visit Christine Inman MD 07/31/2010 [facility] Jaye Polanco MD 07/31/2010 Voided [...]
--- OUTSIDE RECORDS SUMMARY | 2018-02-12 09:24 | XMS REPORT ---
Author Author Yarelis Meza Organization [facility] Address [address] [place], [place] [address] Care Team Providers Care Staffing Coordinator Name Role Phone Yarelis Meza PCP ValerianoPrecious mercer PreferredProvider Allergies and Adverse [...] three times per day for situational anxiety Augmentin 875-125 mg oral tablet 05/05/2017 take 1 tablet by oral route every 12 hours for 7 days benzonatate 100 mg oral capsule 05/05/2017 take 1 capsule (100 mg) by oral route 3 times per day as needed for cough Name Start Date Expiration Date SIG Comments prednisone 20 mg oral tablet 07/29/2010 08/03/2010 take 2 tablets by oral route daily for 5 days calcium carbonate-vitamin D2 600-125 mg-unit oral tablet 12/07/2011 01/06/2012 take 2 tablets by oral route daily [place] 3 Fish Oil 900-1,400 mg oral capsule,delayed [...] HC BMI BSA BMI Percentile O2 Sat(%) 05/05/2017 11:55:00 AM 126 mmHg 80 mmHg [...] History Name Description Comments 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 Never 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 History of Procedures Date [...] 12:00 AM Bicillin CR [facility]#[id number] Clinic Reviewed 06/08/2011 12:00 AM Depo-Medrol 40 mg [facility]#[id number] Reviewed 02/04/2016 12:00 AM COMPLETE CBC W/AUTO [...] Years And Above [facility]# [address]-47 [facility] Reviewed 04/02/2012 12:00 AM IMMUNIZATION ADMIN Reviewed 04/02/2012 12:00 AM Pneumovax Injection - [facility] Reviewed 05/05/2017 12:00 AM THER/PROPH/DIAG INJ SC/IM Reviewed 05/05/2017 12:00 AM Decadron 4mg Injection Reviewed 05/05/2017 12:00 AM Depo-Medrol 40mg Injection Reviewed 04/12/2012 12:00 AM TRICHOMONAS ASSAY W/OPTIC Reviewed 06/12/2012 12:00 AM THER/PROPH/DIAG INJ SC/IM Reviewed 06/12/2012 12:00 AM Bicillin CR, 1.2 million units [facility]# 26915-619-63 Reviewed 09/27/2012 12:00 AM COMPREHEN METABOLIC PANEL [...] Years And Above [facility]# [address]-44 C Reviewed 09/09/2009 8:48 AM Blood Pressure [...] Kenalog, Per 10 Mg [facility]#6512-4502-93 Reviewed 03/19/2014 12:00 AM COMPLETE CBC W/AUTO DIFF WBC Reviewed 03/19/2014 12:00 AM COMPREHEN METABOLIC PANEL Reviewed 03/19/2014 12:00 AM LIPID PANEL Reviewed 03/19/2014 12:00 AM ASSAY THYROID STIM HORMONE Reviewed 04/27/2014 12:00 AM Rocephin 1 gram [facility]#9106-0363-94 Reviewed 04/27/2014 12:00 AM THER/PROPH/DIAG INJ SC/IM [...] CVX Influenza 02/10/2010 sanofi pasteur PMC Fluzone [id number] Intramuscular Left Arm 02/10/2010 11/29/2009 999 Influenza 02/18/2011 sanofi pasteur PMC Fluzone [id number] Intramuscular Left Arm 02/18/2011 11/17/2010 141 Influenza 02/20/2012 sanofi pasteur PMC Fluzone [id number] Intramuscular Left Deltoid 02/20/2012 10/24/2011 141 X 04/02/2012 [employer] MSD Pneumovax 23 [id number] Intramuscular Left Gluteous Medius 04/02/2012 08/07/2009 33 Influenza 02/18/2013 sanofi pasteur PMC Fluzone > 3 Years [id number] Intramuscular Right Deltoid 02/18/2013 11/16/2012 141 X 12/24/2014 Not Entered NE Prevnar 13 Not Entered Not Entered 201404/24/2017 109 Influenza 12/24/2014 Not Entered NE Not Entered Not Entered Not Entered 12/24/2014 04/24/2017 141 HepB Adult 10/21/2015 [employer] MSD Recombivax Adult [id number] Not Entered Left Deltoid 10/21/2015 11/11/2015 43 HepB Adult 11/20/2015 [employer] MSD Recombivax Adult [id number] Intramuscular Right Deltoid 11/20/2015 11/11/2015 43 Zostavax 04/06/2012 Not Entered NE Not Entered Not Entered Not Entered 04/24/2017 04/24/2017 121 Tdap 04/06/2012 Not Entered NE Not Entered Not Entered Not Entered 04/24/201704/24/2017 115 Influenza 02/04/2016 Not Entered NE Fluzone High-Dose Intramuscular Left Arm 04/24/2017 04/24/2017 141 HepB Adult 04/21/2016 [employer] MSD Recombivax Adult [id number] Intramuscular Right Deltoid 04/21/2016 11/11/2015 43 Influenza [...] 2017 11:58AM Cough May 05 2017 11:58AM Payers Insurance Name Company Name Plan Name Plan Number Policy Number Policy Group Number Start Date Medicare [facility] Medicare [facility] [id number] N/[id number] Tuesday, 2009 Medicare Part B Medicare Of [place] [id number] N/A Medicare Part A Medicare Part A [id number] N/A Medicare Part A ZZZMedicare P A - Preventive [id number] N/A Medicare Part A Medicare - Lab/Xray [id number] N/A History of Encounters Visit Date Visit Type Provider 05/05/2017 Office visit Yarelis Meza SHEET MILL SUPERVISOR 04/11/2017 Office visit Precious Carmona MD 02/08/2017 Office visit Precious Carmona MD 01/31/2017 Office visit Precious Carmona MD 11/11/2016 Office visit Precious Carmona MD 11/01/2016 Office visit Precious Carmona MD 09/30/2016 Office visit Precious Carmona MD 09/16/2016 Office visit Pj Guajardo SHEET MILL SUPERVISOR 04/21/2016 Nurse visit Precious Carmona MD 02/04/2016 Office visit Precoius Carmona MD 11/20/2015 Nurse visit Precious Carmona MD 10/21/2015 Office visit Precious Carmona MD 10/15/2014 Office visit Precious Carmona MD 04/30/2014 Office visit Precious Carmona MD 04/27/2014 Office visit Pj Guajardo SHEET MILL SUPERVISOR 04/12/2014 Office visit Gaby Randolph SHEET MILL SUPERVISOR 02/17/2014 Voided Precious Carmona MD 01/27/2014 Office visit Precious Carmona MD 01/26/2014 Office visit Gaby Randolph SHEET MILL SUPERVISOR 01/23/2014 Office visit 01/23/2014 Office visit Abbie Pedraza SHEET MILL SUPERVISOR 10/04/2013 Office visit Coco Sofia SHEET MILL SUPERVISOR 09/30/2013 Office visit Precious Carmona MD 05/20/2013 Office visit Precious Carmona MD 04/01/2013 Office visit Natty Webber MD 02/18/2013 Nurse visit Natty Webber MD 10/01/2012 Office visit Natty Webber MD 06/12/2012 Office visit Abbie Pedraza SHEET MILL SUPERVISOR 04/12/2012 Office visit Natty Webber MD 04/02/2012 Office visit Natty Webber MD 02/20/2012 Nurse visit Natty Webber MD 12/07/2011 Office visit Natty Webber MD 11/18/2011 Office visit Abbie Pedraza SHEET MILL SUPERVISOR 10/03/2011 Office visit Natty Webber MD 06/08/2011 Office visit Natty Webber MD 05/16/2011 Office visit Abbie Pedraza SHEET MILL SUPERVISOR 04/05/2011 Office visit Natty Webber MD 02/18/2011 [...]
--- OUTSIDE RECORDS SUMMARY | 2018-02-12 09:28 | XMS REPORT ---
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 History of Procedures [...] 12:00 AM Bicillin CR [facility]#[id number]-TA Clinic Reviewed 06/08/2011 12:00 AM Depo-Medrol 40 mg [facility]#[id number] Reviewed 02/04/2016 12:00 AM COMPLETE CBC W/AUTO [...] Years And Above [facility]# [address]-89 RHC Reviewed 04/02/2012 12:00 AM IMMUNIZATION ADMIN Reviewed 04/02/2012 12:00 AM Pneumovax Injection - RHC Reviewed 04/12/2012 12:00 AM TRICHOMONAS ASSAY W/OPTIC Reviewed 06/12/2012 12:00 AM THER/PROPH/DIAG INJ SC/IM Reviewed 06/12/2012 12:00 AM Bicillin CR, 1.2 million units [facility]# 05580-366-31 Reviewed 09/27/2012 12:00 AM COMPREHEN METABOLIC PANEL [...] Years And Above [facility]# [address]-45 RHC Reviewed 09/09/2009 8:48 AM Blood Pressure [...] Kenalog, Per 10 Mg [facility]#8089-3773-38 Reviewed 03/19/2014 12:00 AM COMPLETE CBC W/AUTO DIFF WBC Reviewed 03/19/2014 12:00 AM COMPREHEN METABOLIC PANEL Reviewed 03/19/2014 12:00 AM LIPID PANEL Reviewed 03/19/2014 12:00 AM ASSAY THYROID STIM HORMONE Reviewed 04/27/2014 12:00 AM Rocephin 1 gram [facility]#5331-8223-27 Reviewed 04/27/2014 12:00 AM THER/PROPH/DIAG INJ SC/IM [...] CVX Influenza 02/10/2010 sanofi pasteur PMC Fluzone [id number] Intramuscular Left Arm 02/10/2010 11/29/2009 999 Influenza 02/18/2011 sanofi pasteur PMC Fluzone [id number] Intramuscular Left Arm 02/18/2011 11/17/2010 141 Influenza 02/20/2012 [employer]golia PMC Fluzone [id number] Intramuscular Left Deltoid 02/20/2012 10/24/2011 141 X 04/02/2012 [employer] MSD Pneumovax 23 [id number] Intramuscular Left Gluteous Medius 04/02/2012 08/07/2009 33 Influenza 02/18/2013 [employer] PMC Fluzone > 3 Years [id number] Intramuscular Right Deltoid 02/18/2013 11/16/2012 141 X 12/24/2014 Not Entered NE Prevnar 13 Not Entered Not Entered 201404/24/2017 109 Influenza 12/24/2014 Not Entered NE Not Entered Not Entered Not Entered 12/24/2014 04/24/2017 141 HepB Adult 10/21/2015 [employer] MSD Recombivax Adult [id number] Not Entered Left Deltoid 10/21/2015 11/11/2015 43 HepB Adult 11/20/2015 [employer] MSD Recombivax Adult [id number] Intramuscular Right Deltoid 11/20/2015 11/11/2015 43 Zostavax 04/06/2012 Not Entered NE Not Entered Not Entered Not Entered 04/24/2017 04/24/2017 121 Tdap 04/06/2012 Not Entered NE Not Entered Not Entered Not Entered 04/24/201704/24/2017 115 Influenza 02/04/2016 Not Entered NE Fluzone High-Dose Intramuscular Left Arm 04/24/2017 04/24/2017 141 HepB Adult 04/21/2016 [employer] MSD Recombivax Adult [id number] Intramuscular Right Deltoid 04/21/2016 11/11/2015 43 Influenza [...] Number Start Date Medicare RHC Medicare RHC [id number] N/A BCBS Bcbs [facility] [id number] Tuesday, 2009 Medicare Part B Medicare Of [place] [id number] N/A Medicare Part A Medicare Part A [id number] N/A Medicare Part A ZZZMedicare P A - Preventive [id number] N/A Medicare Part A Medicare - Lab/Xray [id number] N/A History of Encounters Visit Date Visit [...] Carmona MD 01/26/2014 Office visit Gaby Randolph RESOURCE ECONOMIST 01/23/2014 Office visit 01/23/2014 Office visit Abbie Pedraza RESOURCE ECONOMIST 10/04/2013 Office visit Coco Sofia RESOURCE ECONOMIST 09/30/2013 Office visit Precious Carmona MD 05/20/2013 Office visit Precious Carmona MD 04/01/2013 Office visit Natty Webber MD 02/18/2013 Nurse visit Natty Webber MD 10/01/2012 Office visit Natty Webber MD 06/12/2012 Office visit Abbie Pedraza RESOURCE ECONOMIST 04/12/2012 Office visit Natty Webber MD 04/02/2012 Office visit Natty Webber MD 02/20/2012 Nurse visit Natty Webber MD 12/07/2011 Office visit Natty Webber MD 11/18/2011 Office visit Abbie Pedraza RESOURCE ECONOMIST 10/03/2011 Office visit Natty Webber MD 06/08/2011 Office visit Natty Webber MD 05/16/2011 Office visit Abbie Pedraza RESOURCE ECONOMIST 04/05/2011 Office visit Natty Webber MD 02/18/2011 Nurse visit Tyrell Nettles MD 01/03/2011 Office visit Natty Webber MD 09/27/2010 Office visit Natty Wbeber MD 09/06/2010 Office visit Natty Webber MD 08/17/2010 Office visit Natty Webber MD 08/12/2010 Office visit Natty Webber MD 08/09/2010 Office visit Natty Webber MD 08/01/2010 [facility] JORGE Green MD 08/01/2010 [facility] Christine Inman MD 07/31/2010 Office visit [...]
--- OUTSIDE RECORDS SUMMARY | 2018-02-12 09:39 | XMS REPORT ---
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#[id number] Clinic Reviewed 06/08/2011 12:00 AM Depo-Medrol [address] [facility]#[id number] Reviewed 02/04/2016 12:00 AM COMPLETE CBC W/AUTO [...] [address] [facility]# [address]-58 RHC Reviewed 04/02/2012 12:00 AM IMMUNIZATION ADMIN [...] CR, 1.[address] [facility]# 83751-008-65 Reviewed 09/27/2012 12:00 AM COMPREHEN METABOLIC PANEL [...] [address] [facility]# [address]-47 RHC Reviewed 09/09/2009 8:48 AM Blood Pressure [...] Kenalog, Per [address] [facility]#4678-8920-71 Reviewed 03/19/2014 12:00 AM COMPLETE CBC W/AUTO DIFF WBC Reviewed 03/19/2014 12:00 AM COMPREHEN METABOLIC PANEL Reviewed 03/19/2014 12:00 AM LIPID PANEL Reviewed 03/19/2014 12:00 AM ASSAY THYROID STIM HORMONE Reviewed 04/27/2014 12:00 AM Rocephin [address] [facility]#2241-4059-70 Reviewed 04/27/2014 12:00 AM THER/PROPH/DIAG INJ SC/IM [...] CVX Influenza 02/10/2010 sanofi pasteur PMC FLUZONE [id number] Intramuscular Left Arm 02/10/2010 11/29/2009 999 Influenza 02/18/2011 sanofi pasteur PMC FLUZONE [id number] Intramuscular Left Arm 02/18/2011 11/17/2010 141 Influenza 02/20/2012 sanofi pasteur PMC FLUZONE [id number] Intramuscular Left Deltoid 02/20/2012 10/24/2011 141 X 04/02/2012 [employer] MSD PNEUMOVAX 23 [id number] Intramuscular Left Gluteous Medius 04/02/2012 08/07/2009 33 Influenza 02/18/2013 [facility] PMC Fluzone > 3 Years [id number] Intramuscular Right Deltoid 02/18/2013 11/16/2012 141 X 12/24/2014 Not Entered NE PREVNAR 13 Not Entered Not Entered 201404/24/2017 109 Influenza 12/24/2014 Not Entered NE Not Entered Not Entered Not Entered 12/24/2014 04/24/2017 141 HepB Adult 10/21/2015 [employer]ck [employer] Co., Inc. MSD RECOMBIVAX-ADULT [id number] Not Entered Left Deltoid 10/21/2015 11/11/2015 43 HepB Adult 11/20/2015 [employer] MSD RECOMBIVAX-ADULT [id number] Intramuscular Right Deltoid 11/20/2015 11/11/2015 43 Zostavax 04/06/2012 Not Entered NE Not Entered Not Entered Not Entered 04/24/2017 04/24/2017 121 Tdap 04/06/2012 Not Entered NE Not Entered Not Entered Not Entered 04/24/201704/24/2017 115 Influenza 02/04/2016 Not Entered NE FLUZONE-HIGH DOSE Intramuscular Left Arm 04/24/2017 04/24/2017 141 HepB Adult 04/21/2016 [employer] MSD RECOMBIVAX-ADULT [id number] Intramuscular Right Deltoid 04/21/2016 11/11/2015 43 Influenza [...] Group Number Start Date Medicare [facility] Medicare [facility] [id number] N/A [id number] Tuesday, 2009 Medicare Part B Medicare Of [place] [id number] N/A Medicare Part A Medicare Part A [id number] N/A Medicare Part A ZZZMedicare P A - Preventive [id number] N/A Medicare Part A Medicare - Lab/Xray [id number] N/A History of Encounters Visit Date Visit [...] Carmona MD 09/16/2016 Office visit Pj Guajardo CAMPUS MONITOR 04/21/2016 Nurse visit Precious Carmona MD 02/04/2016 Office visit Precious Carmona MD 11/20/2015 Nurse visit Precious Carmona MD 10/21/2015 Office visit Precious Carmona MD 10/15/2014 Office visit Precious Carmona MD 04/30/2014 Office visit Precious Carmona MD 04/27/2014 Office visit Pj Guajardo CAMPUS MONITOR 04/12/2014 Office visit Gaby Randolph CAMPUS MONITOR 02/17/2014 Voided Precious Carmona MD 01/27/2014 Office visit Precious Carmona MD 01/26/2014 Office visit Gaby Randolph CAMPUS MONITOR 01/23/2014 Office visit 01/23/2014 Office visit Abbie Pedraza CAMPUS MONITOR 10/04/2013 Office visit Coco Sofia CAMPUS MONITOR 09/30/2013 Office visit Precious Carmona MD 05/20/2013 Office visit Precious Carmona MD 04/01/2013 Office visit Natty Webber MD 02/18/2013 Nurse visit Natty Webber MD 10/01/2012 Office visit Natty Webber MD 06/12/2012 Office visit Abbie Pedraza CAMPUS MONITOR 04/12/2012 Office visit Natty Webber MD 04/02/2012 Office visit Natty Webber MD 02/20/2012 Nurse visit Natty Webber MD 12/07/2011 Office visit Natty Webber MD 11/18/2011 Office visit Abbie Pedraza CAMPUS MONITOR 10/03/2011 Office visit Natty Webber MD 06/08/2011 Office visit Natty Webber MD 05/16/2011 Office visit Abbie Pedraza CAMPUS MONITOR 04/05/2011 Office visit Natty Webber MD 02/18/2011 Nurse visit Tyrell Nettles MD 01/03/2011 Office visit Natty Webber MD 09/27/2010 Office visit Natty Webber MD 09/06/2010 Office visit Natty Webber MD 08/17/2010 Office visit Natty Webber MD 08/12/2010 Office visit Natty Webber MD 08/09/2010 Office visit Natty Webber MD 08/01/2010 [facility] JORGE Green MD 08/01/2010 [facility] Christine Inman MD 07/31/2010 Office visit Christine Inman MD 07/31/2010 [facility] Jaye Polanco MD 07/31/2010 Voided Jaye [...]
--- OUTSIDE RECORDS SUMMARY | 2018-02-12 09:40 | XMS REPORT ---
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 History of Procedures Date [...] SC/IM Reviewed 06/08/2011 12:00 AM Bicillin CR [facility]#[id number] Clinic Reviewed 06/08/2011 12:00 AM Depo-Medrol 40 mg [facility]#[id number] Reviewed 02/04/2016 12:00 AM COMPLETE CBC W/AUTO [...] AM Flu Injection 3 Years And Above [facility]# [address]-30 C Reviewed 04/02/2012 12:00 AM IMMUNIZATION ADMIN Reviewed 04/02/2012 12:00 AM Pneumovax Injection - [facility] Reviewed 04/12/2012 12:00 AM TRICHOMONAS ASSAY W/OPTIC Reviewed 06/12/2012 12:00 AM THER/PROPH/DIAG INJ SC/IM Reviewed 06/12/2012 12:00 AM Bicillin CR, 1.2 million units [facility]# 33073-002-01 Reviewed 09/27/2012 12:00 AM COMPREHEN METABOLIC PANEL [...] AM Flu Injection 3 Years And Above [facility]# [address]-55 RHC Reviewed 09/09/2009 8:48 AM Blood Pressure [...] 01/23/2014 12:00 AM Kenalog, Per 10 Mg [facility]#3077-5247-96 Reviewed 03/19/2014 12:00 AM COMPLETE CBC W/AUTO DIFF WBC Reviewed 03/19/2014 12:00 AM COMPREHEN METABOLIC PANEL Reviewed 03/19/2014 12:00 AM LIPID PANEL Reviewed 03/19/2014 12:00 AM ASSAY THYROID STIM HORMONE Reviewed 04/27/2014 12:00 AM Rocephin 1 gram [facility]#6709-3279-37 Reviewed 04/27/2014 12:00 AM THER/PROPH/DIAG INJ SC/IM [...] CVX Influenza 02/10/2010 sanofi pasteur PMC Fluzone [id number] Intramuscular Left Arm 02/10/2010 11/29/2009 999 Influenza 02/18/2011 sanofi pasteur PMC Fluzone [id number] Intramuscular Left Arm 02/18/2011 11/17/2010 141 Influenza 02/20/2012 sanofi pasteur PMC Fluzone [id number] Intramuscular Left Deltoid 02/20/2012 10/24/2011 141 X 04/02/2012 [employer] Inc[employer] MSD Pneumovax 23 [id number] Intramuscular Left Gluteous Medius 04/02/2012 08/07/2009 33 Influenza 02/18/2013 [facility] PMC Fluzone > 3 Years [id number] Intramuscular Right Deltoid 02/18/2013 11/16/2012 141 X 12/24/2014 Not Entered NE Prevnar 13 Not Entered Not Entered 201404/24/2017 109 Influenza 12/24/2014 Not Entered NE Not Entered Not Entered Not Entered 12/24/2014 04/24/2017 141 HepB Adult 10/21/2015 [employer] MSD Recombivax Adult [id number] Not Entered Left Deltoid 10/21/2015 11/11/2015 43 HepB Adult 11/20/2015 [employer] MSD Recombivax Adult [id number] Intramuscular Right Deltoid 11/20/2015 11/11/2015 43 Zostavax 04/06/2012 Not Entered NE Not Entered Not Entered Not Entered 04/24/2017 04/24/2017 121 Tdap 04/06/2012 Not Entered NE Not Entered Not Entered Not Entered 04/24/201704/24/2017 115 Influenza 02/04/2016 Not Entered NE Fluzone High-Dose Intramuscular Left Arm 04/24/2017 04/24/2017 141 HepB Adult 04/21/2016 [employer] MSD Recombivax Adult [id number] Intramuscular Right Deltoid 04/21/2016 11/11/2015 43 Influenza [...] Number Start Date Medicare RHC Medicare RHC [id number] N/A BCBS Bcbs [employer] [place] [id number] Tuesday, 2009 Medicare Part B Medicare Of [place] [id number] N/A Medicare Part A Medicare Part A [id number] N/A Medicare Part A ZZZMedicare P A - Preventive [id number] N/A Medicare Part A Medicare - Lab/Xray [id number] N/A History of Encounters Visit Date Visit Type Provider 02/08/2017 Office visit Precious Carmona MD 01/31/2017 Office visit Precious Carmona MD 11/11/2016 Office visit Precious Carmona MD 11/01/2016 Office visit Precious Carmona MD 09/30/2016 Office visit Precious Carmona MD 09/16/2016 Office visit Pj Guajardo UC ARCHITECT 04/21/2016 Nurse visit Precious Carmona MD 02/04/2016 Office visit Precious Carmona MD 11/20/2015 Nurse visit Precious Carmona MD 10/21/2015 Office visit Precious Carmona MD 10/15/2014 Office visit Precious Carmona MD 04/30/2014 Office visit Precious Carmona MD 04/27/2014 Office visit Pj Guajardo UC ARCHITECT 04/12/2014 Office visit Gaby Randolph UC ARCHITECT 02/17/2014 Voided Precious Carmona MD 01/27/2014 Office visit Precious Carmona MD 01/26/2014 Office visit Gaby Randolph UC ARCHITECT 01/23/2014 Office visit 01/23/2014 Office visit Abbie Pedraza UC ARCHITECT 10/04/2013 Office visit Coco Sofia UC ARCHITECT 09/30/2013 Office visit Precious Carmona MD 05/20/2013 Office visit Precious Carmona MD 04/01/2013 Office visit Natty Webber MD 02/18/2013 Nurse visit Natty Webber MD 10/01/2012 Office visit Natty Webber MD 06/12/2012 Office visit Abbie Pedraza UC ARCHITECT 04/12/2012 Office visit Natty Webber MD 04/02/2012 Office visit Natty Webber MD 02/20/2012 Nurse visit Natty Webber MD 12/07/2011 Office visit Natty Webber MD 11/18/2011 Office visit Abbie Pedraza UC ARCHITECT 10/03/2011 Office visit Natty Webber MD 06/08/2011 Office visit Natty Webber MD 05/16/2011 Office visit Abbie Pedraza UC ARCHITECT 04/05/2011 Office visit Natty Webber MD 02/18/2011 [...]
--- NOTE | 2018-02-12 09:42 | Endo Procedure Record ---
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 Informed consent was obtained after reviewing the procedure in detail. Description of the procedure: She was placed in left lateral decubitus position and her vital signs were monitored. Conscious sedation was achieved using Versed and fentanyl. The flexible gastroscope was then introduced down the esophagus, past the stomach, into the proximal duodenum. Findings: Esophagus: A short, uncomplicated hiatal hernia. 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 The rest of the stomach and duodenum were normal She tolerated the procedure well and was taken back to the nursing area in a stable condition. Impression: Epigastric discomfort and nausea. Gallbladder ultrasound negative and therefore it would be reasonable to obtain a HIDA scan. This would be arranged JUSTA YOUSSEF MD Feb 12, 2018 09:42
--- OUTSIDE RECORDS SUMMARY | 2018-02-12 09:47 | XMS REPORT | Continuity of Care Document ---
Author Author [facility] Organization [facility] Address Unknown Phone Unavailable Allergies Active Description Code Type Severity Reaction Onset Reported/Identified Relationship to Patient Clinical Status Yes No Known Drug Allergies [id number] N/A N/A Yes No Known Drug Allergies [id number] Drug Allergy Unknown N/A 02/08/2018 Medications There is no data. Problems Date Dx Coded Attending Type Code Diagnosis Diagnosed By 11/01/2016 JUSTA YOUSSEF MD Ot K21.9 GASTRO-ESOPHAGEAL REFLUX DISEASE WITHOUT 11/01/2016 JUSTA YOUSSEF MD Ot R19.5 OTHER FECAL ABNORMALITIES 11/01/2016 JUSTA YOUSSEF MD Ot Z01.818 ENCOUNTER FOR OTHER PREPROCEDURAL EXAMIN 11/01/2016 JUSTA YOUSSEF MD Ot K21.9 GASTRO-ESOPHAGEAL REFLUX DISEASE WITHOUT 11/01/2016 JUSTA YOUSSEF MD Ot R19.5 OTHER FECAL ABNORMALITIES 11/01/2016 JUSTA YOUSSEF MD Ot Z01.818 ENCOUNTER FOR OTHER PREPROCEDURAL EXAMIN 11/01/2016 JUSTA YOUSSEF MD Ot K21.9 GASTRO-ESOPHAGEAL REFLUX DISEASE WITHOUT 11/01/2016 JUSTA YOUSSEF MD Ot R19.5 OTHER FECAL ABNORMALITIES 11/01/2016 JUSTA YOUSSEF MD Ot Z01.818 ENCOUNTER FOR OTHER PREPROCEDURAL EXAMIN 11/01/2016 JUSTA YOUSSEF MD Ot K21.9 GASTRO-ESOPHAGEAL REFLUX DISEASE WITHOUT 11/01/2016 JUSTA YOUSSEF MD M Ot R19.5 OTHER FECAL ABNORMALITIES 11/01/2016 JUSTA YOUSSEF MD Ot Z01.818 ENCOUNTER FOR OTHER PREPROCEDURAL EXAMIN 11/03/2016 JUSTA YOUSSEF MD Ot E78.00 PURE HYPERCHOLESTEROLEMIA, UNSPECIFIED 11/03/2016 DOMONIQUE BLACKWELL, JUSTA Interiano Ot I10 ESSENTIAL (PRIMARY) HYPERTENSION 11/03/2016 JUSTA YOUSSEF MD Ot K20.9 ESOPHAGITIS, UNSPECIFIED 11/03/2016 JUSTA YOUSSEF MD Ot K21.9 GASTRO-ESOPHAGEAL REFLUX DISEASE WITHOUT 11/03/2016 JUSTA YOUSSEF MD Ot K44.9 DIAPHRAGMATIC HERNIA WITHOUT OBSTRUCTION 11/03/2016 JUSTA YOUSSEF MD Ot K57.30 DVRTCLOS OF LG INT W/O PERFORATION OR AB 11/03/2016 JUSTA YOUSSEF MD Ot K64.8 OTHER HEMORRHOIDS 11/03/2016 JUSTA YOUSSEF MD Ot R19.5 OTHER FECAL ABNORMALITIES 11/03/2016 JUSTA YOUSSEF MD Ot Z80.0 FAMILY HISTORY OF MALIGNANT NEOPLASM OF 11/14/2016 JUSTA YOUSSEF MD Ot R10.11 RIGHT UPPER QUADRANT PAIN 11/14/2016 JUSTA YOUSSEF MD Ot R93.2 ABNORMAL FINDINGS ON DX IMAGING OF LIVER 11/14/2016 JUSTA YOUSSEF MD Ot R10.11 RIGHT UPPER QUADRANT PAIN 11/14/2016 JUSTA YOUSSEF MD Ot R93.2 ABNORMAL FINDINGS ON DX IMAGING OF LIVER 11/14/2016 JUSTA YOUSSEF MD Ot R10.11 RIGHT UPPER QUADRANT PAIN 11/14/2016 JUSTA YOUSSEF MD Ot R93.2 ABNORMAL FINDINGS ON DX IMAGING OF LIVER 11/16/2016 JUSTA YOUSSEF MD Ot R10.11 RIGHT UPPER QUADRANT PAIN 11/16/2016 JUSTA YOUSSEF MD Ot R93.2 ABNORMAL FINDINGS ON DX IMAGING OF LIVER 11/16/2016 JUSTA YOUSSEF MD Ot R10.11 RIGHT UPPER QUADRANT PAIN 11/16/2016 JUSTA YOUSSEF MD Ot R93.2 ABNORMAL FINDINGS ON DX IMAGING OF LIVER 11/30/2016 JUSTA YOUSSEF MD Ot R10.11 RIGHT UPPER QUADRANT PAIN 11/30/2016 JUSTA YOUSSEF MD Ot R93.2 ABNORMAL FINDINGS ON DX IMAGING OF LIVER 12/14/2016 JUSTA YOUSSEF MD Ot R10.11 RIGHT UPPER QUADRANT PAIN 12/14/2016 JUSTA YOUSSEF MD Ot R93.2 ABNORMAL FINDINGS ON DX IMAGING OF LIVER 02/07/2018 JUSTA YOUSSEF MD Ot Z01.818 ENCOUNTER FOR OTHER PREPROCEDURAL EXAMIN 02/08/2018 JUSTA YOUSSEF MD Ot Z01.818 ENCOUNTER FOR OTHER PREPROCEDURAL EXAMIN 02/08/2018 DOMONIQUE BLACKWELL, JUSTA Interiano Ot Z01.818 ENCOUNTER FOR OTHER PREPROCEDURAL EXAMIN 02/12/2018 JUSTA YOUSSEF MD Ot R10.11 RIGHT UPPER QUADRANT PAIN 02/12/2018 JUSTA YOUSSEF MD Ot R93.2 ABNORMAL FINDINGS ON DX IMAGING OF LIVER Procedures There is no data. Results There is no data. Encounters ACCT No. Visit Date/Time Discharge Status Pt. Type Provider Facility Loc./Unit Complaint [id number] 01/22/2018 09:47:33 01/22/2018 23:59:59 CLS Outpatient Velma, Bruno [id number] 12/22/2017 09:47:30 12/22/2017 23:59:59 JODY Outpatient Bruno Carreon [id number] 10/20/2017 09:48:42 10/20/2017 23:59:59 CLS Outpatient Bruno Carreon [id number] 09/19/2017 09:14:21 09/19/2017 23:59:59 CLS Outpatient Bruno Carreon [id number] 09/12/2017 09:29:14 09/12/2017 23:59:59 CLS Outpatient Precious Carmona [id number] 06/27/2017 09:13:06 06/27/2017 23:59:59 CLS Outpatient Precious Carmona [id number] 05/05/2017 12:50:55 05/05/2017 23:59:59 CLS Outpatient Yarelis Meza [id number] 04/11/2017 09:09:30 04/11/2017 23:59:59 CLS Outpatient Precious Carmona [id number] 02/08/2017 09:53:44 02/08/2017 23:59:59 CLS Outpatient RiddelPrecious [id number] 01/31/2017 14:41:56 01/31/2017 23:59:59 CLS Outpatient Precious Carmona [id number] 11/11/2016 09:15:47 11/11/2016 23:59:59 CLS Outpatient Precious Carmona [id number] 11/01/2016 09:38:32 11/01/2016 23:59:59 CLS Outpatient Precious Carmona [id number] 09/30/2016 12:09:45 09/30/2016 23:59:59 CLS Outpatient Precious Carmona [id number] 09/16/2016 09:14:55 09/16/2016 23:59:59 CLS Outpatient GuajardoPj mcgarry [id number] 04/21/2016 09:25:05 04/21/2016 23:59:59 CLS Outpatient RidPrecious mercer [id number] 02/04/2016 15:12:59 02/04/2016 23:59:59 CLS Outpatient RiddelPrecious [id number] 11/20/2015 09:14:04 11/20/2015 23:59:59 CLS Outpatient RiddelPrecious [id number] 10/21/2015 09:30:33 10/21/2015 23:59:59 CLS Outpatient Riddel, Precious [id number] 12/01/2014 22:02:21 12/01/2014 23:59:59 CLS Outpatient RidPrecious mercer [id number] 04/30/2014 10:01:13 04/30/2014 23:59:59 CLS Outpatient RidPrecious mercer [id number] 04/27/2014 14:03:46 04/27/2014 23:59:59 CLS Outpatient Pj Guajardo [id number] 04/12/2014 10:21:34 04/12/2014 23:59:59 CLS Outpatient Gaby Randolph [id number] 02/17/2014 09:56:02 02/17/2014 23:59:59 CLS Outpatient Mathew Precious [id number] 01/27/2014 09:50:16 01/27/2014 23:59:59 CLS Outpatient Mathew Precious [id number] 01/26/2014 14:39:50 01/26/2014 23:59:59 CLS Outpatient Gaby Randolph [id number] 01/23/2014 10:07:18 01/23/2014 23:59:59 CLS Outpatient Abbie Pedraza [id number] 10/04/2013 10:13:17 10/04/2013 23:59:59 CLS Outpatient Coco Sofia [id number] 09/30/2013 09:15:33 09/30/2013 23:59:59 CLS Outpatient Ridsylvie Precious [id number] 05/20/2013 10:42:42 05/20/2013 23:59:59 CLS Outpatient RidPrecious mercer [id number] 12/11/2017 08:04:33 Document Registration [id number] 09/19/2017 09:06:18 Document Registration [id number] 06/20/2017 08:10:16 Document Registration [id number] 02/21/2017 08:31:14 Document Registration [id number] 02/08/2018 13:31:00 02/08/2018 13:45:00 DIS Outpatient JUSTA YOUSSEF MD [facility] PREOP EGD [id number] 11/08/2016 09:12:00 11/08/2016 23:59:59 CLS Outpatient JUSTA YOUSSEF MD [facility] RAD RUQ PAIN [id number] 11/03/2016 08:08:00 11/03/2016 11:35:00 DIS Outpatient JUSTA YOUSSEF MD [facility] ENDO GERD/HEMOCULT POSITIVE STOOLS [id number] 10/31/2016 05:43:00 11/01/2016 10:32:00 DIS Outpatient JUSTA YOUSSEF MD [facility] PREOP GERD/HEMOCULT POSITIVE STOOLS [id number] 02/12/2018 08:14:00 ACT Outpatient JUSTA YOUSSEF MD [facility] ENDO NAUSEA/GERD
--- NOTE | 2018-02-12 09:53 | Discharge Inst-Simple/Standard ---
Discharge Inst-Standard Discharge Medications New, Converted or Re-Newed RX: Other Patient Instructions/Follow Up Plan of Care/Instructions/FU: please schedule a HIDA scan with ejection fraction as an outpatient Activity as Tolerated: Yes Discharge Diet: No Restrictions JUSTA YOUSSEF MD Feb 12, 2018 09:53
[2018-02-12 10:07] VITALS: BP 110/58
[2018-02-12 10:37] VITALS: BP 136/78
[2018-02-12 10:44] VITALS: BP 136/78
== END | disposition home or self-care (01) ==
LOC: ENDO 08:14
PROVIDERS: ATTEND Surgery
DX: K44.9 Diaphragmatic hernia without obstruction or gangrene (principal); R10.13 Epigastric pain; R11.0 Nausea; I25.10 Atherosclerotic heart disease of native coronary artery without angina pectoris; E78.00 Pure hypercholesterolemia, unspecified; I10 Essential (primary) hypertension; K21.9 Gastro-esophageal reflux disease without esophagitis; K57.30 Diverticulosis of large intestine without perforation or abscess without bleeding; F41.9 Anxiety disorder, unspecified; Z79.899 Other long term (current) drug therapy

== ENCOUNTER → 2018-02-13 | Outpatient (CLI) | payer MEDICARE, BC ==
[~2018-02-13] MED LIST changes: +CATHETER FLUSH 10 ML SYR IV PRN; -HURRICAINE EXT TUBE (BENZOCAINE) ONE; -HURRICAINE EXT TUBE (BENZOCAINE) XX PRN; -MIDAZOLAM 2 MG/2 ML (VERSED) VIAL IVP ONE; -MIDAZOLAM 2 MG/2 ML (VERSED) VIAL ONE; -NS IV 500 ML 500 ML IV PRN; -NS IV 500 ML 500 ML ONE; -fentaNYL INJECTION 100 MCG/2 ML AMP IVP ONE; -fentaNYL INJECTION 100 MCG/2 ML AMP ONE
--- NOTE | 2018-02-13 13:19 | Diagnostic Imaging Report ---
INDICATION: Right upper quadrant pain and nausea. TECHNIQUE: Patient was administered 5.3 mCi technetium-99m Choletec, and imaging of the abdomen was performed. At 1 hour, patient ingested 8 ounces of Ensure, and gallbladder ejection fraction was calculated. FINDINGS: There is homogeneous uptake of activity by the liver. Prompt excretion of activity into the common duct and gallbladder is seen with normal passage of activity into the small bowel. Gallbladder ejection fraction is abnormally low at 18%. Normal values are 33% or greater. IMPRESSION: 1. No evidence of cystic duct or common bile duct obstruction. 2. Low gallbladder ejection fraction of 18%. Dictated by: Dictated on workstation # [id number]
== END ==
LOC: CARD 07:19
PROVIDERS: ATTEND Surgery
DX: R10.11 Right upper quadrant pain (principal); R11.0 Nausea
CPT/HCPCS: 78227

== ENCOUNTER 2018-03-08 09:15 | Outpatient (CLI) | payer MEDICARE, BC ==
[~2018-03-08] VITALS: Ht 155.6 cm; Wt 63.0 kg
[~2018-03-08 09:15] MED LIST changes: -CATHETER FLUSH 10 ML SYR IV PRN
== END 2018-03-08 09:58 | disposition home or self-care (01) ==
LOC: PREOP 09:15
PROVIDERS: ATTEND Surgery
DX: Z01.818 Encounter for other preprocedural examination (principal)

== ENCOUNTER 2018-03-14 05:53 | Day surgery (SDC) | payer MEDICARE, BC ==
[~2018-03-14] VITALS: Ht 155.6 cm; Wt 64.4 kg
[2018-03-14 06:10] VITALS: BP 139/78
[2018-03-14] MEDS ORDERED: LACTATED RINGERS 1,000 ML IV PRN (06:25)
[2018-03-14] MEDS ORDERED: ceFAZolin INJECTION 1,000 MG in NS (IVPB) 50 ML IV ONE (06:30)
[2018-03-14] MEDS ORDERED: metroNIDAZOLE 500MG/100ML IVPB 100 ML IV ONE (06:30)
[2018-03-14 06:47] LABS: BASOPHILS # (AUTO) 0.1 10^3/uL (0.0-0.1); BASOPHILS % (AUTO) 1 % (0-10); EOSINOPHILS # (AUTO) 0.2 10^3/uL (0.0-0.3); EOSINOPHILS % (AUTO) 4 % (0-10); HEMATOCRIT 37 % (35-52); HEMOGLOBIN 12.2 G/DL (11.5-16.0); LYMPHOCYTES # (AUTO) 1.2 X 10^3 (1.0-4.0); LYMPHOCYTES % (AUTO) 21 % (12-44); MEAN CORPUSCULAR HEMOGLOBIN 32 PG (25-34); MEAN CORPUSCULAR HGB CONC 33 G/DL (32-36); MEAN CORPUSCULAR VOLUME 97 FL (80-99); MEAN PLATELET VOLUME 9.8 FL (7.4-10.4); MONOCYTES # (AUTO) 0.6 X 10^3 (0.0-1.0); MONOCYTES % (AUTO) 10 % (0-12); NEUTROPHILS # (AUTO) 3.8 X 10^3 (1.8-7.8); NEUTROPHILS % (AUTO) 65 % (42-75); PLATELET COUNT 272 10^3/uL (130-400); RED BLOOD COUNT 3.87 10^6/uL (4.35-5.85); RED CELL DISTRIBUTION WIDTH 12.7 % (10.0-14.5); WHITE BLOOD COUNT 5.9 10^3/uL (4.3-11.0)
[2018-03-14] MEDS ORDERED: proPOfol 200 MG/20 ML (DIPRIVAN) VIAL IV ONE (06:59)
[2018-03-14] MEDS ORDERED: LIDOCAINE PF 2% 5 ML (XYLOCAINE) VIAL ONE (06:59)
[2018-03-14] MEDS ORDERED: MIDAZOLAM 2 MG/2 ML (VERSED) VIAL ONE (06:59)
[2018-03-14] MEDS ORDERED: ONDANSETRON 4 MG/2 ML (SDV) Z0FRAN ONE (06:59)
[2018-03-14] MEDS ORDERED: DEXAMETHASONE 10 MG/ML (DECADRON) 1 ML VIAL ONE (06:59)
[2018-03-14] MEDS ORDERED: fentaNYL INJECTION 100 MCG/2 ML AMP ONE (07:00)
[2018-03-14] MEDS ORDERED: SEVOFLURANE (ULTANE) 15 ML INHAL SOLN ONE ×4 (07:08→08:05)
[2018-03-14 07:11] LABS: ALANINE AMINOTRANSFERASE 19 U/L (0-55); ALBUMIN 4.3 GM/DL (3.2-4.5); ALKALINE PHOSPHATASE 103 U/L (40-136); BILIRUBIN,TOTAL 0.5 MG/DL (0.1-1.0); BUN/CREATININE RATIO 18; CALCIUM 9.1 MG/DL (8.5-10.1); CARBON DIOXIDE 26 MMOL/L (21-32); CHLORIDE 99 MMOL/L (98-107); GFR ESTIMATED > 60; GLUCOSE 105 MG/DL (70-105); POTASSIUM 4.1 MMOL/L (3.6-5.0); SODIUM 135 MMOL/L (135-145); TOTAL PROTEIN 7.2 GM/DL (6.4-8.2)
--- NOTE | 2018-03-14 07:19 | Progress Note-Pre Operative ---
Pre-Operative Progress Note H&P Reviewed The H&P was reviewed, patient examined and no changes noted. Date Seen by Provider: Feb 26, 2018 Time Seen by Provider: 11:20 Date H&P Reviewed: Mar 14, 2018 Time H&P Reviewed: 07:18 Pre-Operative Diagnosis: Chronic acalculous cholecystitis JUSTA YOUSSEF MD Mar 14, 2018 07:19
[2018-03-14] MEDS ORDERED: FISH1CAP15 PO (07:20)
[2018-03-14] MEDS ORDERED: VITA1TAB33 PO (07:20)
--- OUTSIDE RECORDS SUMMARY | 2018-03-14 07:23 | XMS REPORT | Continuity of Care Document ---
Author Author [facility] Organization [facility] Address Unknown Phone Unavailable Allergies Active Description Code Type Severity Reaction Onset Reported/Identified Relationship to Patient Clinical Status Yes No Known Drug Allergies [id number] N/A N/A Yes No Known Drug Allergies [id number] Drug Allergy Unknown N/A 02/08/2018 Medications There [...] ABNORMAL FINDINGS ON DX IMAGING OF LIVER 2018 JUSTA YOUSSEF MD Ot E78.00 PURE HYPERCHOLESTEROLEMIA, UNSPECIFIED 2018 JUSTA YOUSSEF MD Ot F41.9 ANXIETY DISORDER, UNSPECIFIED 2018 JUSTA YOUSSEF MD Ot I10 ESSENTIAL (PRIMARY) HYPERTENSION 2018 JUSTA YOUSSEF MD Ot I25.10 ATHSCL HEART DISEASE OF [place] CORONARY 2018 JUSTA YOUSSEF MD Ot K21.9 GASTRO-ESOPHAGEAL REFLUX DISEASE WITHOUT 2018 JUSTA YOUSSEF MD Ot K44.9 DIAPHRAGMATIC HERNIA WITHOUT OBSTRUCTION 2018 JUSTA YOUSSEF MD Ot K57.30 DVRTCLOS OF LG INT W/O PERFORATION OR AB 2018 JUSTA YOUSSEF MD Ot R10.13 EPIGASTRIC PAIN 2018 JUSTA YOUSSEF MD Ot R11.0 NAUSEA 2018 JUSTA YOUSSEF MD Ot Z79.899 OTHER CHIP WASHER (CURRENT) DRUG THERAPY 02/15/2018 JUSTA YOUSSEF MD Ot R10.11 RIGHT UPPER QUADRANT PAIN 02/15/2018 JUSTA YOUSSEF MD Ot R11.0 NAUSEA 02/16/2018 JUSTA YOUSSEF MD Ot E78.00 PURE HYPERCHOLESTEROLEMIA, UNSPECIFIED 02/16/2018 JUSTA YOUSSEF MD Ot F41.9 ANXIETY DISORDER, UNSPECIFIED 02/16/2018 JUSTA YOUSSEF MD Ot I10 ESSENTIAL (PRIMARY) HYPERTENSION 02/16/2018 JUSTA YOUSSEF MD Ot I25.10 ATHSCL HEART DISEASE OF [place] CORONARY 02/16/2018 JUSTA YOUSSEF MD Ot K21.9 GASTRO-ESOPHAGEAL REFLUX DISEASE WITHOUT 02/16/2018 JUSTA YOUSSEF MD Ot K44.9 DIAPHRAGMATIC HERNIA WITHOUT OBSTRUCTION 02/16/2018 JUSTA YOUSSEF MD Ot K57.30 DVRTCLOS OF LG INT W/O PERFORATION OR AB 02/16/2018 JUSTA YOUSSEF MD Ot R10.13 EPIGASTRIC PAIN 02/16/2018 JUSTA YOUSSEF MD Ot R11.0 NAUSEA 02/16/2018 JUSTA YOUSSEF MD, Ot Z79.899 OTHER CHIP WASHER (CURRENT) DRUG THERAPY 03/08/2018 JUSTA YOUSSEF MD Ot Z01.818 ENCOUNTER FOR OTHER PREPROCEDURAL EXAMIN 03/08/2018 JUSTA YOUSSEF MD, Ot Z01.818 ENCOUNTER FOR OTHER PREPROCEDURAL EXAMIN 03/14/2018 JUSTA YOUSSEF MD Ot R10.11 RIGHT UPPER QUADRANT PAIN 03/14/2018 JUSTA YOUSESF MD Ot R93.2 ABNORMAL FINDINGS ON DX IMAGING OF LIVER 03/14/2018 JUSTA YOUSSEF MD Ot E78.00 PURE HYPERCHOLESTEROLEMIA, UNSPECIFIED 03/14/2018 JUSTA YOUSSEF MD Ot F41.9 ANXIETY DISORDER, UNSPECIFIED 03/14/2018 JUSTA YOUSSEF MD Ot I10 ESSENTIAL (PRIMARY) HYPERTENSION 03/14/2018 JUSTA YOUSSEF MD Ot I25.10 ATHSCL HEART DISEASE OF [place] CORONARY 03/14/2018 JUSTA YOUSSEF MD Ot K21.9 GASTRO-ESOPHAGEAL REFLUX DISEASE WITHOUT 03/14/2018 JUSTA YOUSSEF MD Ot K44.9 DIAPHRAGMATIC HERNIA WITHOUT OBSTRUCTION 03/14/2018 JUSTA YOUSSEF MD Ot K57.30 DVRTCLOS OF LG INT W/O PERFORATION OR AB 03/14/2018 JUSTA YOUSSEF MD Ot R10.13 EPIGASTRIC PAIN 03/14/2018 JUSTA YOUSSEF MD Ot R11.0 NAUSEA 03/14/2018 JUSTA YOUSSEF MD, Ot Z79.899 OTHER USP (CURRENT) DRUG THERAPY 03/14/2018 JUSTA YOUSSEF MD Ot R10.11 RIGHT UPPER QUADRANT PAIN 03/14/2018 JUSTA YOUSSEF MD Ot R11.0 NAUSEA Procedures There is no data. Results There is no data. Encounters ACCT No. Visit Date/Time Discharge Status Pt. Type Provider Facility Loc./Unit Complaint [id number] 01/22/2018 09:47:33 01/22/2018 23:59:59 [facility] Outpatient Bruno Carreon [id number] 12/22/2017 09:47:30 12/22/2017 23:59:59 [facility] Outpatient Bruno Carreon [id number] 10/20/2017 09:48:42 10/20/2017 23:59:59 CLS Outpatient Bruno Carreon [id number] 09/19/2017 09:14:21 09/19/2017 23:59:59 CLS Outpatient Bruno Carreon [id number] 09/12/2017 09:29:14 09/12/2017 23:59:59 CLS Outpatient Riddel, Precious [id number] 06/27/2017 09:13:06 06/27/2017 23:59:59 CLS Outpatient Riddel, Precious [id number] 05/05/2017 12:50:55 05/05/2017 23:59:59 CLS Outpatient Yarelis Meza [id number] 04/11/2017 09:09:30 04/11/2017 23:59:59 CLS Outpatient Riddel, Precious [id number] 02/08/2017 09:53:44 02/08/2017 23:59:59 CLS Outpatient Riddel, Precious [id number] 01/31/2017 14:41:56 01/31/2017 23:59:59 CLS Outpatient Riddel, Precious [id number] 11/11/2016 09:15:47 11/11/2016 23:59:59 CLS Outpatient Riddel, Precious [id number] 11/01/2016 09:38:32 11/01/2016 23:59:59 CLS Outpatient Riddel, Precious [id number] 09/30/2016 12:09:45 09/30/2016 23:59:59 CLS Outpatient Riddel, Precious [id number] 09/16/2016 09:14:55 09/16/2016 23:59:59 CLS Outpatient Pj Guajardo [id number] 04/21/2016 09:25:05 04/21/2016 23:59:59 CLS Outpatient Riddel, Precious [id number] 02/04/2016 15:12:59 02/04/2016 23:59:59 CLS Outpatient Riddel, Precious [id number] 11/20/2015 09:14:04 11/20/2015 23:59:59 CLS Outpatient Riddel, Precious [id number] 10/21/2015 09:30:33 10/21/2015 23:59:59 CLS Outpatient Riddel, Precious [id number] 12/01/2014 22:02:21 12/01/2014 23:59:59 CLS Outpatient Precious Carmona [id number] 04/30/2014 10:01:13 04/30/2014 23:59:59 CLS Outpatient Precious Carmona [id number] 04/27/2014 14:03:46 04/27/2014 23:59:59 CLS Outpatient GuajardoPj [id number] 04/12/2014 10:21:34 04/12/2014 23:59:59 CLS Outpatient Agustín Gaby [id number] 02/17/2014 09:56:02 02/17/2014 23:59:59 CLS Outpatient Precious Carmona [id number] 01/27/2014 09:50:16 01/27/2014 23:59:59 CLS Outpatient Precious Carmona [id number] 01/26/2014 14:39:50 01/26/2014 23:59:59 CLS Outpatient Agustín Gaby [id number] 01/23/2014 10:07:18 01/23/2014 23:59:59 CLS Outpatient Milo Abbie [id number] 10/04/2013 10:13:17 10/04/2013 23:59:59 CLS Outpatient Coco Sofia [id number] 09/30/2013 09:15:33 09/30/2013 23:59:59 CLS Outpatient Precious Carmona [id number] 05/20/2013 10:42:42 05/20/2013 23:59:59 CLS Outpatient Precious Carmona [id number] 12/11/2017 08:04:33 Document Registration [id number] 09/19/2017 09:06:18 Document Registration [id number] 06/20/2017 08:10:16 Document Registration [id number] 02/21/2017 08:31:14 Document Registration [id number] 03/08/2018 09:15:00 03/08/2018 09:58:00 DIS Outpatient JUSTA YOUSSEF MD [facility] PREOP ROBOTIC CHOLECYSTECTOMY [id number] 02/13/2018 07:19:00 02/13/2018 23:59:59 CLS Outpatient JUSTA YOUSSEF MD [facility] CARD RUQ PAIN AND NAUSEA [id number] 02/12/2018 08:14:00 02/12/2018 23:59:59 CLS Outpatient JUSTA YOUSSEF MD [facility] ENDO NAUSEA/GERD [id number] 02/08/2018 13:31:00 02/08/2018 13:45:00 DIS Outpatient JUSTA YOUSSEF MD [facility] PREOP EGD [id number] 11/08/2016 09:12:00 11/08/2016 23:59:59 CLS Outpatient JUSTA YOUSSEF MD [facility] RAD RUQ PAIN [id number] 11/03/2016 08:08:00 11/03/2016 11:35:00 DIS Outpatient JUSTA YOUSSEF MD [facility] ENDO GERD/HEMOCULT POSITIVE STOOLS [id number] 10/31/2016 05:43:00 11/01/2016 10:32:00 DIS Outpatient JUSTA YOUSSEF MD [facility] PREOP GERD/HEMOCULT POSITIVE STOOLS [id number] 03/14/2018 05:53:00 ACT Outpatient JUSTA YOUSSEF MD [facility] SDC GALLBLADDER DYSKENESIA
[2018-03-14] MEDS ORDERED: BUP/EPI 0.5% 1:200,000 (SENSORCAINE) 30 ML VIAL ONE (07:38)
[2018-03-14] MEDS ORDERED: GLYCOPYRROLATE 0.2 MG/ML (ROBINUL) 2 ML VIAL ONE (08:09)
[2018-03-14] MEDS ORDERED: ROCURONIUM 10 MG/ML 5 ML SYRINGE IV ONE (08:09)
[2018-03-14] MEDS ORDERED: NEOSTIGMINE 1 MG/ML 5 ML SYRINGE ONE (08:09)
--- NOTE | 2018-03-14 08:19 | Operative Report ---
Operative Report Date of Procedure/Surgery Mar 14, 2018 Surgeon (s) JUSTA YOUSSEF MD Manager Gyn (s): N/A Post-Operative Diagnosis same Procedure Performed robotic-assisted cholecystectomy Description of Procedure Anesthesia Type: General Estimated blood loss (mL): minimal Specimen(s) collected/removed gallbladder Description of the Procedure Indication for the procedure: This lady presented with severe symptoms due to chronic, acalculous cholecystitis and much reduced ejection fraction of the gallbladder. Therefore, she was offered cholecystectomy using minimal invasive technique with robotic assistance. Informed consent was obtained after reviewing the operative details and complications of wound infection and bile leak. Description of procedure: She was placed supine on the operating table and general anesthesia induced. A gram of Ancef and 500 mg of Flagyl were administered intravenously as prophylaxis against wound infection. Sequential compression devices were placed around her legs, to minimize the risk of venous thrombosis. Abdomen was prepared and draped in the usual sterile manner. Pneumoperitoneum was established using a Veress needle introduced over the sub-umbilical region. Abdominal pressure was maintained at 15 mmHg, using carbon dioxide insufflation. A 12 mm trocar was placed and anatomy visualized using the high definition, 3-dimensional laparoscope associated with da Twan system. Under direct view, I placed an 8 mm trocar over each side of the abdomen, followed by a 5 mm trocar over the left subcostal region. The patient was then turned into reverse Trendelenburg position, with the right side tilted up. The robotic system was then docked in place. The fundus of the gallbladder was retracted cephalad and the infundibulum grasped with Cadiere forceps. Peritoneum overlying Calot's triangle was incised using the hook cautery, delineating the cystic duct and artery. Both were controlled between locking clips. Cholecystectomy was then completed using the hook cautery. The gallbladder was then placed in an Endo Catch bag and removed via the subumbilical trocar site. The fascia over this incision was closed using Vicryl in a Isidoro Crespo device under direct view. Skin incisions were closed using 4-0 Vicryl, in a subcuticular fashion. 0.5 percent Marcaine with epinephrine was infiltrated along the incisions, both preemptively and at the conclusion of the operation. She tolerated the procedure well, was extubated in the operating room and taken to the recovery room in a stable condition. Findings of the Procedure See op report Allergies and Home Medications Allergies Coded Allergies: No Known Drug Allergies (Unverified , 02/08/18) Home Medications Amlodipine Besylate 5 Mg Tablet, 5 MG PO DAILY, (Reported) Atenolol 50 Mg Tablet, 50 MG PO DAILY, (Reported) Atorvastatin Calcium 20 Mg Tablet, 20 MG PO DAILY, (Reported) B Complex with Vitamin C 1 Each Tablet, 1 EACH PO DAILY, (Reported) Ca Carbonate/Vitamin D3/Vit K 1 Each Tab.chew, 2 EACH PO DAILY, (Reported) Clopidogrel Bisulfate 75 Mg Tablet, 75 MG PO DAILY, (Reported) Escitalopram Oxalate 10 Mg Tablet, 10 MG PO DAILY, (Reported) Fish Oil/Dha/Epa 1 Each Capsule, 2 EACH PO DAILY, (Reported) Gluc/Terry-MSM#2/C/D3/James/Born 1 Each Tablet, 2 EACH PO DAILY, (Reported) Levothyroxine Sodium 50 Mcg Tablet, 50 MCG PO DAILY, (Reported) Losartan Potassium 100 Mg Tablet, 100 MG PO DAILY, (Reported) Mirtazapine 15 Mg Tablet, 15 MG PO HS, (Reported) Multivitamin 1 Each Capsule, 1 EACH PO DAILY, (Reported) Pantoprazole Sodium 40 Mg Tablet.dr, 40 MG PO BID, (Reported) Prochlorperazine Maleate 10 Mg Tablet, 10 MG PO Q8H PRN for NAUSEA/VOMITING-1ST LINE, (Reported) Patient Home Medication List Home Medication List Reviewed: Yes JUSTA YOUSSEF MD Mar 14, 2018 08:19
[2018-03-14] MEDS ORDERED: ACHD5005 PO (08:20)
--- NOTE | 2018-03-14 08:20 | Discharge Inst-Simple/Standard ---
Discharge Inst-Standard Discharge Medications New, Converted or Re-Newed RX: RX on Chart Patient Instructions/Follow Up Plan of Care/Instructions/FU: Band-Aids off in 48 hours. Incentive spirometry. Resume Plavix on Monday. Follow-up in 3 weeks. Activity as Tolerated: Yes Discharge Diet: No Restrictions JUSTA YOUSSEF MD Mar 14, 2018 08:20
[2018-03-14] MEDS ORDERED: morphine INJ 10 MG/ML 1ML (SYR OR VIAL) IVP ONE (09:00)
[2018-03-14] MEDS ORDERED: ONDANSETRON 4 MG/2 ML (SDV) Z0FRAN IVP PRN (09:00)
--- NOTE | 2018-03-14 09:03 | Anesthesia-General Post-Op ---
General Patient Condition Mental Status/LOC: Same as Preop Cardiovascular: Satisfactory Nausea/Vomiting: Absent Respiratory: Satisfactory Pain: Controlled Complications: Absent Post Op Complications Complications None Follow Up Care/Instructions Patient Instructions None needed. Anesthesia/Patient Condition Patient Condition Patient is doing well, no complaints, stable vital signs, no apparent adverse anesthesia problems. No complications reported per nursing. FREDERICK PAYAN CRNA Mar 14, 2018 09:03
[2018-03-14 09:35] VITALS: BP 131/71
[2018-03-14 10:00] VITALS: BP 130/75
[2018-03-14] MEDS ORDERED: HYDROcodone/APAP 5 MG/325 MG (LORTAB) TAB PO ONE (10:15)
[2018-03-14 10:35] VITALS: BP 135/79
[2018-03-14 10:50] VITALS: BP 135/79
== END 2018-03-14 10:50 | disposition home or self-care (01) ==
LOC: SDC 05:53
PROVIDERS: ATTEND Surgery
DX: K81.1 Chronic cholecystitis (principal); K82.8 Other specified diseases of gallbladder; Z11.2 Encounter for screening for other bacterial diseases; I10 Essential (primary) hypertension; I25.10 Atherosclerotic heart disease of native coronary artery without angina pectoris; E78.5 Hyperlipidemia, unspecified; Z95.5 Presence of coronary angioplasty implant and graft; K21.9 Gastro-esophageal reflux disease without esophagitis; K44.9 Diaphragmatic hernia without obstruction or gangrene; F41.9 Anxiety disorder, unspecified; Z79.899 Other long term (current) drug therapy; Z79.82 Long term (current) use of aspirin
CPT/HCPCS: 36415; 80053; 85025; 87081; 88304; 94664